=== PATIENT | female | born 1945 | race Caucasian/White ===

== ENCOUNTER → 2018-05-13 15:57 | Outpatient (CLI) | payer MEDICARE, SELFPAY ==
--- NOTE | 2018-05-13 16:08 | XR_ITS ---
EXAM: XR lumbar spine min 4V HISTORY: Right-sided low back pain radiating into the right leg ITS.REASON: RT SIDED SCIATICA ORDERING PHYSICIAN: Ever Jara MD PATIENT AGE: 72 years COMPARISON: None FINDINGS: Minimal lumbar curvature convex left. There is mild wedging involving the L1 vertebral body which has developed since 06/06/2012. There is anterolisthesis of L4 on L5 of 6 mm with degenerative disc disease at L3-L4 L4-5 and L5-S1. There is mild facet arthritic change at L4-5 and L5-S1. IMPRESSION: 1. Mild wedging of L1 anteriorly with loss of height of approximately 20%. Consider MRI to determine if this is acute or chronic. No obvious retropulsed fragments. 2. Degenerative disc disease L3-L4, L4 L5 and L5-S1 with 6 mm anterolisthesis of L4 on L5 and facet arthritic changes at L4-5 and L5-S1
== END ==
PROVIDERS: PCP Family Medicine; Visit Provider Family Medicine
DX: M54.31 Sciatica, right side (principal)
CPT/HCPCS: 72110

== ENCOUNTER → 2018-08-27 08:24 | Outpatient (CLI) | payer MEDICARE, SELFPAY ==
--- NOTE | 2018-08-27 08:29 | MR_ITS ---
MR lumbar spine wo/w con, MR 3-d myelogram/MRCP HISTORY: PT states RT hip pain X years. RT leg pain as well. ITS.REASON: BACK PAIN, compression fracture of L1 ORDERING PHYSICIAN: Samantha Resendiz APRN PATIENT AGE: 73 years Comparison: X-RAY 05/13/18 TECHNIQUE: Standard multiplanar multiecho sequences are performed without and with gadolinium enhancement contrast. 3-D MIP and myelographic images are also rendered and reviewed FINDINGS: There is normal alignment. The spinal cord ends at the T12-L1 level. T10-T11: Mild degenerative disc disease T11-T12: Mild degenerative disc disease. T12-L1: There is mild wedge compression changes of the L1 vertebral body with minimal buckling of the posterior cortex superiorly. This does not appear acute as there is no bone marrow edema within the L1 vertebral body. The cortex is buckled posteriorly by approximately 3 mm without impingement. There is mild facet and ligamentum flavum hypertrophy at this level. L1-L2: Unremarkable. L2-L3: Mild bulging disc with mild facet and ligamentum flavum hypertrophy. L3-L4: Degenerative disc disease with bulging disc slightly eccentric to the right with right-sided foraminal disc osteophyte complex causing moderate severe right-sided foraminal narrowing and right lateral recess narrowing. L4-5: Degenerative disc disease. There is bulging disc. There is 5 mm anterolisthesis of L4 and there is severe facet and ligamentum flavum hypertrophy with severe canal stenosis at this level with canal measuring approximately 7 mm. There is severe bilateral lateral recess narrowing and moderate bilateral foraminal narrowing slightly greater on the left. L5-S1: Mild bulging disc. There is moderate left-sided foraminal narrowing from facet hypertrophy and the bulging disc. No enhancing lesions are evident. 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 There are small left renal cyst. The right kidney is not identified or may be severely atrophic. IMPRESSION: 1. There is multilevel lumbar spondylosis with degenerative disc disease, bulging disc, and facet and ligamentous hypertrophy. Please see above for detailed description at each level. 2. Mild wedging of L1 vertebral body which appears chronic with minimal posterior buckling of the cortex without impingement 3. Degenerative disc disease with bulging disc with right-sided foraminal disc osteophyte complex at L3-L4 causing moderate to severe right-sided foraminal and right lateral recess narrowing 4. Degenerative disc disease with bulging disc and 5 mm anterolisthesis of L4 on L5 with severe facet and ligamentum hypertrophy with moderate to severe canal stenosis and bilateral lateral recess and foraminal narrowing 5. A normal right kidney is not identified and may be severely atrophic
== END ==
PROVIDERS: PCP Nurse Practitioner Family; Visit Provider Nurse Practitioner Family
DX: M54.5 Low back pain (principal)
CPT/HCPCS: 72158; 76376; A9576

== ENCOUNTER → 2018-11-20 11:39 | Outpatient (CLI) | payer MEDICARE, SELFPAY ==
--- NOTE | 2018-11-20 11:46 | XR_ITS ---
PROCEDURE: XR SHOULDER LT three-view 11/20/2018 XR CLAVICLE LT from 11/20/2018 CLINICAL INDICATION: INJURY OF LEFT SHOULDER, INITAL ENCOUNTER Fell this morning pain and swelling left shoulder. Near AC joint COMPARISON: [id number] VIEWS from 05/05/2013 XR CLAVICLE LT from 11/20/2018 FINDINGS: Left [id number] Fracture distal left clavicle with mildly comminuted The main portion this distal clavicle fracture is seen 3 cm from the AC joint Minor mild inferior offset and mild downward tilt of the distal fracture fragment leading to the AC joint On close inspection of horizontal inferior fragment at this mildly comminuted fracture. This may reflect a inferior avulsion fragment, which leads to/and accompanying the coricoclavicular ligament Left shoulder three views AP internal and external rotation along with Y view performed but the humeral head and neck intact but the glenohumeral joint intact there may be some early degenerative changes here as well as AC joint these unimpressive. The left lung apex and upper left ribs are intact. Again noted is fracture of the distal clavicle on these views IMPRESSION: Fracture distal left clavicle. Minimally comminuted Otherwise left shoulder intact Dictated by: Mateo Aguirre MD 11/20/2018 12:29 Signed by: <Electronically signed by Mateo Aguirre MD in [place]> 11/20/2018 12:29
--- NOTE | 2018-11-20 11:46 | XR_ITS ---
PROCEDURE: XR CLAVICLE LT XR SHOULDER LT MIN 2V from 11/20/2018 CLINICAL INDICATION: INJURY OF LEFT SHOULDER, INITAL ENCOUNTER pain swelling about distal clavicle ports AC joint COMPARISON: XR SHOULDER LT MIN 2V from 11/20/2018 FINDINGS: Left [id number]: Fracture distal left clavicle with mildly comminuted The main portion this distal clavicle fractu Near re is seen 3 cm from the AC joint Minor mild inferior offset and mild downward tilt of the distal fracture fragment leading to the AC joint On close inspection of horizontal inferior fragment at this mildly comminuted fracture. This may reflect a inferior avulsion fragment, which leads to/and accompanying the coricoclavicular ligament Left shoulder three views : AP internal and external rotation along with Y view performed but the humeral head and neck intact.. The glenohumeral joint intact there may be some early degenerative changes here as well as AC joint these unimpressive. The left lung apex and upper left ribs are intact. Again noted is fracture of the distal clavicle on these views IMPRESSION: IMPRESSION Fracture distal left clavicle. Minimally comminuted Otherwise left shoulder intact Dictated by: Mateo Aguirre MD 11/20/2018 12:32 Signed by: <Electronically signed by Mateo Aguirre MD in [place]> 11/20/2018 12:32
== END ==
PROVIDERS: PCP Physician Assistant; Visit Provider Physician Assistant
DX: S49.92XA Unspecified injury of left shoulder and upper arm, initial encounter (principal)
CPT/HCPCS: 73000; 73030

== ENCOUNTER → 2018-11-27 10:15 | Outpatient (CLI) | payer MEDICARE, SELFPAY ==
--- NOTE | 2018-11-27 10:21 | XR_ITS ---
PROCEDURE: XR HUMERUS LT CLINICAL INDICATION: LT ARM PAIN COMPARISON: No exams were available for comparison FINDINGS: No fracture or dislocation. No lytic or blastic change. There is normal mineralization. There is a mildly displaced fracture of the distal clavicle Other findings:None. IMPRESSION: Negative humerus. Comminuted displaced distal clavicular fracture Dictated by: Hardik Bennett MD 11/27/2018 13:15 Signed by: <Electronically signed by Hardik Bennett MD in [place]> 11/27/2018 13:15
--- NOTE | 2018-11-27 10:21 | XR_ITS ---
PROCEDURE: XR CHEST 2V CLINICAL HISTORY: CHEST WALL PAIN COMPARISON: CXR CHEST(2 VIEWS-NOT PORTABLE) from 06/06/2012 RIBUL3 [id number] VIEWS from 05/05/2013 FINDINGS: Normal heart size. Mild prominence of the descending thoracic aorta. There is some increased density in the right hilar region probably due to overlapping vasculature. Loop recorder device is present. Comminuted distal clavicular fracture noted on the left. The medial aspect of the left clavicle is slightly higher than the right side. This however did appear to be present on an older exam of 05/05/2013. There are degenerative changes in the thoracic spine. IMPRESSION: Mild ectasias of the descending thoracic aorta Comminuted distal clavicular fracture on the left. There is some mild superior elevation of the medial aspect of the left clavicle but appears to represent a chronic finding Dictated by: Hardik Bennett MD 11/27/2018 13:21 Signed by: <Electronically signed by Hardik Bennett MD in [place]> 11/27/2018 13:21
--- NOTE | 2018-11-27 10:21 | XR_ITS ---
PROCEDURE: XR CLAVICLE LT CLINICAL INDICATION: HEALING OF LT CLAVICLE FX Follow-up clavicular fracture COMPARISON: XR CLAVICLE LT from 11/20/2018 FINDINGS: Comminuted mildly displaced distal clavicular fracture is noted. The distal fracture fragment is slightly angulated inferiorly and there is displaced fragment along the under surface of the fracture site. Overall no significant change considering some difference in positioning. The AC joint appears intact and the glenohumeral joint appears intact IMPRESSION: No change comminuted mildly displaced distal clavicular fracture Dictated by: Hardik Bennett MD 11/27/2018 13:16 Signed by: <Electronically signed by Hardik Bennett MD in [place]> 11/27/2018 13:16
== END ==
PROVIDERS: PCP Family Medicine; Visit Provider Physician Assistant
DX: R07.89 Other chest pain (principal); M79.602 Pain in left arm; S42.032D Displaced fracture of lateral end of left clavicle, subsequent encounter for fracture with routine healing
CPT/HCPCS: 71046; 73000; 73060

== ENCOUNTER → 2018-12-04 14:02 | Outpatient (CLI) | payer MEDICARE, SELFPAY ==
--- NOTE | 2018-12-04 14:08 | XR_ITS ---
PROCEDURE: XR CLAVICLE LT CLINICAL INDICATION: FU CLAVICLE FX Follow-up fracture COMPARISON: XR CLAVICLE LT from 11/27/2018 FINDINGS: Comminuted fracture once again noted involving the distal clavicle with inferior angulation of the distal fracture fragment. There is a fragment which is displaced inferiorly foot. IMPRESSION: No change distal left clavicular fracture Dictated by: Hardik Bennett MD 12/04/2018 14:38 Signed by: <Electronically signed by Hardik Bennett MD in [place]> 12/04/2018 14:38
== END ==
PROVIDERS: PCP Family Medicine; Visit Provider Family Medicine
DX: S42.032D Displaced fracture of lateral end of left clavicle, subsequent encounter for fracture with routine healing (principal)
CPT/HCPCS: 73000

== ENCOUNTER → 2018-12-25 14:15 | Outpatient (CLI) | payer MEDICARE, SELFPAY ==
--- NOTE | 2018-12-25 14:22 | XR_ITS ---
PROCEDURE: XR CLAVICLE LT CLINICAL INDICATION: LT CLAVICLE FX Follow-up fracture COMPARISON: XR CLAVICLE LT from 11/20/2018 XR CLAVICLE LT from 11/27/2018 XR CLAVICLE LT from 12/04/2018 FINDINGS: Healing comminuted distal clavicular fracture noted. There is a small displaced fragment once again noted which appears somewhat less displaced compared to the previous studies. This is inferior to the main fracture fragment. IMPRESSION: Healing comminuted distal clavicular fracture Dictated by: Hardik Bennett MD 12/25/2018 15:32 Electronically signed by Hardik Bennett MD in [place] 12/25/2018 15:32
== END ==
PROVIDERS: PCP Family Medicine; Visit Provider Family Medicine
DX: S42.032D Displaced fracture of lateral end of left clavicle, subsequent encounter for fracture with routine healing (principal)
CPT/HCPCS: 73000

== ENCOUNTER → 2019-01-27 13:54 | Outpatient (CLI) | payer MEDICARE, SELFPAY ==
--- NOTE | 2019-01-27 14:00 | XR_ITS ---
PROCEDURE: XR CHEST 2V CLINICAL HISTORY: LT SIDED CHEST WALL PAIN, S/P FALL COMPARISON: CXR CHEST(2 VIEWS-NOT PORTABLE) from 06/06/2012 XR CHEST 2V from 11/27/2018 FINDINGS: The cardiomediastinal silhouette and pulmonary vascularity are within normal limits. A loop recorder device is present. There are multiple old bilateral rib fractures. There may be a nondisplaced 7th rib fracture as seen on the rib detail films. The lungs are clear bilaterally. There are degenerative changes of the thoracic spine with kyphosis and mild wedging of T6-7 and 8. IMPRESSION: Old rib fractures with suspected nondisplaced acute left 7th rib fracture Dictated by: Hardik Bennett MD 01/27/2019 16:42 Electronically signed by Hardik Bennett MD in [place] 01/27/2019 16:42
--- NOTE | 2019-01-27 14:00 | XR_ITS ---
PROCEDURE: XR RIBS LT 2V CLINICAL INDICATION: LT SIDED CHEST WALL PAIN, S/P FALL Left-sided chest wall pain COMPARISON: XR CHEST 2V from 01/27/2019 FINDINGS: There are old left-sided rib fractures. This involves the 4th 5th and 6th ribs laterally. There appears to be a nondisplaced fracture of the 7th rib laterally which may be acute. Loop recorder device is present on the left. IMPRESSION: Old left-sided rib fractures with suspected nondisplaced acute left 7th rib fracture Dictated by: Hardik Bennett MD 01/27/2019 16:27 Electronically signed by Hardik Bennett MD in [place] 01/27/2019 16:27
== END ==
PROVIDERS: PCP Family Medicine; Visit Provider Family Medicine
DX: R07.89 Other chest pain (principal)
CPT/HCPCS: 71046; 71100

== ENCOUNTER → 2019-06-03 07:34 | Outpatient (CLI) | payer MEDICARE, SELFPAY ==
[2019-06-03 08:20] LABS: Basophils % 0.6 % (0.1-2.0); Eosinophils # 0.2 K/mm3 (0.0-0.4); Hemoglobin 13.7 g/dL (12.2-16.2); Lymphocytes # 1.4 K/mm3 (0.7-4.5); Mean Corpuscular HGB Conc 31.9 g/dL (31.8-35.4); Mean Corpuscular Volume 100.2 fl (81-99); Mean Platelet Volume 7.7 fl (7.4-10.4); Monocytes # 0.3 K/mm3 (0.1-1.0); Neutrophils # 2.5 K/mm3 (1.8-7.8); Neutrophils % 57.4 % (37.0-80.0); Platelet Count 234 K/mm3 (142-424); Red Blood Count 4.29 M/mm3 (4.20-5.40); White Blood Count 4.4 K/mm3 (4.8-10.8)
[2019-06-03 08:40] LABS: Chloride 101 mmol/L (98-107); Sodium 138 mmol/L (136-145)
[2019-06-03 08:41] LABS: Potassium 4.3 mmoL/L (3.5-5.1)
[2019-06-03 08:43] LABS: Alanine Aminotransferase 10 U/L (12-78); Albumin Level 3.9 g/dl (3.5-5.0); Albumin/Globulin Ratio 1.6 (1.1-1.8); Alkaline Phosphatase 109 U/L (38-126); Anion Gap 8.3 mEq/L (5-15); Aspartate Amino Transferase 23 U/L (14-36); Bilirubin,Total 0.3 mg/dl (0.2-1.3); Blood Urea Nitrogen 20 mg/dl (7-17); Carbon Dioxide 33 mmol/L (22.0-30.0); Cholesterol 185 mg/dl (140-200); Estimated Glomerular Filt Rate 49 ml/min (>60); GFR (African American) 59 ML/MIN (>60); Globulin 2.5 g/dL (1.3-3.2); Total Protein,Serum 6.4 g/dl (6.3-8.2); Triglycerides 68 mg/dl (30-150); VLDL Cholesterol 14 mg/dL (0-40)
[2019-06-03 08:44] LABS: Calcium 9.4 mg/dl (8.4-10.2); Glucose 84 mg/dl (74-100); HDL Cholesterol 91 mg/dl (40-60)
[2019-06-03 08:55] LABS: Direct LDL Cholesterol 79.88 mg/dL (100-129)
[2019-06-03 09:00] LABS: Free T4 (Free Thyroxine) 0.71 ng/dl (0.78-2.19)
[2019-06-03 09:14] LABS: Thyroid Stimulating Hormone 4.24 uIU/mL (0.465-4.68)
[2019-06-03 09:28] LABS: Carbamazepine (Tegretol) 4.7 ug/ml (4.0-12.0)
[2019-06-03 09:35] LABS: Hemoglobin A1C 5.8 % (4.0-6.0)
== END ==
PROVIDERS: Visit Provider Nurse Practitioner Family
DX: G40.909 Epilepsy, unspecified, not intractable, without status epilepticus (principal); E03.9 Hypothyroidism, unspecified; E55.9 Vitamin D deficiency, unspecified; E78.5 Hyperlipidemia, unspecified; I10 Essential (primary) hypertension; Z13.1 Encounter for screening for diabetes mellitus; Z79.899 Other long term (current) drug therapy
CPT/HCPCS: 36415; 80053; 80061; 80156; 82652; 83036; 84439; 84443; 85025

== ENCOUNTER 2019-12-19 13:20 | Emergency (ER) | payer MEDICARE, SELFPAY ==
[2019-12-19 13:42] VITALS: BP 158/100; PULSE 64; RESP 20; TEMP 36.8; O2SAT 99; BMI 30.4
--- NOTE | 2019-12-19 13:52 | HMH.EDUTC ---
[facility] [place] Clinical Impression: Urinary frequency Disposition: Home, Self-Care Condition on Discharge: Good Instructions: Urine Culture, Oxybutynin Additional Instructions: Follow up with your primary care doctor within the next few days or so. Take the medications as directed. Watch for dizziness from the new medication. GO TO THE ER FOR ANY WORSENING SYMPTOMS OR CONCERNS. Prescriptions: Oxybutynin Chloride 2.5 mg PO BID 14 Days #7 tab Transmission Status: Received by [id number] Referrals: Ever Jara MD [Primary Care Provider] - Time of Disposition: 15:08 Medical Decision Making - Medical Records Medical records reviewed: No: I reviewed the patient's medical records. - Joseph Inquiry Pt receiving controlled substance: No Vital Signs: 12/19/19 13:42 12/19/19 15:11 Temperature 98.2 F 98.2 F Temperature Source Oral Pulse Rate 64 Pulse Rate [Left Brachial] 64 Respiratory Rate 20 20 Blood Pressure 158/100 H Blood Pressure [Left Arm] 158/100 H Blood Pressure Mean [Left Arm] 119 Blood Pressure Source [Left Arm] Automatic Cuff Blood Pressure Position [Left Arm] Sitting 02 Sat by Pulse Oximetry 99 Oxygen Delivery Method Room Air - Lab Data Lab results reviewed: Yes: I reviewed the patient's lab results. Lab Results 12/19/19 14:02: Urine Color Yellow, Urine Appearance Clear, Urine pH 5.5, Ur Specific [place] 1.020, Urine Protein Negative, Urine Glucose (UA) Negative, Urine Ketones Trace, Urine Blood Negative, Urine Nitrate Negative, Urine Bilirubin Negative, Urine Urobilinogen 0.2, Ur Leukocyte Esterase Negative 12/19/19 14:37: WBC 4.2 L, RBC 4.25, Hgb 14.3, Hct 41.3, MCV 97.2, MCH 33.6 H, MCHC 34.6, RDW 13.2, Plt Count 215, MPV 7.9, Neut % (Auto) 62.3, Lymph % (Auto) 26.6, [place] % (Auto) 6.2, Eos % (Auto) 4.0, Baso % (Auto) 0.9, Neut # (Auto) 2.6, Lymph # (Auto) 1.1, [place] # (Auto) 0.3, Eos # (Auto) 0.2, Baso # (Auto) 0.0 12/19/19 14:37: Sodium 139, Potassium 4.9, Chloride 103, Carbon Dioxide 32 H, Anion Gap 8.9, BUN 25 H, Creatinine 1.10 H, Estimated Creat Clear 56, Estimated GFR 48 L, Est GFR ( Amer) 59, Glucose 96, Calcium 9.2, Total Bilirubin 0.3, AST 24, ALT 13, Alkaline Phosphatase 110, Total Protein 6.9, Albumin 4.0, Globulin 2.9, Albumin/Globulin Ratio 1.4 Result diagrams: 12/19/19 14:37 12/19/19 14:37 [facility] [place] - General Stated complaint: urinating a lot Time Seen by Provider: 12/19/19 13:50 Mode of Arrival: Ambulatory Source of Information: Patient Limitations: No Limitations Description of Symptoms (Recalled from Triage Doc. by RN): PATIENT C/O URINARY FREQUENCY SINCE YESTERDAY HEENT Symptoms (Recalled from RN notes): No Resp Symptoms (Recalled from RN notes): No Skin Symptoms (Recalled from RN notes): No MS Symptoms (Recalled from RN notes): No Functional Status (Recalled from RN notes): WNL - History of Present Illness Provider Complaint: She c/o having to go pee very often. She states that this has been an ongoing problem for quite awhile, but she had not told anyone in her family. When she complained today, she came here to see if it is a UTI. She doesn't have a history of getting UTI's often. She may have had one several years ago. 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 - Related Data Home Medications Medication Instructions Recorded Confirmed Aspirin [Aspirin 81mg chewable 81 mg PO DAILY 12/19/19 12/19/19 tab] Atorvastatin Calcium [Lipitor 40mg 40 mg PO HS 12/19/19 12/19/19 Tab] Clopidogrel Bisulfate [Plavix 75mg 75 mg PO DAILY 12/19/19 12/19/19 Tab] Donepezil HCl [Aricept 10mg 10 mg PO HS 12/19/19 12/19/19 tablet] Fluoxetine HCl [Prozac 10mg 10 mg PO DAILY 09/12/20 09/12/20 Capsule] Levothyroxine Sodium [Euthyrox] 25 mcg PO DAILY 12/19/19 12/19/19 Meloxicam [Mobic 15 mg tab] 15 mg PO DAILY 12/19/19 12/19/19 [id number]
[2019-12-19 14:04] LABS: Apearance,Urine Clear (Clear); Bilirubin,Urine Negative (Negative); Blood, Urine Negative (Negative); Color,Urine Yellow (Yellow); Glucose,Urine (UA) Negative (Negative); Ketones,Urine TRACE (Negative); PH,Urine 5.5 (5.0-8.5); Protein,Urine Negative (Negative)
[2019-12-19 14:05] LABS: UTC Leukocyte Esterase,Urine Negative (Negative); UTC Nitrate,Urine Negative (Negative); Urobilinogen,Urine 0.2 EU/dl (0.2)
[2019-12-19 14:40] LABS: Basophils % 0.9 % (0.1-2.0); Eosinophils # 0.2 K/mm3 (0.0-0.4); Hematocrit 41.3 % (37.0-47.0); Hemoglobin 14.3 g/dL (12.2-16.2); Lymphocytes # 1.1 K/mm3 (0.7-4.5); Lymphocytes % 26.6 % (10-50); Mean Corpuscular HGB Conc 34.6 g/dL (31.8-35.4); Mean Corpuscular Hemoglobin 33.6 pg (27.0-31.2); Mean Corpuscular Volume 97.2 fl (81-99); Mean Platelet Volume 7.9 fl (7.4-10.4); Monocytes # 0.3 K/mm3 (0.1-1.0); Monocytes % 6.2 % (1.7-9.3); Neutrophils # 2.6 K/mm3 (1.8-7.8); Neutrophils % 62.3 % (37.0-80.0); Platelet Count 215 K/mm3 (142-424); Red Blood Count 4.25 M/mm3 (4.20-5.40); Red Cell Distribution Width 13.2 % (11.5-17.5); White Blood Count 4.2 K/mm3 (4.8-10.8)
[2019-12-19 14:46] LABS: Chloride 103 mmol/L (98-107); Potassium 4.9 mmoL/L (3.5-5.1); Sodium 139 mmol/L (136-145)
[2019-12-19 14:48] LABS: Alanine Aminotransferase 13 U/L (12-78); Aspartate Amino Transferase 24 U/L (14-36); Blood Urea Nitrogen 25 mg/dl (7-17); Creatinine Clearance Estimated 56 mL/min (50-200); Estimated Glomerular Filt Rate 48 ml/min (>60); GFR (African American) 59 ML/MIN (>60)
[2019-12-19 14:49] LABS: Albumin/Globulin Ratio 1.4 (1.1-1.8); Alkaline Phosphatase 110 U/L (38-126); Anion Gap 8.9 mEq/L (5-15); Bilirubin,Total 0.3 mg/dl (0.2-1.3); Calcium 9.2 mg/dl (8.4-10.2); Carbon Dioxide 32 mmol/L (22.0-30.0); Globulin 2.9 g/dL (1.3-3.2); Glucose 96 mg/dl (74-100); Total Protein,Serum 6.9 g/dl (6.3-8.2)
[2019-12-19 15:11] VITALS: BP 158/100; PULSE 64; RESP 20; TEMP 36.8; O2SAT 99
== END 2019-12-19 15:16 | disposition home or self-care (01) ==
PROVIDERS: Emergency Provider Nurse Practitioner Family; PCP Family Medicine
DX: R35.0 Frequency of micturition (principal); Z88.0 Allergy status to penicillin; Z88.5 Allergy status to narcotic agent
CPT/HCPCS: G0463; 80053; 81003; 85025; 99202

== ENCOUNTER → 2019-12-30 13:00 | Outpatient (CLI) | payer MEDICARE, SELFPAY ==
--- NOTE | 2019-12-30 13:10 | XR_ITS ---
PROCEDURE: XR HAND RT MIN 3V CLINICAL INDICATION: RT HAND INJURY Posttraumatic pain COMPARISON: CR XR HAND LT MIN 3V from 12/30/2019 FINDINGS: There does appear to be a nondisplaced fracture involving the distal aspect of the 5th metacarpal at the diaphyseal metaphyseal junction best demonstrated on the lateral view. Please correlate as the patient's area of pain and tenderness. A separate fragment is noted along the ulnar and distal aspect of the 5th metacarpal. There are osteoarthritic changes at the metacarpophalangeal junction and the DIP joints of digits 2 through 5. There are severe osteoarthritic changes at the scapho trapezium joint. A well-circumscribed lucent lesion is present involving the radius distally and along its ulnar margin. IMPRESSION: 1. Possible nondisplaced fracture distal aspect of 5th metacarpal with avulsion injury along its ulnar aspect. Please correlate as the patient's area of pain and tenderness. 2. Osteoarthritic changes. 3. 14 mm benign-appearing cystic lesion of the distal radius Dictated by: Hardik Bennett MD 12/30/2019 14:48 Hardik Bennett MD in [place] 12/30/2019 14:48
--- NOTE | 2019-12-30 13:10 | XR_ITS ---
PROCEDURE: XR RIBS LT MIN 3V W CXR1V CLINICAL INDICATION: LT RIB PAIN Posttraumatic pain COMPARISON: CR CXR CHEST(2 VIEWS-NOT PORTABLE) from 06/06/2012 CR XR CHEST 2V from 11/27/2018 CR XR CHEST 2V from 01/27/2019 FINDINGS: Minimal atelectatic or fibrotic changes are present in the lung bases at the CP angles. Normal heart size. There is a sawyer-shaped hemithorax which may be seen with osteopenia/osteoporosis. There are multiple old left-sided rib fractures. No definite acute fracture is apparent. There are old fractures of the left 4th 5th 6th and 7th ribs. Loop recorder device is noted over the left lower hemithorax IMPRESSION: Old left-sided rib fractures. No definite acute fracture. If pain persists consider chest CT with 3D reformats for more thorough evaluation. Dictated by: Hardik Bennett MD 12/30/2019 14:55 Hardik Bennett MD in [place] 12/30/2019 14:55
--- NOTE | 2019-12-30 13:10 | XR_ITS ---
PROCEDURE: XR KNEE RT 3V CLINICAL INDICATION: RT KNEE PAIN COMPARISON: CR [id number] KNEE-3 VIEWS-LT from 05/05/2013 FINDINGS: No fracture or dislocation. No lytic or blastic change. There is normal mineralization. There are minimal osteoarthritic changes the patellofemoral joint Other findings:There is minimal chondrocalcinosis of the medial and lateral meniscus. IMPRESSION: Minimal osteoarthritic change with chondrocalcinosis Dictated by: Hardik Bennett MD 12/30/2019 14:52 Hardik Bennett MD in [place] 12/30/2019 14:52
--- NOTE | 2019-12-30 13:10 | XR_ITS ---
PROCEDURE: XR HAND LT MIN 3V CLINICAL INDICATION: LT HAND INJURY Posttraumatic pain COMPARISON: No exams were available for comparison FINDINGS: There are generalized osteoarthritic changes most severe at the 1st metacarpal-carpal joint. A longitudinal fracture is present at the proximal aspect of the middle phalanx of the 5th digit which extends into the articular surface at the PIP joint. There is 2 mm dorsal displacement of the proximal fracture fragment with minimal dorsal angulation of the distal fracture fragment. IMPRESSION: Intra-articular fracture of the middle phalanx of the 5th digit with extension into the PIP joint Dictated by: Hardik Bennett MD 12/30/2019 14:51 Hardik Bennett MD in [place] 12/30/2019 14:51
--- NOTE | 2019-12-30 13:10 | XR_ITS ---
PROCEDURE: XR FACIAL BONES MIN 3V CLINICAL INDICATION: FACIAL INJURY posttraumatic pain COMPARISON: No exams were available for comparison FINDINGS: No fracture or dislocation. No lytic or blastic change. There is normal mineralization. Unremarkable appearing TMJs. No sinus air-fluid level. IMPRESSION: No acute findings. Dictated by: Hardik Bennett MD 12/30/2019 14:56 Hardik Bennett MD in [place] 12/30/2019 14:56
== END ==
PROVIDERS: PCP Family Medicine; Visit Provider Nurse Practitioner Family
DX: S09.93XA Unspecified injury of face, initial encounter (principal); S69.92XA Unspecified injury of left wrist, hand and finger(s), initial encounter; S69.91XA Unspecified injury of right wrist, hand and finger(s), initial encounter; M25.561 Pain in right knee; R07.81 Pleurodynia
CPT/HCPCS: 70150; 71101; 73130; 73562

== ENCOUNTER → 2020-01-20 15:02 | Outpatient (CLI) | payer MEDICARE, SELFPAY ==
--- NOTE | 2020-01-20 | XR_ITS ---
PROCEDURE: XR FINGER LT MIN 2V CLINICAL INDICATION: FRACTURE OF DISTAL PHALANX OF FINGER OF LT HAND COMPARISON: No exams were available for comparison FINDINGS: Minimally displaced fracture involves the proximal aspect of the middle phalanx of the 5th digit with extension into the PIP joint. The middle phalanx is slightly displaced anteriorly by approximately 3 mm. Posterior fracture fragment is displaced posteriorly by 2 mm. IMPRESSION: Comminuted fracture proximal aspect of middle phalanx of the 5th digit Dictated by: Hardik Bennett MD 01/20/2020 16:23 Hardik Bennett MD in [place] 01/20/2020 16:23
--- NOTE | 2020-01-20 | XR_ITS ---
PROCEDURE: XR HAND RT MIN 3V CLINICAL INDICATION: FRACTURE OF RT HAND, CLOSED, INITIAL ENCOUNTER COMPARISON: CR XR HAND RT MIN 3V from 12/30/2019 CR XR HAND LT MIN 3V from 12/30/2019 FINDINGS: There is a splint in place stabilizing the 4th 5th digits. There may there appears to be a avulsion fracture along the distal and ulnar aspect the 5th metacarpal. 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 Osteoarthritic changes are present of the DIP joints. IMPRESSION: Splint in place. Avulsion fracture distal aspect of 5th metacarpal with osteoarthritic changes Dictated by: Hardik Bennett MD 01/20/2020 16:21 Hardik Bennett MD in [place] 01/20/2020 16:21
== END ==
PROVIDERS: PCP Nurse Practitioner Family; Visit Provider Nurse Practitioner Family
DX: S62.661A Nondisplaced fracture of distal phalanx of left index finger, initial encounter for closed fracture (principal); S62.91XA Unspecified fracture of right hand, initial encounter for closed fracture
CPT/HCPCS: 73130; 73140

== ENCOUNTER → 2020-02-10 13:07 | Outpatient (CLI) | payer MEDICARE, SELFPAY ==
--- NOTE | 2020-02-10 13:13 | XR_ITS ---
PROCEDURE: XR DEXA AXIAL SKELETON CLINICAL HISTORY: POST MENOPAUSAL COMPARISON: No exams were available for comparison FINDINGS: The right hip BMD is 0.598 with a T-score of -2.3. The left hip BMD is 0.618 with a T-score of -2.1. The lumbar spine BMD is 0.905 the with a T-score of -1.3. IMPRESSION: This patient is considered osteopenic according to the World Health Organization criteria. Bone density is between 10 and 25 percent below young normal. Fracture risk is moderate. Treatment is advised. Based on these results a follow-up exam is recommended in 2 year. Dictated by: Hardik Bennett MD 02/10/2020 19:18 Hardik Bennett MD in [place] 02/11/2020 08:53
--- NOTE | 2020-02-10 13:13 | MM_ITS ---
PROCEDURE: MM DIG SCREENING MAMM BI W/CAD Digital Breast Tomosynthesis Included CLINICAL INDICATION: SCREENING There is a history of breast cancer patient's mother. 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 R2 CAD reviewed. FINDINGS: Mild to moderate fibroglandular densities are seen in the central portions of both breasts. There has been some fatty involution of the breast parenchyma since the previous exam 09/25/2011. There is a metallic loop recorder device overlying the mid left breast inner quadrant. There is faint arterial calcification in each breast. There are stable low-lying nodes in both axilla. There is no suspicious lesion and no suspicious microcalcifications. IMPRESSION: Moderate breast density with no suspicious lesions seen BI-RAD Category: 2 Benign Finding(s) FOLLOW-UP: 1YR 1 Year Follow-up (A letter has been sent to the patient regarding results of the study.) Dictated by: Dr. Vin Cruz MD 02/16/2020 07:57 Dr. Vin Cruz MD in [place] 02/16/2020 07:57
--- NOTE | 2020-02-10 13:14 | XR_ITS ---
PROCEDURE: XR HAND RT MIN 3V CLINICAL INDICATION: RT HAND FX Follow-up fracture COMPARISON: CR XR HAND RT MIN 3V from 12/30/2019 CR XR HAND LT MIN 3V from 12/30/2019 CR XR HAND RT MIN 3V from 01/20/2020 FINDINGS: A splint is in place along the ulnar aspect of the hand and wrist which includes the 4th and 5th digits with ulnar angulation of these digits. There has been a prior fracture described at the 5th metacarpal distally which is obscured by the splint. There is good alignment. Mild osteoarthritic changes are present at the metacarpophalangeal joints. A cystic lesion also noted at the head of the radius as before. IMPRESSION: Ulnar splint in place with good alignment of the 4th and 5th digits Dictated by: Hardik Bennett MD 02/10/2020 14:18 Hardik Bennett MD in [place] 02/10/2020 14:18
--- NOTE | 2020-02-10 13:14 | XR_ITS ---
PROCEDURE: XR HAND LT MIN 3V CLINICAL INDICATION: 5TH DIGIT FX Follow-up fracture COMPARISON: CR XR HAND RT MIN 3V from 12/30/2019 CR XR HAND LT MIN 3V from 12/30/2019 CR XR HAND RT MIN 3V from 01/20/2020 FINDINGS: There is an avulsion fracture involving the proximal and ulnar aspect and dorsal aspect of the middle phalanx of the 5th finger. There is mild anterior displacement of the middle phalanx and mild dorsal angulation of the distal aspect of the middle phalanx. There are some osteoarthritic changes at the PIP joint. The fracture line is somewhat less apparent Other findings:None. IMPRESSION: Healing fracture involves the proximal aspect of the middle phalanx of the 5th digit with mild anterior displacement and dorsal angulation of the distal fracture fragment Dictated by: Hardik Bennett MD 02/10/2020 14:20 Hardik Bennett MD in [place] 02/10/2020 14:20
== END ==
PROVIDERS: PCP Nurse Practitioner Family; Visit Provider Nurse Practitioner Family
DX: Z13.820 Encounter for screening for osteoporosis (principal); Z78.0 Asymptomatic menopausal state; Z12.31 Encounter for screening mammogram for malignant neoplasm of breast; S62.91XA Unspecified fracture of right hand, initial encounter for closed fracture; S62.639A Displaced fracture of distal phalanx of unspecified finger, initial encounter for closed fracture
CPT/HCPCS: 73130; 77063; 77067; 77080

== ENCOUNTER → 2020-04-13 17:22 | Outpatient (CLI) | payer MEDICARE, SELFPAY ==
--- NOTE | 2020-04-13 | XR_ITS ---
PROCEDURE: XR KNEE RT 3V CLINICAL INDICATION: Knee pain COMPARISON: CR KNEE3L KNEE-3 VIEWS-LT from 05/05/2013 CR XR KNEE RT 3V from 12/30/2019 FINDINGS: No fracture or dislocation. No lytic or blastic change. There is normal mineralization. There are mild osteoarthritic changes involving all 3 compartments with chondrocalcinosis of both medial and lateral meniscus. Other findings:None. IMPRESSION: Mild osteoarthritis with chondrocalcinosis Dictated by: Hardik Bennett MD 04/13/2020 17:58 Hardik Bennett MD in [facility] 04/13/2020 17:58
== END ==
PROVIDERS: PCP Family Medicine; Visit Provider Family Medicine
DX: S89.91XA Unspecified injury of right lower leg, initial encounter (principal)
CPT/HCPCS: 73562

== ENCOUNTER 2020-11-08 17:38 | Observation (INO) | payer MEDICARE, SELFPAY ==
[2020-11-08] VITALS (16 sets, daily range): BP systolic 121–180; BP diastolic 70–98; PULSE 56–75; RESP 15–20; TEMP 36.5–36.9; O2SAT 94–100; BMI 30.1; BMI 30.7
--- NOTE | 2020-11-08 17:35 | ECG_ITS ---
APPROVED REPORT Exam: Resting ECG HR:66 bpm ECG Measurements Heart Rate 66 AXES KS 200 P 42 QRSd 82 QRS -15 QT 430 T 67 QTc 450 Conclusion Normal sinus rhythm RSR' or QR pattern in V1 suggests right ventricular conduction delay Borderline ECG Electronically signed by : Jeremiah Ledesma MD 11/11/2020 11:40:42
--- NOTE | 2020-11-08 17:42 | HMH.EDGENADL ---
ED Disposition Condition on Discharge: Good - Critical Care Critical Care Time: No <Aashish Sanchez - Last Filed: 11/08/20 20:09> <Mickey Joyner - Last Filed: 11/08/20 22:44> Clinical Impression: Chest pain Qualifiers: Chest pain type: unspecified Qualified Code(s): R07.9 - Chest pain, unspecified Disposition: Admitted as Observation Instructions: DI for Atypical Chest Pain Referrals: Provider,Referral, MD [Primary Care Provider] - Attestation: On 11/08/20, the high probability of a clinically significant, sudden or life threatening deterioration of the following system(s) required my full and direct attention, intervention and personal management. The time I documented below is in addition to time spent performing reported procedures but includes the following listed in this critical care notation. Medical Decision Making - Medical Records Medical records reviewed: Yes: I reviewed the patient's medical records. - Joseph Inquiry Pt receiving controlled substance: No - Lab Data Lab results reviewed: Yes: I reviewed the patient's lab results. Result diagrams: 11/08/20 17:40 11/08/20 18:52 - Radiology Data #1 Image(s): Chest Preliminary Findings: Normal/NAD - ECG Data Tracing #1 I reviewed this ECG and interpreted as documented below: ECG initial impression date: 11/08/20 ECG initial impression time: 17:31 - SHAYE Score for Non-Stemi Age of Patient: 70-79 years old Heart Rate: 70-89 bpm Systolic Blood Pressure: 160-199 mmHg Serum Creatinine: 0.80-1.19 mg/dl CHF Kill[place] Class: I-No CHF Other Risk Factors: None Non-Stemi Risk Score: 101 <Aashish Sanchez - Last Filed: 11/08/20 20:09> - Lab Data Result diagrams: 11/08/20 17:40 11/08/20 18:52 - CT Data CT Scan: Abdomen, Pelvis, Chest Time Received: 22:[address] Reviewed: Yes: I have viewed the radiologist's interpretation Preliminary Findings: Abnormal (see report ) - Physician Consults Physician Consulted: isha Reason -: Admission <Mickey Joyner - Last Filed: 11/08/20 22:44> Vital Signs: 11/08/20 17:38 11/08/20 19:00 11/08/20 19:30 Temperature 98.3 F Temperature Source Oral Pulse Rate 61 62 Pulse Rate [Right] 69 Respiratory Rate 16 15 16 Blood Pressure 171/89 H 167/86 H Blood Pressure [Right Arm] 177/91 H Blood Pressure Mean [Right Arm] 119 Blood Pressure Source Automatic Cuff Blood Pressure Position Sitting 02 Sat by Pulse Oximetry 98 96 98 Oxygen Delivery Method Room Air Room Air 11/08/20 20:00 11/08/20 20:30 11/08/20 20:54 Temperature 98.5 F Temperature Source Oral Pulse Rate 60 60 66 Pulse Rate [Right] Respiratory Rate 17 18 Blood Pressure 180/98 H 180/98 H 172/91 H Blood Pressure [Right Arm] Blood Pressure Mean [Right Arm] Blood Pressure Source Automatic Cuff Blood Pressure Position Sitting 02 Sat by Pulse Oximetry 96 96 95 Oxygen Delivery Method Room Air 11/08/20 21:00 11/08/20 21:30 11/08/20 21:36 Temperature Temperature Source Pulse Rate 60 62 63 Pulse Rate [Right] Respiratory Rate 15 17 Blood Pressure 172/91 H 174/94 H 175/88 H Blood Pressure [Right Arm] Blood Pressure Mean [Right Arm] Blood Pressure Source Automatic Cuff Automatic Cuff Blood Pressure Position Sitting Sitting 02 Sat by Pulse Oximetry 95 95 95 Oxygen Delivery Method Room Air Room Air 11/08/20 21:41 11/08/20 22:00 Temperature Temperature Source Pulse Rate 63 Pulse Rate [Right] Respiratory Rate Blood Pressure 168/88 H 170/90 H Blood Pressure [Right Arm] Blood Pressure Mean [Right Arm] Blood Pressure Source Manual Cuff/ Auscultation Blood Pressure Position 02 Sat by Pulse Oximetry 96 Oxygen Delivery Method - Lab Data Lab Results 11/08/20 17:40: WBC 4.9, RBC 4.34, Hgb 13.4, Hct 40.6, MCV 93.5, MCH 30.9, MCHC 33.1, RDW 13.5, Plt Count 204, MPV 8.6, Neut % (Auto) 65.3, Lymph % (Auto) 24.9, [place] % (Auto) 7.1, Eos % (Auto) 2.0, Bas
--- NOTE | 2020-11-08 17:52 | XR_ITS ---
PROCEDURE INFORMATION: Exam: XR Chest Exam date and time: 11/08/2020 5:52 PM Age: 75 years old Clinical indication: Prior surgery; Surgery date: 6+ months; Surgery type: Cardiac stent placement. ; Patient HX: Chest pain. TECHNIQUE: Imaging protocol: XR of the chest. Views: 1 view. COMPARISON: CR XR RIBS LT MIN 3V W CXR1V 12/30/2019 1:20 PM FINDINGS: Lungs: Unremarkable. No consolidation. Pleural spaces: Unremarkable. No pleural effusion. No pneumothorax. Heart/Mediastinum: Unremarkable. No cardiomegaly. Bones/joints: Unremarkable. IMPRESSION: No acute findings.
--- NOTE | 2020-11-08 18:05 | PC.NURSE ---
Rad at bedside
[2020-11-08 18:06] LABS: Basophils % 0.7 % (0.1-2.0); Blood Urea Nitrogen 21 mg/dl (7-17); Calcium 8.9 mg/dl (8.4-10.2); Creatinine Clearance Estimated 56 mL/min (50-200); Eosinophils # 0.1 K/mm3 (0.0-0.4); Estimated Glomerular Filt Rate 48 ml/min (>60); GFR (African American) 58 ML/MIN (>60); Glucose 95 mg/dl (74-100); Hematocrit 40.6 % (37.0-47.0); Hemoglobin 13.4 g/dL (12.2-16.2); Lymphocytes # 1.2 K/mm3 (0.7-4.5); Lymphocytes % 24.9 % (10-50); Mean Corpuscular HGB Conc 33.1 g/dL (31.8-35.4); Mean Corpuscular Hemoglobin 30.9 pg (27.0-31.2); Mean Corpuscular Volume 93.5 fl (81-99); Mean Platelet Volume 8.6 fl (7.4-10.4); Monocytes # 0.4 K/mm3 (0.1-1.0); Monocytes % 7.1 % (1.7-9.3); Neutrophils # 3.2 K/mm3 (1.8-7.8); Neutrophils % 65.3 % (37.0-80.0); Platelet Count 204 K/mm3 (142-424); Red Blood Count 4.34 M/mm3 (4.20-5.40); Red Cell Distribution Width 13.5 % (11.5-17.5); White Blood Count 4.9 K/mm3 (4.8-10.8)
[2020-11-08 18:12] LABS: Potassium 6.2 mmoL/L (3.5-5.1)
--- NOTE | 2020-11-08 18:12 | PC.NURSE ---
ER Physician aware of critical potassium at this time
[2020-11-08 18:18] LABS: Troponin I 0.02 ng/ml (0.00-0.034)
[2020-11-08 18:34] LABS: Sodium 138 mmol/L (136-145)
[2020-11-08 18:35] LABS: Anion Gap 14.2 mEq/L (5-15); Carbon Dioxide 27 mmol/L (22.0-30.0); Chloride 103 mmol/L (98-107)
--- NOTE | 2020-11-08 18:51 | PC.NURSE ---
LAB REDREW PATIENT BLOOD AT THIS TIME
[2020-11-08 19:05] LABS: Potassium 4.1 mmoL/L (3.5-5.1)
[2020-11-08 19:18] LABS: NT Pro Brain Natriuretic Pep. 212 pg/mL (0-450)
[2020-11-08 20:05] LABS: Alanine Aminotransferase 13 U/L (12-78); Albumin Level 4.2 g/dl (3.5-5.0); Alkaline Phosphatase 122 U/L (38-126); Aspartate Amino Transferase 27 U/L (14-36); Bilirubin,Direct 0.4 mg/dl (0.0-0.4); Bilirubin,Total 0.4 mg/dl (0.2-1.3); Total Protein,Serum 7.2 g/dl (6.3-8.2)
--- NOTE | 2020-11-08 20:16 | CT_ITS ---
PROCEDURE INFORMATION: Exam: CT Chest Without Contrast; Diagnostic Exam date and time: 11/08/2020 8:16 PM Age: 75 years old Clinical indication: Pain; Other: Lt clavicle; Prior surgery; Surgery date: 6+ months; Surgery type: Loop recorder; Additional info: Clavicle pain TECHNIQUE: Imaging protocol: Diagnostic computed tomography of the chest without contrast. 3D rendering (Not supervised by radiologist): MIP and/or 3D reconstructed images were created by the technologist. Radiation optimization: All CT scans at this facility use at least one of these dose optimization techniques: automated exposure control; mA and/or kV adjustment per patient size (includes targeted exams where dose is matched to clinical indication); or iterative reconstruction. COMPARISON: CR XR CHEST PORTABLE 11/08/2020 6:05 PM FINDINGS: Lungs: Unremarkable. No consolidation. No masses. Pleural spaces: Unremarkable. No pneumothorax. No pleural effusion. Heart: Unremarkable. No cardiomegaly. No pericardial effusion. Aorta: Unremarkable. No aortic aneurysm. Lymph nodes: Unremarkable. No enlarged lymph nodes. Bones/joints: Unremarkable. No acute fracture. Soft tissues: Unremarkable. IMPRESSION: No acute findings.
--- NOTE | 2020-11-08 20:16 | CT_ITS ---
PROCEDURE INFORMATION: Exam: CT Abdomen And Pelvis Without Contrast Exam date and time: 11/08/2020 8:16 PM Age: 75 years old Clinical indication: Pain; Other: Lt clavicle; Prior surgery; Surgery date: 6+ months; Surgery type: Kidney removal; Additional info: Clavicle pain TECHNIQUE: Imaging protocol: Computed tomography of the abdomen and pelvis without contrast. Radiation optimization: All CT scans at this facility use at least one of these dose optimization techniques: automated exposure control; mA and/or kV adjustment per patient size (includes targeted exams where dose is matched to clinical indication); or iterative reconstruction. COMPARISON: CR XR CHEST PORTABLE 11/08/2020 6:05 PM FINDINGS: Liver: Normal. No mass. Gallbladder and bile ducts: Cholecystectomy. Pancreas: Normal. No ductal dilation. Spleen: Normal. No splenomegaly. Adrenal glands: Normal. No mass. Kidneys and ureters: Right kidney absent. Left kidney normal. Stomach and bowel: Unremarkable. No obstruction. No mucosal thickening. Appendix: No evidence of appendicitis. Intraperitoneal space: Unremarkable. No free air. No significant fluid collection. Vasculature: Unremarkable. No abdominal aortic aneurysm. Lymph nodes: Unremarkable. No enlarged lymph nodes. Urinary bladder: Unremarkable as visualized. Reproductive: Unremarkable as visualized. Bones/joints: Unremarkable. No acute fracture. Soft tissues: Unremarkable. IMPRESSION: No acute intra-abdominal or intrapelvic process.
[2020-11-08 20:18] LABS: Troponin I < 0.01 ng/ml (0.00-0.034)
[2020-11-08 20:30] LABS: Amylase 80 U/L (30-110); Lipase 104 U/L (23-300)
[2020-11-08 20:31] LABS: Coronavirus 19, PCR Not Detected (NotDetected); Influenza A, PCR Not Detected (NotDetected); Influenza B, PCR Not Detected (NotDetected)
[2020-11-08 20:54] LABS: Microscopic, Urine URINE MICROSCOPIC (MICROSCOPIC)
[2020-11-08 20:57] LABS: Appearance,Urine CLEAR (Clear); Bilirubin,Urine Negative (Negative); Blood, Urine TRACE-I (Negative); Color,Urine YELLOW (Yellow); Glucose,Urine (UA) Negative (Negative); Ketones,Urine Negative (Negative); Leukocyte Esterase,Urine Negative (Negative); Nitrate,Urine Negative (Negative); PH,Urine 7.5 (5.0-8.5); Protein,Urine Negative (Negative); Urobilinogen,Urine 0.2 EU/dl (0.2)
[2020-11-08 21:09] LABS: Bacteria,Urine Trace /lpf; Squamous Epithelial Cell,Urine Occasional #/hpf (0-5); WBC,Urine Occasional #/hpf (0-3)
--- NOTE | 2020-11-08 22:07 | PC.NURSE ---
paged dr vieira @ this time
--- NOTE | 2020-11-08 22:17 | PC.NURSE ---
lauren on phone with dr Mooney @ this time
--- NOTE | 2020-11-08 22:41 | PC.NURSE ---
called for bed assignment, spoke with dov
--- NOTE | 2020-11-08 23:27 | PC.NURSE ---
patient up to floor via wheelchair.
[2020-11-09] VITALS: PULSE 60
[2020-11-09 01:07] LABS: Troponin I < 0.01 ng/ml (0.00-0.034)
[2020-11-09 03:47] VITALS: BP 135/73; PULSE 61; RESP 16; TEMP 36.4; O2SAT 90
[2020-11-09 04:00] VITALS: PULSE 50
--- NOTE | 2020-11-09 05:11 | PC.NURSE ---
pt has rested well since arrival to floor, no change from previous assessment, pt denies any chest pain or nausea at this time, no needs voiced, call light within reach will continue to monitor
[2020-11-09 05:13] VITALS: BMI 30.7
[2020-11-09 06:33] LABS: Basophils % 0.5 % (0.1-2.0); Eosinophils # 0.1 K/mm3 (0.0-0.4); Eosinophils % 1.4 % (0.1-12.0); Hematocrit 41.5 % (37.0-47.0); Hemoglobin 13.9 g/dL (12.2-16.2); Lymphocytes # 1.8 K/mm3 (0.7-4.5); Lymphocytes % 32.2 % (10-50); Mean Corpuscular HGB Conc 33.4 g/dL (31.8-35.4); Mean Corpuscular Hemoglobin 31.4 pg (27.0-31.2); Mean Corpuscular Volume 94.1 fl (81-99); Monocytes # 0.4 K/mm3 (0.1-1.0); Monocytes % 6.4 % (1.7-9.3); Neutrophils # 3.2 K/mm3 (1.8-7.8); Neutrophils % 59.5 % (37.0-80.0); Platelet Count 154 K/mm3 (142-424); Red Blood Count 4.41 M/mm3 (4.20-5.40); Red Cell Distribution Width 13.3 % (11.5-17.5); White Blood Count 5.5 K/mm3 (4.8-10.8)
[2020-11-09 07:20] LABS: Chloride 105 mmol/L (98-107); Potassium 4.2 mmoL/L (3.5-5.1); Sodium 139 mmol/L (136-145)
--- NOTE | 2020-11-09 07:20 | HMH.PHAVTE ---
[facility] Pharmacy VTE Monitoring - Patient Demographics Admission date: 11/08/20 Report Date: 11/09/20 Time: 07:20 Allergies/Adverse Reactions: Patient Allergies Iodine and Iodide Containing Produc Allergy (Intermediate, Verified 11/08/20 23:37) I-RASH Penicillins Allergy (Intermediate, Verified 11/08/20 23:37) I-RASH codeine Allergy (Mild, Verified 11/08/20 23:37) HYPER Height: 1.65 m Weight: 83.518 kg Patient Problems: Current Active Problems Chest pain (Acute) - VTE Risk Labs: VTE Related Lab Results Hgb 13.9 g/dL (12.2-16.2) 11/09/20 06:26 Hct 41.5 % (37.0-47.0) 11/09/20 06:26 Plt Count 154 K/mm3 (142-424) 11/09/20 06:26 BUN 21 mg/dl (7-17) H 11/08/20 17:40 Creatinine 1.10 mg/dl (0.52-1.04) H 11/08/20 17:40 Estimated Creat Clear 56 mL/min (50-200) 11/08/20 17:40 VTE Score: 1 VTE Risk Level: Very Low Risk - Prophylaxis VTE Prophylaxis Ordered?: Yes Types of VTE Prophylaxis: TEDS Knee High Location of Applied Device: Bilateral Lower Extremeties
[2020-11-09 07:23] LABS: Anion Gap 11.2 mEq/L (5-15); Blood Urea Nitrogen 17 mg/dl (7-17); Carbon Dioxide 27 mmol/L (22.0-30.0); Creatinine Clearance Estimated 57 mL/min (50-200); Estimated Glomerular Filt Rate 48 ml/min (>60); GFR (African American) 58 ML/MIN (>60); Glucose 93 mg/dl (74-100); Magnesium 1.9 mg/dl (1.6-2.3)
[2020-11-09 08:00] VITALS: BP 140/79; PULSE 57; PULSE 65; RESP 17; TEMP 36.5; O2SAT 94
--- NOTE | 2020-11-09 08:00 | CA_ITS ---
APPROVED REPORT EXAM: Comprehensive 2D, Doppler, and color-flow Echocardiogram 8Th Grade Teacher: Kaykay Greene RVT Ht: 5 ft 4 in Wt: 184lbs BSA: 1.89 BP: 170/90 mmHg Indications: CP,DEMENTIA,CVA 2D Dimensions LVOT 2.11 cm (M/F) 1.5-2.5 LA Volume 35.10 mL LA Volume Index 18.67 mL/m2 (M/F) 16-34 M-Mode Dimensions LA Diam 3.52 cm (1.9-4.0) LVDd 4.07 cm (3.5-5.7) Ao Diam 3.41 cm (2.0-3.7) LVDs 3.04 cm (3.5-5.7) IVSd 1.25 cm (0.6-1.1) PWd 0.75 cm (0.6-1.1) EF (Teich) 50.30% FS 25.30% EDV (Teich) 72.90 mL TAPSE 2.48 (<1.7) ESV (Teich) 36.20 mL LV Diastology E Decel Time 317.00 (160-240 msec) E/A Ratio 0.8 MED E' 7.80 (< 7 cm/sec) E'/MED E' Ratio 11.78 (>14) LAT E' 6.90 (<10 cm/sec) E/LAT E' Ratio 13.32 (>14) Aortic Valve AO Peak GR. 7.20 mmHg Mitral Valve MV E Max Melvin. 92.00 (40-130 cm/s) MV A Velocity 113.00 (40-130 cm/s) E/A Ratio 0.81 MV Decel. Time 317.00 (160-240 ms) MV PHT 93.00 ms Pulmonary Valve PV Peak Velocity 89.00 (50-150 cm/s) Tricuspid Valve TR P. Velocity 161.00 cm/s RAP Estimate 10.00 mmHg RVSP 20.40 mmHg Left Ventricle Left atrium is mildly enlarged, left ventricle is normal size, mild concentric left ventricular hypertrophy, visually estimated ejection fraction 55% with no regional wall motion abnormality, grade 1 diastolic dysfunction seen without tissue Doppler evidence of raise left atrial pressure. Right Ventricle Right atrium and right ventricle is normal size and contractility. Aortic Valve Aortic valve is minimally thickened and fibrosed, there is no aortic stenosis or aortic insufficiency. Mitral Valve Mitral valve has mitral annular calcification, leaflets are minimally thickened, there is no mitral stenosis, there is mild mitral regurgitation. Tricuspid Valve Tricuspid grossly normal, there is mild tricuspid regurgitation, tricuspid regurgitation jet velocity is inadequate for calculation of the right ventricular systolic pressure. Pulmonic Valve Pulmonic valve is poorly visualized. Great Vessels Aortic root is normal size. Pericardium No significant pericardial effusion noted. Conclusion 1. Mildly enlarged left atrium, normal left ventricular size, mild concentric left ventricular hypertrophy, visually estimated ejection fraction 55% with no regional wall motion abnormality, grade 1 diastolic dysfunction seen without tissue Doppler evidence of raise left atrial pressure. 2. Mild mitral and tricuspid regurgitation. 3. No significant pericardial effusion noted. Electronically signed by : Zenon Guy MD 11/10/2020 15:34:17
--- NOTE | 2020-11-09 08:04 | HMH.PHAINT ---
MEDICATION RECONCILIATION COMPLETED ON PATIENT USING EXTERNAL FILL HISTORY FROM PHARMACY. -HENRIQUE MENDEZ, ERASTOD
--- NOTE | 2020-11-09 08:15 | HMH.HP ---
*Admission Date: 11/08/20 <Landy Patrick - 11/09/20 08:25> *Chief complaint: chest pain <Landy Patrick - 11/09/20 08:25> *History of present illness: 75yo F presents the emergency department with her family secondary to left chest pain. Patient's family reports that she has dementia and is an unreliable historian. They report the patient stayed with them in their house over the weekend and seemed more fatigued and had a lots of belching. Patient has no past cardiac history. She states her chest pain waxes and wanes. She denies any shortness of breath, nausea, diaphoresis. Uncertain if there is any exertional component to her chest pain. Daughter reports the patient is largely just laid around for the past 3 to 4 days. (Aashish Sanchez) Patient in no acute distress on initial evaluation. Routine cardiac work-up is been initiated. EKG is unremarkable as reviewed above. Chest x-ray is benign. Patient's initial metabolic panel resulted in a potassium of 6.1. Other labs were unremarkable and patient's EKG showed no signs of hyperkalemia. Requested lab redraw the potassium which resulted back within normal limits. Patient's first troponin is 0.02. Repeat troponin is pending at this time. Also pending at this time as the patient is liver panel. Discussed with patient's family at bedside that all studies so far were unremarkable and if remaining studies resulted within normal limits, she would be appropriate for discharge home and outpatient follow-up. Family also requested a Covid swab be completed. She will be called with the results of the Covid swab if she is appropriate for discharge. (Aashish Sanchez) Pt with persistent pain and will be admitted at this time (Mickey Joyner) (above as per ER physicians) The patient states today that the pain was in the left side of her chest and radiated up into her neck yesterday. She is unsure how long it lasted but does know that it has resolved at this time. She denies any other pain and is currently having an echo performed. <Landy Patrick - 11/09/20 08:25> [facility] History I have reviewed the patient's past medical history: Yes <Landy Patrick - 11/09/20 08:25> Medical History: Reports:: Cerebrovascular Accident, Dementia, Depression, Hypertension, Seizures Denies:: Cancer, Diabetes Mellitus Type 1, Diabetes Mellitus Type 2, MRSA <Landy Patrick 11/09/20 08:25> *Have you ever received a pneumonia vaccine?: Yes <Landy Patrick 11/09/20 08:25> *Have you received a flu vaccine this season?: No <Landy Patrick 11/09/20 08:25> Other Medical History: Reports: Arthritis, Hypothyroidism <Landy Patrick 11/09/20 08:25> Laterality Cases: Right: Cataract, Bilateral: Myringotomy (Ear Tubes), Tonsillectomy <Landy Patrick 11/09/20 08:25> Other Surgeries: Yes: Cholecystectomy, Tubal Ligation, Other (loop recorder) <Landy Patrick 11/09/20 08:25> Amputation: No <Landy Patrick 11/09/20 08:25> - *Social History Last grade of school completed: High school graduate <Ladny Patrick 11/09/20 08:25> Smoking Status: Never smoker <Landy Patrick 11/09/20 08:25> Alcohol Intake: never <Landy Patrick 11/09/20 08:25> *Occupational Status:: retired <Landy Patrick 11/09/20 08:25> *Travel in the last 8 weeks: None <Landy Patrick 11/09/20 08:25> Family Hx:: Hypertension, Stroke <Landy Patrick 11/09/20 08:25> Review of Systems - Constitutional Reports fatigue, Reports weakness <Landy Patrick 11/09/20 08:25> - Eyes Denies blurry vision, Denies double vision <Landy Patrick 11/09/20 08:25> - ENT Denies nasal congestion, Denies sore throat <Landy Patrick 11/09/20 08:25> - *Cardiovascular Reports chest pain, Denies shortness of breath, Denies rapid, pounding, or irregular heartbeat <Landy Patrick 11/09/20 08:25> - *Respiratory Denies cough, Denies shortness of breath <Landy Patrick 11/09/20 08:25> - *Gastrointestinal Denies abdominal pain, Denies loose stools, Den
[2020-11-09 12:00] VITALS: BP 156/79; PULSE 61; RESP 17; TEMP 36.4; O2SAT 96
--- NOTE | 2020-11-14 16:02 | HMH.DCSUM ---
General - General Admission date:: 11/08/20 Discharge date: 11/09/20 HPI HPI: 75yo F presents the emergency department with her family secondary to left chest pain. Patient's family reports that she has dementia and is an unreliable historian. They report the patient stayed with them in their house over the weekend and seemed more fatigued and had a lots of belching. Patient has no past cardiac history. She states her chest pain waxes and wanes. She denies any shortness of breath, nausea, diaphoresis. Uncertain if there is any exertional component to her chest pain. Daughter reports the patient is largely just laid around for the past 3 to 4 days. (Aashish Sanchez) Patient in no acute distress on initial evaluation. Routine cardiac work-up is been initiated. EKG is unremarkable as reviewed above. Chest x-ray is benign. Patient's initial metabolic panel resulted in a potassium of 6.1. Other labs were unremarkable and patient's EKG showed no signs of hyperkalemia. Requested lab redraw the potassium which resulted back within normal limits. Patient's first troponin is 0.02. Repeat troponin is pending at this time. Also pending at this time as the patient is liver panel. Discussed with patient's family at bedside that all studies so far were unremarkable and if remaining studies resulted within normal limits, she would be appropriate for discharge home and outpatient follow-up. Family also requested a Covid swab be completed. She will be called with the results of the Covid swab if she is appropriate for discharge. (Aashish Sanchez) Pt with persistent pain and will be admitted at this time (Mickey Joyner) (above as per ER physicians) The patient states today that the pain was in the left side of her chest and radiated up into her neck yesterday. She is unsure how long it lasted but does know that it has resolved at this time. She denies any other pain and is currently having an echo performed. Hospital Course Hospital Course: The patient's chest x-ray , abdominal/pelvic CT, and chest CT all showed nothing acute. Her cardiac enzymes were normal x3 and her chest pain resolved. The patient's echo showed an EF of 55% with grade 1 diastolic dysfunction. She was stable to be discharged and will need an outpatient stress test in the next week. Objective Vital signs: Temp Pulse Resp BP Pulse Ox 97.6 F 61 17 156/79 H 96 11/09/20 12:00 11/09/20 12:00 11/09/20 12:00 11/09/20 12:00 11/09/20 12:00 Narrative: - Constitutional no acute distress - *Routine HEENT Exam Head: Present: normocephalic Eye: Present: EOMI, PERRL ENT: Present: mucous membranes dry - *Routine Neck Exam Present: supple. Absent: lymphadenopathy - *Routine Respiratory Exam Present: CTA bilaterally - *Routine Cardiovascular Exam Present: RRR - *Routine Abdominal Exam Present: soft, normoactive bowel sounds. Absent: tenderness - *Routine Rectal Exam Rectal:: deferred - *Routine Genitalia Exam Genitalia:: deferred - *Routine Extremities Exam Absent: cyanosis, clubbing, edema - *Routine Skin Exam Present: warm. Absent: rash - *Routine Neurological Exam Present: alert DS: Diagnosis - Discharge Diagnosis (1) Chest pain Status: Acute (2) Hypertension Status: Chronic (3) Depression Status: Chronic (4) Arthritis Status: Chronic (5) Seizure disorder Status: Chronic (6) Hypothyroid Status: Chronic (7) History of CVA (cerebrovascular accident) Status: Chronic Discharge Plan - Patient Discharge Instructions ACTIVITY: Continue current activity DIET: continue same diet Additional Instructions: Patient needs to have a cardiac stress test at [facility] in the next week. She will need a Lexiscan Myoview due to atypical chest pain. Patient Instructions: Essential Hypertension, DI for Chest Pain - Follow up Plan Follow up with: Marisa Jara
== END 2020-11-09 13:00 | disposition home or self-care (01) ==
LOC: ER 22:45 → 2ND 23:16
PROVIDERS: Family Medicine; Admitting Provider Family Medicine; Emergency Provider Emergency Medicine; Visit Provider Family Medicine
DX: R07.9 Chest pain, unspecified (principal); Z20.822 Contact with and (suspected) exposure to COVID-19; I10 Essential (primary) hypertension; E03.9 Hypothyroidism, unspecified; G40.909 Epilepsy, unspecified, not intractable, without status epilepticus; Z79.01 Long term (current) use of anticoagulants; Z79.899 Other long term (current) drug therapy; Z88.8 Allergy status to other drugs, medicaments and biological substances; Z86.73 Personal history of transient ischemic attack (TIA), and cerebral infarction without residual deficits; F32.9 Major depressive disorder, single episode, unspecified; M19.90 Unspecified osteoarthritis, unspecified site; R06.9 Unspecified abnormalities of breathing
CPT/HCPCS: G0378; 36415; 71045; 71250; 74176; 80048; 80076; 80156; 81001; 82150; 83690; 83735; 83880; 84132; 84484; 85025; 93005; 93306; 99282; J2405; U0003

== ENCOUNTER → 2020-11-23 06:54 | Outpatient (CLI) | payer MEDICARE, SELFPAY ==
--- NOTE | 2020-11-23 | CA_ITS ---
APPROVED REPORT Exam: Pharmacologic Technologist: Gosia Smith Wt: 184 lbs BSA: 1.91 m2 HR: 60 bpm BP: 181/97 mmHg Medical History Medications: Levothyroxine,,,,, Aspirin,,,,, Lipitor,,,,, MeLOXICAM,,,,, Plavix,,,,, DONEPEZIL,,,,, Carbamazepine,,,,, OxYbutynin,,,,, Mirabegron,,,,, Fluxetine,,,,, Lisinopri/HCTZ,,,,, Stress Test Details Test: LEXISCAN HR Resting HR: 64 bpm Max Heart Rate (APMHR): 144.565669 bpm Max HR Achieved: 109 bpm Target HR (85% APMHR): 122.184773 bpm % of APMHR: 75.69 Recovery HR: 71 bpm BP Resting BP: 181.0/97.0 mmHg Max BP: 183.0/108.0 mmHg Recovery BP: 162.0/85.0 mmHg ECG Resting ECG: Normal sinus rhythm, LAFB, Slow R wave progression Clinical Exercise duration: 04:01 min Highest Stage Achieved: Exercise capacity: 1.0 METs Stress ECG Conclusion Symptoms: Shortness of air, nausea, malaise, lightheaded. No chest pain. Arrhythmias/Ectopy: None ST-T Changes: No significant changes. Conclusion: Unremarkable Lexiscan stress. Myoview images reported separately. Test Summary RECOVERY 07:00 . . 65 . 176/ 93 . . Stage 1 01:00 . . 83 . . . . Stage 2 01:00 . . 109 . . . . Stage 3 01:00 . . 99 . 169/105 . . Stage 4 01:00 . . 93 . 183/108 . . Stage 4 01:01 . . 93 . 183/108 . Stop exercise at 04:01 RECOVERY 01:00 . . 90 . . . . RECOVERY 02:00 . . 88 . 174/ 98 . . RECOVERY 03:00 . . 84 . 176/ 93 . . RECOVERY 04:00 . . 83 . 176/ 93 . . RECOVERY 05:00 . . 70 . 176/ 93 . . RECOVERY 06:00 . . 67 . 176/ 93 . . RECOVERY 07:00 . . 65 . 176/ 93 . . RECOVERY 07:31 . . 67 . 162/ 85 . . Electronically signed by : Zenon Guy MD 11/24/2020 12:11:34
--- NOTE | 2020-11-23 07:01 | NM_ITS ---
APPROVED REPORT Exam: Nuclear Stress Test Indication: HTN, FM HX., C.P., SOB, FATIGUE Patient Location: Outpatient Stress Tech: Gosia Smith [place] Tech:Mireille LearyMODESTA RT (R)(N)(M) Ht: 5 ft 4 in Wt: 180 lbs Bra Size: B HR: 60 bpm BP: 181/97 mmHg BSA: 1.87 m2 BMI: 30.8 History: HTN, FM HX., C.P., SOB, FATIGUE Procedure: Patient received a 0.4 mg of intravenous Lexiscan, resting heart rate 60 bpm, resting blood pressure 181/97 mmHg, with Lexiscan maximum heart rate achived was 108 bpm which is Less than 85 % of the maximum predicted heart rate and blood pressure was 168/101 mmHg. With Lexiscan, patient denied any complaint of chest pain. C/O SOA, NAUSEA PT COULD NOT LAY ON STOMACH FOR PRONE IMAGE Electrocardiogram Resting electrocardiogram showed sinus rhythm, with Lexiscan there is less than 1.[address] segment depression noted from the baseline EKG. The EKG portion of the Lexiscan is nondiagnostic. Cardiac Stress and Resting SPECT Images: Cardiac Stress and Resting SPECT images were obtained using technetium 99m Myoview 30.0 mCi stress and 10.47 mCi at rest. Gated SPECT for analysis of segmental wall motion and calculation of the ejection fraction also done. Cardiac stress and resting SPECT images show mild fixed defect in the anterior wall with normal contractility gated SPECT is likely secondary to soft tissue attenuation, no reversible ischemia seen. Computer derived ejection fraction is 60% with no regional wall motion abnormality, right ventricle is normal size and contractility. Conclusion: 1. The EKG portion of the Lexiscan is nondiagnostic. 2. No scintigraphic evidence of reversible ischemia seen, computer derived ejection fraction is 60% with no regional wall motion abnormality, right ventricle is normal size and contractility. 3. Likely normal Lexiscan Myoview study. Electronically signed by : Zenon Guy MD 11/24/2020 12:14:48
== END ==
PROVIDERS: PCP Family Medicine; Visit Provider Family Medicine
DX: R07.9 Chest pain, unspecified (principal)
CPT/HCPCS: 78452; 93017; A9502; J0280; J2785

== ENCOUNTER → 2020-11-30 09:51 | Outpatient (CLI) | payer MEDICARE, SELFPAY | PROVIDERS: PCP Family Medicine; Visit Provider Family Medicine | DX: R06.02 Shortness of breath (principal); R06.00 Dyspnea, unspecified | CPT/HCPCS: 94060 ==

== ENCOUNTER 2021-02-16 18:29 | Emergency (ER) | payer MEDICARE, SELFPAY ==
[2021-02-16] VITALS (7 sets, daily range): BP systolic 162–192; BP diastolic 83–95; PULSE 59–64; RESP 12–16; TEMP 36.3–36.6; O2SAT 94–98; BMI 32.5
--- NOTE | 2021-02-16 19:12 | HMH.EDGENADL ---
ED Disposition Clinical Impression: Vomiting and diarrhea, Generalized weakness Disposition: Home, Self-Care Condition on Discharge: Good Instructions: DI for Diarrhea and Traveler's Diarrhea -- Adult, DI for Nausea -- Adult Additional Instructions: Drink plenty of fluids. Follow-up with your primary care provider, call tomorrow. Return to the emergency department if symptoms recur or worsen. Referrals: Ever Jara MD [Primary Care Provider] - - Critical Care Critical Care Time: No Attestation: On 02/16/21, the high probability of a clinically significant, sudden or life threatening deterioration of the following system(s) required my full and direct attention, intervention and personal management. The time I documented below is in addition to time spent performing reported procedures but includes the following listed in this critical care notation. Medical Decision Making - Joseph Inquiry Pt receiving controlled substance: No Vital Signs: 02/16/21 18:30 02/16/21 19:15 Temperature 97.3 F L Temperature Source Oral Pulse Rate 60 Pulse Rate [Left] 64 Respiratory Rate 16 12 Blood Pressure 182/94 H Blood Pressure [Right Arm] 192/95 H Blood Pressure Mean [Right Arm] 127 02 Sat by Pulse Oximetry 96 98 Oxygen Delivery Method Room Air Room Air - Lab Data Lab Results 02/16/21 19:12: SARS-CoV-2 (PCR) Not detected, Influenza A Untype (PCR) Not detected, Influenza Type B (PCR) Not detected 02/16/21 19:36: WBC 6.6, RBC 4.88, Hgb 15.6, Hct 46.6, MCV 95.5, MCH 32.0 H, MCHC 33.5, RDW 13.1, Plt Count 297, MPV 8.1, Neut % (Auto) 83.9 H, Lymph % (Auto) 12.2, [place] % (Auto) 2.9, Eos % (Auto) 0.6, Baso % (Auto) 0.5, Neut # (Auto) 5.6, Lymph # (Auto) 0.8, [place] # (Auto) 0.2, Eos # (Auto) 0.0, Baso # (Auto) 0.0 02/16/21 19:36: Sodium 138, Potassium 4.0, Chloride 99, Carbon Dioxide 33 H, Anion Gap 10.0, BUN 19 H, Creatinine 1.10 H, Estimated Creat Clear 59, Estimated GFR 48 L, Est GFR ( Amer) 58 L, Glucose 110 H, Calcium 10.3 H, Total Bilirubin 0.3, AST 28, ALT 14, Alkaline Phosphatase 158 H, Troponin I < 0.01, Total Protein 7.9, Albumin 4.6, Globulin 3.3 H, Albumin/Globulin Ratio 1.4, Lipase 82 Result diagrams: 02/16/21 19:36 02/16/21 19:36 Orders (Tests/Meds): ED MEDICATIONS Discontinued Medications Generic Name Dose Route Start Last Admin Trade Name Freq PRN Reason Stop Dose Admin Ondansetron HCl 4 mg 02/16/21 19:22 02/16/21 19:45 Ondansetron 4mg/2ml Vial IV 02/16/21 19:23 4 mg ONCE ONE Administration Sodium Chloride 1,000 ml 02/16/21 19:22 02/16/21 19:45 Sodium Chloride 0.9% 1000ml Bag IV 02/16/21 19:23 1,000 ml BOLUS ONE Administration ORDERS Category Date Time Status Troponin I Q3H Lab 02/16/21 22:30 Ordered Troponin I Q3H Lab 02/17/21 01:30 Ordered Urinalysis and Microscopic Stat Lab 02/16/21 20:37 Ordered - Radiology Data #1 Image(s): Chest Image Reviewed: Yes I reviewed the patient's radiology image, Yes I have reviewed radiologist's interpretation PROCEDURE INFORMATION: Exam: XR Chest Exam date and time: 02/16/2021 7:21 PM Age: 75 years old Clinical indication: Other: Weakness; Patient HX: AMS TECHNIQUE: Imaging protocol: XR of the chest. Views: 1 view. COMPARISON: CT CHEST WO CON 11/08/2020 8:29 PM FINDINGS: Lungs: Mild elevation of the right hemidiaphragm with streaky basilar airspace opacities. No lobar consolidation. Pleural spaces: No pneumothorax. Heart/Mediastinum: No cardiomegaly. Bones/joints: No acute abnormality. IMPRESSION: Mild elevation of the right hemidiaphragm with streaky basilar airspace opacities which may be hypoventilatory however pneumonitis should be clinically excluded. Clinically, pneumonia is not suspected. - CT Data CT Scan: Head Time Received: 20:[address] Reviewed: Yes: I have viewed the radiologist's
--- NOTE | 2021-02-16 19:21 | XR_ITS ---
PROCEDURE INFORMATION: Exam: XR Chest Exam date and time: 02/16/2021 7:21 PM Age: 75 years old Clinical indication: Other: Weakness; Patient HX: AMS TECHNIQUE: Imaging protocol: XR of the chest. Views: 1 view. COMPARISON: CT CHEST WO CON 11/08/2020 8:29 PM FINDINGS: Lungs: Mild elevation of the right hemidiaphragm with streaky basilar airspace opacities. No lobar consolidation. Pleural spaces: No pneumothorax. Heart/Mediastinum: No cardiomegaly. Bones/joints: No acute abnormality. IMPRESSION: Mild elevation of the right hemidiaphragm with streaky basilar airspace opacities which may be hypoventilatory however pneumonitis should be clinically excluded.
--- NOTE | 2021-02-16 19:21 | CT_ITS ---
PROCEDURE INFORMATION: Exam: CT Head Without Contrast Exam date and time: 02/16/2021 7:21 PM Age: 75 years old Clinical indication: Altered mental status/memory loss and other: Weakness, general; Additional info: AMS TECHNIQUE: Imaging protocol: Computed tomography of the head without contrast. Radiation optimization: All CT scans at this facility use at least one of these dose optimization techniques: automated exposure control; mA and/or kV adjustment per patient size (includes targeted exams where dose is matched to clinical indication); or iterative reconstruction. COMPARISON: [facility] CT HEAD W/O CONTRAST 04/29/2016 1:29 PM FINDINGS: Brain: Left frontal encephalomalacia. Stable anterior left thalamic hypodensity. Subcortical hypodensity compatible with small-vessel occlusive change with global atrophy. No mass mass effect or midline shift. Cerebral ventricles: No ventriculomegaly. Paranasal sinuses: Opacification of the left sphenoid sinus. Mastoid air cells: Visualized mastoid air cells are well aerated. Bones/joints: No acute fracture. Soft tissues: No significant soft tissue abnormality. IMPRESSION: Chronic changes without definite acute process. If there is ongoing concern, MRI is recommended for further evaluation.
[2021-02-16 19:28] LABS: Coronavirus 19, PCR Not Detected (NotDetected); Influenza A, PCR Not Detected (NotDetected); Influenza B, PCR Not Detected (NotDetected)
[2021-02-16 19:48] LABS: Basophils % 0.5 % (0.1-2.0); Eosinophils % 0.6 % (0.1-12.0); Hematocrit 46.6 % (37.0-47.0); Hemoglobin 15.6 g/dL (12.2-16.2); Lymphocytes # 0.8 K/mm3 (0.7-4.5); Lymphocytes % 12.2 % (10-50); Mean Corpuscular HGB Conc 33.5 g/dL (31.8-35.4); Mean Corpuscular Volume 95.5 fl (81-99); Mean Platelet Volume 8.1 fl (7.4-10.4); Monocytes # 0.2 K/mm3 (0.1-1.0); Monocytes % 2.9 % (1.7-9.3); Neutrophils # 5.6 K/mm3 (1.8-7.8); Neutrophils % 83.9 % (37.0-80.0); Platelet Count 297 K/mm3 (142-424); Red Blood Count 4.88 M/mm3 (4.20-5.40); Red Cell Distribution Width 13.1 % (11.5-17.5); White Blood Count 6.6 K/mm3 (4.8-10.8)
--- NOTE | 2021-02-16 19:52 | ECG_ITS ---
APPROVED REPORT Exam: Resting ECG HR:59 bpm ECG Measurements Heart Rate 59 AXES NC 220 P 62 QRSd 84 QRS -10 QT 468 T 63 QTc 463 Conclusion Sinus bradycardia with 1st degree AV block RSR' or QR pattern in V1 suggests right ventricular conduction delay Borderline ECG Electronically signed by : Jeremiah Ledesma MD 02/17/2021 13:51:08
[2021-02-16 19:57] LABS: Alanine Aminotransferase 14 U/L (12-78); Albumin Level 4.6 g/dl (3.5-5.0); Albumin/Globulin Ratio 1.4 (1.1-1.8); Alkaline Phosphatase 158 U/L (38-126); Aspartate Amino Transferase 28 U/L (14-36); Bilirubin,Total 0.3 mg/dl (0.2-1.3); Blood Urea Nitrogen 19 mg/dl (7-17); Calcium 10.3 mg/dl (8.4-10.2); Carbon Dioxide 33 mmol/L (22.0-30.0); Chloride 99 mmol/L (98-107); Creatinine Clearance Estimated 59 mL/min (50-200); Estimated Glomerular Filt Rate 48 ml/min (>60); GFR (African American) 58 ML/MIN (>60); Globulin 3.3 g/dL (1.3-3.2); Glucose 110 mg/dl (74-100); Lipase 82 U/L (23-300); Sodium 138 mmol/L (136-145); Total Protein,Serum 7.9 g/dl (6.3-8.2)
[2021-02-16 20:11] LABS: Troponin I < 0.01 ng/ml (0.00-0.034)
[2021-02-16 20:57] LABS: Microscopic, Urine URINE MICROSCOPIC (MICROSCOPIC)
[2021-02-16 20:59] LABS: Appearance,Urine CLEAR (Clear); Bilirubin,Urine Negative (Negative); Blood, Urine Negative (Negative); Color,Urine YELLOW (Yellow); Glucose,Urine (UA) Negative (Negative); Ketones,Urine Negative (Negative); Leukocyte Esterase,Urine Negative (Negative); Nitrate,Urine Negative (Negative); Protein,Urine Negative (Negative); Specific Gravity, Urine 1.015 (1.005-1.030); Urobilinogen,Urine 0.2 EU/dl (0.2)
[2021-02-16 21:18] LABS: Bacteria,Urine Trace /lpf; Squamous Epithelial Cell,Urine Occasional #/hpf (0-5); WBC,Urine Occasional #/hpf (0-3)
== END 2021-02-16 21:25 | disposition home or self-care (01) ==
PROVIDERS: Emergency Provider Emergency Medicine; PCP Family Medicine
DX: R11.10 Vomiting, unspecified (principal); Z20.822 Contact with and (suspected) exposure to COVID-19; I10 Essential (primary) hypertension; F33.1 Major depressive disorder, recurrent, moderate
CPT/HCPCS: 70450; 71045; 80053; 81001; 83690; 84484; 85025; 93005; 99283; C9803; J2405; U0003; U0005

== ENCOUNTER 2021-10-19 20:45 | Observation (INO) | payer MEDICARE, SELFPAY ==
[2021-10-19 20:47] VITALS: BP 177/94; PULSE 71; RESP 20; TEMP 36.8; O2SAT 97; BMI 30.9
--- NOTE | 2021-10-19 21:01 | ECG_ITS ---
APPROVED REPORT Exam: Resting ECG HR:68 bpm ECG Measurements Heart Rate 68 AXES MO 226 P 59 QRSd 83 QRS -35 QT 415 T 74 QTc 432 Conclusion SINUS RHYTHM WITH FIRST DEGREE AV BLOCK LEFT AXIS DEVIATION [QRS AXIS < -30] POSSIBLE RIGHT VENTRICULAR CONDUCTION DELAY [RSR (QR) IN V1/V2] MINIMAL ST DEPRESSION [0.025+ mV ST DEPRESSION] ABNORMAL ECG UNCONFIRMED REPORT Electronically signed by : Jeremiah Ledesma MD 10/22/2021 16:29:47
[2021-10-19 21:16] VITALS: BMI 30.9
--- NOTE | 2021-10-19 21:16 | CT_ITS ---
PROCEDURE INFORMATION: Exam: CT Head Without Contrast Exam date and time: 10/19/2021 9:31 PM Age: 76 years old Clinical indication: Numbness / parasthesia; Additional info: Numbness in leg TECHNIQUE: Imaging protocol: Computed tomography of the head without contrast. Radiation optimization: All CT scans at this facility use at least one of these dose optimization techniques: automated exposure control; mA and/or kV adjustment per patient size (includes targeted exams where dose is matched to clinical indication); or iterative reconstruction. COMPARISON: CT HEAD/BRAIN WO CON 02/16/2021 7:53 PM FINDINGS: Brain: Mild-moderate bilateral white matter hypodensities which are nonspecific but most commonly associated with chronic microvascular ischemia in this age group. The IACs are grossly normal. No extra-axial fluid collections. No evidence of acute intracranial hemorrhage. No CT evidence of large territory acute or subacute intracranial ischemia/infarct. Chronic infarct in the left frontal lobe unchanged. Additional small component of chronic infarct in the left insular cortex unchanged. Small chronic lacunar infarcts in the left thalamus and left cerebellar hemisphere unchanged. No intracranial mass lesions. No midline shift or herniation. Cerebral ventricles: Mild compensatory ventriculomegaly secondary to central atrophy. Pituitary gland and sella: The sella is grossly normal. Paranasal sinuses: Opacified left sphenoid sinus and minimal mucosal thickening in the left maxillary sinus suggesting mild changes of chronic sinus inflammatory disease. No fluid levels. Hyperdensity in the left sphenoid sinus may indicate fungal sinusitis. Mastoid air cells: Visualized mastoid air cells are clear. Auditory system: Soft tissue density in the left external auditory canal most likely representing excessive cerumen accumulation, correlate clinically. Orbital cavities: No acute intraorbital findings. Bones/joints: The calvarium and visualized facial bones are intact. Hyperostosis frontalis interna incidentally noted. Soft tissues: The scalp and visualized soft tissues demonstrate no acute abnormality. Vasculature: Moderate calcific atherosclerosis. No asymmetric vascular hyperdensities suggestive of thrombosis are identified. Other findings: Moderate generalized atrophy. IMPRESSION: 1. No acute intracranial process. No intracranial hemorrhage or mass effect. 2. Atrophy and nonspecific white matter hypodensities, most commonly related to chronic microvascular ischemia in this age group. Chronic infarcts detailed above. 3. Moderate calcific atherosclerosis. 4. Changes of chronic sinus inflammatory disease, with hyperdense elements in the left sphenoid sinus which may indicate fungal sinusitis.
--- NOTE | 2021-10-19 21:24 | PC.NURSE ---
COVID SWAB COLLECTED. PT TOLERATED WELL.
[2021-10-19 21:28] LABS: Microscopic, Urine URINE MICROSCOPIC (MICROSCOPIC)
--- NOTE | 2021-10-19 21:28 | PC.NURSE ---
pt to ct scan
[2021-10-19 21:30] VITALS: BP 160/83; PULSE 65; O2SAT 94
[2021-10-19 21:32] LABS: Basophils # 0.1 K/mm3 (0-0.2); Basophils % 1.4 % (0.1-2.0); Eosinophils # 0.2 K/mm3 (0.0-0.4); Eosinophils % 3.4 % (0.1-12.0); Hemoglobin 14.1 g/dL (12.2-16.2); Lymphocytes # 1.6 K/mm3 (0.7-4.5); Lymphocytes % 29.1 % (10-50); Mean Corpuscular HGB Conc 32.7 g/dL (31.8-35.4); Mean Corpuscular Hemoglobin 31.5 pg (27.0-31.2); Mean Corpuscular Volume 96.3 fl (81-99); Mean Platelet Volume 8.2 fl (7.4-10.4); Monocytes # 0.4 K/mm3 (0.1-1.0); Monocytes % 7.4 % (1.7-9.3); Neutrophils # 3.1 K/mm3 (1.8-7.8); Neutrophils % 58.8 % (37.0-80.0); Platelet Count 264 K/mm3 (142-424); Red Blood Count 4.46 M/mm3 (4.20-5.40); Red Cell Distribution Width 13.9 % (11.5-17.5); White Blood Count 5.3 K/mm3 (4.8-10.8)
[2021-10-19 21:35] LABS: Appearance,Urine CLEAR (Clear); Bilirubin,Urine Negative (Negative); Blood, Urine Negative (Negative); Color,Urine YELLOW (Yellow); Glucose,Urine (UA) Negative (Negative); Ketones,Urine Negative (Negative); Leukocyte Esterase,Urine Negative (Negative); Nitrate,Urine Negative (Negative); Protein,Urine Negative (Negative); Specific Gravity, Urine 1.015 (1.005-1.030); Urobilinogen,Urine 0.2 EU/dl (0.2)
[2021-10-19 21:38] LABS: Alanine Aminotransferase 15 U/L (12-78); Albumin Level 4.1 g/dl (3.5-5.0); Albumin/Globulin Ratio 1.3 (1.1-1.8); Alkaline Phosphatase 137 U/L (38-126); Anion Gap 11.2 mEq/L (5-15); Aspartate Amino Transferase 28 U/L (14-36); Blood Urea Nitrogen 18 mg/dl (7-17); Calcium 9.3 mg/dl (8.4-10.2); Carbon Dioxide 32 mmol/L (22.0-30.0); Chloride 98 mmol/L (98-107); Creatinine Clearance Estimated 47 mL/min (50-200); Estimated Glomerular Filt Rate 40 ml/min (>60); GFR (African American) 48 ML/MIN (>60); Globulin 3.1 g/dL (1.3-3.2); Glucose 92 mg/dl (74-100); Potassium 4.2 mmoL/L (3.5-5.1); Sodium 137 mmol/L (136-145); Total Protein,Serum 7.2 g/dl (6.3-8.2)
[2021-10-19 21:41] LABS: Bilirubin,Total < 0.1 mg/dl (0.2-1.3)
[2021-10-19 21:44] LABS: Coronavirus 19, PCR Not Detected (NotDetected); Influenza A, PCR Not Detected (NotDetected); Influenza B, PCR Not Detected (NotDetected)
[2021-10-19 21:44] LABS: C-Reactive Protein 5.3 mg/L (0-4)
[2021-10-19 22:00] VITALS: BP 170/94; PULSE 63; O2SAT 95
[2021-10-19 22:08] LABS: Thyroid Stimulating Hormone 3.01 uIU/mL (0.465-4.68)
--- NOTE | 2021-10-19 22:08 | HMH.EDWEAK ---
ED Disposition Clinical Impression: Weakness of left lower extremity, History of CVA (cerebrovascular accident), Seizure disorder, Renal insufficiency Hypothyroid Qualifiers: Hypothyroidism type: acquired Qualified Code(s): E03.9 - Hypothyroidism, unspecified Hypertension Qualifiers: Hypertension type: primary hypertension Qualified Code(s): I10 - Essential (primary) hypertension Disposition: Admitted as Observation Condition on Discharge: Fair - Critical Care Critical Care Time: No Attestation: On 10/19/21, the high probability of a clinically significant, sudden or life threatening deterioration of the following system(s) required my full and direct attention, intervention and personal management. The time I documented below is in addition to time spent performing reported procedures but includes the following listed in this critical care notation. Medical Decision Making - Medical Records Medical records reviewed: Yes: I reviewed the patient's medical records. - Joseph Inquiry Pt receiving controlled substance: No Vital Signs: 10/19/21 20:47 10/19/21 21:30 10/19/21 22:00 Temperature 98.2 F Temperature Source Oral Pulse Rate 65 63 Pulse Rate [Right] 71 Respiratory Rate 20 Blood Pressure 160/83 H 170/94 H Blood Pressure [Right Arm] 177/94 H Blood Pressure Mean 119 Blood Pressure Mean [Right Arm] 121 Blood Pressure Source [Right Arm] Automatic Cuff 02 Sat by Pulse Oximetry 97 94 L 95 Oxygen Delivery Method Room Air Room Air Room Air - Lab Data Lab results reviewed: Yes: I reviewed the patient's lab results. Lab Results 10/19/21 21:08: WBC 5.3, RBC 4.46, Hgb 14.1, Hct 43.0, MCV 96.3, MCH 31.5 H, MCHC 32.7, RDW 13.9, Plt Count 264, MPV 8.2, Neut % (Auto) 58.8, Lymph % (Auto) 29.1, [place] % (Auto) 7.4, Eos % (Auto) 3.4, Baso % (Auto) 1.4, Neut # (Auto) 3.1, Lymph # (Auto) 1.6, [place] # (Auto) 0.4, Eos # (Auto) 0.2, Baso # (Auto) 0.1, ESR 16 10/19/21 21:08: Sodium 137, Potassium 4.2, Chloride 98, Carbon Dioxide 32 H, Anion Gap 11.2, BUN 18 H, Creatinine 1.30 H, Estimated Creat Clear 47, Estimated GFR 40 L, Est GFR ( Amer) 48 L, Glucose 92, Calcium 9.3, Total Bilirubin < 0.1 L, AST 28, ALT 15, Alkaline Phosphatase 137 H, C-Reactive Protein 5.3 H, Total Protein 7.2, Albumin 4.1, Globulin 3.1, Albumin/Globulin Ratio 1.3, Procalcitonin < 0.030, TSH 3.01 10/19/21 21:08: Free T4 1.00 10/19/21 21:08: Magnesium 2.0 10/19/21 21:08: Troponin I < 0.01 10/19/21 21:08: NT-Pro-B Natriuret Pep 265 10/19/21 21:18: Urine Color Yellow, Urine Appearance Clear, Urine pH 7.0, Ur Specific [place] 1.015, Urine Protein Negative, Urine Glucose (UA) Negative, Urine Ketones Negative, Urine Blood Negative, Urine Nitrate Negative, Urine Bilirubin Negative, Urine Urobilinogen 0.2, Ur Leukocyte Esterase Negative, Urine RBC None, Urine WBC 3-5, Ur Squamous Epith Cells Occasional, Urine Bacteria Trace 10/19/21 21:21: SARS-CoV-2 (PCR) Not detected, Influenza A Untype (PCR) Not detected, Influenza Type B (PCR) Not detected Result diagrams: 10/19/21 21:08 10/19/21 21:08 Orders (Tests/Meds): ED MEDICATIONS Generic Name Dose Route Start Last Admin Trade Name Freq PRN Reason Stop Dose Admin Sodium Chloride 1,000 mls @ 999 mls/hr 10/19/21 21:30 10/19/21 21:40 Sod Chlor 0.9% 1000ml Bag IV 10/19/21 22:30 999 mls/hr .Q1H1M BOB Administration ORDERS Category Date Time Status Troponin I Q3H Lab 10/20/21 00:45 Ordered Troponin I Q3H Lab 10/20/21 03:45 Ordered - CT Data CT Scan: Head, L-Spine Time Received: 23:[address] Reviewed: Yes: I have viewed the radiologist's interpretation Preliminary Findings: Abnormal (see report ) - ECG Data Tracing #1 Normal Sinus Rhythm: Yes Ischemic changes: non-specific ST-T wave changes - Physician Consults Physician Consulted: paula Reason -: Admission Medical Decision Narrative: has progressive weakness and sensation to lt lower ext with dec ad
[2021-10-19 22:16] LABS: Erythrocyte Sedimentation Rate 16 mm/hr (0-30)
--- NOTE | 2021-10-19 22:24 | PC.NURSE ---
Dr. Jara pagedonna
--- NOTE | 2021-10-19 22:25 | CT_ITS ---
PROCEDURE INFORMATION: Exam: CT Lumbar Spine Without Contrast Exam date and time: 10/19/2021 10:33 PM Age: 76 years old Clinical indication: Numbness; Additional info: Lle weak, numb TECHNIQUE: Imaging protocol: Computed tomography of the lumbar spine without contrast. Radiation optimization: All CT scans at this facility use at least one of these dose optimization techniques: automated exposure control; mA and/or kV adjustment per patient size (includes targeted exams where dose is matched to clinical indication); or iterative reconstruction. COMPARISON: FINDINGS: Bones/joints: Osteopenia. No acute fractures or pars defects are evident. Chronic mild-moderate superior endplate compression deformity of L1 is unchanged from MRI 08/27/2018, with minimal 2 mm retropulsion of the posterosuperior vertebral margin but no canal stenosis. No blastic or lytic lesions. Mild bilateral SI joint osteoarthritic changes. T11-T12: Disc calcification. Mild-moderate anterior spurring. No canal or foraminal stenosis. T12-L1: Mild disc expansion related to adjacent chronic endplate compression. Mild anterior spurring. Mild disc calcification and mild vacuum disc formation. Shallow posterior spondylotic ridge measuring 2 mm AP with annular calcification. No canal or foraminal stenosis. L1-L2: Mild disc calcification and annular calcification. Mild anterior spurring. No canal or foraminal stenosis. L2-L3: Mild disc calcification and annular calcification. Mild facet hypertrophic changes. No canal or foraminal stenosis. Posterior interspinous osteoarthritic changes are grossly unchanged. L3-L4: Moderate-severe disc space narrowing with vacuum disc formation and disc calcification. Mild anterior spurring. 2 mm posterior spondylotic ridge and mild bilateral facet hypertrophy, greater on the right. No canal stenosis. Moderate right foraminal stenosis. L4-L5: 5 mm chronic anterolisthesis unchanged. Mild posterior disc space narrowing with disc calcification and mild vacuum disc formation. Minor 1.5 mm disc bulge. Moderate bilateral facet/ligamentum flavum hypertrophy. These factors produce moderate-severe canal stenosis with AP thecal sac dimension of 6 mm, unchanged. Moderate-severe lateral recess stenosis bilaterally. Mild bilateral foraminal stenosis. L5-S1: Mild posterior disc space narrowing. Disc calcification and mild vacuum disc formation. Mild posterior annular calcification. No canal stenosis. Moderate bilateral facet hypertrophy with moderate left foraminal stenosis. Gallbladder and bile ducts: Prior cholecystectomy. Intraperitoneal space: Right adrenal gland calcifications with mild adrenal thickening which is unchanged from 08/27/2018, possibly changes of remote prior adrenal hemorrhage. This does not require further assessment. Vasculature: Moderate aortoiliac calcific plaque without aneurysm. Soft tissues: No compressive soft disc extrusions or protrusions are identified by CT. Nonspecific midline dependent subcutaneous edema throughout the lower back region which may relate to systemic edema/anasarca, similar to prior MRI and 2019. IMPRESSION: 1. No evidence of acute fracture or traumatic subluxation. No compressive soft disc protrusions or extrusions are identified. 2. Chronic mild-moderate superior endplate compression deformity of L1 is unchanged. 3. Osteopenia and degenerative changes. 4. Moderate-severe central canal stenosis and bilateral lateral recess stenosis at L4-L5. 5. Multilevel bilateral foraminal stenoses detailed above. 6. Additional nonemergent findings detailed above.
--- NOTE | 2021-10-19 22:30 | PC.NURSE ---
Pt up to bedside commode with assistance
--- NOTE | 2021-10-19 22:31 | PC.NURSE ---
speaking with Dr. Jara
--- NOTE | 2021-10-19 22:32 | PC.NURSE ---
lauren on phone with dr mitchell
[2021-10-19 22:34] LABS: Procalcitonin < 0.030 ng/mL (0.0-2.0)
[2021-10-19 22:39] LABS: Troponin I < 0.01 ng/ml (0.00-0.034)
--- NOTE | 2021-10-19 22:39 | PC.NURSE ---
Pt gone to RAD for CT
--- NOTE | 2021-10-19 22:41 | PC.NURSE ---
Pt back from RAD
[2021-10-19 23:25] LABS: Bacteria,Urine Trace /lpf; Squamous Epithelial Cell,Urine Occasional #/hpf (0-5)
[2021-10-19 23:26] LABS: NT Pro Brain Natriuretic Pep. 265 pg/mL (0-450)
[2021-10-19 23:55] VITALS: BP 170/84; PULSE 67; O2SAT 95
[2021-10-20] VITALS (8 sets, daily range): BP systolic 144–171; BP diastolic 90–96; PULSE 60–78; RESP 16–18; TEMP 36.7–37; O2SAT 92–96; BMI 32.3
--- NOTE | 2021-10-20 00:03 | PC.NURSE ---
pt assisted to BSC @ this time
[2021-10-20 00:19] LABS: Carbamazepine (Tegretol) 6.7 ug/ml (4.0-12.0)
--- NOTE | 2021-10-20 00:48 | PC.NURSE ---
PATIENT UP TO FLOOR VIA WHEELCHAIR @ THIS TIME.
[2021-10-20 01:15] LABS: Troponin I < 0.01 ng/ml (0.00-0.034)
[2021-10-20 04:19] LABS: Troponin I < 0.01 ng/ml (0.00-0.034)
--- NOTE | 2021-10-20 05:40 | PC.NURSE ---
Pt a + o to person/place. Pt pedal pulses equal strength. No discoloration noted. Capillary refill <3. Pt able to ambulate to BR with 1x assist. No complaints voiced to staff. Call light within reach. Bed alarm on for safety.
[2021-10-20 06:42] LABS: Basophils # 0.1 K/mm3 (0-0.2); Eosinophils % 0.2 % (0.1-12.0); Hematocrit 42.9 % (37.0-47.0); Hemoglobin 13.9 g/dL (12.2-16.2); Lymphocytes # 0.7 K/mm3 (0.7-4.5); Lymphocytes % 11.8 % (10-50); Mean Corpuscular HGB Conc 32.3 g/dL (31.8-35.4); Mean Corpuscular Hemoglobin 31.8 pg (27.0-31.2); Mean Corpuscular Volume 98.4 fl (81-99); Mean Platelet Volume 8.3 fl (7.4-10.4); Monocytes # 0.1 K/mm3 (0.1-1.0); Monocytes % 1.5 % (1.7-9.3); Neutrophils # 4.8 K/mm3 (1.8-7.8); Neutrophils % 85.5 % (37.0-80.0); Platelet Count 222 K/mm3 (142-424); Red Blood Count 4.36 M/mm3 (4.20-5.40); Red Cell Distribution Width 13.8 % (11.5-17.5); White Blood Count 5.6 K/mm3 (4.8-10.8)
[2021-10-20 06:43] LABS: Chloride 105 mmol/L (98-107)
[2021-10-20 06:44] LABS: Potassium 4.2 mmoL/L (3.5-5.1); Sodium 136 mmol/L (136-145)
[2021-10-20 06:46] LABS: MANUAL DIFFERENTIAL MANUAL DIFFERENTIAL (MANUAL DIFF)
[2021-10-20 06:47] LABS: Anion Gap 9.2 mEq/L (5-15); Blood Urea Nitrogen 18 mg/dl (7-17); Calcium 9.6 mg/dl (8.4-10.2); Carbon Dioxide 26 mmol/L (22.0-30.0); Creatinine Clearance Estimated 58 mL/min (50-200); Estimated Glomerular Filt Rate 48 ml/min (>60); GFR (African American) 58 ML/MIN (>60); Glucose 150 mg/dl (74-100)
--- NOTE | 2021-10-20 07:25 | P.CONPHA_ITS ---
[facility] Pharmacy VTE Monitoring - Patient Demographics Admission date: 10/19/21 Report Date: 10/20/21 Time: 07:25 Allergies/Adverse Reactions: Patient Allergies Iodine and Iodide Containing Produc Allergy (Intermediate, Verified 11/08/20 23:37) I-RASH Penicillins Allergy (Intermediate, Verified 11/08/20 23:37) I-RASH codeine Allergy (Mild, Verified 11/08/20 23:37) HYPER Height: 1.63 m Weight: 85.774 kg Patient Problems: Current Active Problems Hypertension (Chronic) Seizure disorder (Chronic) Hypothyroid (Chronic) History of CVA (cerebrovascular accident) (Chronic) Weakness of left lower extremity (Acute) Renal insufficiency (Acute) - VTE Risk Labs: VTE Related Lab Results Hgb 13.9 g/dL (12.2-16.2) 10/20/21 05:45 Hct 42.9 % (37.0-47.0) 10/20/21 05:45 Plt Count 222 K/mm3 (142-424) 10/20/21 05:45 BUN 18 mg/dl (7-17) H 10/20/21 05:45 Creatinine 1.10 mg/dl (0.52-1.04) H 10/20/21 05:45 Estimated Creat Clear 58 mL/min (50-200) 10/20/21 05:45 - Prophylaxis VTE Prophylaxis Ordered?: Yes Types of VTE Prophylaxis: TEDS Knee High Location of Applied Device: Bilateral Lower Extremeties
--- NOTE | 2021-10-20 07:39 | HMH.PHAINT ---
MEDICATION RECONCILIATION COMPLETED ON PATIENT USING EXTERNAL FILL HISTORY FROM PHARMACY. -HENRIQUE MENDEZ, ERASTOD
[2021-10-20 08:18] LABS: Hypersegmented Neutrophils 2+; Lymphocytes % 17 % (10-50); Neutrophils % 83 % (42-76); Total Cells Counted 100
[2021-10-20 08:19] LABS: Ovalocytes 2+
[2021-10-20 08:20] LABS: Platelet Estimate Normal
--- NOTE | 2021-10-20 08:46 | HMH.HPDC ---
<Landy Patrick - Last Filed: 10/20/21 08:46> General - General Admission date:: 10/20/21 Discharge date: 10/20/21 *Admission Date: 10/19/21 *Chief complaint: left foot numb *History of present illness: Ms. Katz is a 76-year-old female who began having some itching of the left lower leg approximately a week and a half ago. She states this then progressed to some bruising and then she began having numbness in the left foot and ankle. The itching and bruising resolved, but the numbness persisted and the left foot and lower leg felt weak. She was seen in the office on 10/16/[address] Mooney and with her history of CVA, he ordered a carotid duplex and wanted her to follow-up after testing. The carotid duplex was scheduled for 10/20, but the patient states she began having difficulty walking because of the numbness in her foot and was therefore transported to the emergency room for further evaluation and treatment. [facility] History I have reviewed the patient's past medical history: Yes Medical History: Reports:: Cerebrovascular Accident, Dementia, Depression, Hypertension, Myocardial Infarction, Seizures Denies:: Cancer, Diabetes Mellitus Type 1, Diabetes Mellitus Type 2, MRSA *Have you ever received a pneumonia vaccine?: No *Have you received a flu vaccine this season?: No Other Medical History: Reports: Arthritis, Hypothyroidism Laterality Cases: Bilateral: Myringotomy (Ear Tubes), Tonsillectomy Other Surgeries: Yes: No Previous Surgery, Cholecystectomy, Tubal Ligation, Other (loop recorder) Amputation: No - *Social History Smoking Status: Never smoker Alcohol Intake: never *Occupational Status:: disabled *Travel in the last 8 weeks: None - Psychiatric History Pschychiatric History:: Reports:: Depression Family Hx:: Hypertension, Stroke Review of Systems - Constitutional Denies chills, Denies fever(s), Denies weakness - Eyes Denies blurry vision, Denies double vision - ENT Denies nasal congestion, Denies sore throat - *Cardiovascular Denies chest pain, Denies shortness of breath - *Respiratory Denies cough, Denies shortness of breath - *Gastrointestinal Denies abdominal pain, Denies loose stools, Denies nausea, Denies vomiting - *Genitourinary Denies difficulty urinating, Denies painful urination - *Musculoskeletal Reports numbness (left foot) - *Neurologic Reports localized weakness, Reports numbness, Denies abnormal speech, Denies behavioral changes, Denies headache(s), Denies seizure-like activity Exam Vital signs and Labs for Last 24 Hours: Temp Pulse Resp BP Pulse Ox 98.6 F 78 16 144/96 H 94 L 10/20/21 08:00 10/20/21 08:00 10/20/21 08:00 10/20/21 08:00 10/20/21 08:00 Laboratory Results - last 24 hr 10/19/21 21:08: WBC 5.3, RBC 4.46, Hgb 14.1, Hct 43.0, MCV 96.3, MCH 31.5 H, MCHC 32.7, RDW 13.9, Plt Count 264, MPV 8.2, Neut % (Auto) 58.8, Lymph % (Auto) 29.1, [place] % (Auto) 7.4, Eos % (Auto) 3.4, Baso % (Auto) 1.4, Neut # (Auto) 3.1, Lymph # (Auto) 1.6, [place] # (Auto) 0.4, Eos # (Auto) 0.2, Baso # (Auto) 0.1, ESR 16 10/19/21 21:08: Sodium 137, Potassium 4.2, Chloride 98, Carbon Dioxide 32 H, Anion Gap 11.2, BUN 18 H, Creatinine 1.30 H, Estimated Creat Clear 47, Estimated GFR 40 L, Est GFR ( Amer) 48 L, Glucose 92, Calcium 9.3, Total Bilirubin < 0.1 L, AST 28, ALT 15, Alkaline Phosphatase 137 H, C-Reactive Protein 5.3 H, Total Protein 7.2, Albumin 4.1, Globulin 3.1, Albumin/Globulin Ratio 1.3, Procalcitonin < 0.030, TSH 3.01 10/19/21 21:08: Free T4 1.00 10/19/21 21:08: Magnesium 2.0 10/19/21 21:08: Troponin I < 0.01 10/19/21 21:08: NT-Pro-B Natriuret Pep 265 10/19/21 21:18: Urine Color Yellow, Urine Appearance Clear, Urine pH 7.0, Ur Specific [place] 1.015, Urine Protein Negative, Urine Glucose (UA) Negative, Urine Ketones Negative, Urine Blood Negative, Urine Nitrate Negative, Urine Bilirubin Negative, Urine Urobilinogen 0.2, Ur Leukocyte Esterase Negative, Urine RBC None, Urine WBC 3-
--- NOTE | 2021-10-20 08:53 | HMH.ACPN2 ---
Internal Medicine - PN: Subj *Date: 10/20/21 *Time: 08:53 Interval history: Patient admitted last night for left leg numbness and trouble walking. Symptoms have been present for over a week. Pt has history of lumbar DDD, compression fracture, foraminal stenosis and spinal stenosis. She has a history of multiple CVA's as well. Exam Vital signs and Labs for Last 24 Hours: Temp Pulse Resp BP Pulse Ox 98.6 F 78 16 144/96 H 94 L 10/20/21 08:00 10/20/21 08:00 10/20/21 08:00 10/20/21 08:00 10/20/21 08:00 Laboratory Results - last 24 hr 10/19/21 21:08: WBC 5.3, RBC 4.46, Hgb 14.1, Hct 43.0, MCV 96.3, MCH 31.5 H, MCHC 32.7, RDW 13.9, Plt Count 264, MPV 8.2, Neut % (Auto) 58.8, Lymph % (Auto) 29.1, [place] % (Auto) 7.4, Eos % (Auto) 3.4, Baso % (Auto) 1.4, Neut # (Auto) 3.1, Lymph # (Auto) 1.6, [place] # (Auto) 0.4, Eos # (Auto) 0.2, Baso # (Auto) 0.1, ESR 16 10/19/21 21:08: Sodium 137, Potassium 4.2, Chloride 98, Carbon Dioxide 32 H, Anion Gap 11.2, BUN 18 H, Creatinine 1.30 H, Estimated Creat Clear 47, Estimated GFR 40 L, Est GFR ( Amer) 48 L, Glucose 92, Calcium 9.3, Total Bilirubin < 0.1 L, AST 28, ALT 15, Alkaline Phosphatase 137 H, C-Reactive Protein 5.3 H, Total Protein 7.2, Albumin 4.1, Globulin 3.1, Albumin/Globulin Ratio 1.3, Procalcitonin < 0.030, TSH 3.01 10/19/21 21:08: Free T4 1.00 10/19/21 21:08: Magnesium 2.0 10/19/21 21:08: Troponin I < 0.01 10/19/21 21:08: NT-Pro-B Natriuret Pep 265 10/19/21 21:18: Urine Color Yellow, Urine Appearance Clear, Urine pH 7.0, Ur Specific [place] 1.015, Urine Protein Negative, Urine Glucose (UA) Negative, Urine Ketones Negative, Urine Blood Negative, Urine Nitrate Negative, Urine Bilirubin Negative, Urine Urobilinogen 0.2, Ur Leukocyte Esterase Negative, Urine RBC None, Urine WBC 3-5, Ur Squamous Epith Cells Occasional, Urine Bacteria Trace 10/19/21 21:21: SARS-CoV-2 (PCR) Not detected, Influenza A Untype (PCR) Not detected, Influenza Type B (PCR) Not detected 10/20/21 00:00: Carbamazepine 6.7 10/20/21 00:39: Troponin I < 0.01 10/20/21 03:45: Troponin I < 0.01 10/20/21 05:45: WBC 5.6, RBC 4.36, Hgb 13.9, Hct 42.9, MCV 98.4, MCH 31.8 H, MCHC 32.3, RDW 13.8, Plt Count 222, MPV 8.3, Neut % (Auto) 85.5 H, Lymph % (Auto) 11.8, [place] % (Auto) 1.5 L, Eos % (Auto) 0.2, Baso % (Auto) 1.0, Neut # (Auto) 4.8, Lymph # (Auto) 0.7, [place] # (Auto) 0.1, Eos # (Auto) 0.0, Baso # (Auto) 0.1, Total Counted 100, Neutrophils % (Manual) 83 H, Lymphocytes % (Manual) 17, Hypersegmented Neuts 2+, Platelet Estimate Normal, Ovalocytes 2+ 10/20/21 05:45: Sodium 136, Potassium 4.2, Chloride 105, Carbon Dioxide 26, Anion Gap 9.2, BUN 18 H, Creatinine 1.10 H, Estimated Creat Clear 58, Estimated GFR 48 L, Est GFR ( Amer) 58 L D, Glucose 150 H D, Calcium 9.6 I & O for Last 24 hours: Intake & Output 10/17/21 10/18/21 10/19/21 10/20/21 23:59 23:59 23:59 23:59 Intake Total 1259 / 1259 Balance 1259 / 1259 Weight 180 lb 189 lb 1.6 oz - Constitutional no acute distress - *Routine HEENT Exam Head: Present: normocephalic Eye: Present: EOMI, PERRL ENT: Present: mucous membranes moist - *Routine Neck Exam Present: supple. Absent: lymphadenopathy - *Routine Respiratory Exam Present: CTA bilaterally - *Routine Cardiovascular Exam Present: RRR - *Routine Abdominal Exam Present: soft, normoactive bowel sounds. Absent: tenderness - *Routine Extremities Exam Absent: cyanosis, clubbing, edema - *Routine Skin Exam Present: warm. Absent: rash - *Routine Neurological Exam Present: alert, oriented X3 near normal strength in left leg, some decreased sensation to light touch over the distal navarrete and foot Assessment and Plan (1) Weakness of left lower extremity Status: Acute Category: Medical Code(s): R29.898 - Other symptoms and signs involving the musculoskeletal system (2) Renal insufficiency Status: Acute Category: Medical Code(s): N28.9 - Disorder of kidney and ureter, unspecifi
--- NOTE | 2021-10-20 09:52 | HMH.OTEV ---
OT Inpatient Evaluation Rehab OT IP Evaluation Start: 10/20/21 00:39 Freq: ONCE Status: Complete Protocol: Document 10/20/21 09:32 SHAHIDAJUDITH (Rec: 10/20/21 09:52 EUGENIOPATTI [id number]) Rehab OT IP Assessment Subjective History Ms. Katz is a 76-year-old female who began having some itching of the left lower leg approximately a week and a half ago. She states this then progressed to some bruising and then she began having numbness in the left foot and ankle. The itching and bruising resolved, but the numbness persisted and the left foot and lower leg felt weak. She was seen in the office on 10/16/[address] Mooney and with her history of CVA, he ordered a carotid duplex and wanted her to follow-up after testing. The carotid duplex was scheduled for 10/20, but the patient states she began having difficulty walking because of the numbness in her foot and was therefore transported to the emergency room for further evaluation and treatment. [facility] History I have reviewed the patient's past medical history: Yes Medical History: Reports:: Cerebrovascular Accident, Dementia, Depression, Hypertension, Myocardial Infarction, Seizures Patient lives alone in 1 story home with 1-2 KRISTEN. Patient is independent with ADLs and fx' l mobility. However does have access to use a cane if needed . Dtr-in-law provides groceries and transportation if needed. Subjective I can get up but I still have numbness in my left leg. Instructed Patient on safety awareness during transfers,
--- NOTE | 2021-10-20 10:04 | HMH.PTEV ---
Physical Therapy Evaluation Rehab PT IP Evaluation Start: 10/20/21 00:39 Freq: ONCE Status: Active Protocol: Document 10/20/21 10:01 RANDALL (Rec: 10/20/21 10:04 PHOBRIAN [id number]) Subjective/History History History 76 yowf adm to [facility] with L foot numbness x ~ 1 wk. SHe reports she lives alone, no steps to enter the home, and she is generally independent with all mobility without AD. Subjective Subjective Pt c/o pins and needles in L LLE to the foot distally, but 0/10 pain at this time. Rehab PT IP Eval Objective Appearance Patient Behavior Appropriate Patient Orientation Person,Place,Time Difficulty following instructions none Speech Pattern Clear Ambulation Patient Able to Ambulate Yes Ambulation Observation IP General Gait Pattern Observation Shuffling Step Ambulation Distance (feet) 40 Ambulation Assistive Device None Ambulation Ability Independent Balance Ability to Arise Able, uses arms to help Sitting Balance Steady, safe Standing Balance Steady, wide stance Dynamic Sitting Balance Ability Good Dynamic Standing Balance Ability Good Transfers Bed Transfer Ability Independent Chair Transfer Ability Independent Sit to Stand Bed Transfer Ability Independent Sit to Stand Chair Transfer Ability Independent MMT All Extremities PT MMT WFL Rehab PT IP prob,goals,plan Problems Date of Evaluation: 10/20/21 Discharge Plan PT Discharge Plan Pt presents at baseline for all mobility and is appropriate to return home once medically stable. Recommend HHPT. G -code Required Yes Eval Complexity Eval Charge Codes 11114 - Moderate Complexity PHYSICIAN CERTIFICATION: I certify the specified therapy services for Tika Katz are required, authorized, and reviewed every 30 days.
--- NOTE | 2021-10-20 11:10 | SW/DCPLANNER ---
Addendum entered by Hafsa Gaspar 10/20/21 12:30: Per [facility] services will begin tomorrow for this patient. Original Note: I spoke with this patient regarding plans once medically stable for discharge. PT/OT evaluated patient and recommended home health services. Patient concurs with home health and is agreeable to [facility]. Patient information/order will be faxed to [facility] today. Patient may discharge home later today.
--- NOTE | 2021-10-20 13:54 | HMH.PHAINT ---
DISCHARGE MEDICATION COUNSELING PROVIDED. DISCUSSED THE SHORT-COURSE DEXAMETHASONE PRESCRIPTION (5 DAYS), TAKE TWICE DAILY, WITH FOOD (CAN DO BREAKFAST AND DINNER), MAY CAUSE UPSET STOMACH, INSOMNIA,
--- NOTE | 2021-10-20 14:13 | PC.NURSE ---
Spoke to patient's daughter Beth about pt's discharge. Beth Stated she does not get off of work until 1730. Patient asked if Yasmin could pick pt up but Beth stated Yasmin is her 16 year old daughter that does not drive. Was told by Beth that she would try to work something out.
--- NOTE | 2021-10-23 15:24 | CARE MANAGER ---
Contacted patient's dtr. States the patient is doing well. Home health has seen her. She did pharmacy picking technician the Dexamethasone, but the patient started vomiting and stopped taking it. They state home health was going to notify MD. They are aware of follow up appointment. Denies questions or concerns. EVANS Becerril
== END 2021-10-20 15:25 | disposition home health service (06) ==
LOC: ER 22:34 → 2ND 10-20 00:03
PROVIDERS: Admitting Provider Family Medicine; Emergency Provider Emergency Medicine; PCP Family Medicine; Visit Provider Family Medicine
DX: I10 Essential (primary) hypertension (principal); Z79.02 Long term (current) use of antithrombotics/antiplatelets; E03.9 Hypothyroidism, unspecified; Z79.899 Other long term (current) drug therapy; Z88.8 Allergy status to other drugs, medicaments and biological substances; G40.909 Epilepsy, unspecified, not intractable, without status epilepticus; R29.898 Other symptoms and signs involving the musculoskeletal system; Z86.73 Personal history of transient ischemic attack (TIA), and cerebral infarction without residual deficits; R06.9 Unspecified abnormalities of breathing
CPT/HCPCS: G0378; 36415; 70450; 72131; 80048; 80053; 80156; 81001; 83735; 83880; 84145; 84439; 84443; 84484; 85007; 85025; 85651; 86140; 93005; 97162; 97165; 97530; 99285; C9803; U0003; U0005

== ENCOUNTER → 2021-10-23 10:46 | Outpatient (CLI) | payer MEDICARE, SELFPAY ==
--- NOTE | 2021-10-23 10:50 | CA_ITS ---
FINAL REPORT TECHNIQUE: Color Doppler, duplex Doppler and cotton scale sonography of the bilateral neck arterial vasculature was performed. Velocities were measured in the carotid arteries. Stenosis evaluation based on the validated velocity criteria. CLINICAL HISTORY: HTN,HX CVA LT LEG WEAKNESS FINDINGS: The peak systolic velocity of the right common carotid artery is 71 cm/s. The peak systolic velocity of the right internal carotid artery is 128 cm/s and end diastolic velocity 30 cm/s. The ICA/CCA ratio is 2.14. A mild amount of plaque is present. The right external carotid artery is patent. The right vertebral artery is patent with antegrade flow. The peak systolic velocity of the left common carotid artery is 54 cm/s. The peak systolic velocity of the left internal carotid artery is 88 cm/s and end diastolic velocity 23 cm/s. The ICA/CCA ratio is 1.64. A mild amount of plaque is present. The left external carotid artery is patent.The left vertebral artery is patent with antegrade flow. IMPRESSION: Less than 50% bilateral carotid stenosis. Bilateral patent vertebral arteries with antegrade flow. Reviewed, Interpreted and Dictated by Avinash Salazar III, MD Transcribed by Leonora Burr Authenticated and . [facility]
== END ==
PROVIDERS: PCP Family Medicine; Visit Provider Family Medicine
DX: R29.898 Other symptoms and signs involving the musculoskeletal system (principal); Z86.73 Personal history of transient ischemic attack (TIA), and cerebral infarction without residual deficits
CPT/HCPCS: 93880

== ENCOUNTER 2021-11-16 18:01 | Observation (INO) | payer MEDICARE, SELFPAY ==
[2021-11-16 18:02] VITALS: BP 183/112; PULSE 91; RESP 18; TEMP 37.7; O2SAT 92; BMI 35.2
--- NOTE | 2021-11-16 18:06 | PC.NURSE ---
BS glucose check performed and was 91 mg/dL and that was told to EVANS Castro
[2021-11-16 18:10] VITALS: BMI 35.2
--- NOTE | 2021-11-16 18:11 | CT_ITS ---
PROCEDURE INFORMATION: Exam: CT Head Without Contrast Exam date and time: 11/16/2021 6:12 PM Age: 76 years old Clinical indication: Stroke-like symptoms; Altered mental status/memory loss; Additional info: AMS TECHNIQUE: Imaging protocol: Computed tomography of the head without contrast. Radiation optimization: All CT scans at this facility use at least one of these dose optimization techniques: automated exposure control; mA and/or kV adjustment per patient size (includes targeted exams where dose is matched to clinical indication); or iterative reconstruction. Other technique: STROKE PROTOCOL was implemented. COMPARISON: CT HEAD/BRAIN WO CON 10/19/2021 9:31 PM FINDINGS: Brain: Hypodensity is seen within the left side of stephen, contributed at least in part by artifact. Lacunar infarct of indeterminate acuity cannot be excluded. A chronic lacunar infarct is seen within the left thalamus. Encephalomalacia/gliosis involving the left posterior frontal lobe, consistent with a stable old infarct. Artifact limits evaluation of the brainstem and cerebellum. Additional artifact is seen within the left temporal lobe. No acute intracranial hemorrhage is visualized. The cotton-white differentiation is otherwise preserved. There are scattered foci of white matter hypodensity, likely representing small vessel ischemic disease. The acuity of the white matter disease is indeterminate. There is no midline shift. There is mild prominence of sulci, compatible with atrophy. Cerebral ventricles: No ventriculomegaly. Paranasal sinuses: Mild mucosal thickening of the bilateral maxillary sinuses. There is complete opacification of the left maxillary sinus. Mucosal thickening/effusions of scattered ethmoid air cells. Mucosal thickening of the left frontal sinus. Mastoid air cells: No mastoid effusion. Orbital cavities: Bilateral orbital lens implants. Bones/joints: The calvarium demonstrates no evidence for a depressed fracture. Advanced arthropathy at the right C1-C2 articulation. Soft tissues: Unremarkable. Vasculature: Intracranial atherosclerosis visualized. IMPRESSION: 1. Hypodensity is seen within the left side of stephen, contributed at least in part by artifact. Lacunar infarct of indeterminate acuity cannot be excluded. If further evaluation is clinically indicated, an MRI of the brain is recommended. 2. A chronic lacunar infarct is seen within the left thalamus. 3. Encephalomalacia/gliosis involving the left posterior frontal lobe, consistent with a stable old infarct. 4. There are scattered foci of white matter hypodensity, likely representing small vessel ischemic disease. 5. Mild atrophy. 6. Paranasal sinus disease. 7. If further evaluation is clinically indicated, an MRI of the brain is recommended. ASSESSMENT: [place] Stroke Program Early CT Score (ASPECTS) = 10
--- NOTE | 2021-11-16 18:11 | PC.NURSE ---
pt to ct at this time
--- NOTE | 2021-11-16 18:12 | XR_ITS ---
PROCEDURE INFORMATION: Exam: XR Chest Exam date and time: 11/16/2021 6:37 PM Age: 76 years old Clinical indication: Other: AMS TECHNIQUE: Imaging protocol: Radiologic exam of the chest. Views: 1 view. COMPARISON: CR XR CHEST PORTABLE 02/16/2021 8:11 PM FINDINGS: Tubes, catheters and devices: An implanted loop recorder is again seen. Airway: Deviation of the trachea to the right, similar to the prior study. Lungs: Left basilar atelectatic change. Opacification of the right lung base again visualized, which can be contributed by soft tissue shadowing although underlying infiltrate cannot be excluded. Mild prominence of pulmonary vascular/interstitial markings within the left lung, which are nonspecific. Pleural spaces: No pneumothorax. Heart/Mediastinum: No cardiomegaly. Vasculature: There is atherosclerotic calcification of the aortic arch. Bones/joints: Hypertrophic degenerative changes are noted involving the spine. Soft tissues: Stable deformation of the right lateral chest wall. IMPRESSION: 1. Left basilar atelectatic change. Opacification of the right lung base again visualized, which can be contributed by soft tissue shadowing although underlying infiltrate cannot be excluded. 2. Mild prominence of pulmonary vascular/interstitial markings within the left lung, which are nonspecific. 3. Clinical correlation and follow-up radiographs are recommended.
[2021-11-16 18:17] LABS: POC Glucose,Bedside 91 (70-110)
--- NOTE | 2021-11-16 18:17 | HMH.EDGENADL ---
ED Disposition Clinical Impression: COVID-19 virus infection, Generalized weakness Altered mental status Qualifiers: Altered mental status type: disorientation Qualified Code(s): R41.0 - Disorientation, unspecified Disposition: Admitted as Observation Condition on Discharge: Fair Instructions: DI for Altered Mental Status Referrals: Ever Jara MD [Primary Care Provider] - - Critical Care Critical Care Time: No Attestation: On , the high probability of a clinically significant, sudden or life threatening deterioration of the following system(s) required my full and direct attention, intervention and personal management. The time I documented below is in addition to time spent performing reported procedures but includes the following listed in this critical care notation. Medical Decision Making - Medical Records Medical records reviewed: Yes: I reviewed the patient's medical records. MR Comment: Reviewed discharge summary from recent admission 10/20/2021 for left leg weakness and numbness. Reviewed carotid Dopplers report from 10/23/2021, see below. - Joseph Inquiry Pt receiving controlled substance: No Vital Signs: 11/16/21 18:02 11/16/21 19:01 11/16/21 19:31 Temperature 99.8 F H Temperature Source Oral Pulse Rate 82 82 Pulse Rate [Left Radial] 91 H Respiratory Rate 18 Blood Pressure 151/91 H 164/90 H Blood Pressure [Right Arm] 183/112 H Blood Pressure Mean [Right Arm] 135 02 Sat by Pulse Oximetry 92 L 91 L 91 L Oxygen Delivery Method Room Air Room Air Room Air - Lab Data Lab Results 11/16/21 18:10: POC Glucose 91 11/16/21 18:18: SARS-CoV-2 (PCR) Detected A, Influenza A Untype (PCR) Not detected, Influenza Type B (PCR) Not detected 11/16/21 18:35: Urine Color Yellow, Urine Appearance Clear, Urine pH 5.5, Ur Specific [place] 1.025, Urine Protein Trace, Urine Glucose (UA) Negative, Urine Ketones 1+, Urine Blood Negative, Urine Nitrate Negative, Urine Bilirubin 1+ A, Urine Urobilinogen 0.2, Ur Leukocyte Esterase Negative, Urine RBC None, Urine WBC 3-5, Ur Squamous Epith Cells 3-5, Urine Bacteria Trace 11/16/21 18:35: WBC 4.4 L, RBC 4.12 L, Hgb 12.8, Hct 40.2, MCV 97.5, MCH 31.1, MCHC 31.9, RDW 14.0, Plt Count 201, MPV 8.0, Neut % (Auto) 71.0, Lymph % (Auto) 15.7, [place] % (Auto) 10.1 H, Eos % (Auto) 0.2, Baso % (Auto) 2.9 H, Neut # (Auto) 3.1, Lymph # (Auto) 0.7, [place] # (Auto) 0.4, Eos # (Auto) 0.0, Baso # (Auto) 0.1 11/16/21 18:35: Sodium 133 L, Potassium 4.3, Chloride 100, Carbon Dioxide 28, Anion Gap 9.3, BUN 18 H, Creatinine 1.20 H, Estimated Creat Clear 51, Estimated GFR 44 L, Est GFR ( Amer) 53 L, Glucose 93, Calcium 8.9, Troponin I 0.01 11/16/21 18:35: Lactate 1.1 11/16/21 18:35: Total Bilirubin < 0.1 L, Conjugated Bilirubin 0.0, Unconjugated Bilirubin 0.0, AST 35, ALT 19, Alkaline Phosphatase 117, Total Protein 7.0, Albumin 4.0, Salicylates < 1.0 L, Acetaminophen < 10 L, Carbamazepine 6.3 11/16/21 18:35: Plasma/Serum Alcohol < 10 11/16/21 18:35: Urine Opiates Screen Negative, Urine Methadone Screen Negative, Ur Barbituates Screen Negative, Ur Phencyclidine Scrn Negative, Ur Amphetamines Screen Negative, U Benzodiazepines Scrn Negative, Urine Cocaine Screen Negative, U Marijuana (THC) Screen Negative Result diagrams: 11/16/21 18:35 11/16/21 18:35 Orders (Tests/Meds): ED MEDICATIONS Generic Name Dose Route Start Last Admin Trade Name Freq PRN Reason Stop Dose Admin Sodium Chloride 1,000 mls @ 100 mls/hr 11/16/21 19:30 Sod Chlor 0.9% 1000ml Bag IV 12/16/21 19:29 .Q10H BOB Sodium Chloride 10 ml 11/16/21 18:13 Sodium Chloride 0.9% 10ml Flush Syringe IV 12/16/21 18:12 NEEDED PRN Maintain IV Site Discontinued Medications Generic Name Dose Route Start Last Admin Trade Name Freq PRN Reason Stop Dose Admin Lisinopril 20 mg 11/16/21 19:28 Lisinopril 20mg Tablet PO 11/16/21 19:29 ONCE ONE ORDERS Category Date Time Status [place]
--- NOTE | 2021-11-16 18:20 | PC.NURSE ---
pt returned from CT via stretcher
--- NOTE | 2021-11-16 18:23 | PC.NURSE ---
ER at for patient eval; family at BS
--- NOTE | 2021-11-16 18:42 | PC.NURSE ---
JUANITO called our ER to speak to ER provider
[2021-11-16 18:43] LABS: Microscopic, Urine URINE MICROSCOPIC (MICROSCOPIC)
--- NOTE | 2021-11-16 18:43 | PC.NURSE ---
JUANITO called our ER to speak to our ER MD
[2021-11-16 18:45] LABS: Influenza A, PCR Not Detected (NotDetected); Influenza B, PCR Not Detected (NotDetected)
[2021-11-16 18:47] LABS: Appearance,Urine CLEAR (Clear); Blood, Urine Negative (Negative); Color,Urine YELLOW (Yellow); Glucose,Urine (UA) Negative (Negative); Ketones,Urine 1+ (Negative); Leukocyte Esterase,Urine Negative (Negative); Nitrate,Urine Negative (Negative); PH,Urine 5.5 (5.0-8.5); Protein,Urine TRACE (Negative); Specific Gravity, Urine 1.025 (1.005-1.030); Urobilinogen,Urine 0.2 EU/dl (0.2)
[2021-11-16 18:53] LABS: Bilirubin,Urine 1+ (Negative)
[2021-11-16 18:55] LABS: Basophils # 0.1 K/mm3 (0-0.2); Basophils % 2.9 % (0.1-2.0); Eosinophils % 0.2 % (0.1-12.0); Hematocrit 40.2 % (37.0-47.0); Hemoglobin 12.8 g/dL (12.2-16.2); Lymphocytes # 0.7 K/mm3 (0.7-4.5); Lymphocytes % 15.7 % (10-50); Mean Corpuscular HGB Conc 31.9 g/dL (31.8-35.4); Mean Corpuscular Hemoglobin 31.1 pg (27.0-31.2); Mean Corpuscular Volume 97.5 fl (81-99); Monocytes # 0.4 K/mm3 (0.1-1.0); Monocytes % 10.1 % (1.7-9.3); Neutrophils # 3.1 K/mm3 (1.8-7.8); Platelet Count 201 K/mm3 (142-424); Red Blood Count 4.12 M/mm3 (4.20-5.40); White Blood Count 4.4 K/mm3 (4.8-10.8)
--- NOTE | 2021-11-16 18:56 | ECG_ITS ---
APPROVED REPORT Exam: Resting ECG HR:82 bpm ECG Measurements Heart Rate 82 AXES IN 197 P 40 QRSd 79 QRS -26 QT 356 T 59 QTc 395 Conclusion SINUS RHYTHM BORDERLINE LEFT AXIS DEVIATION [QRS AXIS < -20] BORDERLINE ECG UNCONFIRMED REPORT Electronically signed by : Jeremiah Ledesma MD 11/17/2021 21:40:49
[2021-11-16 18:58] LABS: Barbiturates Screen,Urine Negative ng/ml (<200)
[2021-11-16 18:59] LABS: Benzodiazepines Screen,Urine Negative ng/ml (<200)
[2021-11-16 19:00] LABS: Amphetamine/Metha Screen,Urine Negative ng/ml (<1000); Methadone Screen,Urine Negative ng/ml (<300)
[2021-11-16 19:01] VITALS: BP 151/91; PULSE 82; O2SAT 91
[2021-11-16 19:01] LABS: Cannabinoid Screen,Urine Negative ng/ml (<50)
[2021-11-16 19:02] LABS: Cocaine Screen,Urine Negative ng/ml (<300); Opiate Screen,Urine Negative ng/ml (<300)
[2021-11-16 19:03] LABS: Phencyclidine Screen,Urine Negative ng/ml (<25)
[2021-11-16 19:11] LABS: Coronavirus 19, PCR Detected (NotDetected)
--- NOTE | 2021-11-16 19:13 | PC.NURSE ---
Pt given warm blanket. No other needs or complaints voiced at this time.
[2021-11-16 19:19] LABS: Anion Gap 9.3 mEq/L (5-15); Blood Urea Nitrogen 18 mg/dl (7-17); Calcium 8.9 mg/dl (8.4-10.2); Carbon Dioxide 28 mmol/L (22.0-30.0); Chloride 100 mmol/L (98-107); Creatinine Clearance Estimated 51 mL/min (50-200); Estimated Glomerular Filt Rate 44 ml/min (>60); GFR (African American) 53 ML/MIN (>60); Glucose 93 mg/dl (74-100); Lactic Acid 1.1 mmol/L (0.7-2.1); Potassium 4.3 mmoL/L (3.5-5.1); Sodium 133 mmol/L (136-145)
[2021-11-16 19:21] LABS: Alanine Aminotransferase 19 U/L (12-78); Alkaline Phosphatase 117 U/L (38-126); Aspartate Amino Transferase 35 U/L (14-36); Carbamazepine (Tegretol) 6.3 ug/ml (4.0-12.0)
[2021-11-16 19:26] LABS: Acetaminophen < 10 ug/ml (10-30); Bilirubin,Total < 0.1 mg/dl (0.2-1.3); Salicylate < 1.0 mg/dL (2.0-20.0)
[2021-11-16 19:29] LABS: Bacteria,Urine Trace /lpf
--- NOTE | 2021-11-16 19:30 | PC.NURSE ---
Dr. Jesica vazquez
[2021-11-16 19:31] VITALS: BP 164/90; PULSE 82; O2SAT 91
[2021-11-16 19:31] LABS: Troponin I 0.01 ng/ml (0.00-0.034)
--- NOTE | 2021-11-16 19:35 | PC.NURSE ---
speaking with Dr. Mooney
[2021-11-16 19:38] LABS: Ethyl Alcohol < 10 mg/dl (0-10)
--- NOTE | 2021-11-16 19:41 | PC.NURSE ---
House notified of pt admission and need for bed assignment.
[2021-11-16 19:49] LABS: Thyroid Stimulating Hormone 0.73 uIU/mL (0.465-4.68)
--- NOTE | 2021-11-16 19:59 | PC.NURSE ---
Pt and family updated on POC and made aware that pt is being admitted.
[2021-11-16 20:00] VITALS: O2SAT 93; BMI 36.2
[2021-11-16 20:27] LABS: Bilirubin,Indirect 0.1 mg/dL (0.0-0.9)
--- NOTE | 2021-11-16 20:35 | PC.NURSE ---
PT ARRIVED TO FLOOR VIA STRETCHER AT THIS TIME.
[2021-11-16 21:01] VITALS: BP 166/97; PULSE 82; RESP 16; TEMP 37.1; O2SAT 97
[2021-11-16 21:43] LABS: Ammonia < 9 umol/L (9-30)
[2021-11-16 21:55] LABS: Troponin I 0.02 ng/ml (0.00-0.034)
[2021-11-16 22:00] VITALS: BP 165/86; PULSE 79; RESP 18; TEMP 38.2; O2SAT 93
[2021-11-17] VITALS: BP 145/68; PULSE 76; RESP 17; TEMP 36.7; O2SAT 94
[2021-11-17 04:00] VITALS: BP 148/67; PULSE 69; RESP 17; TEMP 36.6; O2SAT 99
[2021-11-17 04:42] VITALS: BMI 37.4
--- NOTE | 2021-11-17 05:25 | PC.NURSE ---
Pt alert to person/place. Pt able to voice needs to staff. Daughter/POA states pt baseline is saying opposite of what she means and humming due to prior stroke in past. Pt has not voiced any c/o to staff. Tolerating RA well with sats >90%. Null cath in place draining clear yellow urine. Pt able to feed self with set up assistance. Call light within reach. Bed alarm and seizure pads in place for pt safety.
[2021-11-17 06:14] LABS: Basophils % 1.1 % (0.1-2.0); Eosinophils % 0.4 % (0.1-12.0); Hematocrit 36.3 % (37.0-47.0); Mean Corpuscular HGB Conc 31.5 g/dL (31.8-35.4); Mean Corpuscular Hemoglobin 30.8 pg (27.0-31.2); Mean Corpuscular Volume 97.7 fl (81-99); Mean Platelet Volume 8.9 fl (7.4-10.4); Monocytes # 0.5 K/mm3 (0.1-1.0); Monocytes % 12.8 % (1.7-9.3); Neutrophils % 57.8 % (37.0-80.0); Platelet Count 172 K/mm3 (142-424); Red Blood Count 3.72 M/mm3 (4.20-5.40); White Blood Count 3.5 K/mm3 (4.8-10.8)
[2021-11-17 06:25] LABS: Hemoglobin 11.5 g/dL (12.2-16.2)
[2021-11-17 06:29] LABS: Chloride 106 mmol/L (98-107); Potassium 3.9 mmoL/L (3.5-5.1); Sodium 134 mmol/L (136-145)
[2021-11-17 06:32] LABS: Anion Gap 6.9 mEq/L (5-15); Blood Urea Nitrogen 17 mg/dl (7-17); Calcium 7.9 mg/dl (8.4-10.2); Carbon Dioxide 25 mmol/L (22.0-30.0); Creatinine Clearance Estimated 58 mL/min (50-200); Estimated Glomerular Filt Rate 48 ml/min (>60); GFR (African American) 58 ML/MIN (>60); Glucose 94 mg/dl (74-100)
[2021-11-17 08:00] VITALS: BP 171/91; PULSE 80; RESP 16; TEMP 38.1; O2SAT 91
--- NOTE | 2021-11-17 08:48 | HMH.PHAVTE ---
[facility] Pharmacy VTE Monitoring - Patient Demographics Admission date: 11/16/21 Report Date: 11/17/21 Time: 08:48 Allergies/Adverse Reactions: Patient Allergies Iodine and Iodide Containing Produc Allergy (Intermediate, Verified 11/08/20 23:37) I-RASH Penicillins Allergy (Intermediate, Verified 11/08/20 23:37) I-RASH codeine Allergy (Mild, Verified 11/08/20 23:37) HYPER Height: 1.52 m Weight: 86.455 kg Patient Problems: Current Active Problems COVID-19 virus infection (Acute) Altered mental status (Acute) Generalized weakness (Acute) - VTE Risk Labs: VTE Related Lab Results Hgb 11.5 g/dL (12.2-16.2) L D 11/17/21 05:52 Hct 36.3 % (37.0-47.0) L 11/17/21 05:52 Plt Count 172 K/mm3 (142-424) 11/17/21 05:52 BUN 17 mg/dl (7-17) 11/17/21 05:52 Creatinine 1.10 mg/dl (0.52-1.04) H 11/17/21 05:52 Estimated Creat Clear 58 mL/min (50-200) 11/17/21 05:52 - Prophylaxis VTE Prophylaxis Ordered?: Yes Types of VTE Prophylaxis: TEDS Knee High Location of Applied Device: Bilateral Lower Extremeties
--- NOTE | 2021-11-17 08:54 | HMH.PHAINT ---
MEDICATION RECONCILIATION COMPLETED ON PATIENT USING EXTERNAL FILL HISTORY FROM PHARMACY. -HENRIQUE MENDEZ, ERASTOD
--- NOTE | 2021-11-17 09:09 | PC.NURSE ---
patient assisted to bathroom. noted patient had been incontinent of bowel. patient also had large amount of stool in commode. loose but not watery. assisted with cleaning up and then assisted to chair. chair alarm placed on patient. feet up, with blanket provided. bed changed. bedside table in reach and water and ice retrieved for patient. placed call for sweet tea per patient request. call light within reach. encouraged her to ring out if needing to use the restroom, or any questions or other needs arise.
--- NOTE | 2021-11-17 09:16 | HMH.HP ---
*Admission Date: 11/16/21 <Landy Patrick - 11/17/21 09:25> *Chief complaint: weakness <Landy Patrick - 11/17/21 09:25> *History of present illness: Ms. Katz is a 76-year-old female who was just recently hospitalized at [facility] at the end of October for left leg weakness and numbness. She states 2 days ago she began having profound weakness of her entire body. She actually fell in her home and had to have help getting up from some workers who were repairing her bathroom. She denies any other symptoms other than possibly a low-grade fever. She states she has had no sick contacts.According to the ER note, she was found on her porch with her pants partly down and had urinated all over herself and was very confused as well as weak. She was brought to the emergency room for evaluation and treatment. She was initially not responding verbally and seemed too weak to raise any of her extremities off the bed. She was found to have COVID in the emergency room and an elevated creatinine. She was admitted for further evaluation and treatment. This a.m. she is awake and alert. She has not been up moving in her room but states she does feel a little bit better. She does not remember all of the events of yesterday. She is eating well this morning. She denies any respiratory or GI symptoms. <Landy Patrick - 11/17/21 09:25> [facility] History I have reviewed the patient's past medical history: Yes <Landy Patrick 11/17/21 09:25> Medical History: Reports:: Cerebrovascular Accident, Dementia, Depression, Hypertension, Myocardial Infarction, Seizures Denies:: Cancer, Diabetes Mellitus Type 1, Diabetes Mellitus Type 2, MRSA <Landy Patrick 11/17/21 09:25> *Have you ever received a pneumonia vaccine?: No <Landy Patrick 11/17/21 09:25> *Have you received a flu vaccine this season?: No <Landy Patrick 11/17/21 09:25> Other Medical History: Reports: Arthritis, Hypothyroidism <Landy Patrick 11/17/21 09:25> Laterality Cases: Right: Cataract, Bilateral: Myringotomy (Ear Tubes), Tonsillectomy <Landy Patrick 11/17/21 09:25> Other Surgeries: Yes: Cholecystectomy, Tubal Ligation, Other (loop recorder) <Landy Patrick 11/17/21 09:25> Amputation: No <Landy Patrick 11/17/21 09:25> - *Social History Smoking Status: Unknown if ever smoked <Landy Patrick 11/17/21 09:25> Alcohol Intake: never <Landy Patrick 11/17/21 09:25> *Occupational Status:: disabled <Landy Patrick 11/17/21 09:25> Household Members: none <Landy Patrick 11/17/21 09:25> *Travel in the last 8 weeks: None <Landy Patrick 11/17/21 09:25> - Psychiatric History Pschychiatric History:: Reports:: Depression <Landy Patrick 11/17/21 09:25> Family Hx:: Hypertension, Stroke <Landy Patrick 11/17/21 09:25> Review of Systems - Constitutional Reports fever(s), Reports weakness, Denies chills <Landy Patrick 11/17/21 09:25> - Eyes Denies blurry vision, Denies double vision <Landy Patrick 11/17/21 09:25> - ENT Denies nasal congestion, Denies sore throat <Landy Patrick 11/17/21 09:25> - *Cardiovascular Denies chest pain, Denies shortness of breath <Landy Patrick 11/17/21 09:25> - *Respiratory Denies cough, Denies shortness of breath <Landy Patrick 11/17/21 09:25> - *Gastrointestinal Denies abdominal pain, Denies loose stools, Denies nausea, Denies vomiting <Landy Patrick 11/17/21 09:25> - *Genitourinary Denies difficulty urinating, Denies painful urination <Landy Patrick 11/17/21 09:25> - *Musculoskeletal Denies joint pain <Landy Patrick 11/17/21 09:25> - *Neurologic Reports weakness, Denies localized weakness, Denies headache(s), Denies dizziness <Lnady Patrick - 11/17/21 09:25> Meds Home Medications Medication Instructions Recorded Confirmed Type Aspirin [Aspirin 81mg chewable 81 mg PO DAILY 12/19/19 11/16/21 History tab] Atorvastatin Calcium [Lipitor 40mg 40 mg PO HS 12/19/19 11/16/21 Histo
--- NOTE | 2021-11-17 11:15 | HMH.PTEV ---
Physical Therapy Evaluation Rehab PT IP Evaluation Start: 11/17/21 08:52 Freq: ONCE Status: Active Protocol: Document 11/17/21 11:07 TRACE (Rec: 11/17/21 11:14 TRACE [id number]) Subjective/History History History Patient is a 76 year old female admitted to [facility] 11/16/21 secondary to generalized weakness. Upon examination in ED patient tested positive for COVID-19. She lives at home alone, independent with all ADL's and does not require an AD for ambulation. Upon entering room patient was sitting in bedside chair. She was able to get up and walk to restroom with nurses assistance this morning. Subjective Subjective I feel much better today than I did yesterday. Rehab PT IP Eval Objective Appearance Patient Behavior Appropriate,Cooperative Patient Orientation Person,Place,Birthday Difficulty following instructions none Speech Pattern Clear,Appropriate Ambulation Patient Able to Ambulate Yes Balance Ability to Arise Able, uses arms to help Sitting Balance Steady, safe Standing Balance Steady, wide stance Dynamic Sitting Balance Ability Normal Dynamic Standing Balance Ability Normal Transfers Chair Transfer Ability Supervision/Stand by Sit to Stand Chair Transfer Ability Supervision/Stand by ROM All Extremities PT ROM Status WFL MMT All Extremities PT MMT WFL Rehab PT IP prob,goals,plan Problems Date of Evaluation: 11/17/21 Rehab Potential Rehab Potential Good Discharge Plan PT Discharge Plan At this time, PT suggests that patient functioning well enough to not require PT services. G -code Required No Eval Complexity Eval Charge Codes 47486 - High Complexity PHYSICIAN CERTIFICATION: I certify the specified therapy services for Tika Katz are required, authorized, and reviewed every 30 days.
--- NOTE | 2021-11-17 11:16 | HMH.PTEV ---
Physical Therapy Evaluation Rehab PT IP Evaluation Start: 11/17/21 08:52 Freq: ONCE Status: Active Protocol: Document 11/17/21 11:07 TRACE (Rec: 11/17/21 11:14 TRACE [id number]) Subjective/History History History Patient is a 76 year old female admitted to [facility] 11/16/21 secondary to generalized weakness. Upon examination in ED patient tested positive for COVID-19. She lives at home alone, independent with all ADL's and does not require an AD for ambulation. Upon entering room patient was sitting in bedside chair. She was able to get up and walk to restroom with nurses assistance this morning. Subjective Subjective I feel much better today than I did yesterday. Rehab PT IP Eval Objective Appearance Patient Behavior Appropriate,Cooperative Patient Orientation Person,Place,Birthday Difficulty following instructions none Speech Pattern Clear,Appropriate Ambulation Patient Able to Ambulate Yes Ambulation Observation IP General Gait Pattern Observation Shuffling Step Ambulation Distance (feet) 20 Ambulation Assistive Device None Ambulation Ability Supervision/Stand by Balance Ability to Arise Able, uses arms to help Sitting Balance Steady, safe Standing Balance Steady, wide stance Dynamic Sitting Balance Ability Normal Dynamic Standing Balance Ability Normal Transfers Chair Transfer Ability Supervision/Stand by Sit to Stand Chair Transfer Ability Supervision/Stand by ROM All Extremities PT ROM Status WFL MMT All Extremities PT MMT WFL Rehab PT IP prob,goals,plan Problems Date of Evaluation: 11/17/21 Rehab Potential Rehab Potential Good Discharge Plan PT Discharge Plan At this time, PT suggests that patient functioning well enough to not require PT services. G -code Required No Eval Complexity Eval Charge Codes 50120 - High Complexity PHYSICIAN CERTIFICATION: I certify the specified therapy services for Tika Katz are required, authorized, and reviewed every 30 days.
[2021-11-17 11:43] VITALS: BMI 37.3
[2021-11-17 12:00] VITALS: BP 147/76; PULSE 68; RESP 18; TEMP 36.9; O2SAT 92
--- NOTE | 2021-11-17 14:42 | PC.NURSE ---
Patient able to answer each orientation question correctly with no assistance. Patient able to ambulate from bed to bathroom and to the chair. Patient had a small fever of 100 but given tylenol and relief noted. Some medications form home retrieved by daughter, pharmacy tagged for use. Patient remains on room air. No complaints noted.
[2021-11-17 16:00] VITALS: BP 138/80; PULSE 64; RESP 20; TEMP 36.9; O2SAT 94
[2021-11-17 18:12] LABS: Adenovirus F 40/41, stool Not Detected (NotDetected); Astrovirus Not Detected (NotDetected); Campylobacter Not Detected (NotDetected); Clostridium Difficile A/B, PCR Not Detected (NotDetected); Cryptosporidium Not Detected (NotDetected); Cyclospora Cayetanesis Not Detected (NotDetected); Entamoeba histolytica Not Detected (NotDetected); Enteroaggregative E coli Not Detected (NotDetected); Enteropathogenic E coli Not Detected (NotDetected); Enterotoxigenic E coli Not Detected (NotDetected); Giardia lamblia Not Detected (NotDetected); Norovirus Not Detected (NotDetected); Plesimonas Shigalloides, PCR Not Detected (NotDetected); Rotavirus A Not Detected (NotDetected); Salmonella, PCR Not Detected (NotDetected); Sapovirus Not Detected (NotDetected); Shiga-like toxin E coli Not Detected (NotDetected); Shigella Enterovasive E coli Not Detected (NotDetected); Vibrio Cholerae Not Detected (NotDetected); Vibrio, PCR Not Detected (NotDetected); Yersinia Entercolitica, PCR Not Detected (NotDetected)
[2021-11-17 18:34] LABS: Occult Blood,Stool Negative (Negative)
[2021-11-17 20:00] VITALS: BP 142/81; PULSE 64; RESP 18; TEMP 37.2; O2SAT 95
[2021-11-18] VITALS: BP 164/87; PULSE 68; RESP 18; TEMP 37.1; O2SAT 94
[2021-11-18 04:00] VITALS: BP 155/98; PULSE 72; RESP 18; TEMP 37; O2SAT 95
--- NOTE | 2021-11-18 04:00 | PC.NURSE ---
pt alert to name and place but confused to time and month, pt rested well through the night, f/c to bsd with clear yellow urine noted, lung sounds clear and diminished, 02 sats 91-95% on room air, vss, skin pwd, no other issues or concerns at this time.
[2021-11-18 04:36] VITALS: BMI 37.9
--- NOTE | 2021-11-18 06:00 | XR_ITS ---
PROCEDURE INFORMATION: Exam: XR Chest Exam date and time: 11/18/2021 5:57 AM Age: 76 years old Clinical indication: Other: Weakness, SOB , covid 19; Additional info: Weakness, covid 19 infection TECHNIQUE: Imaging protocol: Radiologic exam of the chest. Views: 1 view. COMPARISON: CR XR CHEST PORTABLE 11/16/2021 6:37 PM FINDINGS: Tubes, catheters and devices: There is partial visualization of a loop recorder. Lungs: No consolidation. Pleural spaces: No pleural effusion. No pneumothorax. Heart/Mediastinum: No cardiomegaly. The aorta is calcified and tortuous. Diaphragm: There is stable elevation right hemidiaphragm. Bones/joints: There are degenerative changes of the spine. IMPRESSION: 1. No evidence of active pulmonary disease. 2. A followup PA and lateral radiograph is recommended when the patient is clinically able.
[2021-11-18 07:20] LABS: Chloride 105 mmol/L (98-107); Sodium 135 mmol/L (136-145)
[2021-11-18 07:21] LABS: Potassium 3.7 mmoL/L (3.5-5.1)
[2021-11-18 07:23] LABS: Blood Urea Nitrogen 12 mg/dl (7-17); Creatinine Clearance Estimated 65 mL/min (50-200); Estimated Glomerular Filt Rate 54 ml/min (>60); GFR (African American) 65 ML/MIN (>60)
[2021-11-18 07:24] LABS: Anion Gap 5.7 mEq/L (5-15); Calcium 7.9 mg/dl (8.4-10.2); Carbon Dioxide 28 mmol/L (22.0-30.0); Glucose 96 mg/dl (74-100)
[2021-11-18 07:33] LABS: Basophils % 0.6 % (0.1-2.0); Eosinophils % 0.8 % (0.1-12.0); Hematocrit 37.2 % (37.0-47.0); Hemoglobin 11.6 g/dL (12.2-16.2); Mean Corpuscular HGB Conc 31.2 g/dL (31.8-35.4); Mean Corpuscular Volume 96.2 fl (81-99); Mean Platelet Volume 8.3 fl (7.4-10.4); Monocytes # 0.3 K/mm3 (0.1-1.0); Monocytes % 7.5 % (1.7-9.3); Neutrophils % 60.2 % (37.0-80.0); Platelet Count 183 K/mm3 (142-424); Red Blood Count 3.87 M/mm3 (4.20-5.40); White Blood Count 3.4 K/mm3 (4.8-10.8)
[2021-11-18 08:00] VITALS: BP 135/73; PULSE 81; RESP 18; TEMP 36.8; O2SAT 92; O2SAT 95
--- NOTE | 2021-11-18 08:52 | HMH.ACPN2 ---
Internal Medicine - PN: Subj *Date: 11/18/21 *Time: 08:52 Interval history: Patient with no new complaints today. She had several loose stools yesterday and stool testing was performed. Exam Vital signs and Labs for Last 24 Hours: Temp Pulse Resp BP Pulse Ox 98.3 F 81 18 135/73 92 L 11/18/21 08:00 11/18/21 08:00 11/18/21 08:00 11/18/21 08:00 11/18/21 08:00 Laboratory Results - last 24 hr 11/17/21 18:00: Stl Aeromonas (PCR) Not detected, Stl C. cayetanensis PCR Not detected, Stool Rotavirus (PCR) Not detected, Stl Adenov F 40/41 PCR Not detected, Stool Astrovirus (PCR) Not detected, Stool Campylobacter PCR Not detected, Stl C.difficile Tox PCR Not detected, Stool Cryptosporidium PCR Not detected, Stl E.coli Shiga Tox PCR Not detected, Stool E coli O157 PCR Not detected, Stl Enterotoxigenic E PCR Not detected, Stool EPEC (PCR) Not detected, Stool EAEC (PCR) Not detected, Stl E. histolytica PCR Not detected, Stool Giardia Lamblia PCR Not detected, Stool Salmonella PCR Not detected, Stool Sapovirus (PCR) Not detected, Stl P. shigelloides PCR Not detected, Stl Shigella/EIEC PCR Not detected, St Y.enterocolitica PCR Not detected, Stool Vibrio (PCR) Not detected, Stl Vibrio cholerae PCR Not detected, Stl Norovirus GI/GII PCR Not detected 11/17/21 18:00: Stool Occult Blood Negative 11/18/21 06:37: WBC 3.4 L, RBC 3.87 L, Hgb 11.6 L, Hct 37.2, MCV 96.2, MCH 30.0, MCHC 31.2 L, RDW 14.0, Plt Count 183, MPV 8.3, Neut % (Auto) 60.2, Lymph % (Auto) 31.0, [place] % (Auto) 7.5, Eos % (Auto) 0.8, Baso % (Auto) 0.6, Neut # (Auto) 2.0, Lymph # (Auto) 1.0, [place] # (Auto) 0.3, Eos # (Auto) 0.0, Baso # (Auto) 0.0 11/18/21 06:37: Sodium 135 L, Potassium 3.7, Chloride 105, Carbon Dioxide 28, Anion Gap 5.7, BUN 12 D, Creatinine 1.00, Estimated Creat Clear 65, Estimated GFR 54 L, Est GFR ( Amer) 65, Glucose 96, Calcium 7.9 L Vital Signs - 24 hr 11/17/21 12:00 11/17/21 16:00 11/17/21 20:00 Temperature 98.5 F 98.4 F 98.9 F Pulse Rate [Left Radial] 68 64 64 Respiratory Rate 18 20 18 Blood Pressure [Right Arm] 147/76 H 138/80 142/81 H 02 Sat by Pulse Oximetry 92 L 94 L 95 11/18/21 00:00 11/18/21 04:00 11/18/21 08:00 Temperature 98.7 F 98.6 F 98.3 F Pulse Rate [Left Radial] 68 72 81 Respiratory Rate 18 18 18 Blood Pressure [Right Arm] 164/87 H 155/98 H 135/73 02 Sat by Pulse Oximetry 94 L 95 92 L I & O for Last 24 hours: Intake & Output 11/15/21 11/16/21 11/17/21 11/18/21 23:59 23:59 23:59 23:59 Intake Total 2815 / 2815 1392 / 1392 Output Total 700 / 900 2500 / 2500 Balance 2115 / 1915 -1108 / -1108 Weight 184 lb 9 oz 190 lb 7.67 oz 193 lb 2 oz - Constitutional no acute distress Assessment and Plan (1) COVID-19 virus infection Status: Acute Category: Medical Code(s): U07.1 - COVID-19 (2) Altered mental status Status: Acute Qualifiers: Altered mental status type: disorientation Qualified Code(s): R41.0 - Disorientation, unspecified Category: Medical Code(s): R41.82 - Altered mental status, unspecified (3) Generalized weakness Status: Acute Category: Medical Code(s): R53.1 - Weakness (4) Renal insufficiency Status: Acute Category: Medical Code(s): N28.9 - Disorder of kidney and ureter, unspecified (5) Arthritis Status: Chronic Category: Medical Code(s): M19.90 - Unspecified osteoarthritis, unspecified site (6) Depression Status: Chronic Category: Medical Code(s): F32.9 - Major depressive disorder, single episode, unspecified (7) History of CVA (cerebrovascular accident) Status: Chronic Category: Medical Code(s): Z86.73 - Personal history of transient ischemic attack (TIA), and cerebral infarction without residual deficits (8) Hypertension Status: Chronic Qualifiers: Hypertension type: primary hypertension Qualified Code(s): I10 - Essential (primary) hypertension Category: Medical Code(s): I10 - Essential (primary) hypertension
--- NOTE | 2021-11-20 15:26 | CARE MANAGER ---
Spoke with patient daughter for post-discharge phone interview, she states that patient is doing well and has no complaints at this time.
--- NOTE | 2021-11-21 15:03 | HMH.DCSUM ---
General - General Admission date:: 11/16/21 Discharge date: 11/18/21 HPI HPI: Ms. Katz is a 76-year-old female who was just recently hospitalized at [facility] at the end of October for left leg weakness and numbness. She states 2 days ago she began having profound weakness of her entire body. She actually fell in her home and had to have help getting up from some workers who were repairing her bathroom. She denies any other symptoms other than possibly a low-grade fever. She states she has had no sick contacts.According to the ER note, she was found on her porch with her pants partly down and had urinated all over herself and was very confused as well as weak. She was brought to the emergency room for evaluation and treatment. She was initially not responding verbally and seemed too weak to raise any of her extremities off the bed. She was found to have COVID in the emergency room and an elevated creatinine. She was admitted for further evaluation and treatment. This a.m. she is awake and alert. She has not been up moving in her room but states she does feel a little bit better. She does not remember all of the events of yesterday. She is eating well this morning. She denies any respiratory or GI symptoms. Hospital Course Hospital Course: The patient was admitted and started on IV fluids and some of her home medications. A PT consult was ordered. She did begin improving and a repeat chest x-ray showed no evidence of active pulmonary disease. Physical therapy saw the patient. She was able to get up and walk and felt much better. They did not feel she would require therapy while inpatient and could return home once stable. By 11/18/2021 she had had several loose stools and stool testing was performed. It was negative. Her labs improved and her Null was removed. She was stable to be discharged home and will follow-up with Dr. Jara in 2 weeks in the office. Objective Vital signs: Temp Pulse Resp BP Pulse Ox 98.3 F 81 18 135/73 95 11/18/21 08:00 11/18/21 08:00 11/18/21 08:00 11/18/21 08:00 11/18/21 08:00 Narrative: - Constitutional no acute distress <Landy Patrick - 11/17/21 09:25> - *Routine HEENT Exam Head: Present: [facility]ic [facility]/17[facility] 09[facility]25> Eye: Present: EOMI, PERRL [facility]> ENT: Present: mucous membranes dry [facility] 11/17/21 09:25> - *Routine Neck Exam Present: supple. Absent: lymphadenopathy [facility]/21 09:25> - *Routine Respiratory Exam Present: CTA bilaterally [facility] 11/17/21 09:25> - *Routine Cardiovascular Exam Present: RRR [facility] 11/17/21 09:25> - *Routine Abdominal Exam Present: soft, normoactive bowel sounds. Absent: tenderness [facility]/17/21 09:25> - *Routine Rectal Exam Rectal:: deferred [facility] 11/17/21 09:25> - *Routine Genitalia Exam Genitalia:: deferred [facility] 11/17/21 09:25> - *Routine Extremities Exam Absent: cyanosis, clubbing, edema [facility] 11/17/21 09:25> - *Routine Skin Exam Present: warm. Absent: rash [facility] 11/17/21 09:25> - *Routine Neurological Exam Present: alert, oriented X3 Results Labs on day of discharge: Preliminary micro results at discharge 11/16/21 18:35 Blood Culture - Preliminary Blood NO GROWTH AFTER 48 HOURS 11/16/21 18:35 Blood Culture - Preliminary Blood NO GROWTH AFTER 48 HOURS DS: Diagnosis - Discharge Diagnosis (1) COVID-19 virus infection Status: Acute (2) Altered mental status Status: Acute (3) Generalized weakness Status: Acute (4) Renal insufficiency Status: Acute (5) Arthritis Status: Chronic (6) Depression Status: Chronic (7) History of CVA (cerebrovascular accident) Status: Chronic (8) Hypertension Status: Chronic (9) Hypothyroid Status: Chronic (10) Sei
== END 2021-11-18 10:26 | disposition home or self-care (01) ==
LOC: ER 19:41 → 2ND 20:05
PROVIDERS: Admitting Provider Family Medicine; Emergency Provider Emergency Medicine; PCP Family Medicine; Visit Provider Family Medicine
DX: U07.1 COVID-19 (principal); Z79.899 Other long term (current) drug therapy; E03.9 Hypothyroidism, unspecified; Z79.02 Long term (current) use of antithrombotics/antiplatelets; R29.6 Repeated falls; I10 Essential (primary) hypertension; D64.9 Anemia, unspecified; G40.909 Epilepsy, unspecified, not intractable, without status epilepticus; E86.0 Dehydration; N17.9 Acute kidney failure, unspecified; R53.1 Weakness; Z86.73 Personal history of transient ischemic attack (TIA), and cerebral infarction without residual deficits
CPT/HCPCS: G0378; 36415; 51702; 70450; 71045; 80048; 80076; 80156; 80305; 80329; 81001; 82140; 82272; 82962; 83605; 84443; 84484; 85025; 87040; 87506; 93005; 97163; 99285; C9803; G0328; U0003; U0005

== ENCOUNTER → 2022-01-15 16:20 | Outpatient (CLI) | payer MEDICARE, SELFPAY ==
--- NOTE | 2022-01-15 16:43 | XR_ITS ---
PROCEDURE INFORMATION: Exam: XR Left Foot Exam date and time: 01/15/2022 4:45 PM Age: 76 years old Clinical indication: Patient HX: Pain in left foot, no known injury TECHNIQUE: Imaging protocol: Radiologic exam of the Left foot. Views: 3 or more views. COMPARISON: No relevant prior studies available. FINDINGS: Bones/joints: Bones are osteopenic. There is no evidence of acute fracture. There is no evidence of joint malalignment or dislocation. Calcaneal spurs are present. Soft tissues: No focal soft tissue swelling. IMPRESSION: 1. Bones are osteopenic. 2. No evidence of acute fracture. 3. No evidence of acute dislocation.
== END ==
PROVIDERS: PCP Family Medicine; Visit Provider Family Medicine
DX: M79.672 Pain in left foot (principal)
CPT/HCPCS: 73630

== ENCOUNTER → 2022-08-29 16:02 | Outpatient (CLI) | payer MEDICARE, SELFPAY ==
--- NOTE | 2022-08-29 16:09 | XR_ITS ---
PROCEDURE INFORMATION: Exam: XR Right Knee Exam date and time: 08/29/2022 4:13 PM Age: 77 years old Clinical indication: Right; Patient HX: PT fell x 2 days ago, generalized pain in RT knee; Additional info: Pain due to injury TECHNIQUE: Imaging protocol: Radiologic exam of the right knee. Views: 3 views. COMPARISON: CR XR KNEE RT 3V 04/13/2020 5:29 PM FINDINGS: Bones/joints: Bones appear diffusely demineralized. There are no lytic skeletal lesions seen. No acute fracture or dislocation. Tibiofemoral joint spaces are well preserved. There is prominent chondrocalcinosis in medial and lateral compartments, probably meniscal calcifications. Mild periarticular spurs and joint narrowing of the patellofemoral joint. A small superior patellar enthesophyte at the quadriceps tendon insertion. Minimal knee joint effusion visible. Soft tissues: No soft tissue emphysema.No radiopaque foreign bodies seen. Vasculature: A few atherosclerotic calcified plaques in the popliteal fossa. IMPRESSION: 1. No acute fracture or dislocation. 2. Degenerative changes as above, with prominent chondrocalcinosis in the tibiofemoral joint, and degenerative osteoarthritis in the patellofemoral joint. 3. Minimal knee joint effusion. 4. Atherosclerotic disease.
== END ==
PROVIDERS: PCP Family Medicine; Visit Provider Physician Assistant
DX: M25.561 Pain in right knee (principal); S89.91XA Unspecified injury of right lower leg, initial encounter
CPT/HCPCS: 73562

== ENCOUNTER 2023-01-05 11:07 | Emergency (ER) | payer MEDICARE, SELFPAY ==
[2023-01-05 11:14] VITALS: BP 173/106; PULSE 80; RESP 20; TEMP 36.8; O2SAT 96; BMI 35.2
--- NOTE | 2023-01-05 11:27 | CT_ITS ---
PROCEDURE INFORMATION: Exam: CT Cervical Spine Without Contrast Exam date and time: 01/05/2023 12:13 PM Age: 77 years old Clinical indication: Injury or trauma; Fall; Blunt trauma TECHNIQUE: Imaging protocol: Computed tomography of the cervical spine without contrast. Total images: 296 Radiation optimization: All CT scans at this facility use at least one of these dose optimization techniques: automated exposure control; mA and/or kV adjustment per patient size (includes targeted exams where dose is matched to clinical indication); or iterative reconstruction. REPORTING DATA: Count of CT and Cardiac NM exams in prior 12 months: This patient has received 0 known CTs and 0 known cardiac nuclear medicine studies in the 12 months prior to the current study. COMPARISON: CT HEAD/BRAIN WO CON 01/05/2023 12:11 PM FINDINGS: Bones/joints: The cervical spine demonstrates mild degenerative changes at multiple levels. No evidence of acute fracture. Disc space narrowing and bilateral neural foraminal narrowing noted at C5-C6, C6-C7 and C7-T1. Prevertebral and retropharyngeal spaces: Prevertebral soft tissues are within normal limits. Lungs: Lung apices are normal. Pleural spaces: Apical pleural thickening noted on the right. Vasculature: Mild atherosclerotic disease. Soft tissues: Unremarkable. IMPRESSION: 1. The cervical spine demonstrates mild degenerative changes at multiple levels. 2. No evidence of acute fracture. 3. Prevertebral soft tissues are within normal limits.
--- NOTE | 2023-01-05 11:27 | CT_ITS ---
PROCEDURE INFORMATION: Exam: CT Head Without Contrast Exam date and time: 01/05/2023 12:11 PM Age: 77 years old Clinical indication: Injury or trauma; Fall; Blunt trauma (contusions or hematomas) TECHNIQUE: Imaging protocol: Computed tomography of the head without contrast. Total images: 315 Radiation optimization: All CT scans at this facility use at least one of these dose optimization techniques: automated exposure control; mA and/or kV adjustment per patient size (includes targeted exams where dose is matched to clinical indication); or iterative reconstruction. REPORTING DATA: Count of CT and Cardiac NM exams in prior 12 months: This patient has received 0 known CTs and 0 known cardiac nuclear medicine studies in the 12 months prior to the current study. COMPARISON: CT HEAD/BRAIN WO CON 11/16/2021 6:12 PM FINDINGS: Brain: Age-related atrophy and chronic white matter ischemic changes, with no evidence of an acute intracranial abnormality. Encephalomalacia changes noted within the left temporoparietal lobe. No hemorrhage, mass effect or midline shift. Hypodense areas again noted within the stephen on the left similar to the prior study. Old lacunar infarction left thalamus. Cerebral ventricles: No ventriculomegaly. Paranasal sinuses: Visualized sinuses are unremarkable. No fluid levels. Mastoid air cells: Visualized mastoid air cells are well aerated. Orbital cavities: Postoperative changes of both eyes. Bones/joints: No acute fracture. Soft tissues: No acute changes Vasculature: Mild atherosclerotic disease. IMPRESSION: 1. Age-related atrophy and chronic white matter ischemic changes, with no evidence of an acute intracranial abnormality. 2. No hemorrhage, mass effect or midline shift. 3. Hypodense areas again noted within the stephen on the left similar to the prior study.
--- NOTE | 2023-01-05 11:27 | XR_ITS ---
PROCEDURE INFORMATION: Exam: XR Right Elbow Exam date and time: 01/05/2023 12:33 PM Age: 77 years old Clinical indication: Injury or trauma; Fall; Blunt trauma (contusions or hematomas); Elbow; Right TECHNIQUE: Imaging protocol: Radiologic exam of the right elbow. Views: 3 or more views. COMPARISON: CR XR HAND RT MIN 3V 02/10/2020 1:56 PM FINDINGS: Bones/joints: No acute fracture or dislocation. May be hematoma although olecranon bursitis can not be excluded. Soft tissues: Soft tissue swelling along the olecranon. IMPRESSION: 1. No acute fracture or dislocation. 2. Soft tissue swelling along the olecranon. May be hematoma although olecranon bursitis can not be excluded.
[2023-01-05 11:31] VITALS: BP 160/95; PULSE 69; O2SAT 97
--- NOTE | 2023-01-05 11:33 | HMH.EDGENADL ---
Discharge Plan Disposition Patient Disposition: Home, Self-Care Condition: Good Prescriptions Prescriptions: No Action levothyroxine 25 mcg tablet 25 mcg PO DAILY Patient Comments: TAKE 1 TABLET BY MOUTH ONCE DAILY atorvastatin 40 MG tablet 40 mg PO HS donepezil 10 MG tablet 10 mg PO HS clopidogrel 75 MG tablet 75 mg PO DAILY fluoxetine 10 MG capsule 10 mg PO DAILY aspirin 81 MG tablet,chewable 81 mg PO DAILY mirabegron 25 MG tablet extended release 24 hr 25 mg PO DAILY lisinopril 20 MG tablet 20 mg PO DAILY tiotropium-olodaterol 4 GM mist 2 puff IH DAILY gabapentin 100 MG capsule 100 mg PO BID carbamazepine 200 MG capsule, ER multiphase 12 hr 200 mg PO DAILY Referrals Follow up/Referrals: Ever Jara MD [Primary Care Provider] - See instructions Activity Restrictions/Add. Instructions Additional Instructions/Restrictions: You were evaluated in the emergency department today. Please take Tylenol and ibuprofen at home as needed for elbow pain. Ice the area and keep it elevated to reduce swelling. Keep your wound clean and dry. Allow the glue and Steri-Strips to fall off on their own. Do not remove them prematurely. Follow-up with your primary care provider over the next 3 days for wound reassessment. Return to the emergency department for any new or worsening symptoms. Clinical Impressions Clinical Impression: Laceration of elbow, right, Traumatic hematoma of elbow Instructions Patient Instructions: DI for Hematoma (Bruise), DI for Elbow Pain Discharge ED Provider: Jennifer Gonzalez General Adult HPI General Chief complaint: PAIN Stated complaint: AO 12/29 fall, right elbow lac Time Seen by Provider: 01/05/23 11:14 Mode of Arrival: Ambulatory Source of Information: Patient Limitations: No Limitations Description of Symptoms (Recalled from ER Triage Doc. by RN): pt to ed c/o fall taking out the trash this morning. pt denies hitting her head. pt reports right elbow pain. laceration noted to the elbow. History of Present Illness HPI narrative: This patient is a 77-year-old female with a history of Alzheimer's and CVA on aspirin and Plavix presenting to the emergency department for evaluation with concern for fall. Patient was walking out of her house to take trash to the trash can when she tripped and fell, injuring her right elbow. She denies hitting her head or losing consciousness. She complains of right elbow pain but no other acutely concerning abnormalities at this time. She does have a wound to her right elbow. She is unsure when her last tetanus shot was. Patient reports that she was well prior to this. Related Data Home Medications Medication Instructions Recorded Confirmed aspirin 81 mg chewable tablet 81 mg PO DAILY HEART HEALTH 12/19/19 11/16/21 atorvastatin 40 mg tablet 40 mg PO HS Cholesterol 12/19/19 11/16/21 clopidogrel 75 mg tablet 75 mg PO DAILY PLATELET INHIBITOR 12/19/19 11/16/21 donepezil 10 mg tablet 10 mg PO HS MEMORY 12/19/19 11/16/21 fluoxetine 10 mg capsule 10 mg PO DAILY Depression 12/19/19 11/16/21 levothyroxine 25 mcg tablet 25 mcg PO DAILY THYROID 12/19/19 11/16/21 mirabegron 25 mg tablet,extended 25 mg PO DAILY bladder 11/08/20 11/16/21 release 24 hr lisinopril 20 mg tablet 20 mg PO DAILY Hypertension 11/09/20 11/16/21 tiotropium 2.5 mcg-olodaterol 2.5 2 puff inhalation DAILY Breathing 10/20/21 11/16/21 mcg/actuation mist for inhalation problems gabapentin 100 mg capsule 100 mg PO BID Pain 11/16/21 11/16/21 carbamazepine 200 mg 200 mg PO DAILY SEIZURES 11/17/21 11/17/21 capsule,extended release [id number] Allergies Allergy/AdvReac Type Severity Reaction Status Date / Time Iodine and Iodide Containing Allergy Intermediate I-RASH Verified 11/08/20 23:37 Produc Penicillins Allergy Intermediate I-RASH Verified 11/08/20 23:37 codeine Allergy Mild HYPER Verified 11/08/20 23:37
--- NOTE | 2023-01-05 11:55 | PC.NURSE ---
patients niece signed consent for TD immunization. pt has injury to right elbow and pt is right handed. pt states she is unable to sign the form due to pain from elbow.
--- NOTE | 2023-01-05 12:14 | PC.NURSE ---
paging for ed
--- NOTE | 2023-01-05 12:35 | PC.NURSE ---
Rounded on pt no needs at this time, call light at bs
[2023-01-05 13:14] VITALS: BP 160/95; PULSE 69; RESP 16; TEMP 36.8
== END 2023-01-05 13:14 | disposition home or self-care (01) ==
PROVIDERS: Emergency Provider Emergency Medicine; PCP Family Medicine
DX: S51.011A Laceration without foreign body of right elbow, initial encounter (principal); S50.01XA Contusion of right elbow, initial encounter; G30.9 Alzheimer's disease, unspecified; F02.80 Dementia in other diseases classified elsewhere, unspecified severity, without behavioral disturbance, psychotic disturbance, mood disturbance, and anxiety; Z86.73 Personal history of transient ischemic attack (TIA), and cerebral infarction without residual deficits; Z79.02 Long term (current) use of antithrombotics/antiplatelets; Z79.82 Long term (current) use of aspirin; Z23 Encounter for immunization; W01.0XXA Fall on same level from slipping, tripping and stumbling without subsequent striking against object, initial encounter
CPT/HCPCS: 12001; 70450; 72125; 73080; 90715; 96372; 99285

== ENCOUNTER → 2023-01-16 15:59 | Outpatient (CLI) | payer MEDICARE, SELFPAY ==
--- NOTE | 2023-01-16 16:05 | XR_ITS ---
FINAL REPORT CLINICAL HISTORY: PAIN from fall jan 05. heat in elbow pain mostly on posterior aspect COMPARISON: 01/05/2023 FINDINGS: AP, oblique, and lateral views of the right elbow were obtained. There is no acute fracture or dislocation. Joint space is preserved. There is persistent soft tissue swelling in the posterior aspect of the elbow, as well as a small calcification in the region of the distal triceps tendon. This may represent a soft tissue injury to the triceps tendon, and correlation with MRI might be helpful. Moderate degenerative change is identified. IMPRESSION: Persistent soft tissue swelling in the posterior aspect of the elbow, with a small calcification in the region of the distal triceps tendon. This may represent a persistent soft tissue injury, and correlation with MRI is suggested for further evaluation if clinically indicated. Reviewed, Interpreted and Dictated by Avinash Salazar III, MD Transcribed by Phyllis Wheeler Authenticated and [facility]
== END ==
PROVIDERS: PCP Family Medicine; Visit Provider Family Medicine
DX: M25.521 Pain in right elbow (principal)
CPT/HCPCS: 73080

== ENCOUNTER → 2023-02-04 09:51 | Outpatient (CLI) | payer MEDICARE, SELFPAY ==
--- NOTE | 2023-02-04 09:56 | MR_ITS ---
FINAL REPORT CLINICAL HISTORY: RIGHT ELBOW PAIN , ABNORMAL XRAY COMPARISON: None FINDINGS: Multiplanar MR imaging of the right elbow was performed without contrast. Mild to moderate degenerative change is present. There is bone marrow edema in the posterior olecranon, with a possible small nondisplaced fracture. 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 There is no evidence of osteochondral lesion. There is a tear of the lateral collateral ligament, and a partial tear of the common extensor tendon at its origin. The common flexor tendon is intact. The biceps tendon is intact. There is a moderate partial tear at the insertion of the triceps tendon with adjacent soft tissue swelling. The brachialis tendon is intact. The musculature has an unremarkable appearance. No soft tissue mass or cyst is identified. There is a small joint effusion. There is fluid in the olecranon bursa, that may represent olecranon bursitis. No focal abnormality is identified of the ulnar nerve. 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 Tear of the lateral collateral ligament and partial tear of the common extensor tendon at its origin. There is a moderate partial incisional tear of the triceps tendon, with adjacent soft tissue swelling. There is also fluid in the olecranon bursa, which may represent olecranon bursitis. Reviewed, Interpreted and Dictated by Avinash Salazar III, MD Transcribed by Phyllis Wheeler Authenticated and . [facility]
== END ==
LOC: RAD 09:52
PROVIDERS: PCP Family Medicine; Visit Provider Family Medicine
DX: M25.521 Pain in right elbow (principal); R93.6 Abnormal findings on diagnostic imaging of limbs
CPT/HCPCS: 73221

== ENCOUNTER 2023-03-09 15:33 | Emergency (ER) | payer MEDICARE, SELFPAY ==
[2023-03-09 16:10] VITALS: BP 157/58; PULSE 87; RESP 18; TEMP 36.9; O2SAT 94; BMI 32.9
[2023-03-09 16:31] LABS: UTC Strep Screen (Rapid) Negative (Negative)
--- NOTE | 2023-03-09 16:46 | EXP.UTC ---
Discharge Plan Disposition Patient Disposition: Home, Self-Care Condition: Good Prescriptions Prescriptions: New prednisone [prednisone] 20 mg tablet 20 mg PO BID Qty: 10 0RF No Action levothyroxine 25 mcg tablet 25 mcg PO DAILY Patient Comments: TAKE 1 TABLET BY MOUTH ONCE DAILY atorvastatin 40 MG tablet 40 mg PO HS donepezil 10 MG tablet 10 mg PO HS clopidogrel 75 MG tablet 75 mg PO DAILY fluoxetine 10 MG capsule 10 mg PO DAILY aspirin 81 MG tablet,chewable 81 mg PO DAILY mirabegron 25 MG tablet extended release 24 hr 25 mg PO DAILY lisinopril 20 MG tablet 20 mg PO DAILY tiotropium-olodaterol 4 GM mist 2 puff IH DAILY gabapentin 100 MG capsule 100 mg PO BID carbamazepine 200 MG capsule, ER multiphase 12 hr 200 mg PO DAILY Referrals Follow up/Referrals: Paula Jara [Primary Care Provider] - See instructions Activity Restrictions/Add. Instructions Additional Instructions/Restrictions: No sign of a bacterial infection. Likely viral. Viruses can take 7-14 days to run their course. Nasal saline and bulb syringe or nose Rubia to remove nasal drainage to help with nasal congestion. Hard to eat, drink, sleep with nasal congestion so important to keep this cleaned out. Monitor temp. Tylenol or Motrin as needed for pain or fever Encourage fluids, water, Gatorade, Powerade, Pedialyte if /toddler/child Warm salt water gargles Warm fluids Sore throat lozenges Sleep elevated Humidifier/vaporizer Follow-up immediately for new or worsening symptoms or no noticeable improvement over the next 48-72 hours. Clinical Impressions Clinical Impression: Upper respiratory infection, viral Instructions Patient Instructions: DI for Viral Upper Respiratory Infection -- Adult Discharge ED Provider: Oneyda (RUST)Rajesh [facility] [place] HPI General Stated complaint: gisselle Mode of Arrival: Family Vehicle Source of Information: Patient Limitations: No Limitations Time Seen by Provider: 03/09/23 16:47 Description of Symptoms (Recalled from Triage Doc. by RN): cough, BENDER, and sore throat HEENT Symptoms (Recalled from RN notes): Yes Resp Symptoms (Recalled from RN notes): No Skin Symptoms (Recalled from RN notes): No MS Symptoms (Recalled from RN notes): No Functional Status (Recalled from RN notes): n/a History of Present Illness Provider Complaint: 77 yr old female presents for sore throat, hoarseness, cough and chest congestion Related Data Home Medications Medication Instructions Recorded Confirmed aspirin 81 mg chewable tablet 81 mg PO DAILY HEART HEALTH 12/19/19 03/09/23 atorvastatin 40 mg tablet 40 mg PO HS Cholesterol 12/19/19 03/09/23 clopidogrel 75 mg tablet 75 mg PO DAILY PLATELET INHIBITOR 12/19/19 03/09/23 donepezil 10 mg tablet 10 mg PO HS MEMORY 12/19/19 03/09/23 fluoxetine 10 mg capsule 10 mg PO DAILY Depression 12/19/19 03/09/23 levothyroxine 25 mcg tablet 25 mcg PO DAILY THYROID 12/19/19 03/09/23 mirabegron 25 mg tablet,extended 25 mg PO DAILY bladder 11/08/20 03/09/23 release 24 hr lisinopril 20 mg tablet 20 mg PO DAILY Hypertension 11/09/20 03/09/23 tiotropium 2.5 mcg-olodaterol 2.5 2 puff inhalation DAILY Breathing 10/20/21 03/09/23 mcg/actuation mist for inhalation problems gabapentin 100 mg capsule 100 mg PO BID Pain 11/16/21 03/09/23 carbamazepine 200 mg 200 mg PO DAILY SEIZURES 11/17/21 03/09/23 capsule,extended release [id number] Previous Rx's Medication Instructions Recorded prednisone 20 mg tablet 20 mg PO BID #10 tabs 03/09/23 Allergies Allergy/AdvReac Type Severity Reaction Status Date / Time Iodine and Iodide Containing Allergy Intermediate I-RASH Verified 03/09/23 16:41 Produc Penicillins Allergy Intermediate I-RASH Verified 03/09/23 16:41 codeine Allergy Mild HYPER Verified 03/09/23 16:41 Worker's Comp Is this a Worker's Comp case?: No [facility] Disclaimer: The informatio
[2023-03-09 17:17] VITALS: BP 157/58; PULSE 87; RESP 18; TEMP 36.9; O2SAT 94
== END 2023-03-09 17:17 | disposition home or self-care (01) ==
PROVIDERS: Emergency Provider Nurse Practitioner Family; PCP Registered Nurse
DX: R05.9 Cough, unspecified (principal); J06.9 Acute upper respiratory infection, unspecified; R51.9 Headache, unspecified; R09.89 Other specified symptoms and signs involving the circulatory and respiratory systems; R07.0 Pain in throat; B34.9 Viral infection, unspecified
CPT/HCPCS: 87635; 87880; 99204; 99212; G0463

== ENCOUNTER 2023-03-27 19:56 | Emergency (ER) | payer MEDICARE, SELFPAY ==
[2023-03-27 19:57] VITALS: BP 155/93; PULSE 94; RESP 17; TEMP 36.9; O2SAT 98; BMI 35.2
[2023-03-27 20:30] VITALS: BP 176/107; PULSE 85; O2SAT 96
--- NOTE | 2023-03-27 20:30 | XR_ITS ---
PROCEDURE INFORMATION: Exam: XR Chest Exam date and time: 03/27/2023 8:49 PM Age: 77 years old Clinical indication: Injury or trauma; Fall; Blunt trauma (contusions or hematomas); Additional info: Fall, head injury TECHNIQUE: Imaging protocol: Radiologic exam of the chest. Views: 1 view. COMPARISON: CR XR CHEST PORTABLE 11/18/2021 5:57 AM FINDINGS: Limitations: The patient is wearing a bra which minimally limits the study. Tubes, catheters and devices: There is a loop recorder implanted over the left chest. Lungs: No evidence of acute pulmonary disease or infiltrates; lung baxter appear clear. Pleural spaces: No evidence of pleural effusion, pneumothorax, or pleural thickening in the visualized pleural spaces. Heart/Mediastinum: Stable cardiac and mediastinal contours. Bones/joints: No evidence of acute osseous abnormalities within the visualized portions of the thoracic spine and ribs. Osseous structures appear appropriate for patient age. IMPRESSION: No dense parenchymal consolidation, pleural effusion, or pneumothorax.
--- NOTE | 2023-03-27 20:30 | CT_ITS ---
PROCEDURE INFORMATION: Exam: CT Cervical Spine Without Contrast Exam date and time: 03/27/2023 8:49 PM Age: 77 years old Clinical indication: Injury or trauma; Fall; Blunt trauma; Additional info: Fall, head injury TECHNIQUE: Imaging protocol: Computed tomography of the cervical spine without contrast. Radiation optimization: All CT scans at this facility use at least one of these dose optimization techniques: automated exposure control; mA and/or kV adjustment per patient size (includes targeted exams where dose is matched to clinical indication); or iterative reconstruction. REPORTING DATA: Count of CT and Cardiac NM exams in prior 12 months: This patient has received 2 known CTs and 0 known cardiac nuclear medicine studies in the 12 months prior to the current study. COMPARISON: CT CERVICAL SPINE WO CON 01/05/2023 12:13 PM FINDINGS: Bones/joints: No acute fracture. Left lateral tilt. Maintained craniocervical junction. Multilevel degenerative changes. Varying degrees of [id number] neural foraminal narrowing. No significant spinal canal stenosis. Lungs: No acute findings. Biapical pleural-parenchymal scarring. Soft tissues: Unremarkable. IMPRESSION: No acute osseous findings.
--- NOTE | 2023-03-27 20:30 | XR_ITS ---
PROCEDURE INFORMATION: Exam: XR Pelvis Exam date and time: 03/27/2023 8:49 PM Age: 77 years old Clinical indication: Injury or trauma; Fall; Blunt trauma (contusions or hematomas); Bilateral; Pelvic region; Additional info: Fall, head injury TECHNIQUE: Imaging protocol: Radiologic exam of the pelvis. Views: 1 or 2 view. COMPARISON: CT ABDOMEN PELVIS WO CON 11/08/2020 8:29 PM FINDINGS: Bones/joints: Unremarkable. No acute fracture. Soft tissues: Unremarkable. IMPRESSION: No acute findings.
--- NOTE | 2023-03-27 20:30 | CT_ITS ---
PROCEDURE INFORMATION: Exam: CT Maxillofacial Without Contrast Exam date and time: 03/27/2023 8:47 PM Age: 77 years old Clinical indication: Injury or trauma; Fall; Additional info: Fall, head injury TECHNIQUE: Imaging protocol: Computed tomography of the face without contrast. Radiation optimization: All CT scans at this facility use at least one of these dose optimization techniques: automated exposure control; mA and/or kV adjustment per patient size (includes targeted exams where dose is matched to clinical indication); or iterative reconstruction. REPORTING DATA: Count of CT and Cardiac NM exams in prior 12 months: This patient has received 2 known CTs and 0 known cardiac nuclear medicine studies in the 12 months prior to the current study. COMPARISON: CT HEAD/BRAIN WO CON 03/27/2023 8:44 PM FINDINGS: Orbital cavities: Orbits are normal. Globes are unremarkable. Bones/joints: No acute fracture. Bilateral temporomandibular joint degenerative changes. Paranasal sinuses: Chronic opacification of the left sphenoid sinus. Soft tissues: Unremarkable. IMPRESSION: No acute findings.
--- NOTE | 2023-03-27 20:30 | CT_ITS ---
PROCEDURE INFORMATION: Exam: CT Head Without Contrast Exam date and time: 03/27/2023 8:44 PM Age: 77 years old Clinical indication: Injury or trauma; Fall; Additional info: Fall, head injury TECHNIQUE: Imaging protocol: Computed tomography of the head without contrast. Radiation optimization: All CT scans at this facility use at least one of these dose optimization techniques: automated exposure control; mA and/or kV adjustment per patient size (includes targeted exams where dose is matched to clinical indication); or iterative reconstruction. REPORTING DATA: Count of CT and Cardiac NM exams in prior 12 months: This patient has received 2 known CTs and 0 known cardiac nuclear medicine studies in the 12 months prior to the current study. COMPARISON: CT HEAD/BRAIN WO CON 01/05/2023 12:11 PM FINDINGS: Brain: No acute intracranial hemorrhage, midline shift or mass effect. Diffuse brain parenchymal volume loss. Redemonstrated encephalomalacia/gliosis within the left frontal lobe corresponding to an old infarct. Additional hypodensities within the cerebral white matter compatible with chronic small-vessel ischemic changes. Cerebral ventricles: No ventriculomegaly. Paranasal sinuses: Chronic opacification of the left sphenoid sinus. Mastoid air cells: Visualized mastoid air cells are well aerated. Bones/joints: Unremarkable. No acute fracture. Soft tissues: Unremarkable. IMPRESSION: No acute intracranial findings.
--- NOTE | 2023-03-27 20:40 | PC.NURSE ---
Patient to CT
--- NOTE | 2023-03-27 20:42 | HMH.EDGENADL ---
Discharge Plan Disposition Patient Disposition: Home, Self-Care Condition: Good Prescriptions Prescriptions: No Action atorvastatin 40 mg tablet 40 mg PO HS Patient Comments: TAKE 1 TABLET BY MOUTH ONCE DAILY lisinopril 20 mg tablet 20 mg PO DAILY Patient Comments: TAKE 1 TABLET BY MOUTH ONCE DAILY clopidogrel 75 mg tablet 75 mg PO DAILY Patient Comments: TAKE 1 TABLET BY MOUTH ONCE DAILY levothyroxine 25 mcg tablet 25 mcg PO DAILY Patient Comments: TAKE 1 TABLET BY MOUTH ONCE DAILY carbamazepine 200 mg tablet extended release 12 hr 200 mg PO DAILY Patient Comments: TAKE 1 TABLET BY MOUTH ONCE DAILY fluoxetine 10 mg capsule 10 mg PO DAILY Patient Comments: TAKE 1 CAPSULE BY MOUTH ONCE DAILY gabapentin 100 mg capsule 100 mg PO BID Patient Comments: TAKE 1 CAPSULE BY MOUTH TWICE DAILY Stiolto Respimat 2.5-2.5 mcg/actuation mist 2 puff INHALATION DAILY Patient Comments: INHALE 2 PUFFS BY MOUTH EVERY 24 HOURS Referrals Follow up/Referrals: Ever Jara MD [Primary Care Provider] - See instructions Activity Restrictions/Add. Instructions Additional Instructions/Restrictions: You were evaluated in the emergency department today. Please follow-up with your primary care provider over the next 3 days. Return to the emergency department for new or worsening symptoms. Clinical Impressions Clinical Impression: Fall, Traumatic ecchymosis of nose Instructions Patient Instructions: How to Prevent Falls Discharge ED Provider: Jennifer Gonzalez General Adult HPI General Chief complaint: Fall Stated complaint: AO fall, tounge and nose bruising, upset stomach Time Seen by Provider: 03/27/23 20:13 Mode of Arrival: Ambulatory Source of Information: Patient Limitations: No Limitations Description of Symptoms (Recalled from ER Triage Doc. by RN): 77 F presents from home with daughter at bedside. Patient reports having tripped over her house shoes early this morning causing her to fall backwards and hit her head on the wall. Patient states she bit her tongue when she fell, but does not have any complaints of pain, dizziness, or focal neurological deficit. Patient denies LOC, but states she did become sick to her stomach and had one episode of vomiting shortly after this fall. History of Present Illness HPI narrative: This patient is a 77-year-old female with a history of CVA on aspirin and Plavix, hypothyroidism, seizure disorder, hypertension, hyperlipidemia, and depression presented to the emergency department for evaluation with concern for fall. According to the patient and her daughter, the patient had a mechanical ground-level fall this morning between 3 and 4 AM. She was down on the floor for some time before family was able to come get her and help her up. This fall was unwitnessed. Patient reports that she hit her head and bit her tongue, but she did not lose consciousness. She states that what happened was she was walking to the bathroom and then coming back when she tripped over her house shoes. She states she was well prior to the fall and did not feel weak, dizzy, or have any other concerns. Patient was not able to get up on her own, which is not outside of her norm given that she has general weakness and debility. She did have nausea and an episode of emesis after the fall. Her daughter noted some developing bruising to her nose and tongue, so she finally came as a patient to come in for evaluation. Patient currently denies any concerns or complaints and states that she is not having pain at this time. Related Data Home Medications Medication Instructions Recorded Confirmed atorvastatin 40 mg tablet 40 mg PO HS 03/27/23 03/27/23 carbamazepine 200 mg 200 mg PO DAILY 03/27/23 03/27/23 tablet,extended release,12 hr clopidogrel 75 mg tablet 75 mg PO DAILY 03/27/23 03/27/23 fluoxetine 10 mg capsule 10 mg PO DAILY
--- NOTE | 2023-03-27 20:57 | PC.NURSE ---
Patient back from CT
--- NOTE | 2023-03-27 21:10 | ECG_ITS ---
APPROVED REPORT Exam: Resting ECG HR:82 bpm ECG Measurements Heart Rate 82 AXES VT 211 P 63 QRSd 89 QRS -21 QT 377 T 74 QTc 415 Conclusion SINUS RHYTHM WITH FIRST DEGREE AV BLOCK BORDERLINE LEFT AXIS DEVIATION [QRS AXIS < -20] ABNORMAL ECG UNCONFIRMED REPORT Electronically signed by : Jeremiah Ledesma MD 03/28/2023 19:45:02
[2023-03-27 21:30] VITALS: BP 174/90; PULSE 79; RESP 20; O2SAT 95
[2023-03-27 21:44] LABS: Basophils % 0.3 % (0.1-2.0); Eosinophils # 0.1 K/mm3 (0.0-0.4); Eosinophils % 0.8 % (0.1-12.0); Hemoglobin 13.4 g/dL (12.2-16.2); Lymphocytes % 10.2 % (10-50); Mean Corpuscular HGB Conc 33.5 g/dL (31.8-35.4); Mean Corpuscular Hemoglobin 32.1 pg (27.0-31.2); Mean Corpuscular Volume 95.8 fl (81-99); Mean Platelet Volume 7.9 fl (7.4-10.4); Monocytes # 0.4 K/mm3 (0.1-1.0); Monocytes % 4.4 % (1.7-9.3); Neutrophils # 8.2 K/mm3 (1.8-7.8); Neutrophils % 84.3 % (37.0-80.0); Platelet Count 231 K/mm3 (142-424); Red Blood Count 4.18 M/mm3 (4.20-5.40); Red Cell Distribution Width 13.7 % (11.5-17.5); White Blood Count 9.7 K/mm3 (4.8-10.8)
[2023-03-27 21:46] LABS: Lactic Acid 1.7 mmol/L (0.7-2.1)
[2023-03-27 21:49] LABS: Chloride 97 mmol/L (98-107); Potassium 4.1 mmoL/L (3.5-5.1); Sodium 137 mmol/L (136-145)
[2023-03-27 21:51] LABS: Alanine Aminotransferase 23 U/L (12-78); Alkaline Phosphatase 114 U/L (38-126); Aspartate Amino Transferase 39 U/L (14-36); Bilirubin,Total 0.6 mg/dl (0.2-1.3); Blood Urea Nitrogen 24 mg/dl (7-17); Creatinine Clearance Estimated 54 mL/min (50-200); Estimated Glomerular Filt Rate 48 ml/min (>60); GFR (African American) 58 ML/MIN (>60)
[2023-03-27 21:52] LABS: Albumin Level 4.3 g/dl (3.5-5.0); Albumin/Globulin Ratio 1.4 (1.1-1.8); Anion Gap 10.1 mEq/L (5-15); Calcium 9.1 mg/dl (8.4-10.2); Carbon Dioxide 34 mmol/L (22.0-30.0); Creatine Kinase 191 U/L (30-135); Globulin 3.1 g/dL (1.3-3.2); Glucose 96 mg/dl (74-100); Total Protein,Serum 7.4 g/dl (6.3-8.2)
[2023-03-27 22:00] VITALS: BP 165/91; PULSE 78; RESP 18; O2SAT 96
--- NOTE | 2023-03-27 22:03 | PC.NURSE ---
Rounded on patient; readjusted patient in the bed. Provided patient warm blankets. Call light within reach
[2023-03-27 22:05] LABS: Activated Partial Thrombo Time 21.7 seconds (22.8-30.6); INR 1.04 (0.9-1.1); Prothrombin Time 11.2 seconds (10.1-12.5)
[2023-03-27 22:07] LABS: Microscopic, Urine URINE MICROSCOPIC (MICROSCOPIC)
[2023-03-27 22:08] LABS: Appearance,Urine CLEAR (Clear); Bilirubin,Urine Negative (Negative); Blood, Urine Negative (Negative); Color,Urine YELLOW (Yellow); Glucose,Urine (UA) Negative (Negative); Ketones,Urine Negative (Negative); Leukocyte Esterase,Urine Negative (Negative); Nitrate,Urine Negative (Negative); Protein,Urine Negative (Negative); Specific Gravity, Urine 1.015 (1.005-1.030); Urobilinogen,Urine 0.2 EU/dl (0.2)
[2023-03-27 22:30] VITALS: BP 165/84; PULSE 78; RESP 20; O2SAT 94
[2023-03-27 22:55] VITALS: BP 165/84; PULSE 79; RESP 16; TEMP 36.9; O2SAT 97
== END 2023-03-27 22:56 | disposition home or self-care (01) ==
PROVIDERS: Emergency Provider Emergency Medicine; PCP Family Medicine
DX: S00.33XA Contusion of nose, initial encounter (principal); I44.0 Atrioventricular block, first degree; R11.2 Nausea with vomiting, unspecified; E03.9 Hypothyroidism, unspecified; E78.5 Hyperlipidemia, unspecified; I10 Essential (primary) hypertension; G40.909 Epilepsy, unspecified, not intractable, without status epilepticus; Z79.01 Long term (current) use of anticoagulants; Z86.73 Personal history of transient ischemic attack (TIA), and cerebral infarction without residual deficits; W01.198A Fall on same level from slipping, tripping and stumbling with subsequent striking against other object, initial encounter
CPT/HCPCS: 70450; 70486; 71045; 72125; 72170; 80053; 81001; 82550; 83605; 85025; 85610; 85730; 93005; 96374; 99285; J2405

== ENCOUNTER 2023-09-12 09:13 | Outpatient (CLI) | payer MEDICARE, SELFPAY ==
--- NOTE | 2023-09-12 09:17 | MR_ITS ---
FINAL REPORT CLINICAL HISTORY: VERTIGO. BILAT VISION LOSS FINDINGS: Multiplanar MR imaging of the brain was performed without contrast. There is atrophy and moderate microvascular ischemic change. There is no evidence of intracranial hemorrhage or mass. The ventricular size is normal. There is no evidence of shift of the midline structures. There is left frontal encephalomalacia. A 31 mm area of restricted diffusion is seen in the left occipital lobe consistent with acute infarct. There is also a 6 mm area of restricted diffusion in the right cerebellar hemisphere consistent with small acute infarct. The posterior fossa and brainstem have an unremarkable appearance. Normal major vessel vascular flow voids are seen. There is mucosal thickening of the left sphenoid sinus. IMPRESSION: 31 mm area of restricted diffusion in the left occipital lobe consistent with acute infarct. 6 mm area of restricted diffusion in the right cerebellar hemisphere consistent with small acute infarct. These findings were discussed with the patient's nurse, Poonam at 11:26 AM. Reviewed, Interpreted and Dictated by Avinash Salazar III, MD Transcribed by Jolynn Caldera Authenticated and [facility]
== END 2023-09-12 23:59 | disposition home or self-care (01) ==
LOC: RAD 09:13
PROVIDERS: PCP Family Medicine; Visit Provider Family Medicine
DX: R42 Dizziness and giddiness (principal); H54.3 Unqualified visual loss, both eyes
CPT/HCPCS: 70551

== ENCOUNTER 2023-09-18 12:25 | Outpatient (CLI) | payer MEDICARE, SELFPAY | END 2023-09-18 23:59 | disposition home or self-care (01) | LOC: RT 12:26 | PROVIDERS: PCP Family Medicine; Visit Provider Family Medicine | DX: I63.9 Cerebral infarction, unspecified (principal) | CPT/HCPCS: 93225; 93227 ==

== ENCOUNTER 2023-09-20 12:42 | Outpatient (CLI) | payer MEDICARE, SELFPAY | END 2023-09-20 23:59 | disposition home or self-care (01) | LOC: RT 12:42 | PROVIDERS: PCP Family Medicine; Visit Provider Family Medicine | DX: R06.09 Other forms of dyspnea (principal); I63.9 Cerebral infarction, unspecified; I10 Essential (primary) hypertension | CPT/HCPCS: 93270 ==

== ENCOUNTER 2023-09-30 21:18 | Emergency (ER) | payer MEDICARE, SELFPAY ==
[2023-09-30 21:19] VITALS: BP 182/94; PULSE 69; RESP 18; TEMP 36.7; O2SAT 94; BMI 34.2
[2023-09-30 21:20] VITALS: BMI 34.3
--- NOTE | 2023-09-30 21:24 | CT_ITS ---
PROCEDURE INFORMATION: Exam: CTA Head With Contrast, Arteriography Exam date and time: 09/30/2023 9:51 PM Age: 78 years old Clinical indication: Stroke-like symptoms; Dizziness/giddiness and speech disturbance; Additional info: Dizziness, lle weakness, speech difficulty TECHNIQUE: Imaging protocol: Computed tomographic angiography of the head with contrast. Exam focused on the arteries. 3D rendering (Not supervised by radiologist): MIP and/or 3D reconstructed images were created by the technologist. Radiation optimization: All CT scans at this facility use at least one of these dose optimization techniques: automated exposure control; mA and/or kV adjustment per patient size (includes targeted exams where dose is matched to clinical indication); or iterative reconstruction. Contrast material: ISOVUE; Contrast volume: 100 ml; Contrast route: INTRAVENOUS (IV); COMPARISON: CT HEAD/BRAIN WO CON 09/30/2023 9:39 PM FINDINGS: ANTERIOR CIRCULATION: Right internal carotid artery: The right ICA petrous segment is unremarkable. Right ICA cavernous and supraclinoid segments demonstrate mild-moderate calcific plaque without stenosis. Right middle cerebral artery: Unremarkable. No occlusion or significant stenosis. No aneurysm. Right anterior cerebral artery: Unremarkable. No occlusion or significant stenosis. No aneurysm. The anterior communicating artery is unremarkable. Left internal carotid artery: The left ICA petrous segment is unremarkable. Cavernous and supraclinoid segments demonstrate mild calcific plaque without stenosis. Left middle cerebral artery: No large vessel occlusion or central stenosis. Attenuated small peripheral branch vessels in the distribution of the chronic infarct in the supra ganglionic MCA distribution. No aneurysm. Left anterior cerebral artery: Unremarkable. No occlusion or significant stenosis. No aneurysm. POSTERIOR CIRCULATION: Right vertebral artery: Unremarkable. No occlusion or significant stenosis. No aneurysm. Left vertebral artery: Unremarkable. No occlusion. Short segment mild-moderate stenosis of about 50% in the left P3 segment. No high-grade stenoses. No aneurysm. Basilar artery: Mild tortuosity. No occlusion or significant stenosis. No aneurysm. Right posterior cerebral artery: Normal variant persistent origin with hypoplastic right P1 segment. No occlusion or significant stenosis. No aneurysm. Left posterior cerebral artery: Normal variant persistent origin with hypoplastic left P1 segment. No occlusion or significant stenosis. No aneurysm. Veins: The dural venous sinuses and major cortical veins enhance appropriately without evidence of thrombosis. Brain: No enhancing brain lesions or vascular malformations are identified. Chronic infarcts in the left frontal lobe and left occipital lobe. Small chronic lacunar infarct in the left cerebellar hemisphere. Cerebral ventricles: Mild compensatory ventriculomegaly secondary to central atrophy. Paranasal sinuses: Chronic left sphenoid sinusitis. Bones/joints: Unremarkable. No acute fracture. Soft tissues: Unremarkable. Other findings: Atrophy and microvascular changes consistent with advanced age. IMPRESSION: 1. No evidence of large vessel occlusion or significant stenosis. No evidence of arterial dissection or aneurysm/pseudoaneurysm. 2. Short segment mild-moderate stenosis of about 50% in the left [employer] P3 segment. Small chronic cortical/subcortical infarct in the left occipital lobe. 3. Expected attenuation of the small peripheral left MCA branches in the region of the chronic infarct in the supra ganglionic MCA distribution. 4. These findings initiated a critical results reporting process per stroke protocol. An addendum will be issued at the time of clinician notification.
--- NOTE | 2023-09-30 21:24 | CT_ITS ---
PROCEDURE INFORMATION: Exam: CTA Neck With Contrast Exam date and time: 09/30/2023 9:51 PM Age: 78 years old Clinical indication: Stroke-like symptoms; Altered mental status/memory loss and dizziness/giddiness and speech disturbance; Additional info: Dizziness, lle weakness, speech difficulty TECHNIQUE: Imaging protocol: Computed tomographic angiography of the neck with contrast. Exam focused on the cervical segments of the vasculature. 3D rendering (Not supervised by radiologist): MIP and/or 3D reconstructed images were created by the technologist. Radiation optimization: All CT scans at this facility use at least one of these dose optimization techniques: automated exposure control; mA and/or kV adjustment per patient size (includes targeted exams where dose is matched to clinical indication); or iterative reconstruction. Contrast material: ISOVUE; Contrast volume: 100 ml; Contrast route: INTRAVENOUS (IV); COMPARISON: CT CERVICAL SPINE WO CON 03/27/2023 8:49 PM FINDINGS: Right common carotid artery: Moderate proximal tortuosity. No stenosis. No dissection or occlusion. Right internal carotid artery: Mild calcific plaque in the right carotid bulb. Mild tortuosity. No stenosis. No dissection or occlusion. Right external carotid artery: Normal. No stenosis. No dissection or occlusion. Left common carotid artery: Mild tortuosity. No stenosis. No dissection or occlusion. Left internal carotid artery: Mild calcific plaque in the left carotid bulb. Mild tortuosity. No stenosis. No dissection or occlusion. Left external carotid artery: Normal. No stenosis. No dissection or occlusion. Right vertebral artery: Right vertebral artery is mildly dominant. Mild proximal tortuosity. Short segment moderate-severe 60-70% stenosis of the right vertebral artery V3 segment at the C1-C2 level secondary to osteoarthritic hypertrophic changes causing extrinsic compression. No dissection or occlusion. Left vertebral artery: Small left vertebral artery, anatomic variant. Mild proximal tortuosity. Anatomic variant origin of the left vertebral artery directly from the aortic arch. No stenosis. No dissection or occlusion. Brachiocephalic artery: The brachiocephalic artery demonstrates mild calcific plaque without stenosis. Right subclavian artery: The right subclavian artery is unremarkable. Left subclavian artery: The left subclavian artery is unremarkable. Aorta: The visualized aortic arch demonstrates mild ectasia and calcific plaque without evidence of dissection or gross aneurysm. Thyroid: The thyroid gland is unremarkable. Soft tissues: Extensive hyperdense contrast tracking into the paraspinous venous plexus and azygous distributions as well as the superior intercostal distribution. The SVC opacifies to the level of the ascending aorta but lies outside the scan range below this. This might be due to increased injection pressure for CTA, however if there is clinical concern for SVC syndrome, consider chest CT with delayed phase contrast. Bones/joints: No acute osseous abnormalities are identified. Lungs: Mild pleuroparenchymal scarring in the pulmonary apices bilaterally. IMPRESSION: 1. No evidence of arterial occlusion, dissection, or aneurysm. 2. Short segment moderate-severe stenosis of 60-70% in the distal right vertebral artery at the V3 segment at C1-C2 secondary to osteoarthritic spurring and extrinsic compression. 3. Excessive hyperdense contrast reflux/tracking in the azygous system and upper thoracic paraspinous venous plexus. This might be related to high injection pressures for CTA but could be seen with SVC syndrome. The distal SVC lies outside the scan range, consider dedicated delayed phase postcontrast chest CT if SVC syndrome is suspected clinically. 4. These findings initiated a critical results reporting process per stroke protocol. An addendum will be issued at the time of clinician notification. REFERENCES: NASCET CRITERIA. The degree of stenosis in the cervical segment of the internal carotid artery is based on NASCET criteria. Normal is no stenosis. Mild is less than 50% stenosis. Moderate is 50-69% stenosis. Severe is 70% to 99% stenosis. Total occlusion is no detectable patent lumen.
--- NOTE | 2023-09-30 21:24 | CT_ITS ---
PROCEDURE INFORMATION: Exam: CT Head Without Contrast Exam date and time: 09/30/2023 9:39 PM Age: 78 years old Clinical indication: Stroke-like symptoms; Altered mental status/memory loss; Additional info: Dizziness, lle weakness, speech difficulty TECHNIQUE: Imaging protocol: Computed tomography of the head without contrast. Radiation optimization: All CT scans at this facility use at least one of these dose optimization techniques: automated exposure control; mA and/or kV adjustment per patient size (includes targeted exams where dose is matched to clinical indication); or iterative reconstruction. Other technique: STROKE PROTOCOL was implemented. COMPARISON: MR HEAD/BRAIN WO CON 09/12/2023 9:42 AM FINDINGS: Brain: Moderate generalized cerebral/cerebellar atrophy. Moderate bilateral white matter hypodensities which are nonspecific but most commonly associated with chronic microvascular ischemia in this age group. The IACs are grossly normal. No extra-axial fluid collections. No evidence of acute intracranial hemorrhage. No CT evidence of large territory acute or subacute intracranial ischemia/infarct. Chronic infarct in the left frontal lobe unchanged in appearance. Small chronic lacunar infarct in the left cerebellar hemisphere again noted. No intracranial mass lesions. No midline shift or herniation. Cerebral ventricles: Mild compensatory ventriculomegaly secondary to central atrophy. Pituitary gland and sella: The sella is grossly normal. Paranasal sinuses: Opacified left sphenoid sinus with wall thickening suggesting chronic sinusitis, unchanged. The other paranasal sinuses are clear. Mastoid air cells: Visualized mastoid air cells are clear. Orbital cavities: No acute intraorbital findings. Bilateral ocular lens prostheses. Bones: No acute osseous findings. Hyperostosis frontalis interna incidentally noted. 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 Soft tissues: No acute soft tissue findings. Vasculature: Moderate-severe calcific atherosclerosis. No asymmetric vascular hyperdensities suggestive of thrombosis are identified. IMPRESSION: 1. No acute intracranial process. No intracranial hemorrhage or mass effect. 2. Atrophy and microvascular changes consistent with age. Chronic infarct in the left frontal lobe and small chronic lacunar infarct in the left cerebellar hemisphere again noted. 3. Moderate-severe calcific atherosclerosis. 4. Chronic left sphenoid sinusitis. 5. These findings initiated a critical results reporting process per stroke protocol. An addendum will be issued at the time of clinician notification. ASSESSMENT: ASPECTS ([place] Stroke Program Early CT Score) is 10.
--- NOTE | 2023-09-30 21:30 | [facility].EDGENADL ---
Discharge Plan Disposition Patient Disposition: Home, Self-Care Prescriptions Prescriptions: No Action atorvastatin 40 mg tablet 40 mg PO HS Patient Comments: TAKE 1 TABLET BY MOUTH ONCE DAILY lisinopril 20 mg tablet 20 mg PO DAILY Patient Comments: TAKE 1 TABLET BY MOUTH ONCE DAILY clopidogrel 75 mg tablet 75 mg PO DAILY Patient Comments: TAKE 1 TABLET BY MOUTH ONCE DAILY levothyroxine 25 mcg tablet 25 mcg PO DAILY Patient Comments: TAKE 1 TABLET BY MOUTH ONCE DAILY carbamazepine 200 mg tablet extended release 12 hr 200 mg PO DAILY Patient Comments: TAKE 1 TABLET BY MOUTH ONCE DAILY fluoxetine 10 mg capsule 10 mg PO DAILY Patient Comments: TAKE 1 CAPSULE BY MOUTH ONCE DAILY gabapentin 100 mg capsule 100 mg PO BID Patient Comments: TAKE 1 CAPSULE BY MOUTH TWICE DAILY Stiolto Respimat 2.5-2.5 mcg/actuation mist 2 puff INHALATION DAILY Patient Comments: INHALE 2 PUFFS BY MOUTH EVERY 24 HOURS Referrals Follow up/Referrals: Ever Jara MD [Primary Care Provider] - See instructions Activity Restrictions/Add. Instructions Additional Instructions/Restrictions: Please follow-up with your primary care provider. Please return to the emergency department if you develop any new or worsening symptoms or become concerned for your health. Clinical Impressions Clinical Impression: History of ischemic stroke in prior three months, Weakness, EWELINA (acute kidney injury), Stroke-like symptoms Discharge ED Provider: Jennifer Gonzalez General Adult HPI <Jennifer Gonzalez DO - Last Filed: 10/01/23 00:21> General Chief complaint: Neuro Symptoms/Deficit Stated complaint: stroke symptoms Time Seen by Provider: 09/30/23 21:24 History of Present Illness HPI narrative: This patient is a 78-year-old female with a history of hypertension, hypothyroidism, seizure disorder, depression, hyperlipidemia, and prior CVA recently diagnosed at the beginning of September presenting to the emergency department for evaluation with concern for dizziness, unusual behavior, and slurred speech that started around 12:30 PM today. Patient notes that she had been feeling great today and went to physical therapy, at which point around 12:30 PM she started feeling significantly worse. She felt very dizzy. Family notes that she is very diaphoretic and pale and looks like she was going to pass out. They also noted that she seemed to have slurred speech and had trouble doing anything, which is unusual for her. Patient states that overall she just does not feel well, but she wants to go home. On medical record review, she has been worked up by her primary care provider for vertigo and strokelike symptoms and has been diagnosed with multiple areas of cerebral infarction on MRI 09/12/2023. I reviewed the MRI from 09/12/2023 and noted that patient had a large left occipital infarction as well as a large right cerebellar infarction. Related Data Home Medications Medication Instructions Recorded Confirmed atorvastatin 40 mg tablet 40 mg PO HS 03/27/23 03/27/23 carbamazepine 200 mg 200 mg PO DAILY 03/27/23 03/27/23 tablet,extended release,12 hr clopidogrel 75 mg tablet 75 mg PO DAILY 03/27/23 03/27/23 fluoxetine 10 mg capsule 10 mg PO DAILY 03/27/23 03/27/23 gabapentin 100 mg capsule 100 mg PO BID 03/27/23 03/27/23 levothyroxine 25 mcg tablet 25 mcg PO DAILY 03/27/23 03/27/23 lisinopril 20 mg tablet 20 mg PO DAILY 03/27/23 03/27/23 tiotropium 2.5 mcg-olodaterol 2.5 2 puff inhalation DAILY 03/27/23 03/27/23 mcg/actuation mist for inhalation (Stiolto Respimat) Allergies Allergy/AdvReac Type Severity Reaction Status Date / Time Iodine and Iodide Containing Allergy Intermediate I-RASH Verified 03/09/23 16:41 Produc Penicillins Allergy Intermediate I-RASH Verified 03/09/23 16:41 codeine Allergy Mild HYPER Verified 03/09/23 16:41 [facility] <Jennifer Gonzalez DO - Last Filed: 10/01/23 00:21> [facility] Disclaimer: The information contained in this section may have been updated after the patient was seen, as this information can be updated by other users. Social History Smoking Status: Unknown if ever smoked alcohol intake: never current occupational status: disabled Travel in the last 8 weeks: None household members: none caffeine: Yes <Jennifer Gonzalez DO - Last Filed: 10/01/23 00:21> ROS Obtained: Yes All systems reviewed & no additional complaints except as documented Physical Exam <Jennifer Gonzalez DO - Last Filed: 10/01/23 00:21> General General appearance: alert and in no apparent distress Head Head exam: atraumatic and normocephalic Eye Eye exam: Present normal appearance, PERRL and EOMI ENT ENT exam: Present normal exam, normal oropharynx, mucous membranes moist and normal external ear exam Neck Neck exam: Present normal inspection, full ROM and trachea midline; Absent tenderness Chest Chest inspection: Present normal inspection and symmetric chest wall rise; Absent tenderness Respiratory Respiratory exam: Present normal lung sounds bilaterally; Absent respiratory distress, wheezes, stridor or accessory muscle use Cardiovascular Cardiovascular exam: Present regular rate and normal rhythm Abdominal Exam Abdominal exam: Present soft; Absent distention, tenderness or guarding Extremities Exam Extremities exam: Present normal inspection, full ROM and normal capillary refill; Absent tenderness or edema Back Exam Back exam: Present normal inspection and full ROM; Absent tenderness Neurological Exam Neurological exam: Present alert, oriented X3, CN II-XII intact and motor sensory deficit Expanded Neurological Exam Patient oriented to: Present person, place and time Speech: Present fluid speech Cranial nerves: Normal: EOM function (II, III, IV, ), facial sensation (V), facial palsy (VII), spinal accessory function (XI) and tongue deviation (XII) Cerebellar function: Normal: finger to nose and Abnormal Left: heel to navarrete Motor strength - LUE: 5/5 Motor strength - RUE: 5/5 Motor strength - LLE: 3/5 Motor strength - RLE: 5/5 Upper motor neuron exam: Normal: bonilla neglect and pronator drift Sensory exam upper extremity: Normal: light touch Sensory exam lower extremity: Normal: light touch Coma scale eye opening: Spontaneous Coma scale motor response: Obeys commands Coma scale verbal response: Oriented Coma scale total: 15 Comment: NIH stroke scale is 4 for slightly slurred speech, left leg drift which is the bed, and left lower extremity discoordination. Psychiatric Psychiatric exam: Present anxious and flat affect Skin Skin exam: Present warm and dry <Dawit Lerner MD - Last Filed: 10/01/23 00:49> Expanded Neurological Exam Coma scale total: 15 Medical Decision Making <Jennifer Gonzalez DO - Last Filed: 10/01/23 00:21> Medical Records Medical records reviewed: Yes I reviewed the patient's medical records. Joseph Inquiry Pt receiving controlled substance: No Vital Signs: 09/30/23 21:19 09/30/23 22:03 09/30/23 22:30 Temperature 98.0 F 98.0 F Temperature Source Axillary Axillary Pulse Rate 74 70 Pulse Rate [Left] 69 Respiratory Rate 18 18 20 Blood Pressure 206/112 H 209/107 H Blood Pressure [Right Arm] 182/94 H Blood Pressure Mean 141 Blood Pressure Mean [Right Arm] 123 02 Sat by Pulse Oximetry 94 L 95 97 Oxygen Delivery Method Room Air Room Air 09/30/23 23:01 09/30/23 23:30 10/01/23 00:43 Temperature 98.0 F Temperature Source Axillary Pulse Rate 62 66 67 Pulse Rate [Left] Respiratory Rate 24 20 12 Blood Pressure 187/100 H 180/97 H 164/87 H Blood Pressure [Right Arm] Blood Pressure Mean 129 139 Blood Pressure Mean [Right Arm] 02 Sat by Pulse Oximetry 96 95 Oxygen Delivery Method Room Air Lab Data Lab results reviewed: Yes I reviewed the patient's lab results. Lab Results 09/30/23 21:32: WBC 5.3, RBC 4.33, Hgb 13.7, Hct 42.8, MCV 98.9, MCH 31.6 H, MCHC 31.9, RDW 14.5, Plt Count 210, MPV 8.6, Neut % (Auto) 59.6, Lymph % (Auto) 27.0, [place] % (Auto) 7.1, Eos % (Auto) 4.3, Baso % (Auto) 2.1 H, Neut # (Auto) 3.2, Lymph # (Auto) 1.4, [place] # (Auto) 0.4, Eos # (Auto) 0.2, Baso # (Auto) 0.1, PT 11.3, INR 1.05, APTT 25.4, Sodium 138, Potassium 4.2, Chloride 99, Carbon Dioxide 35 H, Anion Gap 8.2, BUN 27 H, Creatinine 1.70 H, Estimated Creat Clear 34, Estimated GFR 29 L, Est GFR ( Amer) 35 L, Glucose 84, Calcium 10.7 H, Magnesium 1.7, Total Bilirubin 0.1 L, AST 32, ALT 18, Alkaline Phosphatase 106, Troponin I < 0.01, Total Protein 6.9, Albumin 4.0, Globulin 2.9, Albumin/Globulin Ratio 1.4, Lipase 105, TSH 3.51, Thyroxine (T4) 6.1 09/30/23 21:38: VBG pH 7.32, VBG pCO2 64.6 H, VBG pO2 36.0, VBG HCO3 32.2 H, VBG Total CO2 34.1 H, VBG O2 Saturation 63.7, VBG Base Excess 6.0 H, VBG Lactic Acid 1.7 09/30/23 22:15: SARS-CoV-2 (PCR) Not detected, Influenza A Untype (PCR) Not detected, Influenza Type B (PCR) Not detected 09/30/23 23:15: Urine Color Yellow, Urine Appearance Clear, Urine pH 7.0, Ur Specific [place] 1.010, Urine Protein Negative, Urine Glucose (UA) Negative, Urine Ketones Negative, Urine Blood 2+, Urine Nitrate Negative, Urine Bilirubin Negative, Urine Urobilinogen 0.2, Ur Leukocyte Esterase Trace, Urine WBC 3-5, Ur Squamous Epith Cells 5-10, Urine Bacteria 1+ 09/30/23 21:32 09/30/23 21:32 Orders (Tests/Meds): ED MEDICATIONS Generic Name Dose Route Start Last Admin Trade Name Frecharlie PRN Reason Stop Dose Admin Sodium Chloride 8 ml 09/30/23 21:40 Sodium Chloride 0.9% 10ml Vial IV 10/30/23 21:39 NEEDED PRN dilute pepcid Sodium Chloride 10 ml 09/30/23 21:50 09/30/23 21:52 Sodium Chloride 0.9% 10ml Syr (Rad Only) IV 10/30/23 21:49 10 ml NEEDED PRN Administration Maintain IV Site Discontinued Medications Generic Name Dose Route Start Last Admin Trade Name Freq PRN Reason Stop Dose Admin Diphenhydramine HCl 50 mg 09/30/23 21:33 09/30/23 21:41 Diphenhydramine 50mg/Ml Vial IV 09/30/23 21:34 50 mg ONCE ONE Administration Famotidine 20 mg 09/30/23 21:40 09/30/23 21:41 Famotidine 20mg/2ml Vial IV 09/30/23 21:41 20 mg ONCE ONE Administration Hydrocortisone Sodium Succinate 100 mg 09/30/23 21:33 09/30/23 22:34 Hydrocortisone Sod Succinate 100mg Vial IV 09/30/23 21:34 Not Given ONCE ONE Lactated Ringer's 1,000 mls @ 999 mls/hr 09/30/23 22:04 09/30/23 22:12 Lactated Ringer's 1000 Ml Bag IV 09/30/23 23:04 999 mls/hr .Q1H1M ONE Administration Iopamidol 100 ml 09/30/23 21:50 09/30/23 21:51 Iopamidol-370 (76%);100ml Bottle IV 09/30/23 21:51 100 ml ONCE ONE Administration Methylprednisolone Sodium Succinate 125 mg 09/30/23 21:40 09/30/23 21:41 Methylprednisolone Sod Succ 125mg Vial IV 09/30/23 21:41 125 mg ONCE ONE Administration Sodium Chloride 50 ml 09/30/23 21:50 09/30/23 21:51 0.9 % Sodium Chloride 50 Ml Vial IV 09/30/23 21:51 50 ml ONCE ONE Administration ORDERS Category Date Time Status CT abdomen pelvis wo con Stat Cat Scan 09/30/23 23:[address] angio head Stat Cat Scan 09/30/23 21:[address] angio neck Stat Cat Scan 09/30/23 21:[address] head/brain wo con Stat Cat Scan 09/30/23 21:24 Completed CXR --portable [XR chest portable] Stat Exams 09/30/23 21:40 Completed Activated Partial Thrombo Time Stat Lab 09/30/23 21:32 Completed Complete Blood Count Auto Diff Stat Lab 09/30/23 21:32 Completed Comprehensive Metabolic Panel Stat Lab 09/30/23 21:32 Completed Lipase Stat Lab 09/30/23 21:32 Completed Lyme Ab, Modified 2-Tier Stat Lab 09/30/23 21:38 Ordered Lyme B. burgdorferi PCR Blood Stat Lab 09/30/23 21:38 Ordered Magnesium Stat Lab 09/30/23 21:32 Completed Prothrombin Time INR Stat Lab 09/30/23 21:32 Completed Rapid PCR Covid and Flu A/B Stat Lab 09/30/23 22:15 Completed T4 (Thyroxine) Stat Lab 09/30/23 21:32 Completed Thyroid Stimulating Hormone Stat Lab 09/30/23 21:32 Completed Trop I [Troponin I] Stat Lab 09/30/23 21:32 Completed Troponin I Q3H Lab 10/01/23 00:45 Ordered Troponin I Q3H Lab 10/01/23 03:45 Ordered UA [Urinalysis and Microscopic] Stat Lab 09/30/23 23:15 Completed Venous Blood Gas Stat RT 09/30/23 21:38 Completed ECG Data Tracing #1: I reviewed this ECG and interpreted as documented below: Normal sinus rhythm with a ventricular rate of [address] changes concerning for ischemia. Right ventricular conduction delay noted. ECG initial impression date: 09/30/23 ECG initial impression time: 21:35 Medical Decision Narrative: In summary, this patient is a 78-year-old female presenting to the Emergency Department for evaluation of dizziness, feeling unwell, slurred speech. Differential diagnoses considered include but are not limited to CVA, intracranial hemorrhage, recrudescence of previous/recent stroke, UTI, dehydration, electrolyte derangements, ACS, other stroke mimic. Ruling out the most morbid conditions drove assessment. It should be noted patient's history includes hypertension which is not at goal therapy. This complicates all aspects of care by increasing patient's risk for morbidity. I reviewed patient's past medical records and noted her recent stroke workup with MRI showing multiple areas of infarction as per HPI. On exam, the patient is lying in bed in no acute distress. She is hypertensive with systolics in the 190s to low 200s. NIH stroke scale is 4 upon arrival for left lower extremity drift, which is the bed, left lower extremity discoordination, and slight slurred speech. Patient presented outside of tPA window with last known normal being around 12:30 PM. Patient was taken to CT scan for stroke CT protocol. She has an allergy to iodine, so premedication was given with IV methylprednisolone, Benadryl, and Pepcid. Patient tolerated this well with no reaction to contrast. Workup included stroke CT scans as well as broad lab evaluation to evaluate for metabolic, infectious, or other causes of symptoms. I independently interpreted CT scans prior to the radiologist read and noted patient's well-developed prior strokes but no obvious acute hemorrhage. Please see their read for final interpretation. I had an interactive discussion with the radiologist who advised that the patient's CT scan is similar to the prior MRI. Labs were obtained that demonstrated EWELINA with a creatinine of 1.7 up from a baseline of around 1.1. Patient also has mild hemoconcentration. Initial troponin is negative with reassuring EKG. Urinalysis pending at this time. Of note, I did find a tick on the right upper arm of the patient but it was not embedded and not engorged. No rash or erythema noted. Given this, I do not feel that prophylaxis is indicated. I did send Lyme titers just in case, but the patient has not had any other ticks on herself. Given concerns for worsening stroke symptoms in the setting of known CVA, I called and had an interactive discussion with Dr. Herron at with neurology who advised that this is likely recrudescence of her prior stroke and that he does not feel that she would benefit from transfer for neurology evaluation as an inpatient, as her stroke is very well-developed on CT scan. He advised that she can follow-up outpatient in 1 to 2 months with neurostroke and they will help arrange follow-up there should she wish to follow-up at . He advised that continuing medical management with aspirin, statin, and Plavix is appropriate, which the patient is already on. He advised PT/OT evaluation with admission for potential placement would be an option, but he still does not feel like transfer for neurology evaluation is indicated. Family expressed understanding and agreement. Urine resulted and was concerning for hematuria. Patient has a solitary kidney. Decision was made to order CT abdomen pelvis without IV contrast to evaluate for renal or ureteral pathology. Patient care was signed out to the oncoming provider, Dr. Lerner. <Dawit Lerner MD - Last Filed: 10/01/23 00:49> Vital Signs: 09/30/23 21:19 09/30/23 22:03 09/30/23 22:30 Temperature 98.0 F 98.0 F Temperature Source Axillary Axillary Pulse Rate 74 70 Pulse Rate [Left] 69 Respiratory Rate 18 18 20 Blood Pressure 206/112 H 209/107 H Blood Pressure [Right Arm] 182/94 H Blood Pressure Mean 141 Blood Pressure Mean [Right Arm] 123 02 Sat by Pulse Oximetry 94 L 95 97 Oxygen Delivery Method Room Air Room Air 09/30/23 23:01 09/30/23 23:30 10/01/23 00:43 Temperature 98.0 F Temperature Source Axillary Pulse Rate 62 66 67 Pulse Rate [Left] Respiratory Rate 24 20 12 Blood Pressure 187/100 H 180/97 H 164/87 H Blood Pressure [Right Arm] Blood Pressure Mean 129 139 Blood Pressure Mean [Right Arm] 02 Sat by Pulse Oximetry 96 95 Oxygen Delivery Method Room Air Lab Data Lab Results 09/30/23 21:32: WBC 5.3, RBC 4.33, Hgb 13.7, Hct 42.8, MCV 98.9, MCH 31.6 H, MCHC 31.9, RDW 14.5, Plt Count 210, MPV 8.6, Neut % (Auto) 59.6, Lymph % (Auto) 27.0, [place] % (Auto) 7.1, Eos % (Auto) 4.3, Baso % (Auto) 2.1 H, Neut # (Auto) 3.2, Lymph # (Auto) 1.4, [place] # (Auto) 0.4, Eos # (Auto) 0.2, Baso # (Auto) 0.1, PT 11.3, INR 1.05, APTT 25.4, Sodium 138, Potassium 4.2, Chloride 99, Carbon Dioxide 35 H, Anion Gap 8.2, BUN 27 H, Creatinine 1.70 H, Estimated Creat Clear 34, Estimated GFR 29 L, Est GFR ( Amer) 35 L, Glucose 84, Calcium 10.7 H, Magnesium 1.7, Total Bilirubin 0.1 L, AST 32, ALT 18, Alkaline Phosphatase 106, Troponin I < 0.01, Total Protein 6.9, Albumin 4.0, Globulin 2.9, Albumin/Globulin Ratio 1.4, Lipase 105, TSH 3.51, Thyroxine (T4) 6.1 09/30/23 21:38: VBG pH 7.32, VBG pCO2 64.6 H, VBG pO2 36.0, VBG HCO3 32.2 H, VBG Total CO2 34.1 H, VBG O2 Saturation 63.7, VBG Base Excess 6.0 H, VBG Lactic Acid 1.7 09/30/23 22:15: SARS-CoV-2 (PCR) Not detected, Influenza A Untype (PCR) Not detected, Influenza Type B (PCR) Not detected 09/30/23 23:15: Urine Color Yellow, Urine Appearance Clear, Urine pH 7.0, Ur Specific [place] 1.010, Urine Protein Negative, Urine Glucose (UA) Negative, Urine Ketones Negative, Urine Blood 2+, Urine Nitrate Negative, Urine Bilirubin Negative, Urine Urobilinogen 0.2, Ur Leukocyte Esterase Trace, Urine WBC 3-5, Ur Squamous Epith Cells 5-10, Urine Bacteria 1+ Orders (Tests/Meds): ED MEDICATIONS Generic Name Dose Route Start Last Admin Trade Name Paulo PRN Reason Stop Dose Admin Sodium Chloride 8 ml 09/30/23 21:40 Sodium Chloride 0.9% 10ml Vial IV 10/30/23 21:39 NEEDED PRN dilute pepcid Sodium Chloride 10 ml 09/30/23 21:50 09/30/23 21:52 Sodium Chloride 0.9% 10ml Syr (Rad Only) IV 10/30/23 21:49 10 ml NEEDED PRN Administration Maintain IV Site Discontinued Medications Generic Name Dose Route Start Last Admin Trade Name Paulo PRN Reason Stop Dose Admin Diphenhydramine HCl 50 mg 09/30/23 21:33 09/30/23 21:41 Diphenhydramine 50mg/Ml Vial IV 09/30/23 21:34 50 mg ONCE ONE Administration Famotidine 20 mg 09/30/23 21:40 09/30/23 21:41 Famotidine 20mg/2ml Vial IV 09/30/23 21:41 20 mg ONCE ONE Administration Hydrocortisone Sodium Succinate 100 mg 09/30/23 21:33 09/30/23 22:34 Hydrocortisone Sod Succinate 100mg Vial IV 09/30/23 21:34 Not Given ONCE ONE Lactated Ringer's 1,000 mls @ 999 mls/hr 09/30/23 22:04 09/30/23 22:12 Lactated Ringer's 1000 Ml Bag IV 09/30/23 23:04 999 mls/hr .Q1H1M ONE Administration Iopamidol 100 ml 09/30/23 21:50 09/30/23 21:51 Iopamidol-370 (76%);100ml Bottle IV 09/30/23 21:51 100 ml ONCE ONE Administration Methylprednisolone Sodium Succinate 125 mg 09/30/23 21:40 09/30/23 21:41 Methylprednisolone Sod Succ 125mg Vial IV 09/30/23 21:41 125 mg ONCE ONE Administration Sodium Chloride 50 ml 09/30/23 21:50 09/30/23 21:51 0.9 % Sodium Chloride 50 Ml Vial IV 09/30/23 21:51 50 ml ONCE ONE Administration ORDERS Category Date Time Status CT abdomen pelvis wo con Stat Cat Scan 09/30/23 23:[address] angio head Stat Cat Scan 09/30/23 21:[address] angio neck Stat Cat Scan 06/24/24 21:[address] head/brain wo con Stat Cat Scan 09/30/23 21:24 Completed CXR --portable [XR chest portable] Stat Exams 09/30/23 21:40 Completed Activated Partial Thrombo Time Stat Lab 09/30/23 21:32 Completed Complete Blood Count Auto Diff Stat Lab 09/30/23 21:32 Completed Comprehensive Metabolic Panel Stat Lab 09/30/23 21:32 Completed Lipase Stat Lab 09/30/23 21:32 Completed Lyme Ab, Modified 2-Tier Stat Lab 09/30/23 21:38 Ordered Lyme B. burgdorferi PCR Blood Stat Lab 09/30/23 21:38 Ordered Magnesium Stat Lab 09/30/23 21:32 Completed Prothrombin Time INR Stat Lab 09/30/23 21:32 Completed Rapid PCR Covid and Flu A/B Stat Lab 09/30/23 22:15 Completed T4 (Thyroxine) Stat Lab 09/30/23 21:32 Completed Thyroid Stimulating Hormone Stat Lab 09/30/23 21:32 Completed Trop I [Troponin I] Stat Lab 09/30/23 21:32 Completed Troponin I Q3H Lab 10/01/23 00:45 Ordered Troponin I Q3H Lab 10/01/23 03:45 Ordered UA [Urinalysis and Microscopic] Stat Lab 09/30/23 23:15 Completed Venous Blood Gas Stat RT 09/30/23 21:38 Completed Medical Decision Narrative: In summary, this patient is a 78-year-old female presenting to the Emergency Department for evaluation of dizziness, feeling unwell, slurred speech. Differential diagnoses considered include but are not limited to CVA, intracranial hemorrhage, recrudescence of previous/recent stroke, UTI, dehydration, electrolyte derangements, ACS, other stroke mimic. Ruling out the most morbid conditions drove assessment. It should be noted patient's history includes hypertension which is not at goal therapy. This complicates all aspects of care by increasing patient's risk for morbidity. I reviewed patient's past medical records and noted her recent stroke workup with MRI showing multiple areas of infarction as per HPI. On exam, the patient is lying in bed in no acute distress. She is hypertensive with systolics in the 190s to low 200s. NIH stroke scale is 4 upon arrival for left lower extremity drift, which is the bed, left lower extremity discoordination, and slight slurred speech. Patient presented outside of tPA window with last known normal being around 12:30 PM. Patient was taken to CT scan for stroke CT protocol. She has an allergy to iodine, so premedication was given with IV methylprednisolone, Benadryl, and Pepcid. Patient tolerated this well with no reaction to contrast. Workup included stroke CT scans as well as broad lab evaluation to evaluate for metabolic, infectious, or other causes of symptoms. I independently interpreted CT scans prior to the radiologist read and noted patient's well-developed prior strokes but no obvious acute hemorrhage. Please see their read for final interpretation. I had an interactive discussion with the radiologist who advised that the patient's CT scan is similar to the prior MRI. Labs were obtained that demonstrated EWELINA with a creatinine of 1.7 up from a baseline of around 1.1. Patient also has mild hemoconcentration. Initial troponin is negative with reassuring EKG. Urinalysis pending at this time. Of note, I did find a tick on the right upper arm of the patient but it was not embedded and not engorged. No rash or erythema noted. Given this, I do not feel that prophylaxis is indicated. I did send Lyme titers just in case, but the patient has not had any other ticks on herself. Given concerns for worsening stroke symptoms in the setting of known CVA, I called and had an interactive discussion with Dr. Herron at with neurology who advised that this is likely recrudescence of her prior stroke and that he does not feel that she would benefit from transfer for neurology evaluation as an inpatient, as her stroke is very well-developed on CT scan. He advised that she can follow-up outpatient in 1 to 2 months with neurostroke and they will help arrange follow-up there should she wish to follow-up at . He advised that continuing medical management with aspirin, statin, and Plavix is appropriate, which the patient is already on. He advised PT/OT evaluation with admission for potential placement would be an option, but he still does not feel like transfer for neurology evaluation is indicated. Family expressed understanding and agreement. Urine resulted and was concerning for hematuria. Patient has a solitary kidney. Decision was made to order CT abdomen pelvis without IV contrast to evaluate for renal or ureteral pathology. Patient care was signed out to the oncoming provider, Dr. Lerner. Eduarda MEYER: I assumed care of the patient at the time of handoff from the prior provider. On reassessment, CT imaging shows no evidence of acute urinary obstruction. I had repeated discussion with family regarding steps moving forward. Given patient is already on appropriate medical therapy and does not require any further interventions, they would prefer for patient to be discharged home with outpatient follow-up. She already has PT. Patient was able to ambulate from the bed to the wheelchair with assistance. Family reports that they feel comfortable that she will be safe at home with them. Patient reports that she would like to be discharged. Given this, patient was discharged. Return precautions given. Critical Care <Jennifer Gonzalez, DO - Last Filed: 10/01/23 00:21> Critical Care Time Critical Care Time: No
--- NOTE | 2023-09-30 21:32 | ECG_ITS ---
APPROVED REPORT Exam: Resting ECG HR:67 bpm ECG Measurements Heart Rate 67 AXES WY 204 P 29 QRSd 97 QRS -23 QT 398 T 70 QTc 413 Conclusion SINUS RHYTHM BORDERLINE LEFT AXIS DEVIATION [QRS AXIS < -20] POSSIBLE RIGHT VENTRICULAR CONDUCTION DELAY [RSR (QR) IN V1/V2] Electronically signed by : DANILO SULLIVAN, 10/01/2023 00:22:56
--- NOTE | 2023-09-30 21:40 | XR_ITS ---
PROCEDURE INFORMATION: Exam: XR Chest Exam date and time: 09/30/2023 9:51 PM Age: 78 years old Clinical indication: Other: Weakness; Additional info: Weakness, feeling unwell TECHNIQUE: Imaging protocol: Radiologic exam of the chest. Views: 1 view. COMPARISON: CR XR CHEST PORTABLE 03/27/2023 8:49 PM FINDINGS: Tubes, catheters and devices: Loop recorder projects over the lateral left hemithorax. Lungs: Question mild hyperexpansion and hyperlucency , possible COPD. Pulmonary vasculature grossly normal. No gross pulmonary infiltrates or edema pattern. Mild linear atelectasis or fibrosis in the lung bases. Pleural spaces: No pleural effusion. No pneumothorax. Heart/Mediastinum: Heart size normal. No tracheal/mediastinal shift. Vasculature: Mild aortic ectasia/tortuosity and calcific atherosclerosis. Bones/joints: No acute osseous abnormalities are identified. Osteopenia. IMPRESSION: 1. No acute thoracic process. 2. Suspect COPD.
[2023-09-30] MEDS: diphenhydrAMINE 50MG/ML VIAL 50 MG IV (21:41)
[2023-09-30] MEDS: FAMOTIDINE 20MG/2ML VIAL 20 MG IV (21:41)
[2023-09-30] MEDS: METHYLPREDNISOLONE SOD SUCC 125MG VIAL 125 MG IV (21:41)
[2023-09-30 21:51] LABS: Basophils # 0.1 K/mm3 (0-0.2); Basophils % 2.1 % (0.1-2.0); Eosinophils # 0.2 K/mm3 (0.0-0.4); Eosinophils % 4.3 % (0.1-12.0); Hematocrit 42.8 % (37.0-47.0); Hemoglobin 13.7 g/dL (12.2-16.2); Lymphocytes # 1.4 K/mm3 (0.7-4.5); Mean Corpuscular HGB Conc 31.9 g/dL (31.8-35.4); Mean Corpuscular Hemoglobin 31.6 pg (27.0-31.2); Mean Corpuscular Volume 98.9 fl (81-99); Mean Platelet Volume 8.6 fl (7.4-10.4); Monocytes # 0.4 K/mm3 (0.1-1.0); Monocytes % 7.1 % (1.7-9.3); Neutrophils # 3.2 K/mm3 (1.8-7.8); Neutrophils % 59.6 % (37.0-80.0); Platelet Count 210 K/mm3 (142-424); Red Blood Count 4.33 M/mm3 (4.20-5.40); Red Cell Distribution Width 14.5 % (11.5-17.5); White Blood Count 5.3 K/mm3 (4.8-10.8)
[2023-09-30] MEDS: IOPAMIDOL-370 (76%);100ML BOTTLE 100 ML IV (21:51)
[2023-09-30] MEDS: 0.9 % SODIUM CHLORIDE 50 ML VIAL IV (21:51)
[2023-09-30] MEDS: SODIUM CHLORIDE 0.9% 10ML SYR (RAD ONLY) 10 ML IV (21:52)
[2023-09-30 21:54] LABS: Lactate Venous 1.7 mmol/L (0.4-2.0); VBG HCO3 32.2 mmol/L (23-30); VBG Oxygen Saturation 63.7 % (50-70); VBG PH 7.32 mmol/L (7.31-7.41); VBG Total CO2 34.1 mmol/L (23-27)
[2023-09-30 21:54] LABS: Chloride 99 mmol/L (98-107); Potassium 4.2 mmoL/L (3.5-5.1); Sodium 138 mmol/L (136-145)
[2023-09-30 21:56] LABS: VBG PCO2 64.6 mmol/L (35-51)
[2023-09-30 21:57] LABS: Alanine Aminotransferase 18 U/L (12-78); Albumin/Globulin Ratio 1.4 (1.1-1.8); Alkaline Phosphatase 106 U/L (38-126); Anion Gap 8.2 mEq/L (5-15); Aspartate Amino Transferase 32 U/L (14-36); Blood Urea Nitrogen 27 mg/dl (7-17); Calcium 10.7 mg/dl (8.4-10.2); Carbon Dioxide 35 mmol/L (22.0-30.0); Creatinine Clearance Estimated 34 mL/min (50-200); Estimated Glomerular Filt Rate 29 ml/min (>60); GFR (African American) 35 ML/MIN (>60); Globulin 2.9 g/dL (1.3-3.2); Glucose 84 mg/dl (74-100); Lipase 105 U/L (23-300); Total Protein,Serum 6.9 g/dl (6.3-8.2)
[2023-09-30 21:58] LABS: Bilirubin,Total 0.1 mg/dl (0.2-1.3); Magnesium 1.7 mg/dl (1.6-2.3)
[2023-09-30 22:03] VITALS: BP 206/112; PULSE 74; RESP 18; TEMP 36.7; O2SAT 95
[2023-09-30 22:08] LABS: Activated Partial Thrombo Time 25.4 seconds (22.8-30.6); INR 1.05 (0.9-1.1); Prothrombin Time 11.3 seconds (10.1-12.5)
[2023-09-30] MEDS: LACTATED RINGERS 1000ML 1,000 ML 999 ML IV (22:12)
[2023-09-30 22:14] LABS: Troponin I < 0.01 ng/ml (0.00-0.034)
[2023-09-30 22:15] LABS: T4 (Thyroxine) 6.1 ug/dl (5.53-11.0)
[2023-09-30 22:23] LABS: Coronavirus 19, PCR Not Detected (NotDetected); Influenza A, PCR Not Detected (NotDetected); Influenza B, PCR Not Detected (NotDetected)
[2023-09-30 22:28] LABS: Thyroid Stimulating Hormone 3.51 uIU/mL (0.465-4.68)
[2023-09-30 22:30] VITALS: BP 209/107; PULSE 70; RESP 20; O2SAT 97
--- NOTE | 2023-09-30 22:42 | PC.NURSE ---
Contacted [facility] over consult for stroke.
--- NOTE | 2023-09-30 22:51 | PC.NURSE ---
Dr. Gonzalez on the phone with at this time.
[2023-09-30 23:01] VITALS: BP 187/100; PULSE 62; RESP 24; O2SAT 96
[2023-09-30 23:21] LABS: Microscopic, Urine URINE MICROSCOPIC (MICROSCOPIC)
[2023-09-30 23:23] LABS: Appearance,Urine CLEAR (Clear); Bilirubin,Urine Negative (Negative); Blood, Urine 2+ (Negative); Color,Urine YELLOW (Yellow); Glucose,Urine (UA) Negative (Negative); Ketones,Urine Negative (Negative); Leukocyte Esterase,Urine TRACE (Negative); Nitrate,Urine Negative (Negative); Protein,Urine Negative (Negative); Urobilinogen,Urine 0.2 EU/dl (0.2)
[2023-09-30 23:30] VITALS: BP 180/97; PULSE 66; RESP 20; O2SAT 95
--- NOTE | 2023-09-30 23:41 | CT_ITS ---
PROCEDURE INFORMATION: Exam: CT Abdomen And Pelvis Without Contrast Exam date and time: 09/30/2023 11:49 PM Age: 78 years old Clinical indication: Other: Hematuria; Additional info: Gonzales, hematuria TECHNIQUE: Imaging protocol: Computed tomography of the abdomen and pelvis without contrast. Radiation optimization: All CT scans at this facility use at least one of these dose optimization techniques: automated exposure control; mA and/or kV adjustment per patient size (includes targeted exams where dose is matched to clinical indication); or iterative reconstruction. COMPARISON: CT ABDOMEN PELVIS WO CON 11/08/2020 8:29 PM FINDINGS: Lungs: Mild atelectasis in the lung bases. Heart: Heart size normal. Mild chronic pericardial thickening and small volume pericardial effusion not significantly changed from 11/08/2020. Esophagus: The visualized distal esophagus is largely contracted without gross abnormality. Liver: Normal contour. Small chronic hepatic cysts are present which do not require further evaluation. No intrahepatic biliary ductal dilatation. Gallbladder and biliary ducts: Prior cholecystectomy with moderate postoperative dilatation of the common bile duct. This is unchanged. Pancreas: Moderate pancreatic atrophy without acute abnormality. No pancreatic ductal dilatation. Spleen: Granulomatous calcifications in the spleen without acute splenic abnormality. Adrenal glands: Left adrenal gland is unremarkable. Chronic calcifications and thickening of the right adrenal gland unchanged from 11/08/2020 consistent with chronic benign changes, possibly remote adrenal hemorrhage with no acute abnormality. 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 Mild chronic cortical scarring in the left kidney. Simple left renal cortical cyst noted which does not require further assessment. No hydronephrosis or hydroureter. No urolithiasis is identified although sensitivity is limited by hyperdense contrast in the collecting system from the recent CT angiography. Stomach and bowel: The stomach is unremarkable. Small bowel demonstrates no acute abnormalities. 2.5 cm duodenal diverticulum in the 4th portion. No acute colonic abnormalities. Appendix: The appendix is normal in caliber and demonstrates no evidence of appendicitis. Intraperitoneal space: No peritoneal free fluid or air. Vasculature: No acute process. No abdominal aortic aneurysm. Moderate calcific atherosclerosis. Lymph nodes: No adenopathy. Urinary bladder: No acute bladder abnormalities, filled with hyperdense contrast from recent CT angiography. Reproductive: Unremarkable as visualized. Bones/joints: No acute osseous abnormalities. Osteopenia. Moderate thoracolumbar spondylosis. Grade 1 anterolisthesis L4-L5. Suspect old healed insufficiency fracture at the S3 sacral segment. Soft tissues: No acute soft tissue abnormalities. Loop recorder in the low left anterior chest wall without gross complication. Very small fatty umbilical hernia with no bowel herniation or features of strangulation. IMPRESSION: 1. No acute abnormalities are appreciated. The hyperdense excreted contrast in the left renal collecting system, ureter, and urinary bladder from recent prior CT angiography limits the assessment for urolithiasis. 2. The right kidney is surgically absent, favor congenital although correlate with operative history. 3. Additional nonemergent findings detailed above. COMMENTS: Consistent with the [employer]'s Incidental Findings Committee white paper (J Am Ericka Radiol 2018): Any incidental renal lesion less than 1 cm or classified as too small to characterize, or any incidental cystic renal lesion characterized as simple-appearing, is likely benign. No follow-up imaging is recommended for these lesions per consensus recommendations based on imaging criteria.
[2023-09-30 23:47] LABS: Bacteria,Urine 1+ /lpf
--- NOTE | 2023-10-01 00:38 | PC.NURSE ---
Assisted Charmaine KRUEGER and Bela KRUEGER in ambulating patient to wheel chair from bed.
[2023-10-01 00:43] VITALS: BP 164/87; PULSE 67; RESP 12; TEMP 36.7; O2SAT 95
[2023-10-02 13:11] LABS: Lyme Ab CIA Negative (Negative)
[2023-10-05 16:43] LABS: Lyme B. burgdorferi PCR Blood Negative (Negative)
== END 2023-10-01 00:55 | disposition home or self-care (01) ==
PROVIDERS: Emergency Provider Emergency Medicine; PCP Family Medicine
DX: R47.81 Slurred speech (principal); R42 Dizziness and giddiness; R41.89 Other symptoms and signs involving cognitive functions and awareness; R29.818 Other symptoms and signs involving the nervous system; R53.1 Weakness; N17.8 Other acute kidney failure; Z86.73 Personal history of transient ischemic attack (TIA), and cerebral infarction without residual deficits; I10 Essential (primary) hypertension
CPT/HCPCS: 70450; 70496; 70498; 71045; 74176; 80053; 81001; 82803; 83690; 83735; 84436; 84443; 84484; 85025; 85610; 85730; 87476; 87636; 93005; 96361; 96374; 96375; 99285; J2919; J7120; Q9967

== ENCOUNTER 2023-10-05 12:30 | Observation (INO) | payer MEDICARE, SELFPAY ==
[2023-10-05] VITALS (7 sets, daily range): BP systolic 137–177; BP diastolic 78–97; PULSE 61–69; RESP 16–18; TEMP 36.4–37.2; O2SAT 93–96; BMI 35.2
--- OUTSIDE RECORDS SUMMARY | 2023-10-05 12:38 | XMS_ITS | Summary of Care ---
Author Name Unknown Organization [facility] Address [address] [place] [address]- Encounter 05/04/16 - 05/15/16 [facility] [address] [place] [address] Attending Physician: Lauren Coffey MD Referring Physician: Poonam Davis Vital Signs Most recent to oldest [Reference Range]: 1 2 3 Temperature Oral F [96.4-99.1 DegF] 97.1 DegF (05/15/16 8:14 AM) 98.0 DegF (05/14/16 7:00 PM) 98.1 DegF (05/14/16 7:45 AM) Peripheral Pulse Rate [60-100 bpm] 90 bpm (05/15/16 8:14 AM) 72 bpm (05/14/16 7:00 PM) 68 bpm (05/14/16 12:31 PM) Respiratory Rate [14-20 br/min] 18 br/min (05/15/16 8:14 AM) 18 br/min (05/14/16 7:00 PM) 18 br/min (05/14/16 7:45 AM) Blood Pressure [90-140/60-90 mmHg] 121/79mmHg (05/14/16 7:00 PM) Systolic Blood Pressure [90-140 mmHg] 120 mmHg (05/15/16 8:14 AM) 105 mmHg (05/14/16 12:31 PM) Diastolic Blood Pressure [60-90 mmHg] 79 mmHg (05/15/16 8:14 AM) 68 mmHg (05/14/16 12:31 PM) Extremity used to obtain blood pressure Right Arm (05/04/16 3:31 PM) Temperature Oral [36-37 DegC] 36 DegC (05/15/16 8:14 AM) 37 DegC (05/14/16 7:45 AM) Temperature Oral [35.8-37.3 DegC] 36.7 DegC (05/14/16 7:00 PM) Problem List Condition Effective Dates Status Health Status Inform ant activity tolerance(Confirmed) Active adl impairment(Confirmed) Active Balance impairment(Confirmed) Active Dysphagia(Confirmed) Active Expressive language impairment(Confirmed) Active Impaired cognition(Confirmed) Active Receptive language impairment(Confirmed) Active Allergies, Adverse Reactions, Alerts Substance Reaction Severity Status codeine Active Contrast Dye Active penicillins Active Medications acetaminophen 325 mg oral tablet 650 mg, = 2 tab, Tab, Oral, q4hr PRN, Refills 0, Pain Start Date: 05/10/16 Status: Ordered atorvastatin 40 mg oral tablet 40 mg, = 1 tab, Tab, Oral, QHS, 30 tab, Refills 2, Print Requisition, 2 Start Date: 05/10/16 Stop Date: 08/08/16 Status: Ordered carBAMazepine 100 mg oral tablet, chewable 100 mg, = 1 tab, Tab-Chew, Oral, BID, 60 tab, Refills 2, Print Requisition, 2 Start Date: 05/10/16 Stop Date: 08/08/16 Status: Ordered clopidogrel 75 mg oral tablet 75 mg, = 1 tab, Tab, Oral, Daily, 30 tab, Refills 2, Print Requisition, 2 Start Date: 05/10/16 Stop Date: 08/08/16 Status: Ordered donepezil 10 mg oral tablet 10 mg, = 1 tab, Tab, Oral, QHS, 30 tab, Refills 2, Print Requisition, 2 Start Date: 05/10/16 Stop Date: 08/08/16 Status: Ordered FLUoxetine 10 mg oral capsule 10 mg, = 1 cap, Cap, Oral, Daily, 30 cap, Refills 2, Print Requisition, 2 Start Date: 05/10/16 Stop Date: 08/08/16 Status: Ordered levothyroxine 25 mcg (0.025 mg) oral tablet 25 mcg, = 1 tab, Tab, Oral, Daily, 30 tab, Refills 2, Print Requisition, 2 Start Date: 05/10/16 Stop Date: 08/08/16 Status: Ordered lisinopril 20 mg oral tablet 20 mg, = 1 tab, Tab, Oral, Daily, 30 tab, Refills 2, Print Requisition, 2 Start Date: 05/10/16 Stop Date: 08/08/16 Status: Ordered MiraLax oral powder for reconstitution 17 gm, Powder, Oral, Daily, 527 gm, Refills 1, Dispense: 30 day, Stop date 07/09/16 16:30:00 EDT, Print Requisition, 1 Start Date: 05/10/16 Stop Date: 07/09/16 Status: Ordered Multiple Vitamins oral tablet 1 tab, Tab, Oral, Daily, 30 tab, Refills 2, Print Requisition, 2 Start Date: 05/10/16 Stop Date: 08/08/16 Status: Ordered senna 8.6 mg oral tablet 17.2 mg, = 2 tab, Tab, Oral, BID, 120 tab, Refills 1, Dispense: 30 day, Stop date 07/09/16 16:30:00EDT, Print Requisition, 1 Start Date: 05/10/16 Stop Date: 07/09/16 Status: Ordered Results LABORATORY Most recent to oldest [Reference Range]: 1 2 3 Vitamin D, 25-OH, Total - QST [30-100 ng/mL] 49 ng/mL 1 *NA* (05/05/16 5:38 AM) Vitamin D, 25-OH, D3 - QST 49 ng/mL 2 *NA* (05/05/16 5:38 AM) Vitamin D, 25-OH, D2 - QST <4 ng/mL 3 *NA* (05/05/16 5:38 AM) Vitamin B12 Lvl HSL [230-1050 pg/mL] >2200 pg/mL 4 *HI* (05/05/16 5:38 AM) Cholesterol Total HSL [<=200.0 mg/dL] 135.0 mg/dL (05/05/16 5:38 AM) Cholesterol HDL HSL 55.6 mg/dL *NA* (05/05/16 5:38 AM) Cholesterol/HDL HSL [0.0-5.0 ratio] 2.4 ratio (05/05/16 5:38 AM) Cholesterol LDL Direct HSL [<=100.0 mg/dL] 66.0 mg/dL (05/05/16 5:38 AM) Triglyceride HSL [<=150.0 mg/dL] 51.0 mg/dL (05/05/16 5:38 AM) Color UR HSL [yellow] yellow (05/05/16 4:05 PM) yellow (05/04/16 5:20 PM) Appearance UR HSL [clear] very cloudy *ABN* (05/05/16 4:05 PM) clear (05/04/16 5:20 PM) Specific [place] UR HSL [1.010-1.040] 1.020 (05/05/16 4:05 PM) 1.010 (05/04/16 5:20 PM) pH UR HSL [5] 6 (05/05/16 4:05 PM) 7 (05/04/16 5:20 PM) Glucose UR HSL [Normal] Normal (05/05/16 4:05 PM) Normal (05/04/16 5:20 PM) Bilirubin UR HSL [Neg] Neg (05/05/16 4:05 PM) Neg (05/04/16 5:20 PM) Ketones UR HSL [Neg] Neg (05/05/16 4:05 PM) Neg (05/04/16 5:20 PM) Blood UR HSL [Neg] Neg (05/05/16 4:05 PM) Neg (05/04/16 5:20 PM) Protein UR HSL [Neg] Neg (05/05/16 4:05 PM) Neg (05/04/16 5:20 PM) Urobilinogen UR HSL [Normal] Normal (05/05/16 4:05 PM) Normal (05/04/16 5:20 PM) Nitrite UR HSL [Neg] Neg (05/05/16 4:05 PM) Neg (05/04/16 5:20 PM) Leukocyte Esterase UR HSL [Neg mg/dL] 100 mg/dL *ABN* (05/05/16 4:05 PM) 100 mg/dL *ABN* (05/04/16 5:20 PM) Squamous Epithelials UR HSL [0-5] 0-5 (05/05/16 4:05 PM) 0-5 (05/04/16 5:20 PM) Bacteria UR HSL 2+ /HPF *ABN* (05/05/16 4:05 PM) 1+ /HPF *ABN* (05/04/16 5:20 PM) WBC UR HSL [None Seen /HPF] 10-20 /HPF *ABN* (05/05/16 4:05 PM) 10-20 /HPF *ABN* (05/04/16 5:20 PM) RBC UR HSL [None Seen] None Seen (05/05/16 4:05 PM) None Seen (05/04/16 5:20 PM) Amorphous UR HSL 1+ (05/05/16 4:05 PM) Calcium Oxalate Crystal UR HSL [None Seen] 1+ *ABN* (05/05/16 4:05 PM) 2+ *ABN* (05/04/16 5:20 PM) Specimen Source UR HSL Clean Catch (05/05/16 4:05 PM) I/O Cath (05/04/16 5:20 PM) WBC HSL [4.5-11.5 x10(3)/mcL] 5.1 x10(3)/mcL (05/14/16 5:13 AM) 5.0 x10(3)/mcL (05/10/16 5:20 AM) 5.7 x10(3)/mcL (05/07/16 5:15 AM) RBC HSL [3.70-5.20 x10(6)/mcL] 3.81 x10(6)/mcL (05/14/16 5:13 AM) 3.76 x10(6)/mcL (05/10/16 5:20 AM) 3.58 x10(6)/mcL *LOW* (05/07/16 5:15 AM) Hemoglobin HSL [12.0-15.7 gm/dL] 12.2 gm/dL (05/14/16 5:13 AM) 11.9 gm/dL *LOW* (05/10/16 5:20 AM) 11.6 gm/dL *LOW* (05/07/16 5:15 AM) Hematocrit HSL [35.0-46.0 %] 37.0 % (05/14/16 5:13 AM) 36.4 % (05/10/16 5:20 AM) 35.3 % (05/07/16 5:15 AM) MCV HSL [78.6-102.2 fL] 97.1 fL (05/14/16 5:13 AM) 96.8 fL (05/10/16 5:20 AM) 98.6 fL (05/07/16 5:15 AM) MCH HSL [26.0-34.0 pg] 32.0 pg (05/14/16 5:13 AM) 31.6 pg (05/10/16 5:20 AM) 32.4 pg (05/07/16 5:15 AM) MCHC HSL [31.8-35.1 gm/dL] 33.0 gm/dL (05/14/16 5:13 AM) 32.7 gm/dL (05/10/16 5:20 AM) 32.9 gm/dL (05/07/16 5:15 AM) Platelet HSL [150-450 x10(3)/mcL] 280 x10(3)/mcL (05/14/16 5:13 AM) 268 x10(3)/mcL (05/10/16 5:20 AM) 215 x10(3)/mcL (05/07/16 5:15 AM) RDW-CV% HSL [11.7-14.4 %] 12.5 % (05/14/16:13 AM) 12.3 % (05/10/16 5:20 AM) 12.4 % (05/07/16 5:15 AM) RDW-SD HSL [36.4-46.3 fL] 42.3 fL (05/14/16:13 AM) 41.9 fL (05/10/16 5:20 AM) 43.3 fL (05/07/16 5:15 AM) MPV HSL 10.0 *NA* (05/14/16:13 AM) 10.4 *NA* (05/10/16:20 AM) 10.3 *NA* (05/07/16 5:15 AM) Neutrophil Auto HSL [39.6-77.8 %] 59.2 % (05/14/16 5:13 AM) 54.5 % (05/10/16 5:20 AM) 57.8 % (05/07/16 5:15 AM) Lymphocyte Auto HSL [17.5-52.8 %] 27.1 % (05/14/16 5:13 AM) 29.8 % (05/10/16 5:20 AM) 26.7 % (05/07/16 5:15 AM) Monocyte Auto HSL [3.0-10.4 %] 10.9 % *HI* (05/14/16 5:13 AM) 14.1 % *HI* (05/10/16 5:20 AM) 11.8 % *HI* (05/07/16 5:15 AM) Eosinophil Auto HSL [0.0-7.0 %] 2.2 % (05/14/16 5:13 AM) 1.0 % (05/10/16 5:20 AM) 3.5 % (05/07/16 5:15 AM) Basophil Auto HSL [0.0-0.9 %] 0.4 % (05/14/16 5:13 AM) 0.4 % (05/10/16 5:20 AM) 0.2 % (05/07/16 5:15 AM) Immature Gran Auto HSL [0.0-0.5 %] 0.2 % (05/14/16 5:13 AM) 0.2 % (05/10/16 5:20 AM) 0.0 % (05/07/16 5:15 AM) Neutrophil Absolute HSL [1.60-6.90 x10(3)/mcL] 3.00 x10(3)/mcL (05/14/16 5:13 AM) 2.71 x10(3)/mcL (05/10/16 5:20 AM) 3.30 x10(3)/mcL (05/07/16 5:15 AM) Lymphocyte Absolute HSL [0.9-2.8 x10(3)/mcL] 1.4 x10(3)/mcL (05/14/16 5:13 AM) 1.5 x10(3)/mcL (05/10/16 5:20 AM) 1.5 x10(3)/mcL (05/07/16 5:15 AM) Monocyte Absolute HSL [<=1.00 x10(3)/mcL] 0.55 x10(3)/mcL (05/14/16 5:13 AM) 0.70 x10(3)/mcL (05/10/16 5:20 AM) 0.67 x10(3)/mcL (05/07/16 5:15 AM) Eosinophil Absolute HSL [0.00-0.40 x10(3)/mcL] 0.11 x10(3)/mcL (05/14/16 5:13 AM) 0.05 x10(3)/mcL (05/10/16 5:20 AM) 0.20 x10(3)/mcL (05/07/16 5:15 AM) Basophil Absolute HSL [0.00-0.05 x10(3)/mcL] 0.02 x10(3)/mcL (05/14/16 5:13 AM) 0.02 x10(3)/mcL (05/10/16 5:20 AM) 0.01 x10(3)/mcL (05/07/16 5:15 AM) Immature Gran Absolute HSL [0.00-0.04 x10(3)/mcL] 0.01 x10(3)/mcL (05/14/16 5:13 AM) 0.01 x10(3)/mcL (05/10/16 5:20 AM) 0.00 x10(3)/mcL (05/07/16 5:15 AM) Estimated Creatinine Clearance 41.18 mL/min (05/15/16 8:48 AM) 40.07 mL/min (05/14/16 10:16 AM) 35.91 mL/min (05/13/16 8:34 AM) Creatinine Level 1.09 mg/dL (05/15/16 6:08 AM) 1.12 mg/dL (05/14/16 5:13 AM) 1.25 mg/dL (05/13/16 5:00 AM) Sodium HSL [138-146 mmol/L] 138 mmol/L (05/15/16 6:08 AM) 136 mmol/L *LOW* (05/14/16 5:13 AM) 138 mmol/L (05/13/16 5:00 AM) Potassium HSL [3.6-5.1 mmol/L] 3.9 mmol/L (05/15/16 6:08 AM) 3.6 mmol/L (05/14/16 5:13 AM) 3.8 mmol/L (05/13/16 5:00 AM) Chloride HSL [101-111 mmol/L] 107 mmol/L (05/15/16 6:08 AM) 105 mmol/L (05/14/16 5:13 AM) 105 mmol/L (05/13/16 5:00 AM) Carbon Dioxide HSL [22.0-32.0 mmol/L] 25.0 mmol/L (05/15/16 6:08 AM) 26.0 mmol/L (05/14/16 5:13 AM) 27.0 mmol/L (05/13/16 5:00 AM) Anion Gap HSL [8-16 mmol/L] 10 mmol/L (05/15/16 6:08 AM) 9 mmol/L (05/14/16 5:13 AM) 10 mmol/L (05/13/16 5:00 AM) Glucose HSL [74-118 mg/dL] 98 mg/dL (05/15/16 6:08 AM) 81 mg/dL (05/14/16 5:13 AM) 91 mg/dL (05/13/16 5:00 AM) BUN HSL [8.0-26.0 mg/dL] 24.0 mg/dL (05/15/16 6:08 AM) 20.0 mg/dL (05/14/16 5:13 AM) 19.0 mg/dL (05/13/16 5:00 AM) Creatinine HSL [0.44-1.00 mg/dL] 1.09 mg/dL *HI* (05/15/16 6:08 AM) 1.12 mg/dL *HI* (05/14/16 5:13 AM) 1.25 mg/dL *HI* (05/13/16 5:00 AM) eGFR-AA HSL 101 *NA* (05/15/16 6:08 AM) 98 *NA* (05/14/16 5:13 AM) 86 *NA* (05/13/16 5:00 AM) eGFR-Non AA HSL 83 *NA* (05/15/16 6:08 AM) 81 *NA* (05/14/16 5:13 AM) 71 *NA* (05/13/16 5:00 AM) BUN/Creat Ratio HSL [5.0-20.0 ratio] 22.0 ratio *HI* (05/15/16 6:08 AM) 17.9 ratio (05/14/16 5:13 AM) 15.2 ratio (05/13/16 5:00 AM) Calcium Total HSL [8.9-10.3 mg/dL] 8.9 mg/dL (05/15/16 6:08 AM) 9.0 mg/dL (05/14/16 5:13 AM) 9.2 mg/dL (05/13/16 5:00 AM) Albumin HSL [3.5-5.0 gm/dL] 3.3 gm/dL *LOW* (05/14/16 5:13 AM) 3.2 gm/dL *LOW* (05/10/16 5:20 AM) 3.0 gm/dL *LOW* (05/07/16 5:15 AM) Prealbumin HSL [18-38 mg/dL] 19 mg/dL (05/05/16 5:38 AM) Protein Total HSL [6.5-8.1 gm/dL] 6.2 gm/dL *LOW* (05/14/16 5:13 AM) 6.0 gm/dL *LOW* (05/10/16 5:20 AM) 5.7 gm/dL *LOW* (05/07/16 5:15 AM) Bilirubin Total HSL [0.30-1.20 mg/dL] 0.57 mg/dL (05/14/16 5:13 AM) 0.41 mg/dL (05/10/16 5:20 AM) 0.24 mg/dL *LOW* (05/07/16 5:15 AM) Alkaline Phosphatase HSL [32-91 IU/L] 72 IU/L (05/14/16 5:13 AM) 80 IU/L (05/10/16 5:20 AM) 83 IU/L (05/07/16 5:15 AM) AST HSL [15-41 IU/L] 28 IU/L (05/14/16 5:13 AM) 23 IU/L (05/10/16 5:20 AM) 19 IU/L (05/07/16 5:15 AM) ALT HSL [14-54 IU/L] 24 IU/L (05/14/16 5:13 AM) 17 IU/L (05/10/16 5:20 AM) 17 IU/L (05/07/16 5:15 AM) Folate HSL [>=5.4 ng/mL] >20.0 ng/mL (05/05/16 5:38 AM) Thyroid Stimulating Hormone HSL [0.350-5.000 uIU/mL] 1.229 uIU/mL (05/05/16 5:38 AM) 1Result Comment: For more information on this test, go to: http://education.[employer]/faq/USC150 (This link is being provided for informational/educational purposes only.) 25-OHD3 indicates both endogenous production and supplementation. 25-OHD2 is an indicator of exogenous sources, such as diet or supplementation. Therapy is based on measurement of Total 25-OHD, with levels <20 ng/mL indicative of Vitamin D deficiency, while levels between 20 ng/mL and 30 ng/mL suggest insufficiency. Optimal levels are > or = 30 ng/mL. 2Result Comment: Reference Range Not established 3Result Comment: Reference Range Not established Lab test performed by: Lab Mnemonic: [facility] [address] [address] [place] [address] JUANA AVILA MD 4Result Comment: patient result is greater than the linear high of the test procedure Microbiology Reports TEST:Culture Urine HSL STATUS:Auth (Verified) BODY SITE: SOURCE:Urine, Clean Catch COLLECTED DATE/TIME:05/05/16 4:05 PM FINAL REPORT [place] count: 10,000 - 25,000 cfu/ml Mixed cj (multiple species present) Recommend recollection if clinically indicated TEST:Culture Urine HSL STATUS:Auth (Verified) BODY SITE: SOURCE:I/O Cath COLLECTED DATE/TIME:05/04/16 5:20 PM FINAL REPORT [place] count: 50,000 - 100,000 cfu/ml Mixed cj (multiple species present) Recommend recollectionif clinically indicated (2 different gram negtive rods and a probable enterococcus are present.) Immunizations No data available for this section Procedures No data available for this section Social History No data available for this section Assessment and Plan No data available for this section
--- OUTSIDE RECORDS SUMMARY | 2023-10-05 12:38 | XMS_ITS | Summary of Care ---
Author Name Unknown Organization [facility] Address [address] [place] [address]- Encounter 07/12/16 - 07/12/16 [facility] [address] [place] [address] Discharge Disposition: Discharged to Home or Self Care Attending Physician: Marta Jackson MD Referring Physician: Marta Jackson MD Vital Signs Most recent to oldest [Reference Range]: 1 Peripheral Pulse Rate [60-100 bpm] 69 bp m (07/12/16 12:38 PM) Blood Pressure [90-140/60-90 mmHg] 167/9 8mmHg *HI* (07/12/16 12:38 PM) Problem List Condition Effective Dates Status [...] Date: 05/10/16 Stop Date: 08/08/16 Status: Ordered Multiple Vitamins oral tablet 1 tab, Tab, Oral, Daily, 30 tab, Refills 2, Print Requisition, 2 Start Date: 05/10/16 Stop Date: 08/08/16 Status: Ordered Results No data available for this section Immunizations No data available for this section Procedures No data available for this section Social History No data available for this section Assessment and Plan No data available for this section
--- NOTE | 2023-10-05 12:47 | CT_ITS ---
PROCEDURE INFORMATION: Exam: CT Cervical Spine Without Contrast Exam date and time: 10/05/2023 1:44 PM Age: 78 years old Clinical indication: Injury or trauma; Fall; Blunt trauma; Additional info: Fall onto chair, L lower chest wall injury, >65 TECHNIQUE: Imaging protocol: Computed tomography of the cervical spine without contrast. Radiation optimization: All CT scans at this facility use at least one of these dose optimization techniques: automated exposure control; mA and/or kV adjustment per patient size (includes targeted exams where dose is matched to clinical indication); or iterative reconstruction. COMPARISON: CT CERVICAL SPINE WO CON 03/27/2023 8:49 PM FINDINGS: Bones: Generalized osteopenia. Cervical spondylosis with multilevel disc degeneration. Paranasal sinuses: Left sphenoid sinus inflammatory changes Lungs: Lung apices are normal. Soft tissues: Unremarkable. IMPRESSION: No evidence of acute osseous injury.
--- NOTE | 2023-10-05 12:47 | CT_ITS ---
PROCEDURE INFORMATION: Exam: CT Lumbar Spine Without Contrast Exam date and time: 10/05/2023 1:49 PM Age: 78 years old Clinical indication: Injury or trauma; Fall; Blunt trauma (contusions or hematomas); Additional info: Fall onto chair, L lower chest wall injury, >65 TECHNIQUE: Imaging protocol: Computed tomography of the lumbar spine without contrast. Radiation optimization: All CT scans at this facility use at least one of these dose optimization techniques: automated exposure control; mA and/or kV adjustment per patient size (includes targeted exams where dose is matched to clinical indication); or iterative reconstruction. COMPARISON: CT LUMBAR SPINE WO CON 10/19/2021 10:33 PM FINDINGS: Bones/joints: Stable L1 compression fracture since 2021.. Broad-based disc bulge, facet hypertrophy, and ligament hypertrophy at L3/L4 and L4/L5 consistent with spinal stenosis. . Broad-based disc bulge at L5/S1 consistent with degenerative disc disease Soft tissues: Unremarkable. IMPRESSION: 1. Stable L1 compression fracture since 2021.. 2. Broad-based disc bulge, facet hypertrophy, and ligament hypertrophy at L3/L4 and L4/L5 consistent with spinal stenosis. .
--- NOTE | 2023-10-05 12:47 | CT_ITS ---
PROCEDURE INFORMATION: Exam: CT Head Without Contrast Exam date and time: 10/05/2023 1:43 PM Age: 78 years old Clinical indication: Injury or trauma; Fall; Blunt trauma (contusions or hematomas); Additional info: Fall onto chair, L lower chest wall injury, >65 TECHNIQUE: Imaging protocol: Computed tomography of the head without contrast. Radiation optimization: All CT scans at this facility use at least one of these dose optimization techniques: automated exposure control; mA and/or kV adjustment per patient size (includes targeted exams where dose is matched to clinical indication); or iterative reconstruction. COMPARISON: CT ANGIO HEAD 09/30/2023 9:51 PM FINDINGS: Brain: Periventricular white matter tract changes demonstrated. Mild-moderate prominence of the cortical sulci. Chronic encephalomalacia changes left frontal lobe with extension to the left temporal lobe. Chronic ischemic change left occipital lobe. Chronic ischemic change left thalamus Cerebral ventricles: No ventriculomegaly. Paranasal sinuses: Left sphenoid sinus inflammatory changes. Mastoid air cells: Visualized mastoid air cells are well aerated. Bones: Unremarkable. No acute fracture. Soft tissues: Unremarkable. Other findings: . IMPRESSION: 1. No evidence of acute intracranial abnormality. 2. Chronic ischemic changes as described above. Findings stable.
--- NOTE | 2023-10-05 12:47 | CT_ITS ---
PROCEDURE INFORMATION: Exam: CT Thoracic Spine Without Contrast Exam date and time: 10/05/2023 1:46 PM Age: 78 years old Clinical indication: Injury or trauma; Fall; Blunt trauma (contusions or hematomas); Additional info: Fall onto chair, L lower chest wall injury, >65 TECHNIQUE: Imaging protocol: Computed tomography of the thoracic spine without contrast. Radiation optimization: All CT scans at this facility use at least one of these dose optimization techniques: automated exposure control; mA and/or kV adjustment per patient size (includes targeted exams where dose is matched to clinical indication); or iterative reconstruction. COMPARISON: CT CERVICAL SPINE WO CON 10/05/2023 1:44 PM FINDINGS: Bones/joints: Nondisplaced posterior left 11th rib fracture (series 1001, image 77). Minimally displaced left posterior 7th rib fracture (series 1001, image 79).. Multiple mild compression fractures throughout the thoracic spine. No definite acute fractures.. Soft tissues: Unremarkable. IMPRESSION: 1. Nondisplaced posterior left 11th rib fracture (series 1001, image 77). Minimally displaced left posterior 7th rib fracture (series 1001, image 79).. 2. Multiple mild compression fractures throughout the thoracic spine. No definite acute fractures..
--- NOTE | 2023-10-05 12:51 | ED_ITS ---
Discharge Plan Disposition Patient Disposition: Admitted Condition: Good Clinical Impressions Clinical Impression: Fall, Chest wall contusion, Multiple fractures of ribs of left side, Fracture of left clavicle Discharge ED Provider: Jennifer Gonzalez General Adult HPI General Chief complaint: Fall Stated complaint: AO 10/05/23, 10:30, fell, inj left side Time Seen by Provider: 10/05/23 12:40 Mode of Arrival: Wheelchair Source of Information: Patient Limitations: No Limitations Description of Symptoms (Recalled from ER Triage Doc. by RN): Patient reports bending over to pick something up and when she stood back up she fell backwards. Complaint of left rib cage pain with bruising. Denies LOC. History of Present Illness HPI narrative: This patient is a 78-year-old female with a history of CVA on aspirin and Plavix, hypothyroidism, hypertension, and hyperlipidemia presenting to the emergency department for evaluation with concern for fall with left chest injury. Patient went to pick something up around 1030 this morning when she lost her balance, falling and landing on a chair. She fell so hard onto the wooden chair that it snapped underneath her and fell into pieces. She mostly hit her left chest wall, where she has significant bruising and pain. She also has some pain in her left elbow. Otherwise, she did not hit her head or lose consciousness, and she denies any other concerns or complaints. She was able to get herself up and walk [facility], where she sat down until family got home. She was well prior to the fall with no dizziness, weakness, or other concerns. Related Data Home Medications Medication Instructions Recorded Confirmed atorvastatin 40 mg tablet 40 mg PO HS 03/27/23 03/27/23 carbamazepine 200 mg 200 mg PO DAILY 03/27/23 03/27/23 tablet,extended release,12 hr clopidogrel 75 mg tablet 75 mg PO DAILY 03/27/23 03/27/23 fluoxetine 10 mg capsule 10 mg PO DAILY 03/27/23 03/27/23 gabapentin 100 mg capsule 100 mg PO BID 03/27/23 03/27/23 levothyroxine 25 mcg tablet 25 mcg PO DAILY 03/27/23 03/27/23 lisinopril 20 mg tablet 20 mg PO DAILY 03/27/23 03/27/23 tiotropium 2.5 mcg-olodaterol 2.5 2 puff inhalation DAILY 03/27/23 03/27/23 mcg/actuation mist for inhalation (Stiolto Respimat) Allergies Allergy/AdvReac Type Severity Reaction Status Date / Time Iodine and Iodide Containing Allergy Intermediate I-RASH Verified 03/09/23 16:41 Produc Penicillins Allergy Intermediate I-RASH Verified 03/09/23 16:41 codeine Allergy Mild HYPER Verified 03/09/23 16:41 [facility] Disclaimer: The information contained in this section may have been updated after the patient was seen, as this information can be updated by other users. Social History Smoking Status: Unknown if ever smoked alcohol intake: never current occupational status: disabled Travel in the last 8 weeks: None household members: none caffeine: Yes ROS Obtained: Yes All systems reviewed & no additional complaints except as documented Physical Exam General General appearance: alert, in no apparent distress and obese Head Head exam: atraumatic and normocephalic Eye Eye exam: Present normal appearance, PERRL and EOMI ENT ENT exam: Present normal exam, normal oropharynx, mucous membranes moist and normal external ear exam Neck Neck exam: Present normal inspection, full ROM and trachea midline; Absent tenderness Chest Chest inspection: Present symmetric chest wall rise and tenderness (Bruising to L lateral lower chest with associated TTP. No palpable step-offs, crepitus, or deformities.) Respiratory Respiratory exam: Present normal lung sounds bilaterally; Absent respiratory distress, wheezes, stridor or accessory muscle use Cardiovascular Cardiovascular exam: Present regular rate and normal rhythm Abdominal Exam Abdominal exam: Present soft; Absent distention, tenderness or guarding Extremities Exam Extremities exam: Present normal inspection, full ROM and normal capillary refill; Absent tenderness or edema Back Exam Back exam: Present normal inspection and full ROM; Absent tenderness Neurological Exam Neurological exam: Present alert, oriented X3, CN II-XII intact and normal gait; Absent motor sensory deficit Psychiatric Psychiatric exam: Present normal affect and normal mood Skin Skin exam: Present warm and dry Medical Decision Making Medical Records Medical records reviewed: Yes I reviewed the patient's medical records. Joseph Inquiry Pt receiving controlled substance: No Vital Signs: 10/05/23 12:31 10/05/23 14:06 10/05/23 14:34 Temperature 97.9 F Temperature Source Oral Pulse Rate 68 65 Pulse Rate [Radial] 69 Respiratory Rate 16 Blood Pressure 163/91 H 144/97 H Blood Pressure [Right Arm] 161/92 H Blood Pressure Mean [Right Arm] 115 Blood Pressure Source [Right Arm] Automatic Cuff Blood Pressure Position [Right Arm] Sitting 02 Sat by Pulse Oximetry 95 96 96 Oxygen Delivery Method Room Air 10/05/23 15:00 Temperature Temperature Source Pulse Rate 64 Pulse Rate [Radial] Respiratory Rate Blood Pressure 177/94 H Blood Pressure [Right Arm] Blood Pressure Mean [Right Arm] Blood Pressure Source [Right Arm] Blood Pressure Position [Right Arm] 02 Sat by Pulse Oximetry 95 Oxygen Delivery Method Lab Data Lab results reviewed: Yes I reviewed the patient's lab results. Lab Results 10/05/23 13:30: WBC 6.3, RBC 4.16 L, Hgb 13.1, Hct 40.4, MCV 97.1, MCH 31.5 H, MCHC 32.5, RDW 14.3, Plt Count 207, MPV 8.1, Neut % (Auto) 69.2, Lymph % (Auto) 21.7, [place] % (Auto) 6.2, Eos % (Auto) 2.5, Baso % (Auto) 0.4, Neut # (Auto) 4.4, Lymph # (Auto) 1.4, [place] # (Auto) 0.4, Eos # (Auto) 0.2, Baso # (Auto) 0.0, PT 11.1, INR 0.99, APTT 26.5, Sodium 138, Potassium 4.1, Chloride 98, Carbon Dioxide 33 H, Anion Gap 11.1, BUN 32 H, Creatinine 1.30 H, Estimated Creat Clear 45, Estimated GFR 40 L, Est GFR ( Amer) 48 L, Glucose 93, Calcium 9.8, Total Bilirubin 0.4, AST 31, ALT 18, Alkaline Phosphatase 103, Total Protein 7.1, Albumin 4.1, Globulin 3.0, Albumin/Globulin Ratio 1.4 10/05/23 13:30 10/05/23 13:30 Orders (Tests/Meds): ED MEDICATIONS Generic Name Dose Route Start Last Admin Trade Name Freq PRN Reason Stop Dose Admin Acetaminophen 650 mg 10/05/23 15:33 Acetaminophen 325mg Tab PO 11/04/23 15:32 Q6HP PRN Fever or Mild Pain (1-3) Ibuprofen 600 mg 10/05/23 15:33 Ibuprofen 600 Mg Tablet PO 11/04/23 15:32 Q6HP PRN Fever or Mild Pain (1-3) Lidocaine 1 each 10/05/23 15:45 Lidocaine 5% Transdermal Patch TP 11/04/23 15:44 Q24H BOB Methocarbamol 500 mg 10/05/23 21:00 Methocarbamol 500mg Tablet PO 11/04/23 20:59 BID BOB Morphine Sulfate 4 mg 10/05/23 15:33 Morphine 4mg/Ml Syringe IV 11/04/23 15:32 Q4HP PRN Severe Pain (7-10) Oxycodone HCl 5 mg 10/05/23 15:33 Oxycodone 5mg Immediate Release Tablet PO 11/04/23 15:32 Q6HP PRN Severe Pain (7-10) Discontinued Medications Generic Name Dose Route Start Last Admin Trade Name Freq PRN Reason Stop Dose Admin Acetaminophen 1,000 mg 10/05/23 12:47 10/05/23 13:24 Acetaminophen 500mg Tab PO 10/05/23 12:48 1,000 mg ONCE ONE Administration Ketorolac Tromethamine 15 mg 10/05/23 14:34 10/05/23 14:55 Ketorolac 30mg/Ml Vial IV 10/05/23 14:35 15 mg ONCE ONE Administration Lidocaine 1 each 10/05/23 14:34 10/05/23 14:55 Lidocaine 5% Transdermal Patch TP 10/05/23 14:35 1 each ONCE ONE Administration Methocarbamol 500 mg 10/05/23 14:34 10/05/23 14:55 Methocarbamol 500mg Tablet PO 10/05/23 14:35 500 mg ONCE ONE Administration Ondansetron HCl 4 mg 10/05/23 14:34 10/05/23 14:55 Ondansetron 4mg/2ml Vial IV 10/05/23 14:35 4 mg ONCE ONE Administration ORDERS Category Date Time Status CT abdomen pelvis wo con Stat Cat Scan 10/05/23 13:[address] cervical spine wo con Stat Cat Scan 10/05/23 12:[address] chest wo con Stat Cat Scan 10/05/23 13:[address] head/brain wo con Stat Cat Scan 10/05/23 12:[address] lumbar spine wo con Stat Cat Scan 10/05/23 12:[address] thoracic spine wo con Stat Cat Scan 10/05/23 12:47 Completed XR clavicle LT Stat Exams 10/05/23 14:38 Completed XR elbow LT min 3V Stat Exams 10/05/23 12:52 Completed XR humerus LT Stat Exams 10/05/23 12:52 Completed XR shoulder LT min 2V Stat Exams 10/05/23 14:38 Completed Activated Partial Thrombo Time Stat Lab 10/05/23 13:30 Completed Complete Blood Count Auto Diff Stat Lab 10/05/23 13:30 Completed Comprehensive Metabolic Panel Stat Lab 10/05/23 13:30 Completed Prothrombin Time INR Stat Lab 10/05/23 13:30 Completed Medical Decision Narrative: In summary, this patient is a 78-year-old female presenting to the Emergency Department for evaluation of left chest pain after a fall onto a chair. Differential diagnoses considered include but are not limited to rib fractures, contusion, pneumothorax, hemothorax, spleen injury, polytrauma. Ruling out the most morbid conditions drove assessment. It should be noted patient's history includes prior CVA on aspirin and Plavix as well as hypertension and hyperlipidemia which may or may not be at goal therapy. This complicates all aspects of care by increasing patient's risk for morbidity. I reviewed patient's past medical records and noted previous evaluations for falls and EWELINA in the past. On exam, the patient is well-appearing. She is alert and oriented and is at her neurologic baseline. She does have significant bruising to the left chest wall as well as tenderness to palpation. She also has some tenderness of her left elbow. Workup included CT head, C/T/L-spine, chest, abdomen, and pelvis to evaluate for traumatic injury. I also obtained x-rays of the injured left upper extremity. Basic labs including coags were also obtained. Patient was given oral Tylenol for pain. I independently interpreted CT scans prior to the radiologist read and noted rib 7 and rib 11 fractures as well as left clavicle fracture. Please see their read for final interpretation. Labs were obtained that demonstrated no acutely concerning abnormalities. On reassessment, patient had minimal improvement after administration of Tylenol. Given this, she was given oxycodone, Lidoderm patch, Toradol, and Robaxin. This did improve her pain. Despite pain improvement, she is only able to pull 500 to 800 cc on incentive spirometer. Given this as well as her COPD and age, she is very high risk for pneumonia in the setting of rib fractures. I called and had an interactive discussion with her primary care provider, Dr. Jara, who advised he would be happy to admit her for pain control and monitoring.. He advised that she is currently supposed to be on Macrobid for UTI, so I did order a urinalysis as well as her home antibiotics. Patient was admitted in stable condition for further evaluation and management. She was provided with a sling for comfort given her left clavicle fracture Critical Care Critical Care Time Critical Care Time: No
--- NOTE | 2023-10-05 12:52 | XR_ITS ---
PROCEDURE INFORMATION: Exam: XR Left Elbow Exam date and time: 10/05/2023 1:02 PM Age: 78 years old Clinical indication: Injury or trauma; Fall; Blunt trauma (contusions or hematomas); Elbow; Left; Additional info: Fall, pain TECHNIQUE: Imaging protocol: Radiologic exam of the left elbow. Views: 3 or more views. COMPARISON: CR XR HUMERUS LT 10/05/2023 1:02 PM FINDINGS: Bones/joints: Osteopenia. 5 mm Well corticated fragment adjacent to the coronoid process may represent old avulsion fracture. Degenerative changes in the humeroulnar joint. There is no evidence of acute fracture.There is no evidence of malalignment or dislocation. Soft tissues: Normal. IMPRESSION: 1. 5 mm Well corticated fragment adjacent to the coronoid process may represent old avulsion fracture. 2. There is no evidence of acute fracture.There is no evidence of malalignment or dislocation.
--- NOTE | 2023-10-05 12:52 | XR_ITS ---
PROCEDURE INFORMATION: Exam: XR Left Humerus Exam date and time: 10/05/2023 1:02 PM Age: 78 years old Clinical indication: Injury or trauma; Fall; Blunt trauma (contusions or hematomas); Arm, upper; Left; Additional info: Fall, pain TECHNIQUE: Imaging protocol: Radiologic exam of the left humerus. Views: 2 or more views. COMPARISON: CR XR HUMERUS LT 11/27/2018 10:33 AM FINDINGS: Bones/joints: Comminuted Displaced fracture of the distal clavicle. Narrowing of the subacromial space may result in impingement syndrome. Degenerative changes in the glenohumeral joint. The glenohumeral joint is aligned. Soft tissues: Normal. IMPRESSION: 1. Comminuted Displaced fracture of the distal clavicle. 2. Narrowing of the subacromial space may result in impingement syndrome. 3. Degenerative changes in the glenohumeral joint. The glenohumeral joint is aligned.
[2023-10-05] MEDS: ACETAMINOPHEN 500MG TAB 1000 MG PO (13:24)
--- NOTE | 2023-10-05 13:27 | PC.NURSE ---
Pt has an allergy to Iodine and MD states it is ok to change imaging to no-contrast
--- NOTE | 2023-10-05 13:34 | CT_ITS ---
PROCEDURE INFORMATION: Exam: CT Abdomen And Pelvis Without Contrast Exam date and time: 10/05/2023 1:51 PM Age: 78 years old Clinical indication: Injury or trauma; Fall; Blunt; Generalized; Additional info: Fall, L rib injury TECHNIQUE: Imaging protocol: Computed tomography of the abdomen and pelvis without contrast. Radiation optimization: All CT scans at this facility use at least one of these dose optimization techniques: automated exposure control; mA and/or kV adjustment per patient size (includes targeted exams where dose is matched to clinical indication); or iterative reconstruction. COMPARISON: CT ABDOMEN PELVIS WO CON 09/30/2023 11:49 PM FINDINGS: Liver: 16 mm simple cyst in the dome of the liver. . No follow-up imaging recommended . Mildly lobulated liver consistent with cirrhosis Gallbladder and biliary ducts: Cholecystectomy Pancreas: Pancreatic atrophy Spleen: Normal. No splenomegaly. Adrenal glands: Normal. No mass. Kidneys and ureters: Absence of the right kidney. There is no evidence of renal or ureteral calcifications. Stomach and bowel: Unremarkable. No obstruction. No mucosal thickening. Appendix: No evidence of appendicitis. Intraperitoneal space: Unremarkable. No free air. No significant fluid collection. Vasculature: Unremarkable. No abdominal aortic aneurysm. Lymph nodes: Unremarkable. No enlarged lymph nodes. Urinary bladder: Unremarkable as visualized. Reproductive: Unremarkable as visualized. Bones/joints: Unremarkable. No acute fracture. Soft tissues: Unremarkable. IMPRESSION: No acute process
--- NOTE | 2023-10-05 13:34 | CT_ITS ---
PROCEDURE INFORMATION: Exam: CT Chest Without Contrast; Diagnostic Exam date and time: 10/05/2023 1:51 PM Age: 78 years old Clinical indication: Injury or trauma; Fall; Blunt trauma (contusions or hematomas); Additional info: Fall, L rib injury TECHNIQUE: Imaging protocol: Diagnostic computed tomography of the chest without contrast. Radiation optimization: All CT scans at this facility use at least one of these dose optimization techniques: automated exposure control; mA and/or kV adjustment per patient size (includes targeted exams where dose is matched to clinical indication); or iterative reconstruction. COMPARISON: CT CHEST WO CON 11/08/2020 8:29 PM FINDINGS: Lungs: Minimal bibasilar atelectasis Pleural spaces: Unremarkable. No pneumothorax. No pleural effusion. Heart: There is calcification of the aortic valve annulus. There is calcification of the mitral valve annulus. Coronary arteries: Coronary artery calcifications may indicate coronary artery disease. Lymph nodes: Unremarkable. No enlarged lymph nodes. Vasculature: Unremarkable. No aortic aneurysm. Bones/joints: Unhealed fracture of the distal left clavicle of unknown age. Nondisplaced left 11th rib fracture. Minimally displaced left posterior 7th rib fracture. Soft tissues: Unremarkable. IMPRESSION: 1. Unhealed fracture of the distal left clavicle of unknown age. 2. Nondisplaced left 11th rib fracture. Minimally displaced left posterior 7th rib fracture.
--- NOTE | 2023-10-05 13:36 | PC.NURSE ---
Rad in room for X-Ray
--- NOTE | 2023-10-05 13:38 | PC.NURSE ---
Pt out of room with Rad for CT
--- NOTE | 2023-10-05 13:39 | PC.NURSE ---
PT TO CT
[2023-10-05 13:52] LABS: Alanine Aminotransferase 18 U/L (12-78); Albumin Level 4.1 g/dl (3.5-5.0); Albumin/Globulin Ratio 1.4 (1.1-1.8); Alkaline Phosphatase 103 U/L (38-126); Anion Gap 11.1 mEq/L (5-15); Aspartate Amino Transferase 31 U/L (14-36); Bilirubin,Total 0.4 mg/dl (0.2-1.3); Blood Urea Nitrogen 32 mg/dl (7-17); Calcium 9.8 mg/dl (8.4-10.2); Carbon Dioxide 33 mmol/L (22.0-30.0); Chloride 98 mmol/L (98-107); Creatinine Clearance Estimated 45 mL/min (50-200); Estimated Glomerular Filt Rate 40 ml/min (>60); GFR (African American) 48 ML/MIN (>60); Glucose 93 mg/dl (74-100); Potassium 4.1 mmoL/L (3.5-5.1); Sodium 138 mmol/L (136-145); Total Protein,Serum 7.1 g/dl (6.3-8.2)
[2023-10-05 13:59] LABS: Activated Partial Thrombo Time 26.5 seconds (22.8-30.6); INR 0.99 (0.9-1.1); Prothrombin Time 11.1 seconds (10.1-12.5)
[2023-10-05 14:03] LABS: Basophils % 0.4 % (0.1-2.0); Eosinophils # 0.2 K/mm3 (0.0-0.4); Eosinophils % 2.5 % (0.1-12.0); Hematocrit 40.4 % (37.0-47.0); Hemoglobin 13.1 g/dL (12.2-16.2); Lymphocytes # 1.4 K/mm3 (0.7-4.5); Lymphocytes % 21.7 % (10-50); Mean Corpuscular HGB Conc 32.5 g/dL (31.8-35.4); Mean Corpuscular Hemoglobin 31.5 pg (27.0-31.2); Mean Corpuscular Volume 97.1 fl (81-99); Mean Platelet Volume 8.1 fl (7.4-10.4); Monocytes # 0.4 K/mm3 (0.1-1.0); Monocytes % 6.2 % (1.7-9.3); Neutrophils # 4.4 K/mm3 (1.8-7.8); Neutrophils % 69.2 % (37.0-80.0); Platelet Count 207 K/mm3 (142-424); Red Blood Count 4.16 M/mm3 (4.20-5.40); Red Cell Distribution Width 14.3 % (11.5-17.5); White Blood Count 6.3 K/mm3 (4.8-10.8)
--- NOTE | 2023-10-05 14:38 | XR_ITS ---
PROCEDURE INFORMATION: Exam: XR Left Clavicle, Complete Exam date and time: 10/05/2023 2:39 PM Age: 78 years old Clinical indication: Injury or trauma; Fall; Blunt trauma (contusions or hematomas); Shoulder; Left; Additional info: Fall, pain TECHNIQUE: Imaging protocol: Radiologic exam of the left clavicle. Complete exam. Views: Any number of views. COMPARISON: DX XR CLAVICLE LT 12/25/2018 2:28 PM FINDINGS: Bones/joints: Displaced fracture of the distal aspect of the clavicle. Degenerative changes in the glenohumeral joint . The glenohumeral joint is aligned Soft tissues: Soft tissue swelling of the shoulder IMPRESSION: Displaced fracture of the distal aspect of the clavicle.
--- NOTE | 2023-10-05 14:38 | XR_ITS ---
PROCEDURE INFORMATION: Exam: XR Left Shoulder Exam date and time: 10/05/2023 2:39 PM Age: 78 years old Clinical indication: Injury or trauma; Fall; Blunt trauma (contusions or hematomas); Shoulder; Left; Additional info: Fall, pain TECHNIQUE: Imaging protocol: Radiologic exam of the left shoulder. Views: 2 or more views. COMPARISON: CR XR SHOULDER LT MIN 2V 11/20/2018 11:53 AM FINDINGS: Bones/joints: Displaced fracture of the distal clavicle.. Degenerative changes in the glenohumeral joint. The glenohumeral joint is aligned.. Soft tissues: Soft tissue swelling of the shoulder IMPRESSION: 1. Displaced fracture of the distal clavicle.. 2. Degenerative changes in the glenohumeral joint. The glenohumeral joint is aligned..
--- NOTE | 2023-10-05 14:39 | PC.NURSE ---
DR SULLIVAN AT BEDSIDE
[2023-10-05] MEDS: ONDANSETRON 4MG/2ML VIAL 4 MG IV (14:55)
[2023-10-05] MEDS: KETOROLAC 30MG/ML VIAL 15 MG IV (14:55)
[2023-10-05] MEDS: LIDOCAINE 5% TRANSDERMAL PATCH 1 EACH TP (14:55)
[2023-10-05] MEDS: METHOCARBAMOL 500MG TABLET 500 MG PO ×2 (14:55→21:45)
--- NOTE | 2023-10-05 15:16 | PC.NURSE ---
DR SULLIVAN SPEAKING WITH DR JAIME
--- NOTE | 2023-10-05 15:22 | PC.NURSE ---
DR SULLIVAN AT BEDSIDE TO UPDATE PT AND FAMILY
--- NOTE | 2023-10-05 15:32 | PC.NURSE ---
RETIREMENT CONSULTANT NOTIFIED
--- NOTE | 2023-10-05 15:40 | PC.NURSE ---
Report given to EVANS Keller on Med Surg.
--- NOTE | 2023-10-05 17:10 | PC.NURSE ---
A&OX4. TOLERATING RA WELL. SINCE ARRIVAL TO FLOOR, PT HAS RESTED IN BED WITH NO C/O PAIN. STATES THE MEDS GIVEN IN THE ER HAVE IT UNDER CONTROL AT THIS TIME. PT DOES HAVE BRUISING TO LEFT SIDE. FAMILY AT BEDSIDE AND ARE VERY HELPFUL AND SUPPORTIVE. PT DOES HAVE A HISTORY OF FALLS. FAMILY STATES SOMEONE WILL BE THERE 29/10. TOLD FAMILY AND PATIENT THAT IF THEY LEAVE OR ARE ASLEEP TO NOTIFY US SO WE CAN APPLY BED SAFETY. FALL BRACELET AND ANTI SLIP SOCKS APPLIED. PT ALSO AWARE OF NEED FOR URINE SAMPLE. HOME MED IN [place]. NO OTHER NEEDS NOTED AT THIS TIME. B/P HAS BEEN ON THE HIGH SIDE, FAMILY STATES THAT IT HAS BEEN RUNNING HIGH. VSS.
[2023-10-05 18:40] LABS: Microscopic, Urine URINE MICROSCOPIC (MICROSCOPIC)
[2023-10-05 19:02] LABS: Appearance,Urine CLEAR (Clear); Bilirubin,Urine Negative (Negative); Blood, Urine Negative (Negative); Color,Urine YELLOW (Yellow); Glucose,Urine (UA) Negative (Negative); Ketones,Urine Negative (Negative); Leukocyte Esterase,Urine Negative (Negative); Nitrate,Urine Negative (Negative); Protein,Urine Negative (Negative); Urobilinogen,Urine 0.2 EU/dl (0.2)
[2023-10-05 19:23] LABS: Mucus,Urine Trace /lpf
[2023-10-05] MEDS: NITROFURANTOIN 100MG CAPSULE 100 MG PO (21:45)
[2023-10-05] MEDS: OXYCODONE 5MG IMMEDIATE RELEASE TABLET 5 MG PO (21:47)
--- NOTE | 2023-10-06 03:31 | PC.NURSE ---
Patient A&O x 4. Resting in bed VSS. Patient had 1 dose of Oxycodone for pain 01/15; medication effective. Patient ambulating with assist from family members to bathroom and back to bed.
[2023-10-06] MEDS: OXYCODONE 5MG IMMEDIATE RELEASE TABLET 5 MG PO (03:58)
[2023-10-06 04:00] VITALS: BP 134/83; PULSE 63; RESP 18; TEMP 36.6; O2SAT 95; BMI 35.6
[2023-10-06] MEDS: ACETAMINOPHEN 325MG TAB 650 MG PO (07:28)
[2023-10-06 08:00] VITALS: BP 121/64; PULSE 63; RESP 20; TEMP 36.5; O2SAT 94
[2023-10-06] MEDS: METHOCARBAMOL 500MG TABLET 500 MG PO (08:50)
[2023-10-06] MEDS: NITROFURANTOIN 100MG CAPSULE 100 MG PO (08:50)
--- NOTE | 2023-10-06 08:57 | P.HPDS_ITS ---
General Admission date:: 10/05/23 Discharge date: 10/06/23 *Admission Date: 10/05/23 *Chief complaint: Fall At home *History of present illness: Ms. 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 She had fairly immediate pain in her left shoulder area and on the left side of her chest. She had been seen in the office the day before and had been diagnosed with a UTI. 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 Patient denies loss of consciousness, chest pains and dizziness. [facility] Disclaimer: The information contained in this section may have been updated after the patient was seen, as this information can be updated by other users. Medical History (Updated 10/06/23 @ 09:14 by Ever Jara MD) Hypertension Lumbar degenerative disc disease Lumbar spinal stenosis Chronic low back pain Retinal detachment COVID-19 virus infection History of CVA (cerebrovascular accident) Hypothyroid Seizure disorder Arthritis Depression Rupture of ligament of right elbow History of ischemic stroke in prior three months Surgical History (Updated 10/06/23 @ 09:08 by Ever Jara MD) History of loop recorder History of cataract extraction History of cholecystectomy History of tubal ligation History of adenoidectomy History of tonsillectomy Social History (Updated 10/06/23 @ 09:08 by Ever Jara MD) Smoking Status: Never smoker alcohol intake: never current occupational status: disabled Travel in the last 8 weeks: None household members: none caffeine: Yes Review of Systems Constitutional Constitutional: Denies chills and Denies fever(s) Eyes Eyes: Denies blurry vision ENT Ears, Nose, Mouth, and Throat: Denies dizziness *Cardiovascular Cardiovascular: Denies chest pain and Denies dyspnea *Respiratory Respiratory: Denies dyspnea *Gastrointestinal Gastrointestinal: Denies abdominal pain *Genitourinary Genitourinary: Reports difficulty voiding and Reports hematuria *Musculoskeletal Musculoskeletal: Denies myalgias *Neurologic Neurologic: Denies dizziness Exam Data for Last 24 hours Vital signs and Labs for Last 24 Hours: Temp Pulse Resp BP Pulse Ox O2 Del Method 97.7 F 63 20 121/64 94 L Room Air 10/06/23 08:00 10/06/23 08:00 10/06/23 08:00 10/06/23 08:00 10/06/23 08:00 10/06/23 08:00 Laboratory Results - last 24 hr 10/05/23 13:30: WBC 6.3, RBC 4.16 L, Hgb 13.1, Hct 40.4, MCV 97.1, MCH 31.5 H, MCHC 32.5, RDW 14.3, Plt Count 207, MPV 8.1, Neut % (Auto) 69.2, Lymph % (Auto) 21.7, Stanton % (Auto) 6.2, Eos % (Auto) 2.5, Baso % (Auto) 0.4, Neut # (Auto) 4.4, Lymph # (Auto) 1.4, Stanton # (Auto) 0.4, Eos # (Auto) 0.2, Baso # (Auto) 0.0, PT 11.1, INR 0.99, APTT 26.5, Sodium 138, Potassium 4.1, Chloride 98, Carbon Dioxide 33 H, Anion Gap 11.1, BUN 32 H, Creatinine 1.30 H, Estimated Creat Clear 45, Estimated GFR 40 L, Est GFR ( Amer) 48 L, Glucose 93, Calcium 9.8, Total Bilirubin 0.4, AST 31, ALT 18, Alkaline Phosphatase 103, Total Protein 7.1, Albumin 4.1, Globulin 3.0, Albumin/Globulin Ratio 1.4 10/05/23 18:35: Urine Color Yellow, Urine Appearance Clear, Urine pH 6.0, Ur Specific Joanna 1.020, Urine Protein Negative, Urine Glucose (UA) Negative, Urine Ketones Negative, Urine Blood Negative, Urine Nitrate Negative, Urine Bilirubin Negative, Urine Urobilinogen 0.2, Ur Leukocyte Esterase Negative, Ur Squamous Epith Cells 3-5, Urine Mucus Trace I & O for Last 24 hours: Intake & Output 10/03/23 10/04/23 10/05/23 10/06/23 23:59 23:59 23:59 23:59 Intake Total 220 / 220 Output Total 0 / 0 0 / 0 Balance 220 / 220 0 / 0 Weight 180 lb 181 lb 5 oz Constitutional Constitutional: no acute distress *Routine HEENT Exam Head: Present normocephalic Eye: Present EOMI and PERRL ENT: Present mucous membranes moist *Routine Neck Exam Neck: Present supple; Absent lymphadenopathy *Routine Respiratory Exam Respiratory: Present CTA bilaterally Comments: tenderness to palpation along the lower left lateral chest wall *Routine Cardiovascular Exam Cardiovascular: Present RRR *Routine Abdominal Exam Abdominal: Present soft and normoactive bowel sounds; Absent tenderness *Routine Rectal Exam Rectal:: deferred *Routine Genitalia Exam Genitalia:: deferred *Routine Extremities Exam Extremities: Absent cyanosis, clubbing or edema Comments: decreased ROM of left shoulder, tenderness to palpation along the left clavicle *Routine Skin Exam Skin: Present warm; Absent rash *Routine Neurological Exam Neurological: Present alert and oriented X3 Meds Home Medications and Allergies Home Medications Medication Instructions Recorded Confirmed Type atorvastatin 40 mg tablet 40 mg PO HS 03/27/23 10/05/23 History carbamazepine 200 mg 200 mg PO DAILY 03/27/23 10/05/23 History tablet,extended release,12 hr clopidogrel 75 mg tablet 75 mg PO DAILY 03/27/23 10/05/23 History fluoxetine 10 mg capsule 10 mg PO DAILY 03/27/23 10/05/23 History gabapentin 100 mg capsule 100 mg PO BID 03/27/23 10/05/23 History levothyroxine 25 mcg tablet 25 mcg PO DAILYDM 03/27/23 10/06/23 History lisinopril 20 mg tablet 20 mg PO DAILY 03/27/23 10/05/23 History tiotropium 2.5 mcg-olodaterol 2.5 2 puff inhalation DAILY 03/27/23 10/05/23 History mcg/actuation mist for inhalation (Stiolto Respimat) nitrofurantoin 100 mg PO BID 10/06/23 10/06/23 History monohydrate/macrocrystals 100 mg capsule oxycodone 5 mg tablet 5 mg PO Q4H PRN pain #20 tabs 10/06/23 Rx New Prescriptions to Start Prescriptions: oxycodone [place],Ever Allergies Allergy/AdvReac Type Severity Reaction Status Date / Time Iodine and Iodide Containing Allergy Intermediate I-RASH Verified 03/09/23 16:41 Produc Penicillins Allergy Intermediate I-RASH Verified 03/09/23 16:41 codeine Allergy Mild HYPER Verified 03/09/23 16:41 Hospital Course Hospital Course Hospital Course: Patient was admitted to [facility] for observation and pain control after sustaining a left clavicle and two left sided rib fractures when falling. She states her pain is fairly well controlled with Oxycodone. She is tolerating a regular diet and is anxious to go go home. She states her family memebers are going to be staying with her while she recovers from the fall. Results Data Completed and Pending Labs on day of discharge: Labs from last 24 hours 10/05/23 10/05/23 18:35 13:30 WBC 6.3 RBC 4.16 L Hgb 13.1 Hct 40.4 MCV 97.1 MCH 31.5 H MCHC 32.5 RDW 14.3 Plt Count 207 MPV 8.1 Neut % (Auto) 69.2 Lymph % (Auto) 21.7 Stanton % (Auto) 6.2 Eos % (Auto) 2.5 Baso % (Auto) 0.4 Neut # (Auto) 4.4 Lymph # (Auto) 1.4 Stanton # (Auto) 0.4 Eos # (Auto) 0.2 Baso # (Auto) 0.0 PT 11.1 INR 0.99 APTT 26.5 Sodium 138 Potassium 4.1 Chloride 98 Carbon Dioxide 33 H Anion Gap 11.1 BUN 32 H Creatinine 1.30 H Estimated Creat Clear 45 Estimated GFR 40 L Est GFR ( Amer) 48 L Glucose 93 Calcium 9.8 Total Bilirubin 0.4 AST 31 ALT 18 Alkaline Phosphatase 103 Total Protein 7.1 Albumin 4.1 Globulin 3.0 Albumin/Globulin Ratio 1.4 Urine Color Yellow Urine Appearance Clear Urine pH 6.0 Ur Specific Joanna 1.020 Urine Protein Negative Urine Glucose (UA) Negative Urine Ketones Negative Urine Blood Negative Urine Nitrate Negative Urine Bilirubin Negative Urine Urobilinogen 0.2 Ur Leukocyte Esterase Negative Ur Squamous Epith Cells 3-5 Urine Mucus Trace Additional Comments Additional comments: Left clavicle fracture and left sided rib fractures noted on imaging. DS: Diagnosis Discharge Diagnosis (1) History of CVA (cerebrovascular accident): Status: Chronic Code(s): Z86.73 - Personal history of transient ischemic attack (TIA), and cerebral infarction without residual deficits (2) Seizure disorder: Status: Chronic Code(s): G40.909 - Epilepsy, unspecified, not intractable, without status epilepticus (3) History of ischemic stroke in prior three months: Status: Acute Code(s): Z86.73 - Personal history of transient ischemic attack (TIA), and cerebral infarction without residual deficits (4) Fracture of left clavicle: Status: Acute Code(s): S42.002A - Fracture of unspecified part of left clavicle, initial encounter for closed fracture (5) Multiple fractures of ribs of left side: Status: Acute Code(s): S22.42XA - Multiple fractures of ribs, left side, initial encounter for closed fracture (6) Chest wall contusion: Status: Acute Code(s): S20.219A - Contusion of unspecified front wall of thorax, initial encounter (7) Fall: Status: Acute Code(s): W19.XXXA - Unspecified fall, initial encounter (8) UTI (urinary tract infection): Status: Acute Code(s): N39.0 - Urinary tract infection, site not specified Discharge Plan Disposition Patient Disposition: Home, Self-Care Condition: Fair Follow up Plan Follow up with: Ever Jara MD [Primary Care Provider] - 10/16/23 Prescriptions/Medication Reconciliation: New oxycodone 5 mg tablet 5 mg PO Q4H PRN (Reason: pain) Qty: 20 0RF Continued atorvastatin 40 mg tablet 40 mg PO HS lisinopril 20 mg tablet 20 mg PO DAILY clopidogrel 75 mg tablet 75 mg PO DAILY levothyroxine 25 mcg tablet 25 mcg PO DAILYDM carbamazepine 200 mg tablet extended release 12 hr 200 mg PO DAILY fluoxetine 10 mg capsule 10 mg PO DAILY gabapentin 100 mg capsule 100 mg PO BID Stiolto Respimat 2.5-2.5 mcg/actuation mist 2 puff INHALATION DAILY nitrofurantoin monohyd/m-cryst 100 mg capsule 100 mg PO BID Patient Comments: STARTED 10/04/23 FOR 5 DAY SUPPLY (ENDS 10/08/23) Problem Reconciliation Problems Reviewed?: Yes Patient Discharge Instructions DIET: continue same diet Patient Instructions: DI for Rib Fracture, DI for Clavicle Fracture-Adult, How to Prevent Falls Providers Primary Care Provider: Ever Jara Admit Provider: Ever Jara Attending Provider: Ever Jara
--- NOTE | 2023-10-06 09:07 | HMH.PHAINT1 ---
Pharmacy Intervention Comments: MEDICATION RECONCILIATION COMPLETE USING EXTERNAL PHARMACY FILL HISTORY.
--- NOTE | 2023-10-08 09:44 | CARE MANAGER ---
Attempted to contacted patient related to hospital discharge x 2. Left VM message. EVANS Becerril
== END 2023-10-06 10:18 | disposition home or self-care (01) ==
LOC: ER 15:36 → 2ND 15:37
PROVIDERS: Admitting Provider Family Medicine; Emergency Provider Emergency Medicine; PCP Family Medicine; Visit Provider Family Medicine
DX: G40.909 Epilepsy, unspecified, not intractable, without status epilepticus (principal); S22.42XA Multiple fractures of ribs, left side, initial encounter for closed fracture; S42.032A Displaced fracture of lateral end of left clavicle, initial encounter for closed fracture; S20.219A Contusion of unspecified front wall of thorax, initial encounter; N39.0 Urinary tract infection, site not specified; Z86.73 Personal history of transient ischemic attack (TIA), and cerebral infarction without residual deficits; Z79.899 Other long term (current) drug therapy; Z86.16 Personal history of COVID-19; W01.0XXA Fall on same level from slipping, tripping and stumbling without subsequent striking against object, initial encounter; Y92.019 Unspecified place in single-family (private) house as the place of occurrence of the external cause
CPT/HCPCS: 70450; 71250; 72125; 72128; 72131; 73000; 73030; 73060; 73080; 74176; 80053; 81001; 85025; 85610; 85730; 99285; G0378; J1885; J2405

== ENCOUNTER 2023-10-21 13:25 | Observation (INO) | payer MEDICARE, SELFPAY ==
[2023-10-21] VITALS (17 sets, daily range): BP systolic 130–180; BP diastolic 71–105; PULSE 79–100; RESP 18–30; TEMP 36.4–36.5; O2SAT 89–95; BMI 30.2; BMI 28.9
--- NOTE | 2023-10-21 14:02 | ED_ITS ---
<Statement entered by Julian Davila MD - 10/21/23 22:20> I was consulted by the EL, and we discussed the complexity of the problems being addressed. I approved the treatment and management plan for this patient's care in the emergency department, thus performing a substantive portion of the medical decision making. Julian Davila MD Discharge Plan Disposition Patient Disposition: Admitted Prescriptions Prescriptions: No Action atorvastatin 40 mg tablet 40 mg PO HS lisinopril 20 mg tablet 20 mg PO DAILY clopidogrel 75 mg tablet 75 mg PO DAILY levothyroxine 25 mcg tablet 25 mcg PO DAILYDM carbamazepine 200 mg tablet extended release 12 hr 200 mg PO DAILY fluoxetine 10 mg capsule 10 mg PO DAILY gabapentin 100 mg capsule 100 mg PO BID Stiolto Respimat 2.5-2.5 mcg/actuation mist 2 puff INHALATION DAILY nitrofurantoin monohyd/m-cryst 100 mg capsule 100 mg PO BID Patient Comments: STARTED 10/04/23 FOR 5 DAY SUPPLY (ENDS 10/08/23) oxycodone 5 mg tablet 5 mg PO Q4H PRN (Reason: pain) Qty: 20 0RF Referrals Follow up/Referrals: Ever Jara MD [Primary Care Provider] - See instructions Clinical Impressions Clinical Impression: Non-ST elevation (NSTEMI) myocardial infarction Instructions Patient Instructions: DI for Altered Mental Status Discharge ED Provider: Julian Davila General Adult HPI <PATIENCE Mcpherson - Last Filed: 10/21/23 20:06> General Chief complaint: Altered Mental Status Stated complaint: Altered Mental Status Time Seen by Provider: 10/21/23 14:02 History of Present Illness HPI narrative: Patient presents for evaluation of altered mental status. Patient last known well approximately 4 AM. Patient has a history of several strokes. She was last known well around 4 AM and was able to ambulate to the bathroom. Around approximately 8 AM they attempted to wake her and she was difficult to arouse. Hence they presented to the ER for evaluation. At the time of my exam patient is arousable but very lethargic and somnolent she is having difficulty with orientation to the year. 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 She has no focal neurologic deficits that I can ascertain at the moment however patient is too weak to do a full neurologic exam. Patient reports headache and chest pain nausea but no abdominal pain. No fevers chills hemoptysis hematochezia melena hematemesis hematuria diarrhea Related Data Home Medications Medication Instructions Recorded Confirmed atorvastatin 40 mg tablet 40 mg PO HS 03/27/23 10/05/23 carbamazepine 200 mg 200 mg PO DAILY 03/27/23 10/05/23 tablet,extended release,12 hr clopidogrel 75 mg tablet 75 mg PO DAILY 03/27/23 10/05/23 fluoxetine 10 mg capsule 10 mg PO DAILY 03/27/23 10/05/23 gabapentin 100 mg capsule 100 mg PO BID 03/27/23 10/05/23 levothyroxine 25 mcg tablet 25 mcg PO DAILYDM 03/27/23 10/06/23 lisinopril 20 mg tablet 20 mg PO DAILY 03/27/23 10/05/23 tiotropium 2.5 mcg-olodaterol 2.5 2 puff inhalation DAILY 03/27/23 10/05/23 mcg/actuation mist for inhalation (Stiolto Respimat) nitrofurantoin 100 mg PO BID 10/06/23 10/06/23 monohydrate/macrocrystals 100 mg capsule Previous Rx's Medication Instructions Recorded oxycodone 5 mg tablet 5 mg PO Q4H PRN pain #20 tabs 10/06/23 Allergies Allergy/AdvReac Type Severity Reaction Status Date / Time Iodine and Iodide Containing Allergy Intermediate I-RASH Verified 03/09/23 16:41 Produc Penicillins Allergy Intermediate I-RASH Verified 03/09/23 16:41 codeine Allergy Mild HYPER Verified 03/09/23 16:41 [facility] <PATIENCE Mcpherson - Last Filed: 10/21/23 20:06> [facility] Disclaimer: The information contained in this section may have been updated after the patient was seen, as this information can be updated by other users. Medical History (Updated 10/21/23 @ 20:06 by PATIENCE Mcpherson) Hypertension Lumbar degenerative disc disease Lumbar spinal stenosis Chronic low back pain Retinal detachment COVID-19 virus infection History of CVA (cerebrovascular accident) Hypothyroid Seizure disorder Arthritis Depression Rupture of ligament of right elbow History of ischemic stroke in prior three months Surgical History (Updated 10/06/23 @ 09:08 by Ever Jara MD) History of loop recorder History of cataract extraction History of cholecystectomy History of tubal ligation History of adenoidectomy History of tonsillectomy Social History (Updated 10/06/23 @ 09:08 by Ever Jara MD) Smoking Status: Unknown if ever smoked alcohol intake: never current occupational status: disabled Travel in the last 8 weeks: None household members: none caffeine: Yes <PATIENCE Mcpherson - Last Filed: 10/21/23 20:06> ROS Obtained: Yes Systems reviewed as appropriate & no additional complaints except as documented Physical Exam <PATIENCE Mcpherson - Last Filed: 10/21/23 20:06> General General appearance: in no apparent distress and lethargic Head Head exam: atraumatic and normal inspection Eye Eye exam: Present normal appearance, PERRL and EOMI ENT ENT exam: Present normal exam, normal oropharynx and mucous membranes moist Neck Neck exam: Present normal inspection, full ROM and trachea midline; Absent tenderness, meningismus or lymphadenopathy Chest Chest inspection: Present normal inspection and symmetric chest wall rise Respiratory Respiratory exam: Present normal lung sounds bilaterally; Absent respiratory distress, wheezes, stridor or accessory muscle use Cardiovascular Cardiovascular exam: Present regular rate, normal rhythm, normal heart sounds, +S1 and +S2 Abdominal Exam Abdominal exam: Present soft, tenderness (Mildly tender to palpation diffusely without rebound or guarding or rigidity.) and normal bowel sounds; Absent guarding or rebound Extremities Exam Extremities exam: Present normal inspection Back Exam Back exam: Present normal inspection Neurological Exam Neurological exam: Present CN II-XII intact; Absent alert (Patient is lethargic/somnolent but arousable with minimal difficulty.), oriented X3 (Patient is oriented to place and person but not the year or circumstance) or motor sensory deficit (Patient is able to move all 4 extremities but appears globally weak) Psychiatric Psychiatric exam: Absent normal affect (And is somnolent/lethargic but arousable) Skin Skin exam: Present warm, dry and normal color Medical Decision Making <PATIENCE Mcpherson - Last Filed: 10/21/23 20:06> Medical Records Medical records reviewed: Yes I reviewed the patient's medical records. Joseph Inquiry Pt receiving controlled substance: No Vital Signs: 10/21/23 13:25 10/21/23 13:30 10/21/23 14:00 Temperature 97.5 F L Temperature Source Oral Pulse Rate 95 H 94 H Pulse Rate [Right Brachial] 95 H Respiratory Rate 18 29 H Blood Pressure 148/94 H 161/88 H Blood Pressure [Right Arm] 141/85 H Blood Pressure Mean Blood Pressure Mean [Right Arm] 103 02 Sat by Pulse Oximetry 90 L 90 L 91 L Oxygen Delivery Method Room Air Room Air Room Air 10/21/23 14:11 10/21/23 14:13 10/21/23 14:31 Temperature Temperature Source Pulse Rate 93 H 93 H 100 H Pulse Rate [Right Brachial] Respiratory Rate 26 H 28 H 18 Blood Pressure 180/105 H 158/87 H 161/86 H Blood Pressure [Right Arm] Blood Pressure Mean Blood Pressure Mean [Right Arm] 02 Sat by Pulse Oximetry 91 L 90 L 90 L Oxygen Delivery Method Room Air Room Air Room Air 10/21/23 15:00 10/21/23 15:30 10/21/23 16:01 Temperature Temperature Source Pulse Rate 88 88 87 Pulse Rate [Right Brachial] Respiratory Rate 25 H 30 H 29 H Blood Pressure 150/84 H 161/79 H 159/83 H Blood Pressure [Right Arm] Blood Pressure Mean Blood Pressure Mean [Right Arm] 02 Sat by Pulse Oximetry 95 95 95 Oxygen Delivery Method Nasal Cannula Nasal Cannula Nasal Cannula 10/21/23 16:31 10/21/23 17:30 10/21/23 18:01 Temperature Temperature Source Pulse Rate 79 85 84 Pulse Rate [Right Brachial] Respiratory Rate 27 H Blood Pressure 149/75 H 160/76 H 164/73 H Blood Pressure [Right Arm] Blood Pressure Mean 98 107 Blood Pressure Mean [Right Arm] 02 Sat by Pulse Oximetry 93 L 90 L 89 L Oxygen Delivery Method Room Air 10/21/23 18:31 Temperature Temperature Source Pulse Rate 85 Pulse Rate [Right Brachial] Respiratory Rate Blood Pressure 153/78 H Blood Pressure [Right Arm] Blood Pressure Mean Blood Pressure Mean [Right Arm] 02 Sat by Pulse Oximetry 91 L Oxygen Delivery Method Room Air Lab Data Lab results reviewed: Yes I reviewed the patient's lab results. Lab Results 10/21/23 15:29: Urine Color Yellow, Urine Appearance Clear, Urine pH 6.5, Ur Specific [place] 1.020, Urine Protein Trace, Urine Glucose (UA) Trace, Urine Ketones Negative, Urine Blood Trace-i, Urine Nitrate Negative, Urine Bilirubin Negative, Urine Urobilinogen 0.2, Ur Leukocyte Esterase Negative, Urine RBC Occasional, Urine WBC Occasional, Ur Squamous Epith Cells Occasional, Urine Bacteria None, Urine Opiates Screen Negative, Urine Methadone Screen Negative, Ur Barbituates Screen Negative, Ur Phencyclidine Scrn Negative, Ur Amphetamines Screen Negative, U Benzodiazepines Scrn Negative, Urine Cocaine Screen Negative, U Marijuana (THC) Screen Negative 10/21/23 16:56: Troponin I 0.12 H 10/21/23 : WBC 13.5 H, RBC 4.40, Hgb 14.1, Hct 43.1, MCV 98.0, MCH 32.1 H, MCHC 32.8, RDW 14.5, Plt Count 202, MPV 8.2, Neut % (Auto) 94.8 H, Lymph % (Auto) 2.3 L, [place] % (Auto) 2.2, Eos % (Auto) 0.5, Baso % (Auto) 0.2, Neut # (Auto) 12.8 H, Lymph # (Auto) 0.3 L, [place] # (Auto) 0.3, Eos # (Auto) 0.1, Baso # (Auto) 0.0, Total Counted 100, Neutrophils % (Manual) 94 H, Lymphocytes % (Manual) 5 L, M onocytes % (Manual) 1 L, Platelet Estimate Normal, RBC Morphology Normal, PT 11.0, INR 0.98, APTT 25.5, D-Dimer 0.75 H, Sodium 140, Potassium 4.2, Chloride 106, Carbon Dioxide 28, Anion Gap 10.2, BUN 29 H, Creatinine 1.30 H, Estimated Creat Clear 47, Estimated GFR 40 L, Est GFR ( Amer) 48 L, Glucose 154 H, Calcium 9.9, Total Bilirubin 0.4, AST 36, ALT 23, Alkaline Phosphatase 115, T roponin I 0.07 H, Total Protein 7.4, Albumin 4.3, Globulin 3.1, Albumin/Globulin Ratio 1.4, Triglycerides 49, Cholesterol 178, LDL Cholesterol Direct 50.34 L, VLDL Cholesterol 10, HDL Cholesterol 83 H, Cholesterol/HDL Ratio 2.1 10/21/23 Unknown 10/21/23 Unknown Orders (Tests/Meds): ED MEDICATIONS Generic Name Dose Route Start Last Admin Trade Name Freq PRN Reason Stop Dose Admin Sodium Chloride 10 ml 10/21/23 14:08 Sodium Chloride 0.9% 10ml Flush Syringe IV 11/20/23 14:07 NEEDED PRN Maintain IV Site Sodium Chloride 10 ml 10/21/23 17:03 10/21/23 17:04 Sodium Chloride 0.9% 10ml Syr (Rad Only) IV 11/20/23 17:02 10 ml NEEDED PRN Administration Maintain IV Site Discontinued Medications Generic Name Dose Route Start Last Admin Trade Name Freq PRN Reason Stop Dose Admin Diphenhydramine HCl 25 mg 10/21/23 15:26 10/21/23 15:41 Diphenhydramine 50mg/Ml Vial IV 10/21/23 15:27 25 mg ONCE ONE Administration Enoxaparin Sodium 85 mg 10/21/23 19:30 Enoxaparin 100mg/Ml Syringe 1 mg/kg (85 mg) 10/21/23 19:31 SQ ONCE ONE Lactated Ringer's 1,000 mls @ 999 mls/hr 10/21/23 14:08 10/21/23 14:33 Lactated Ringer's 1000 Ml Bag IV 10/21/23 15:08 999 mls/hr .Q1H1M ONE Administration Iopamidol 175 ml 10/21/23 17:03 10/21/23 17:04 Iopamidol-370 (76%);100ml Bottle IV 10/21/23 17:04 175 ml ONCE ONE Administration Methylprednisolone Sodium Succinate 125 mg 10/21/23 15:26 10/21/23 15:41 Methylprednisolone Sod Succ 125mg Vial IV 10/21/23 15:27 125 mg ONCE ONE Administration Ondansetron HCl 4 mg 10/21/23 14:31 10/21/23 14:33 Ondansetron 4mg/2ml Vial IV 10/21/23 14:32 4 mg ONCE ONE Administration Sodium Chloride 100 ml 10/21/23 17:03 10/21/23 17:04 0.9 % Sodium Chloride 50 Ml Vial IV 10/21/23 17:04 100 ml ONCE ONE Administration ORDERS Category Date Time Status CT angio chest - dissection Stat Cat Scan 10/21/23 15:[address] angio head Stat Cat Scan 10/21/23 15:[address] angio neck Stat Cat Scan 10/21/23 15:[address] head/brain wo con Stat Cat Scan 10/21/23 14:10 Completed XR chest portable Stat Exams 10/21/23 14:10 Completed Activated Partial Thrombo Time Stat Lab 10/21/23 Completed Complete Blood Count Auto Diff Stat Lab 10/21/23 Completed Comprehensive Metabolic Panel Stat Lab 10/21/23 Completed D-Dimer Stat Lab 10/21/23 Completed Drug Screen,Urine Stat Lab 10/21/23 15:29 Completed Lipid Panel Stat Lab 10/21/23 Completed Prothrombin Time INR Stat Lab 10/21/23 Completed Troponin I Q3H Lab 10/21/23 16:56 Completed Troponin I Q3H Lab 10/21/23 20:15 Ordered Troponin I Stat Lab 10/21/23 Completed Urinalysis and Microscopic Stat Lab 10/21/23 15:29 Completed VBG [Venous Blood Gas] Stat RT 10/21/23 16:42 Ordered ECG Request Stat Y 10/21/23 14:10 Completed Medical Decision Narrative: In summary patient is a 78-year-old female who presents to the emergency department for evaluation of altered mental status. Patient is hemodynamically stable upon arrival, febrile on arrival. Physical exam is remarkable for somnolence/lethargy. She is arousable but not oriented to circumstance and year. Patient has multiple complaints including headache chest pain and nausea. Patient has no focal neurologic deficits that I can ascertain although she is too weak to do a full neuroexam. She moves all 4 extremities and follows commands. Cranial nerves are intact grossly to exam. Differential diagnosis includes stroke versus infection versus ACS etc. Initial workup will be conducted with stroke workup with hematologic labs CT scan of the head without only as patient has contrast allergy chest x-ray urinalysis. Initial interventions include crystalloid bolus as patient has a Tylenol allergy and Zofran. Initial workup reviewed by me which she has a leukocytosis without evidence of obvious source, she has an elevated troponin acute nontraumatic kidney injury and elevated D-dimer of 0.75 and my informal interpretation of her CT scan of the head without contrast shows no acute processes but does show changes of chronic stroke previously. Patient CT angiogram shows no large vessel occlusion and CTA of the chest shows right lower lobe subsegmental solitary pulmonary embolus to the radiologist. Patient reportedly has a contrast allergy. I had an interactive discussion with patient's daughters at the bedside. Patient reportedly is allergic to iodine in the contrast however she had a contrast study done in September of this year in which she was premedicated and had no anaphylaxis noted. Patient's daughter have agreed to premedication ultimately patient was and was scanned without incident. Patient's echo troponin was rising to 0.12. Given that I had interactive discussion with Dr. Tellez who asked for 1 mg/kg of Lovenox and agreed to consult. Given that I had an interactive discussion with Dr. Lucero who has accepted for Dr. Jara <Julian Davila MD - Last Filed: 10/21/23 15:19> Vital Signs: 10/21/23 13:25 10/21/23 13:30 10/21/23 14:00 Temperature 97.5 F L Temperature Source Oral Pulse Rate 95 H 94 H Pulse Rate [Right Brachial] 95 H Respiratory Rate 18 29 H Blood Pressure 148/94 H 161/88 H Blood Pressure [Right Arm] 141/85 H Blood Pressure Mean Blood Pressure Mean [Right Arm] 103 02 Sat by Pulse Oximetry 90 L 90 L 91 L Oxygen Delivery Method Room Air Room Air Room Air 10/21/23 14:11 10/21/23 14:13 10/21/23 14:31 Temperature Temperature Source Pulse Rate 93 H 93 H 100 H Pulse Rate [Right Brachial] Respiratory Rate 26 H 28 H 18 Blood Pressure 180/105 H 158/87 H 161/86 H Blood Pressure [Right Arm] Blood Pressure Mean Blood Pressure Mean [Right Arm] 02 Sat by Pulse Oximetry 91 L 90 L 90 L Oxygen Delivery Method Room Air Room Air Room Air 10/21/23 15:00 10/21/23 15:30 10/21/23 16:01 Temperature Temperature Source Pulse Rate 88 88 87 Pulse Rate [Right Brachial] Respiratory Rate 25 H 30 H 29 H Blood Pressure 150/84 H 161/79 H 159/83 H Blood Pressure [Right Arm] Blood Pressure Mean Blood Pressure Mean [Right Arm] 02 Sat by Pulse Oximetry 95 95 95 Oxygen Delivery Method Nasal Cannula Nasal Cannula Nasal Cannula 10/21/23 16:31 10/21/23 17:30 10/21/23 18:01 Temperature Temperature Source Pulse Rate 79 85 84 Pulse Rate [Right Brachial] Respiratory Rate 27 H Blood Pressure 149/75 H 160/76 H 164/73 H Blood Pressure [Right Arm] Blood Pressure Mean 98 107 Blood Pressure Mean [Right Arm] 02 Sat by Pulse Oximetry 93 L 90 L 89 L Oxygen Delivery Method Room Air 10/21/23 18:31 Temperature Temperature Source Pulse Rate 85 Pulse Rate [Right Brachial] Respiratory Rate Blood Pressure 153/78 H Blood Pressure [Right Arm] Blood Pressure Mean Blood Pressure Mean [Right Arm] 02 Sat by Pulse Oximetry 91 L Oxygen Delivery Method Room Air Lab Data Lab Results 10/21/23 15:29: Urine Color Yellow, Urine Appearance Clear, Urine pH 6.5, Ur Specific [place] 1.020, Urine Protein Trace, Urine Glucose (UA) Trace, Urine Ketones Negative, Urine Blood Trace-i, Urine Nitrate Negative, Urine Bilirubin Negative, Urine Urobilinogen 0.2, Ur Leukocyte Esterase Negative, Urine RBC Occasional, Urine WBC Occasional, Ur Squamous Epith Cells Occasional, Urine Bacteria None, Urine Opiates Screen Negative, Urine Methadone Screen Negative, Ur Barbituates Screen Negative, Ur Phencyclidine Scrn Negative, Ur Amphetamines Screen Negative, U Benzodiazepines Scrn Negative, Urine Cocaine Screen Negative, U Marijuana (THC) Screen Negative 10/21/23 16:56: Troponin I 0.12 H 10/21/23 : WBC 13.5 H, RBC 4.40, Hgb 14.1, Hct 43.1, MCV 98.0, MCH 32.1 H, MCHC 32.8, RDW 14.5, Plt Count 202, MPV 8.2, Neut % (Auto) 94.8 H, Lymph % (Auto) 2.3 L, [place] % (Auto) 2.2, Eos % (Auto) 0.5, Baso % (Auto) 0.2, Neut # (Auto) 12.8 H, Lymph # (Auto) 0.3 L, [place] # (Auto) 0.3, Eos # (Auto) 0.1, Baso # (Auto) 0.0, Total Counted 100, Neutrophils % (Manual) 94 H, Lymphocytes % (Manual) 5 L, M onocytes % (Manual) 1 L, Platelet Estimate Normal, RBC Morphology Normal, PT 11.0, INR 0.98, APTT 25.5, D-Dimer 0.75 H, Sodium 140, Potassium 4.2, Chloride 106, Carbon Dioxide 28, Anion Gap 10.2, BUN 29 H, Creatinine 1.30 H, Estimated Creat Clear 47, Estimated GFR 40 L, Est GFR ( Amer) 48 L, Glucose 154 H, Calcium 9.9, Total Bilirubin 0.4, AST 36, ALT 23, Alkaline Phosphatase 115, T roponin I 0.07 H, Total Protein 7.4, Albumin 4.3, Globulin 3.1, Albumin/Globulin Ratio 1.4, Triglycerides 49, Cholesterol 178, LDL Cholesterol Direct 50.34 L, VLDL Cholesterol 10, HDL Cholesterol 83 H, Cholesterol/HDL Ratio 2.1 Orders (Tests/Meds): ED MEDICATIONS Generic Name Dose Route Start Last Admin Trade Name Freq PRN Reason Stop Dose Admin Sodium Chloride 10 ml 10/21/23 14:08 Sodium Chloride 0.9% 10ml Flush Syringe IV 11/20/23 14:07 NEEDED PRN Maintain IV Site Sodium Chloride 10 ml 10/21/23 17:03 10/21/23 17:04 Sodium Chloride 0.9% 10ml Syr (Rad Only) IV 11/20/23 17:02 10 ml NEEDED PRN Administration Maintain IV Site Discontinued Medications Generic Name Dose Route Start Last Admin Trade Name Freq PRN Reason Stop Dose Admin Diphenhydramine HCl 25 mg 10/21/23 15:26 10/21/23 15:41 Diphenhydramine 50mg/Ml Vial IV 10/21/23 15:27 25 mg ONCE ONE Administration Enoxaparin Sodium 85 mg 10/21/23 19:30 Enoxaparin 100mg/Ml Syringe 1 mg/kg (85 mg) 10/21/23 19:31 SQ ONCE ONE Lactated Ringer's 1,000 mls @ 999 mls/hr 10/21/23 14:08 10/21/23 14:33 Lactated Ringer's 1000 Ml Bag IV 10/21/23 15:08 999 mls/hr .Q1H1M ONE Administration Iopamidol 175 ml 10/21/23 17:03 10/21/23 17:04 Iopamidol-370 (76%);100ml Bottle IV 10/21/23 17:04 175 ml ONCE ONE Administration Methylprednisolone Sodium Succinate 125 mg 10/21/23 15:26 10/21/23 15:41 Methylprednisolone Sod Succ 125mg Vial IV 10/21/23 15:27 125 mg ONCE ONE Administration Ondansetron HCl 4 mg 10/21/23 14:31 10/21/23 14:33 Ondansetron 4mg/2ml Vial IV 10/21/23 14:32 4 mg ONCE ONE Administration Sodium Chloride 100 ml 10/21/23 17:03 10/21/23 17:04 0.9 % Sodium Chloride 50 Ml Vial IV 10/21/23 17:04 100 ml ONCE ONE Administration ORDERS Category Date Time Status CT angio chest - dissection Stat Cat Scan 10/21/23 15:[address] angio head Stat Cat Scan 10/21/23 15:[address] angio neck Stat Cat Scan 10/21/23 15:[address] head/brain wo con Stat Cat Scan 10/21/23 14:10 Completed XR chest portable Stat Exams 10/21/23 14:10 Completed Activated Partial Thrombo Time Stat Lab 10/21/23 Completed Complete Blood Count Auto Diff Stat Lab 10/21/23 Completed Comprehensive Metabolic Panel Stat Lab 10/21/23 Completed D-Dimer Stat Lab 10/21/23 Completed Drug Screen,Urine Stat Lab 10/21/23 15:29 Completed Lipid Panel Stat Lab 10/21/23 Completed Prothrombin Time INR Stat Lab 10/21/23 Completed Troponin I Q3H Lab 10/21/23 16:56 Completed Troponin I Q3H Lab 10/21/23 20:15 Ordered Troponin I Stat Lab 10/21/23 Completed Urinalysis and Microscopic Stat Lab 10/21/23 15:29 Completed VBG [Venous Blood Gas] Stat RT 10/21/23 16:42 Ordered ECG Request Stat Y 10/21/23 14:10 Completed ECG Data Tracing #1: Independently interpreted by me rate is 97, rhythm is regular, axis is borderline leftward deviated, no ST elevation in anatomical contiguous leads, QTc 416 Critical Care <PATIENCE Mcpherson - Last Filed: 10/21/23 20:06> Critical Care Time Critical Care Time: No
--- NOTE | 2023-10-21 14:10 | XR_ITS ---
FINAL REPORT TECHNIQUE: Single view chest CLINICAL HISTORY: ams COMPARISON: 10/01/2023 FINDINGS: A single view of the chest was obtained. The heart and mediastinum are within normal limits. There are increased pulmonary markings which may be chronic. Left base opacity is favored to represent atelectasis. Pneumonia not excluded. There is no pneumothorax. Osseous structures are unremarkable. IMPRESSION: Left base opacity favored to represent atelectasis. Pneumonia not excluded. Reviewed, Interpreted and Dictated by Felisa Garrido MD Transcribed by Jolynn Caldera Authenticated and [facility]
--- NOTE | 2023-10-21 14:10 | CT_ITS ---
FINAL REPORT TECHNIQUE: Thin section axial images were obtained from skull base to vertex without contrast. Coronal reconstruction images were obtained from the axial data. Exam was performed using dose reduction technique. CLINICAL HISTORY: possible stroke, AMS, N/V COMPARISON: 10/05/2023 FINDINGS: There is no mass effect or midline shift. There is stable atrophy. There is no intracranial hemorrhage. Encephalomalacia is seen in the left frontal lobe and left occipital lobe, unchanged. Posterior fossa is without acute abnormality. There is complete opacification of the left sphenoid sinus. IMPRESSION: No acute intracranial abnormality. Stable atrophy. Complete opacification of the left sphenoid sinus. Reviewed, Interpreted and Dictated by Felisa Garrido MD Transcribed by Jolynn Caldera Authenticated and [facility]
--- NOTE | 2023-10-21 14:16 | PC.NURSE ---
RADIOLOGY NOTIFIED OF STROKE PROTOCOL
[2023-10-21 14:21] LABS: Basophils % 0.2 % (0.1-2.0); Eosinophils # 0.1 K/mm3 (0.0-0.4); Eosinophils % 0.5 % (0.1-12.0); Hematocrit 43.1 % (37.0-47.0); Hemoglobin 14.1 g/dL (12.2-16.2); Lymphocytes # 0.3 K/mm3 (0.7-4.5); Lymphocytes % 2.3 % (10-50); Mean Corpuscular HGB Conc 32.8 g/dL (31.8-35.4); Mean Corpuscular Hemoglobin 32.1 pg (27.0-31.2); Mean Platelet Volume 8.2 fl (7.4-10.4); Monocytes # 0.3 K/mm3 (0.1-1.0); Monocytes % 2.2 % (1.7-9.3); Neutrophils # 12.8 K/mm3 (1.8-7.8); Neutrophils % 94.8 % (37.0-80.0); Platelet Count 202 K/mm3 (142-424); Red Cell Distribution Width 14.5 % (11.5-17.5); White Blood Count 13.5 K/mm3 (4.8-10.8)
[2023-10-21 14:24] LABS: Chloride 106 mmol/L (98-107); Potassium 4.2 mmoL/L (3.5-5.1); Sodium 140 mmol/L (136-145)
[2023-10-21 14:26] LABS: Alanine Aminotransferase 23 U/L (12-78); Aspartate Amino Transferase 36 U/L (14-36); Blood Urea Nitrogen 29 mg/dl (7-17); Creatinine Clearance Estimated 47 mL/min (50-200); Estimated Glomerular Filt Rate 40 ml/min (>60); GFR (African American) 48 ML/MIN (>60)
[2023-10-21 14:27] LABS: Albumin Level 4.3 g/dl (3.5-5.0); Albumin/Globulin Ratio 1.4 (1.1-1.8); Alkaline Phosphatase 115 U/L (38-126); Anion Gap 10.2 mEq/L (5-15); Bilirubin,Total 0.4 mg/dl (0.2-1.3); Calcium 9.9 mg/dl (8.4-10.2); Carbon Dioxide 28 mmol/L (22.0-30.0); Cholesterol 178 mg/dl (140-200); Globulin 3.1 g/dL (1.3-3.2); Glucose 154 mg/dl (74-100); MANUAL DIFFERENTIAL MANUAL DIFFERENTIAL (MANUAL DIFF); Total Protein,Serum 7.4 g/dl (6.3-8.2); Triglycerides 49 mg/dl (30-150); VLDL Cholesterol 10 mg/dL (0-40)
[2023-10-21 14:28] LABS: Chol/HDL Ratio 2.1 (1-3.5); HDL Cholesterol 83 mg/dl (40-60)
[2023-10-21 14:33] LABS: Activated Partial Thrombo Time 25.5 seconds (22.8-30.6); INR 0.98 (0.9-1.1)
[2023-10-21] MEDS: ONDANSETRON 4MG/2ML VIAL 4 MG IV (14:33)
[2023-10-21] MEDS: LACTATED RINGERS 1000ML 1,000 ML 999 ML IV (14:33)
--- NOTE | 2023-10-21 14:36 | ECG_ITS ---
APPROVED REPORT Exam: Resting ECG HR:96 bpm ECG Measurements Heart Rate 96 AXES MI 182 P 56 QRSd 84 QRS -7 QT 363 T 65 QTc 416 Conclusion SINUS RHYTHM MINIMAL ST DEPRESSION [0.025+ mV ST DEPRESSION] BORDERLINE ECG Electronically signed by : DHARA PATEL, 10/21/2023 22:48:09
[2023-10-21 14:38] LABS: Direct LDL Cholesterol 50.34 mg/dL (100-129)
[2023-10-21 14:41] LABS: Troponin I 0.07 ng/ml (0.00-0.034)
[2023-10-21 15:08] LABS: Lymphocytes % 5 % (10-50); Monocytes % 1 % (2-9); Neutrophils % 94 % (42-76); Total Cells Counted 100
[2023-10-21 15:09] LABS: Platelet Estimate Normal; RBC Morphology Normal
--- NOTE | 2023-10-21 15:26 | CT_ITS ---
PROCEDURE INFORMATION: Exam: CTA Neck With Contrast Exam date and time: 10/21/2023 5:02 PM Age: 78 years old Clinical indication: Other: Encephalopathy TECHNIQUE: Imaging protocol: Computed tomographic angiography of the neck with contrast. Exam focused on the cervical segments of the vasculature. 3D rendering (Not supervised by radiologist): MIP and/or 3D reconstructed images were created by the technologist. Radiation optimization: All CT scans at this facility use at least one of these dose optimization techniques: automated exposure control; mA and/or kV adjustment per patient size (includes targeted exams where dose is matched to clinical indication); or iterative reconstruction. Contrast material: ISOVUE 370; Contrast volume: 100 ml; Contrast route: INTRAVENOUS (IV); COMPARISON: CT ANGIO NECK 09/30/2023 9:51 PM FINDINGS: Right common carotid artery: No stenosis. No dissection or occlusion. Right internal carotid artery: No stenosis of the extracranial segment. No dissection or occlusion. Right external carotid artery: No occlusion or stenosis of the origin. Left common carotid artery: No stenosis. No dissection or occlusion. Left internal carotid artery: No stenosis of the extracranial segment. No dissection or occlusion. Left external carotid artery: No occlusion or stenosis of the origin. Right vertebral artery: No stenosis. No dissection or occlusion. Left vertebral artery: No stenosis. No dissection or occlusion. Soft tissues: Normal. No significant soft tissue swelling. Bones/joints: No acute fracture. IMPRESSION: No hemodynamically significant extracranial cerebrovascular stenosis or occlusion. REFERENCES: NASCET CRITERIA. The degree of stenosis in the cervical segment of the internal carotid artery is based on NASCET criteria. Normal is no stenosis. Mild is less than 50% stenosis. Moderate is 50-69% stenosis. Severe is 70% to 99% stenosis. Total occlusion is no detectable patent lumen.
--- NOTE | 2023-10-21 15:26 | CT_ITS ---
PROCEDURE INFORMATION: Exam: CTA Head With Contrast, Arteriography Exam date and time: 10/21/2023 5:02 PM Age: 78 years old Clinical indication: Other: Encephalopathy TECHNIQUE: Imaging protocol: Computed tomographic angiography of the head with contrast. Exam focused on the arteries. 3D rendering (Not supervised by radiologist): MIP and/or 3D reconstructed images were created by the technologist. Radiation optimization: All CT scans at this facility use at least one of these dose optimization techniques: automated exposure control; mA and/or kV adjustment per patient size (includes targeted exams where dose is matched to clinical indication); or iterative reconstruction. Contrast material: ISOVUE 370; Contrast volume: 100 ml; Contrast route: INTRAVENOUS (IV); COMPARISON: CT ANGIO HEAD 09/30/2023 9:51 PM FINDINGS: ANTERIOR CIRCULATION: Right internal carotid artery: Intracranial segment is patent with no significant stenosis. No aneurysm. Right middle cerebral artery: No occlusion or significant stenosis. No aneurysm. Right anterior cerebral artery: No occlusion or significant stenosis. No aneurysm. Left internal carotid artery: Intracranial segment is patent with no significant stenosis. No aneurysm. Left middle cerebral artery: No occlusion or significant stenosis. No aneurysm. Left anterior cerebral artery: No occlusion or significant stenosis. No aneurysm. POSTERIOR CIRCULATION: Right vertebral artery: No occlusion or significant stenosis. No aneurysm. Left vertebral artery: No occlusion or significant stenosis. No aneurysm. Basilar artery: No occlusion or significant stenosis. No aneurysm. 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 Left posterior cerebral artery: origin left OUTBOARD MOTOR TESTER. Brain: Stable left anterior temporal infarct. Stable left occipital lobe infarct. Small chronic lacunar infarct left cerebellum. Cerebral ventricles: No ventriculomegaly. Bones/joints: Unremarkable. No acute fracture. Soft tissues: Unremarkable. Other findings: IMPRESSION: 1. Stable left anterior temporal infarct. 2. Stable left occipital lobe infarct. 3. No acute large vessel occlusion identified.
--- NOTE | 2023-10-21 15:26 | CT_ITS ---
PROCEDURE INFORMATION: Exam: CTA Chest With Contrast Exam date and time: 10/21/2023 5:05 PM Age: 78 years old Clinical indication: Tachypnea; Additional info: Cp, tachy, elevated trop TECHNIQUE: Imaging protocol: Computed tomographic angiography of the chest with contrast. Exam focused on the arteries. 3D rendering (Not supervised by radiologist): MIP and/or 3D reconstructed images were created by the technologist. Radiation optimization: All CT scans at this facility use at least one of these dose optimization techniques: automated exposure control; mA and/or kV adjustment per patient size (includes targeted exams where dose is matched to clinical indication); or iterative reconstruction. Contrast material: ISOVUE 370; Contrast volume: 100 ml; Contrast route: INTRAVENOUS (IV); COMPARISON: CT CHEST WO CON 10/05/2023 1:51 PM FINDINGS: Pulmonary arteries: Suspicious for acute pulmonary embolus. No other pulmonary emboli are identified. Aorta: Unremarkable. No aortic aneurysm. No aortic dissection. Lungs: There is a small filling defect measuring approximately 8 mm within a within the segmental pulmonary artery branch to the right lateral basal segment best seen on series 5, image 46 and coronal image 48. Mild bibasilar atelectasis. No acute infiltrates or edema. Pleural spaces: Unremarkable. No pneumothorax. No pleural effusion. Heart: Unremarkable. No cardiomegaly. No pericardial effusion. Heart RV/LV ratio: RV to LV ratio 1.0. Lymph nodes: Unremarkable. No enlarged lymph nodes. Liver: Stable low-attenuation lesion within the liver dome most consistent with either a simple hepatic cyst or hemangioma measures 11 mm. Kidneys and ureters: Severe atrophy of the right kidney on a chronic basis. Bones/joints: Early subacute appearing nondisplaced fracture involving the left posterior 11th rib. Unchanged. Soft tissues: Chest wall subcutaneous tissues and musculature appear unremarkable. IMPRESSION: 1. There is a small filling defect measuring approximately 8 mm within the segmental pulmonary artery branch to the right lateral lower lobe basal segment best seen on series 5, image 46 and coronal image 48. Suspicious for acute pulmonary embolus. No other pulmonary emboli are identified. No evidence for right heart strain. 2. Unchanged subacute left posterior 11th rib fracture. 3. Severe atrophy of the right kidney on a chronic basis. 4. Mild bibasilar atelectasis. No acute infiltrates or edema. 5. THIS REPORT CONTAINS FINDINGS THAT MAY BE CRITICAL TO PATIENT CARE. The findings were verbally communicated via telephone conference at 5:45 PM EDT on 10/21/2023 with PATIENCE Vega. 6. The findings were acknowledged and understood.
[2023-10-21 15:34] LABS: D-Dimer 0.75 ug/mL (0.0-0.5)
[2023-10-21 15:35] LABS: Microscopic, Urine URINE MICROSCOPIC (MICROSCOPIC)
[2023-10-21 15:38] LABS: Appearance,Urine CLEAR (Clear); Bilirubin,Urine Negative (Negative); Blood, Urine TRACE-I (Negative); Color,Urine YELLOW (Yellow); Glucose,Urine (UA) TRACE (Negative); Ketones,Urine Negative (Negative); Leukocyte Esterase,Urine Negative (Negative); Nitrate,Urine Negative (Negative); PH,Urine 6.5 (5.0-8.5); Protein,Urine TRACE (Negative); Urobilinogen,Urine 0.2 EU/dl (0.2)
[2023-10-21] MEDS: METHYLPREDNISOLONE SOD SUCC 125MG VIAL 125 MG IV (15:41)
[2023-10-21] MEDS: diphenhydrAMINE 50MG/ML VIAL 25 MG IV (15:41)
[2023-10-21 15:46] LABS: WBC,Urine Occasional #/hpf (0-3)
[2023-10-21 15:47] LABS: RBC,Urine Occasional #/hpf (0-3); Squamous Epithelial Cell,Urine Occasional #/hpf (0-5)
[2023-10-21 15:48] LABS: Barbiturates Screen,Urine Negative ng/ml (<200)
[2023-10-21 15:49] LABS: Benzodiazepines Screen,Urine Negative ng/ml (<200)
[2023-10-21 15:50] LABS: Amphetamine/Metha Screen,Urine Negative ng/ml (<1000); Cannabinoid Screen,Urine Negative ng/ml (<50)
[2023-10-21 15:51] LABS: Cocaine Screen,Urine Negative ng/ml (<300); Methadone Screen,Urine Negative ng/ml (<300)
--- NOTE | 2023-10-21 15:51 | HMH.ITSTN ---
pre-med given at 3:50, will be ready in one hour
[2023-10-21 15:52] LABS: Opiate Screen,Urine Negative ng/ml (<300)
[2023-10-21 15:53] LABS: Phencyclidine Screen,Urine Negative ng/ml (<25)
[2023-10-21] MEDS: SODIUM CHLORIDE 0.9% 10ML SYR (RAD ONLY) 10 ML IV (17:04)
[2023-10-21] MEDS: IOPAMIDOL-370 (76%);100ML BOTTLE 175 ML IV (17:04)
[2023-10-21] MEDS: 0.9 % SODIUM CHLORIDE 50 ML VIAL 100 ML IV (17:04)
--- NOTE | 2023-10-21 17:41 | PC.NURSE ---
LIZBETH MOORE SPEAKING WITH [employer]
[2023-10-21 17:42] LABS: Troponin I 0.12 ng/ml (0.00-0.034)
--- NOTE | 2023-10-21 19:59 | PC.NURSE ---
House notified for admission
[2023-10-21] MEDS: ENOXAPARIN 100MG/ML SYRINGE 85 MG SQ (20:14)
--- NOTE | 2023-10-21 20:20 | PC.NURSE ---
Report called to EVANS Winters
[2023-10-21 20:52] LABS: Troponin I 0.15 ng/ml (0.00-0.034)
[2023-10-21 21:47] LABS: Lactate Venous 1.6 mmol/L (0.4-2.0); VBG Base Excess -0.3 mmol/L (-2.4-2.3); VBG HCO3 25.4 mmol/L (23-30); VBG Oxygen Saturation 86.5 % (50-70); VBG PCO2 47.9 mmol/L (35-51); VBG PH 7.34 mmol/L (7.31-7.41); VBG PO2 53.3 mmol/L (28-40); VBG Total CO2 26.9 mmol/L (23-27)
[2023-10-21] MEDS: ATORVASTATIN 40MG TABLET 40 MG PO (23:41)
[2023-10-21] MEDS: carBAMazepine 200MG TABLET 200 MG PO (23:41)
[2023-10-21] MEDS: GABAPENTIN 100 MG PO (23:42)
[2023-10-21] MEDS: CLOPIDOGREL 75MG TAB 75 MG PO (23:42)
[2023-10-21] MEDS: LEVOTHYROXINE 25MCG (0.025MG) TAB 25 MCG PO (23:42)
[2023-10-21] MEDS: LISINOPRIL 20MG TABLET 20 MG PO (23:43)
[2023-10-22] VITALS (7 sets, daily range): BP systolic 121–153; BP diastolic 70–85; PULSE 61–80; RESP 16–22; TEMP 36.5–37.4; O2SAT 91–97; BMI 28.9
--- NOTE | 2023-10-22 04:25 | PC.NURSE ---
pt admitted for kavon and nstemi. pt alert to name, place, and month upon arrival to room. nsr on monitor, denies cp or other c/o pain. pt placed on 2l/nc, room air sats 86-90%. pt gunner some sherbet and soda without n/v
[2023-10-22] MEDS: LEVOTHYROXINE 25MCG (0.025MG) TAB 25 MCG PO (06:19)
[2023-10-22 07:16] LABS: Thyroid Stimulating Hormone 0.87 uIU/mL (0.465-4.68)
--- NOTE | 2023-10-22 07:57 | P.HP_ITS ---
History of Present Illness *Admission Date: 10/21/23 *Reason for visit:: Altered mental status: Chest pain *History of present illness: Ms. Ibarra is a 78-year-old female with a history of hypertension, depression, arthritis, seizures, hypothyroidism, several strokes, and lumbar disc disease who presented to [facility] via ambulance after noted altered mental status by her daughters. Daughter contributes to the history and states that yesterday morning she was up at 4 AM going to the bathroom and did fine. When she got up at 8:30 AM to go to the bathroom she needed assistance getting up, going to the bathroom, and getting up off the commode. They were unable to get her back into the bed so she sat in a recliner. They noted breathing changes. She also laid there with her eyes closed. She did not speak to them at this point. She did complain of chest pain. Daughter and patient state that she had no other respiratory symptoms. She did not have a fever. She did vomit once. Patient also states she has some abdominal discomfort. Today she does not recall yesterday a.m. at all. The day before she attended the [facility] and was able to ambulate and climb stairs without difficulty. She had been eating and drinking normally without problems. With evaluation in the emergency room patient was able to be aroused but was very lethargic and somnolent. Patient did report a headache and chest pain in the ER. She was given IV fluids, Solu-Medrol, subcu heparin and Zofran. She had an elevated white blood cell count and elevated troponin. CTA of the chest revealed a right lower lobe solitary pulmonary embolus. CTA of the neck showed no hemodynamically significant extracranial cerebrovascular stenosis or occlusion. CTA of the head revealed stable left anterior temporal infarct, stable left occipital lobe infarct and no large acute vessel occlusion identified. This a.m. patient denies any chest pain, shortness of breath or abdominal pain. Her headache is gone. She is sitting up in the bed and eating her breakfast. Daughter is at bedside and says she is like a different person. She is able to speak coherently and speech is clear. Patient is adamant that she wants to go home. To note Patient was admitted briefly overnight on 10/05/2023 after suffering a fall resulting in a left clavicle fracture as well as 2 left-sided rib fractures. She was discharged home the following day after admission. Her family has been staying with her since this time. [facility] Disclaimer: The information contained in this section may have been updated after the patient was seen, as this information can be updated by other users. Medical History (Updated 10/22/23 @ 08:46 by Ever Jara MD) Hypothyroidism Hyperlipidemia Hypertension UTI (urinary tract infection) CVA (cerebral vascular accident) CVA, old, aphasia Epilepsy COPD (chronic obstructive pulmonary disease) Lumbar degenerative disc disease Lumbar spinal stenosis Chronic low back pain Retinal detachment History of ischemic stroke in prior three months Rupture of ligament of right elbow COVID-19 virus infection History of CVA (cerebrovascular accident) Hypothyroid Seizure disorder Arthritis Depression Hypertension Surgical History (Updated 10/06/23 @ 09:08 by Ever Jara MD) History of loop recorder History of cataract extraction History of cholecystectomy History of tubal ligation History of adenoidectomy History of tonsillectomy Social History (Updated 10/06/23 @ 09:08 by Ever Jara MD) Smoking Status: Unknown if ever smoked alcohol intake: never current occupational status: disabled Travel in the last 8 weeks: None household members: none caffeine: Yes Review of Systems Constitutional Constitutional: Denies body ache(s), Denies fever(s), Reports frequent falls and Reports headache(s) Eyes Eyes: Reports change in vision (During event yesterday. She kept her eyes closed.) ENT Ears, Nose, Mouth, and Throat: Denies dizziness, Denies dysphagia, Denies otalgia, Reports headache(s) and Denies sore throat *Cardiovascular Cardiovascular: Reports chest pain, Reports dyspnea, Reports leg edema and Reports palpitations *Respiratory Respiratory: Denies chest congestion, Denies cough, Reports dyspnea and Denies hemoptysis *Gastrointestinal Gastrointestinal: Denies constipation, Denies dyspepsia, Denies dysphagia, Denies hematemesis and Reports vomiting Comments: Patient did have diarrhea for 1 full day last week *Genitourinary Genitourinary: Denies difficulty voiding *Musculoskeletal Musculoskeletal: Reports abnormal gait (Uses a rolling walker) and Reports arthralgias (Left clavicle due to fracture with recent fall) *Neurologic Neurologic: Reports abnormal gait (Uses a rolling walker), Reports abnormal speech (Did not speak before or right after event), Denies dizziness, Reports frequent falls and Reports headache(s) Endocrine Endocrine: Reports palpitations Meds Home Medications and Allergies Home Medications Medication Instructions Recorded Confirmed Type atorvastatin 40 mg tablet 40 mg PO HS 03/27/23 10/21/23 History carbamazepine 200 mg 200 mg PO DAILY 03/27/23 10/21/23 History tablet,extended release,12 hr clopidogrel 75 mg tablet 75 mg PO DAILY 03/27/23 10/21/23 History fluoxetine 10 mg capsule 10 mg PO DAILY 03/27/23 10/21/23 History gabapentin 100 mg capsule 100 mg PO HS 03/27/23 10/21/23 History levothyroxine 25 mcg tablet 25 mcg PO DAILYDM 03/27/23 10/21/23 History lisinopril 20 mg tablet 20 mg PO DAILY 03/27/23 10/21/23 History tiotropium 2.5 mcg-olodaterol 2.5 2 puff inhalation DAILY 03/27/23 10/21/23 History mcg/actuation mist for inhalation (Stiolto Respimat) oxycodone 5 mg tablet 5 mg PO Q4H PRN pain #20 tabs 10/06/23 10/21/23 Rx aspirin 81 mg tablet 81 mg PO DAILY 10/21/23 10/21/23 History New Prescriptions to Start Prescriptions: Allergies Allergy/AdvReac Type Severity Reaction Status Date / Time Iodine and Iodide Containing Allergy Intermediate I-RASH Verified 03/09/23 16:41 Produc Penicillins Allergy Intermediate I-RASH Verified 03/09/23 16:41 codeine Allergy Mild HYPER Verified 03/09/23 16:41 Exam Data for Last 24 hours Vital signs and Labs for Last 24 Hours: Temp Pulse Resp BP Pulse Ox O2 Del Method O2 Flow Rate 98.4 F 66 16 125/72 95 Nasal Cannula 2 10/22/23 04:00 10/22/23 04:00 10/22/23 04:00 10/22/23 04:00 10/22/23 04:00 10/22/23 06:53 10/22/23 06:53 Laboratory Results - last 24 hr 10/21/23 15:29: Urine Color Yellow, Urine Appearance Clear, Urine pH 6.5, Ur Specific [place] 1.020, Urine Protein Trace, Urine Glucose (UA) Trace, Urine Ketones Negative, Urine Blood Trace-i, Urine Nitrate Negative, Urine Bilirubin Negative, Urine Urobilinogen 0.2, Ur Leukocyte Esterase Negative, Urine RBC Occasional, Urine WBC Occasional, Ur Squamous Epith Cells Occasional, Urine Bacteria None, Urine Opiates Screen Negative, Urine Methadone Screen Negative, Ur Barbituates Screen Negative, Ur Phencyclidine Scrn Negative, Ur Amphetamines Screen Negative, U Benzodiazepines Scrn Negative, Urine Cocaine Screen Negative, U Marijuana (THC) Screen Negative 10/21/23 16:42: VBG pH 7.34, VBG pCO2 47.9, VBG pO2 53.3 H, VBG HCO3 25.4, VBG Total CO2 26.9, VBG O2 Saturation 86.5 H, VBG Base Excess -0.3, VBG Lactic Acid 1.6 10/21/23 16:56: Troponin I 0.12 H 10/21/23 20:17: Troponin I 0.15 H 10/21/23 : WBC 13.5 H, RBC 4.40, Hgb 14.1, Hct 43.1, MCV 98.0, MCH 32.1 H, MCHC 32.8, RDW 14.5, Plt Count 202, MPV 8.2, Neut % (Auto) 94.8 H, Lymph % (Auto) 2.3 L, Pike % (Auto) 2.2, Eos % (Auto) 0.5, Baso % (Auto) 0.2, Neut # (Auto) 12.8 H, Lymph # (Auto) 0.3 L, Pike # (Auto) 0.3, Eos # (Auto) 0.1, Baso # (Auto) 0.0, Total Counted 100, Neutrophils % (Manual) 94 H, Lymphocytes % (Manual) 5 L, Monocytes % (Manual) 1 L, Platelet Estimate Normal, RBC Morphology Normal, PT 11.0, INR 0.98, APTT 25.5, D-Dimer 0.75 H, Sodium 140, Potassium 4.2, Chloride 106, Carbon Dioxide 28, Anion Gap 10.2, BUN 29 H, Creatinine 1.30 H, Estimated Creat Clear 47, Estimated GFR 40 L, Est GFR ( Amer) 48 L, Glucose 154 H, Calcium 9.9, Total Bilirubin 0.4, AST 36, ALT 23, Alkaline Phosphatase 115, Troponin I 0.07 H, Total Protein 7.4, Albumin 4.3, Globulin 3.1, Albumin/Globulin Ratio 1.4, Triglycerides 49, Cholesterol 178, LDL Cholesterol Direct 50.34 L, VLDL Cholesterol 10, HDL Cholesterol 83 H, Cholesterol/HDL Ratio 2.1 I & O for Last 24 hours: Intake & Output 10/19/23 10/20/23 10/21/23 10/22/23 11:59 11:59 11:59 11:59 Output Total 0 / 0 Balance 0 / 0 Weight 180 lb 1.6 oz Constitutional Constitutional: no acute distress Comments: Sitting up in the bed eating her breakfast. She assist with exam without difficulty *Routine HEENT Exam Head: Present normocephalic and atraumatic Eye: Present PERRL; Absent EOMI, conjunctival icterus, scleral injection or conjunctivae pink ENT: Present mucous membranes moist and oropharynx clear *Routine Neck Exam Neck: Absent carotid bruit (Distant carotids), lymphadenopathy or thyromegaly Routine Chest/Breast/Axilla Exam Chest wall: Absent tenderness *Routine Respiratory Exam Respiratory: Present CTA bilaterally (Anteriorly and posteriorly) *Routine Cardiovascular Exam Cardiovascular: Present RRR *Routine Abdominal Exam Abdominal: Present soft and normoactive bowel sounds; Absent tenderness or distended *Routine Rectal Exam Rectal:: deferred *Routine Genitalia Exam Genitalia:: deferred *Routine Extremities Exam Extremities: Present full ROM and pulses intact; Absent edema or calf tenderness *Routine Neurological Exam Neurological: Present alert, oriented X3, moving all extremities and normal speech; Absent altered mental status, nystagmus, facial asymmetry or tremors Assessment and Plan *Assessment and plan (1) Pulmonary embolism on left: Status: Acute Category: Medical Code(s): I26.99 - Other pulmonary embolism without acute cor pulmonale (2) Non-ST elevation (NSTEMI) myocardial infarction: Status: Acute Category: Medical Code(s): I21.4 - Non-ST elevation (NSTEMI) myocardial infarction (3) Fracture of left clavicle: Status: Acute Category: Medical Code(s): S42.002A - Fracture of unspecified part of left clavicle, initial encounter for closed fracture (4) Multiple fractures of ribs of left side: Status: Acute Category: Medical Code(s): S22.42XA - Multiple fractures of ribs, left side, initial encounter for closed fracture (5) History of CVA (cerebrovascular accident): Status: Chronic Category: Medical Code(s): Z86.73 - Personal history of transient ischemic attack (TIA), and cerebral infarction without residual deficits (6) Hypothyroid: Status: Chronic Qualifiers: Hypothyroidism type: acquired Qualified Code(s): E03.9 - Hypothyroidism, unspecified Category: Medical Code(s): E03.9 - Hypothyroidism, unspecified (7) Seizure disorder: Status: Chronic Category: Medical Code(s): G40.909 - Epilepsy, unspecified, not intractable, without status epilepticus (8) History of ischemic stroke in prior three months: Status: Acute Category: Medical Code(s): Z86.73 - Personal history of transient ischemic attack (TIA), and cerebral infarction without residual deficits (9) Arthritis: Status: Chronic Category: Medical Code(s): M19.90 - Unspecified osteoarthritis, unspecified site (10) Elevated troponin: Status: Acute Category: Medical Code(s): R79.89 - Other specified abnormal findings of blood chemistry (11) Hypoxia: Status: Acute Category: Medical Code(s): R09.02 - Hypoxemia Plan Cardiology to see this a.m. Dr. Jara entry - Saw patient, agree with above note.
--- NOTE | 2023-10-22 08:42 | CA_ITS ---
APPROVED REPORT EXAM: Comprehensive 2D, Doppler, and color-flow Echocardiogram Chromosomal Disorders Counselor: SANDOVAL Tian, RVS Ht: 5 ft 6 in Wt: 180lbs BSA: 1.91 BP: 125/72 mmHg Indications: CVA, H/o paroxysmal AFIB, NSTEMI, EWELINA, Hypothyroidism,COPD, HTN Echo Enhancing Agent Comments: Patient supine throughout exam 2D Dimensions IVSd 1.25 cm LVEF (Visual) 66.80 % PWd 1.05 cm LVDd 3.93 cm LVDs 2.50 cm M-Mode Dimensions RVDd 2.33 cm (0.9-2.6) LA Diam 4.00 cm (1.9-4.0) LVDd 4.47 cm (3.5-5.7) LVDs 2.66 cm (3.5-5.7) IVSd 1.13 cm (0.6-1.1) PWd 1.13 cm (0.6-1.1) EF (Teich) 71.40% EPSs 0.36 cm FS 40.50% EDV (Teich) 91.00 mL TAPSE 2.04 (<1.7) ESV (Teich) 26.00 mL LV Diastology E Decel Time 283 (160-240 msec) E/A Ratio 0.81 MED A' 12.40 cm/s LAT A' 8.10 cm/s Aortic Valve MILO Index 1.54 cm2/m2 AoV Peak Melvin. 145.0 (50-130 cm/s) AO Peak GR. 8.40 mmHg AO Mean GR. 4.20 (<5 mmHg) AO VTI 27.4 (18-25 cm) MILO (VTI) 3.02 (2.5-4.5 cm2) Mitral Valve MV A Velocity 111.0 (40-130 cm/s) E/A Ratio 0.81 Pulmonary Valve PV Peak Velocity 98.0 (50-150 cm/s) Tricuspid Valve TR P. Velocity 204.00 cm/s RAP Estimate 10.00 mmHg RVSP 26.70 mmHg Left Ventricle The left ventricle is normal size. The left ventricular systolic function is normal. The left ventricular ejection fraction is within the normal range. There is increased LV wall thickness. There is normal LV segmental wall motion. Transmitral Doppler flow pattern suggests impaired LV relaxation. LVEF is 60%. Right Ventricle The right ventricle is normal size. The right ventricular systolic function is normal. Atria Left atrium is mildly dilated. The right atrium size is normal. There is no Doppler evidence of interatrial shunt. Aortic Valve The aortic valve is mildly thickened. There is no aortic valvular stenosis. No aortic regurgitation is present. Mitral Valve The mitral valve is normal in structure. No evidence of mitral valve stenosis. Mild mitral regurgitation. Tricuspid Valve The tricuspid valve leaflets are thin pliable. Mild tricuspid regurgitation. RVSP is 20-25 mmHg. Pulmonic Valve The pulmonary valve is normal in structure. Trace pulmonic regurgitation. Great Vessels The aortic root is normal in size. The ascending aorta is not well-visualized. IVC is normal in size and collapses >50% with inspiration. Pericardium There is no pericardial effusion. Other Information Study Quality: Technically Difficult Conclusion Technically difficult study due to poor acoustic windows. Normal biventricular systolic function. Mild LA dilation. Mild MR. Electronically signed by : Lashawn Hanna MD 10/23/2023 03:06:09
[2023-10-22] MEDS: carBAMazepine 200MG TABLET 200 MG PO (08:58)
--- NOTE | 2023-10-22 08:58 | HMH.PHAINT1 ---
Pharmacy Intervention Comments: MEDICATION RECONCILIATION COMPLETED ON PATIENT USING EXTERNAL FILL HISTORY FROM PHARMACY AND ELISABETH REPORT. -HENRIQUE MENDEZ, ERASTOD
[2023-10-22] MEDS: LISINOPRIL 20MG TABLET 20 MG PO (08:59)
[2023-10-22] MEDS: CLOPIDOGREL 75MG TAB 75 MG PO (08:59)
--- NOTE | 2023-10-22 09:17 | EXP.CARD.CON ---
History of Present Illness History of Present Illness Consult date: 10/22/23 Requesting physician: Ever Jara Consult reason: chest pain Chief complaint: AMS, chest pain, SOA Additional Medical History:: 1. COPD, related to second hand smoke exposure 2. History of multiple CVA's, most recent 09/12/2023, history of expressive aphasia A. MRI of the brain, 09/12/2023, 31 mm area of restricted diffusion in the left occipital lobe. 6 mm area of restricted diffusion in the right cerebellar hemisphere. B. Head CTA, 09/30/2023, no acute process. C. Head CTA, 10/21/2023, no acute process. Stable left anterior temporal infarct and left occipital lobe infarct 3. Pulmonary embolus, 10/21/2023 A. Chest CTA, 10/21/2023, 8 mm segmental pulmonary artery branch defect in the right lateral lower lobe segment. Chronic atrophic right kidney. 4. Hypertension 5. Hyperlipidemia 6. Depression 7. Arthritis 8. History of seizures History of present illness: Ms. Ibarra is a 78-year-old female with a history of hypertension, depression, arthritis, seizures, hypothyroidism, several strokes, and lumbar disc disease who presented to [facility] via ambulance after noted altered mental status by her daughters. Daughter contributes to the history and states that yesterday morning she was up at 4 AM going to the bathroom and did fine. When she got up at 8:30 AM to go to the bathroom she needed assistance getting up, going to the bathroom, and getting up off the commode. They were unable to get her back into the bed so she sat in a recliner. They noted breathing changes. She also laid there with her eyes closed. She did not speak to them at this point. She did complain of chest pain. Daughter and patient state that she had no other respiratory symptoms. She did not have a fever. She did vomit once. Patient also states she has some abdominal discomfort. Today she does not recall yesterday a.m. at all. The day before she attended the fair and was able to ambulate and climb stairs without difficulty. She had been eating and drinking normally without problems. With evaluation in the emergency room patient was able to be aroused but was very lethargic and somnolent. Patient did report a headache and chest pain in the ER. She was given IV fluids, Solu-Medrol, subcu heparin and Zofran. She had an elevated white blood cell count and elevated troponin. CTA of the chest revealed a right lower lobe solitary pulmonary embolus. CTA of the neck showed no hemodynamically significant extracranial cerebrovascular stenosis or occlusion. CTA of the head revealed stable left anterior temporal infarct, stable left occipital lobe infarct and no large acute vessel occlusion identified. This a.m. patient denies any chest pain, shortness of breath or abdominal pain. Her headache is gone. She is sitting up in the bed and eating her breakfast. Daughter is at bedside and says she is like a different person. She is able to speak coherently and speech is clear. Patient is adamant that she wants to go home. To note Patient was admitted briefly overnight on 10/05/2023 after suffering a fall resulting in a left clavicle fracture as well as 2 left-sided rib fractures. She was discharged home the following day after admission. Her family has been staying with her since this time. The above per Samantha Resendiz APRN for Dr. Jara. Events as noted above confirmed with patient's daughter and patient. Patient denies any chest pain, pressure or tightness. Daughter states she is back to her baseline. Patient's activities have been curtailed since her most recent stroke. She does spend more time sedentary. Patient is adamant that she wants to go home. Discussed results of CTA in light of history of CVAs and need to decide which therapy is best for the patient. Will obtain an echocardiogram as well as a lower extremity venous Doppler this a.m. to try to decide on the best therapy for the patient with consideration of discharging home possibly later today or tomorrow. [facility] Disclaimer: The information contained in this section may have been updated after the patient was seen, as this information can be updated by other users. Medical History (Updated 10/22/23 @ 09:32 by PATIENCE Wakefield) Hypothyroidism Hyperlipidemia Hypertension UTI (urinary tract infection) CVA (cerebral vascular accident) CVA, old, aphasia Epilepsy COPD (chronic obstructive pulmonary disease) Lumbar degenerative disc disease Lumbar spinal stenosis Chronic low back pain Retinal detachment History of ischemic stroke in prior three months Rupture of ligament of right elbow COVID-19 virus infection History of CVA (cerebrovascular accident) Hypothyroid Seizure disorder Arthritis Depression Hypertension Surgical History (Updated 10/06/23 @ 09:08 by Ever Jara MD) History of loop recorder History of cataract extraction History of cholecystectomy History of tubal ligation History of adenoidectomy History of tonsillectomy Social History (Updated 10/06/23 @ 09:08 by Ever Jara MD) Smoking Status: Unknown if ever smoked alcohol intake: never current occupational status: disabled Travel in the last 8 weeks: None household members: none caffeine: Yes Review of Systems Constitutional Constitutional: Reports frequent falls and Reports headache(s) ENT Ears, Nose, Mouth, and Throat: Denies dizziness and Reports headache(s) *Cardiovascular Cardiovascular: Reports chest pain and Denies leg edema *Musculoskeletal Musculoskeletal: Reports abnormal gait (Uses a rolling walker) *Neurologic Neurologic: Reports abnormal gait (Uses a rolling walker), Reports abnormal speech (Did not speak before or right after event), Denies dizziness, Reports frequent falls and Reports headache(s) Exam Data for Last 24 hours Vital signs and Labs for Last 24 Hours: Temp Pulse Resp BP Pulse Ox O2 Del Method O2 Flow Rate 97.8 F 73 20 127/76 95 Nasal Cannula 2 10/22/23 08:00 10/22/23 08:00 10/22/23 08:00 10/22/23 08:00 10/22/23 08:00 10/22/23 09:00 10/22/23 09:00 Laboratory Results - last 24 hr 10/21/23 15:29: Urine Color Yellow, Urine Appearance Clear, Urine pH 6.5, Ur Specific [place] 1.020, Urine Protein Trace, Urine Glucose (UA) Trace, Urine Ketones Negative, Urine Blood Trace-i, Urine Nitrate Negative, Urine Bilirubin Negative, Urine Urobilinogen 0.2, Ur Leukocyte Esterase Negative, Urine RBC Occasional, Urine WBC Occasional, Ur Squamous Epith Cells Occasional, Urine Bacteria None, Urine Opiates Screen Negative, Urine Methadone Screen Negative, Ur Barbituates Screen Negative, Ur Phencyclidine Scrn Negative, Ur Amphetamines Screen Negative, U Benzodiazepines Scrn Negative, Urine Cocaine Screen Negative, U Marijuana (THC) Screen Negative 10/21/23 16:42: VBG pH 7.34, VBG pCO2 47.9, VBG pO2 53.3 H, VBG HCO3 25.4, VBG Total CO2 26.9, VBG O2 Saturation 86.5 H, VBG Base Excess -0.3, VBG Lactic Acid 1.6 10/21/23 16:56: Troponin I 0.12 H 10/21/23 19:54: TSH 0.87 10/21/23 20:17: Troponin I 0.15 H 10/21/23 : WBC 13.5 H, RBC 4.40, Hgb 14.1, Hct 43.1, MCV 98.0, MCH 32.1 H, MCHC 32.8, RDW 14.5, Plt Count 202, MPV 8.2, Neut % (Auto) 94.8 H, Lymph % (Auto) 2.3 L, [place] % (Auto) 2.2, Eos % (Auto) 0.5, Baso % (Auto) 0.2, Neut # (Auto) 12.8 H, Lymph # (Auto) 0.3 L, [place] # (Auto) 0.3, Eos # (Auto) 0.1, Baso # (Auto) 0.0, Total Counted 100, Neutrophils % (Manual) 94 H, Lymphocytes % (Manual) 5 L, Monocytes % (Manual) 1 L, Platelet Estimate Normal, RBC Morphology Normal, PT 11.0, INR 0.98, APTT 25.5, D-Dimer 0.75 H, Sodium 140, Potassium 4.2, Chloride 106, Carbon Dioxide 28, Anion Gap 10.2, BUN 29 H, Creatinine 1.30 H, Estimated Creat Clear 47, Estimated GFR 40 L, Est GFR ( Amer) 48 L, Glucose 154 H, Calcium 9.9, Total Bilirubin 0.4, AST 36, ALT 23, Alkaline Phosphatase 115, Troponin I 0.07 H, Total Protein 7.4, Albumin 4.3, Globulin 3.1, Albumin/Globulin Ratio 1.4, Triglycerides 49, Cholesterol 178, LDL Cholesterol Direct 50.34 L, VLDL Cholesterol 10, HDL Cholesterol 83 H, Cholesterol/HDL Ratio 2.1 I & O for Last 24 hours: Intake & Output 10/19/23 10/20/23 10/21/23 10/22/23 11:59 11:59 11:59 11:59 Intake Total 105 / 105 Output Total 0 / 0 Balance 105 / 105 Weight 180 lb 1.6 oz Constitutional Constitutional: no acute distress *Routine Respiratory Exam Respiratory: Present CTA bilaterally; Absent wheezes or crackles *Routine Cardiovascular Exam Cardiovascular: Present RRR and murmur; Absent gallop or rubs *Routine Extremities Exam Extremities: Absent edema *Routine Neurological Exam Neurological: Present alert and oriented X3 Meds Home Medications and Allergies Home Medications Medication Instructions Recorded Confirmed Type atorvastatin 40 mg tablet 40 mg PO HS 03/27/23 10/21/23 History carbamazepine 200 mg 200 mg PO DAILY 03/27/23 10/21/23 History tablet,extended release,12 hr clopidogrel 75 mg tablet 75 mg PO DAILY 03/27/23 10/21/23 History fluoxetine 10 mg capsule 10 mg PO DAILY 03/27/23 10/21/23 History gabapentin 100 mg capsule 100 mg PO HS 03/27/23 10/22/23 History levothyroxine 25 mcg tablet 25 mcg PO DAILYDM 03/27/23 10/21/23 History lisinopril 20 mg tablet 20 mg PO DAILY 03/27/23 10/21/23 History tiotropium 2.5 mcg-olodaterol 2.5 2 puff inhalation DAILY 03/27/23 10/21/23 History mcg/actuation mist for inhalation (Stiolto Respimat) aspirin 81 mg tablet,delayed 81 mg PO DAILY 10/22/23 10/22/23 History release New Prescriptions to Start Prescriptions: Allergies Allergy/AdvReac Type Severity Reaction Status Date / Time Iodine and Iodide Containing Allergy Intermediate I-RASH Verified 03/09/23 16:41 Produc Penicillins Allergy Intermediate I-RASH Verified 03/09/23 16:41 codeine Allergy Mild HYPER Verified 03/09/23 16:41 Assessment and Plan *Assessment and plan (1) Pulmonary embolus, right: Status: Acute Category: Medical Code(s): I26.99 - Other pulmonary embolism without acute cor pulmonale (2) Hypoxia: Status: Acute Category: Medical Code(s): R09.02 - Hypoxemia (3) Elevated troponin: Status: Acute Category: Medical Code(s): R79.89 - Other specified abnormal findings of blood chemistry (4) History of CVA (cerebrovascular accident): Status: Chronic Category: Medical Code(s): Z86.73 - Personal history of transient ischemic attack (TIA), and cerebral infarction without residual deficits (5) Seizure disorder: Status: Chronic Category: Medical Code(s): G40.909 - Epilepsy, unspecified, not intractable, without status epilepticus (6) Hypertension: Status: Acute Qualifiers: Hypertension type: primary hypertension Qualified Code(s): I10 - Essential (primary) hypertension Category: Medical Code(s): I10 - Essential (primary) hypertension Plan 1. PE, right sided -hypoxia, on oxygen -check LE venous doppler -start eliquis 10 mg BID for 7 days then 5 mg BID 2. Multiple CVA's, most recent, 09/2023. Expressive aphasia. -on ASA and plavix per family 3. HTN -on lisinopril 4. Elevated troponins and chest pain -likely due to PE -recent fall with left sided rib and clavicle fractures. -check echo to assess LVEF, apex for LV thrombus and wall motion -Normal Ferdinand myoview in 2020 5. History of seizures -on carbamazepine and Neurontin 6. Hyperlipidemia -On Lipitor -LDL 50 7. Hypothyroidism -On replacement therapy -TSH normal 8. CKD, stage III -Creatinine 1.3 with GFR 40 check echo, LE venous doppler Start eliquis Consider changing carbamazepine to alternative agent due to potential interaction with eliquis (also possible with Xarelto)
--- NOTE | 2023-10-22 09:34 | CA_ITS ---
FINAL REPORT CLINICAL HISTORY: Pulmonary embolus, Afib FINDINGS: DUPLEX VENOUS SONOGRAPHY OF THE BILATERAL LOWER EXTREMITIES Multiple transverse and longitudinal scans were performed of the femoropopliteal deep venous systems, with augmentation and compression maneuvers. Normal phasic flow was noted in the visualized deep venous systems. No intraluminal increased echogenicity is noted to suggest thrombus. There is normal compression and augmentation of the venous structures. No abnormal venous collaterals are seen. IMPRESSION: No evidence of deep venous thrombosis of the bilateral lower extremities. Reviewed, Interpreted and Dictated by Felisa Garrido MD Transcribed by Samantha Fletcher Authenticated and [facility]
--- NOTE | 2023-10-22 09:53 | PC.NURSE ---
pt oxygen saturation level on room air at rest is 91%. Family at bs. Call light is in reach.
[2023-10-22] MEDS: APIXABAN 5MG TABLET 10 MG PO ×2 (10:37→20:57)
--- NOTE | 2023-10-22 11:44 | PC.NURSE ---
Right side of back with new blister per family.
--- NOTE | 2023-10-22 15:49 | PC.NURSE ---
Pt aox 2-3, 91% on RA, up with assist times one with walker, 20G R AC SL, negative for dvt in legs, bed alarm on, family present.
[2023-10-22] MEDS: levETIRAcetam 500 MG TABLET PO (20:58)
[2023-10-22] MEDS: PAT OWN MED ***ATORVASTATIN 40MG 40 MG PO (20:58)
[2023-10-22] MEDS: GABAPENTIN 100 MG PO (20:58)
[2023-10-22] MEDS: FUROSEMIDE 20MG TABLET 20 MG PO (23:40)
[2023-10-23] VITALS: BP 136/74; PULSE 73; PULSE 74; RESP 16; TEMP 36.7; O2SAT 95
[2023-10-23 04:00] VITALS: BP 123/72; PULSE 74; PULSE 76; RESP 18; TEMP 36.7; O2SAT 95; BMI 29.9
--- NOTE | 2023-10-23 04:38 | PC.NURSE ---
pt noted to be soa with exertion to br and audible wheezing. notified dr velazquez. order received to resume stilito respimat daily and given 1 dose of lasix 20 mg po x1, duonebs q6h prn. pt sats 95% on 2l/nc. seizure pads placed related to change in seizure medications. pt given dose of eliquis. family instructed to watch for signs of bleeding and notify md immediately
[2023-10-23] MEDS: LEVOTHYROXINE 25 MCG PO (06:25)
[2023-10-23 07:48] LABS: MANUAL DIFFERENTIAL MANUAL DIFFERENTIAL (MANUAL DIFF)
[2023-10-23 07:55] LABS: Basophils % 0.6 % (0.1-2.0); Eosinophils # 0.6 K/mm3 (0.0-0.4); Hematocrit 36.3 % (37.0-47.0); Hemoglobin 11.8 g/dL (12.2-16.2); Lymphocytes % 15.3 % (10-50); Mean Corpuscular HGB Conc 32.5 g/dL (31.8-35.4); Mean Corpuscular Hemoglobin 31.9 pg (27.0-31.2); Mean Corpuscular Volume 98.2 fl (81-99); Mean Platelet Volume 8.2 fl (7.4-10.4); Monocytes # 0.4 K/mm3 (0.1-1.0); Monocytes % 6.1 % (1.7-9.3); Neutrophils # 4.6 K/mm3 (1.8-7.8); Platelet Count 185 K/mm3 (142-424); Red Blood Count 3.69 M/mm3 (4.20-5.40); Red Cell Distribution Width 14.6 % (11.5-17.5); White Blood Count 6.7 K/mm3 (4.8-10.8)
[2023-10-23 08:00] VITALS: BP 142/86; PULSE 69; PULSE 70; RESP 18; TEMP 36.7; O2SAT 96
--- NOTE | 2023-10-23 08:13 | EXP.ACUTE.PN ---
Subjective *Date: 10/23/23 *Time: 08:33 Interval history: Patient is feeling better today. She is very tired and slept through some of the exam. She denies any pain and states she slept through the night. She wants to go home. Medical Exam Vital signs and Labs for Last 24 Hours: Vital Signs Temp Pulse Pulse Resp BP Pulse Ox O2 Del Method 10/23/23 06:41 Nasal Cannula 10/23/23 05:00 Nasal Cannula 10/23/23 04:00 98.0 F 74 18 123/72 95 Room Air 10/23/23 04:00 76 10/23/23 03:00 Nasal Cannula 10/23/23 01:00 Nasal Cannula 10/23/23 00:00 73 10/23/23 00:00 98.1 F 74 16 136/74 95 Room Air 10/22/23 23:00 Nasal Cannula 10/22/23 21:00 Nasal Cannula 10/22/23 21:00 Nasal Cannula 10/22/23 20:08 Nasal Cannula 10/22/23 20:00 76 10/22/23 20:00 97.7 F 73 18 153/85 H 95 Room Air 10/22/23 18:15 Nasal Cannula 10/22/23 16:37 Room Air 10/22/23 16:00 70 10/22/23 16:00 98.1 F 63 22 136/77 97 Room Air 10/22/23 13:46 Room Air 10/22/23 12:40 Room Air 10/22/23 12:00 70 10/22/23 11:46 97.7 F 61 18 138/74 91 L Room Air 10/22/23 10:22 Room Air 10/22/23 09:00 Nasal Cannula O2 Flow Rate FiO2 10/23/23 06:41 2 10/23/23 05:00 2 10/23/23 04:00 10/23/23 04:00 10/23/23 03:00 2 10/23/23 01:00 2 10/23/23 00:00 10/23/23 00:00 10/22/23 23:00 2 10/22/23 21:00 2 10/22/23 21:00 2 10/22/23 20:08 2 28 10/22/23 20:00 10/22/23 20:00 10/22/23 18:15 10/22/23 16:37 10/22/23 16:00 10/22/23 16:00 10/22/23 13:46 10/22/23 12:40 10/22/23 12:00 10/22/23 11:46 10/22/23 10:22 10/22/23 09:00 2 Intake and Output 10/22/23 10/23/23 10/23/23 19:59 03:59 11:59 Intake Total 1175 / 1175 Output Total 0 / 0 0 / 0 0 / 0 Balance 1175 / 1175 0 / 1175 0 / 1175 Intake: Intake, Oral Amount 1175 / 1175 Output: Output, Urine Amount 0 / 0 0 / 0 0 / 0 Other: Number of Unmeasured Voids 2 1 1 Weight 186 lb Patient Weight 10/23/23 11:59 Weight 186 lb Laboratory Results - last 24 hr 10/21/23 19:54: TSH 0.87 10/23/23 07:40: WBC 6.7 D, RBC 3.69 L, Hgb 11.8 L, Hct 36.3 L, MCV 98.2, MCH 31.9 H, MCHC 32.5, RDW 14.6, Plt Count 185, MPV 8.2, Neut % (Auto) 69.0, Lymph % (Auto) 15.3, [place] % (Auto) 6.1, Eos % (Auto) 9.0, Baso % (Auto) 0.6, Neut # (Auto) 4.6, Lymph # (Auto) 1.0, [place] # (Auto) 0.4, Eos # (Auto) 0.6 H, Baso # (Auto) 0.0 I & O for Labs for Last 24 Hours: Intake & Output 10/20/23 10/21/23 10/22/23 10/23/23 11:59 11:59 11:59 11:59 Intake Total 105 / 105 1175 / 1175 Output Total 0 / 0 0 / 0 Balance 105 / 105 1175 / 1175 Weight 180 lb 1.6 oz 186 lb Constitutional: Present no acute distress Respiratory: Present CTA bilaterally Cardiac: Present Reg Rate and Rhythm GI: Present soft; Absent distention or tenderness Extremities: Absent tenderness or edema Skin: Present intact Neuro: Present alert and awake Assessment and Plan *Assessment and plan (1) Pulmonary embolus, right: Status: Acute Category: Medical Code(s): I26.99 - Other pulmonary embolism without acute cor pulmonale (2) Elevated troponin: Status: Acute Category: Medical Code(s): R79.89 - Other specified abnormal findings of blood chemistry (3) Hypoxia: Status: Acute Category: Medical Code(s): R09.02 - Hypoxemia (4) Hypertension: Status: Acute Qualifiers: Hypertension type: primary hypertension Qualified Code(s): I10 - Essential (primary) hypertension Category: Medical Code(s): I10 - Essential (primary) hypertension (5) Fracture of left clavicle: Status: Acute Category: Medical Code(s): S42.002A - Fracture of unspecified part of left clavicle, initial encounter for closed fracture (6) Multiple fractures of ribs of left side: Status: Acute Category: Medical Code(s): S22.42XA - Multiple fractures of ribs, left side, initial encounter for closed fracture (7) History of CVA (cerebrovascular accident): Status: Chronic Category: Medical Code(s): Z86.73 - Personal history of transient ischemic attack (TIA), and cerebral infarction without residual deficits (8) Hypothyroid: Status: Chronic Qualifiers: Hypothyroidism type: acquired Qualified Code(s): E03.9 - Hypothyroidism, unspecified Category: Medical Code(s): E03.9 - Hypothyroidism, unspecified (9) Seizure disorder: Status: Chronic Category: Medical Code(s): G40.909 - Epilepsy, unspecified, not intractable, without status epilepticus (10) History of ischemic stroke in prior three months: Status: Acute Category: Medical Code(s): Z86.73 - Personal history of transient ischemic attack (TIA), and cerebral infarction without residual deficits (11) Arthritis: Status: Chronic Category: Medical Code(s): M19.90 - Unspecified osteoarthritis, unspecified site Plan Patient has been started on eliquis and her seizure medication has been changed to keppra. Doppler was negative. Echo showed normal biventricular function. She will need to discharge on plavix and eliquis Dr. Jara entry - Saw patient, agree with above note. BMP form this morning is still pending. Planning for discharge home today with supplemental oxygen and home health for physical therapy..
[2023-10-23] MEDS: APIXABAN 5MG TABLET 10 MG PO (08:14)
[2023-10-23] MEDS: LISINOPRIL 20 MG PO (08:14)
[2023-10-23] MEDS: levETIRAcetam 500 MG TABLET PO (08:14)
[2023-10-23] MEDS: PAT OWN MED ***CLOPIDOGREL 75MG 75 MG PO (08:14)
[2023-10-23 08:27] LABS: Anion Gap 8.1 mEq/L (5-15); Blood Urea Nitrogen 29 mg/dl (7-17); Calcium 8.6 mg/dl (8.4-10.2); Carbon Dioxide 29 mmol/L (22.0-30.0); Chloride 103 mmol/L (98-107); Creatinine Clearance Estimated 43 mL/min (50-200); Estimated Glomerular Filt Rate 36 ml/min (>60); GFR (African American) 44 ML/MIN (>60); Glucose 99 mg/dl (74-100); Potassium 4.1 mmoL/L (3.5-5.1); Sodium 136 mmol/L (136-145)
[2023-10-23 08:44] LABS: Eosinophils % 5 % (0-3); Lymphocytes % 14 % (10-50); Monocytes % 5 % (2-9); Neutrophils % 76 % (42-76); Platelet Estimate Normal; RBC Morphology Normal; Total Cells Counted 100
--- NOTE | 2023-10-23 08:47 | P.PN_ITS ---
Subjective Subjective Date: 10/23/23 Time: 08:47 Principal diagnosis: PE Interval history: 78-year-old white female in bed in no acute distress. No complaints overnight except wishes to go home. Echocardiogram result shows preserved ejection fraction with no significant valve disease. Exam Data for Last 24 hours Vital signs and Labs for Last 24 Hours: Temp Pulse Resp BP Pulse Ox O2 Del Method O2 Flow Rate 98.1 F 69 18 142/86 H 96 Nasal Cannula 2 10/23/23 08:00 10/23/23 08:00 10/23/23 08:00 10/23/23 08:00 10/23/23 08:00 10/23/23 08:00 10/23/23 08:00 FiO2 28 10/22/23 20:08 Laboratory Results - last 24 hr 10/23/23 07:40: WBC 6.7 D, RBC 3.69 L, Hgb 11.8 L, Hct 36.3 L, MCV 98.2, MCH 31.9 H, MCHC 32.5, RDW 14.6, Plt Count 185, MPV 8.2, Neut % (Auto) 69.0, Lymph % (Auto) 15.3, [place] % (Auto) 6.1, Eos % (Auto) 9.0, Baso % (Auto) 0.6, Neut # (Auto) 4.6, Lymph # (Auto) 1.0, [place] # (Auto) 0.4, Eos # (Auto) 0.6 H, Baso # (Auto) 0.0, Total Counted 100, Neutrophils % (Manual) 76, Lymphocytes % (Manual) 14, Monocytes % (Manual) 5, Eosinophils % (Manual) 5 H, Platelet Estimate Normal, RBC Morphology Normal, Sodium 136, Potassium 4.1, Chloride 103, Carbon Dioxide 29, Anion Gap 8.1, BUN 29 H, Creatinine 1.40 H, Estimated Creat Clear 43, Estimated GFR 36 L, Est GFR ( Amer) 44 L, Glucose 99, Calcium 8.6 I & O for Last 24 hours: Intake & Output 10/20/23 10/21/23 10/22/23 10/23/23 11:59 11:59 11:59 11:59 Intake Total 105 / 105 1175 / 1175 Output Total 0 / 0 0 / 0 Balance 105 / 105 1175 / 1175 Weight 180 lb 1.6 oz 186 lb Constitutional Constitutional: no acute distress *Routine Respiratory Exam Respiratory: Present CTA bilaterally *Routine Cardiovascular Exam Cardiovascular: Present RRR *Routine Neurological Exam Neurological: Present alert and oriented X3 Progress Note: A&P Assessment and plan (1) Pulmonary embolus, right: Status: Acute (2) Elevated troponin: Status: Acute (3) Hypoxia: Status: Acute (4) Hypertension: Status: Acute (5) Fracture of left clavicle: Status: Acute (6) Multiple fractures of ribs of left side: Status: Acute (7) History of CVA (cerebrovascular accident): Status: Chronic (8) Hypothyroid: Status: Chronic (9) Seizure disorder: Status: Chronic (10) History of ischemic stroke in prior three months: Status: Acute (11) Arthritis: Status: Chronic Assessment and Plan Assessment and Plan for All Diagnoses:: 1. PE, right sided -hypoxia, on oxygen -LE venous doppler negative for DVT -start eliquis 10 mg BID for 7 days then 5 mg BID, started on 10/22/2023 2. Multiple CVA's, most recent, 09/2023. Expressive aphasia. -on ASA and plavix per family. Will discontinue ASA. 3. HTN -on lisinopril 4. Elevated troponins and chest pain -likely due to PE -recent fall with left sided rib and clavicle fractures. -Echo shows normal EF with no evidence of LV thrombus. -Normal Ferdinand myoview in 2020 5. History of seizures -on Neurontin -switched carbamazepine to keppra 6. Hyperlipidemia -On Lipitor -LDL 50 7. Hypothyroidism -On replacement therapy -TSH normal 8. CKD, stage III -Creatinine 1.4, GFR 29 Echocardiogram results reviewed with patient and family member. EF is normal with no evidence of wall motion abnormality. Discontinue aspirin since starting Eliquis. Continue Plavix. Patient is clinically stable from a cardiac standpoint for discharge home. Home medication recommendations: Apixaban 5 mg twice daily atorvastatin 40 mg daily Plavix 75 mg daily Lisinopril 20 mg daily Follow-up in our office in 1 to 2 weeks.
--- NOTE | 2023-10-23 09:48 | SW/DCPLANNER ---
This patient is currently established / [facility]: updated patient information/order to resume services has been faxed.
--- NOTE | 2023-10-23 09:50 | CARE MANAGER ---
Patient will require supplemental O2 at discharge. Patient Choice signed for [facility] and order/clinical was faxed. Portable will be delivered prior to discharge today.
--- NOTE | 2023-10-24 16:26 | P.DS_ITS ---
General Admission date:: 10/21/23 Discharge date: 10/23/23 HPI HPI HPI: Ms. Ibarra is a 78-year-old female with a history of hypertension, depression, arthritis, seizures, hypothyroidism, several strokes, and lumbar disc disease who presented to [facility] via ambulance after noted altered mental status by her daughters. Daughter contributes to the history and states that yesterday morning she was up at 4 AM going to the bathroom and did fine. When she got up at 8:30 AM to go to the bathroom she needed assistance getting up, going to the bathroom, and getting up off the commode. They were unable to get her back into the bed so she sat in a recliner. They noted breathing changes. She also laid there with her eyes closed. She did not speak to them at this point. She did complain of chest pain. Daughter and patient state that she had no other respiratory symptoms. She did not have a fever. She did vomit once. Patient also states she has some abdominal discomfort. Today she does not recall yesterday a.m. at all. The day before she [facility] and was able to ambulate and climb stairs without difficulty. She had been eating and drinking normally without problems. With evaluation in the emergency room patient was able to be aroused but was very lethargic and somnolent. Patient did report a headache and chest pain in the ER. She was given IV fluids, Solu-Medrol, subcu heparin and Zofran. She had an elevated white blood cell count and elevated troponin. CTA of the chest revealed a right lower lobe solitary pulmonary embolus. CTA of the neck showed no hemodynamically significant extracranial cerebrovascular stenosis or occlusion. CTA of the head revealed stable left anterior temporal infarct, stable left occipital lobe infarct and no large acute vessel occlusion identified. This a.m. patient denies any chest pain, shortness of breath or abdominal pain. Her headache is gone. She is sitting up in the bed and eating her breakfast. Daughter is at bedside and says she is like a different person. She is able to speak coherently and speech is clear. Patient is adamant that she wants to go home. To note Patient was admitted briefly overnight on 10/05/2023 after suffering a fall resulting in a left clavicle fracture as well as 2 left-sided rib fractures. She was discharged home the following day after admission. Her family has been staying with her since this time. Hospital Course Hospital Course Hospital Course: The patient was admitted and cardiology was consulted. Her CTA showed a right- sided PE and she was started on Eliquis and a venous Doppler was ordered. Cardiology felt her elevated troponins and chest pain were due to the PE but they did order an echo. By 10/23/2023, the patient was feeling better. She was tired but wanted to go home. Cardiology changed her seizure medication to Keppra due to the initiation of anticoagulants. Her Doppler was negative. Her echo showed normal biventricular function. Cardiology felt she could be discharged on Plavix and Eliquis. She also needed oxygen upon discharge due to room air sats in the 80s. She will take Eliquis 10 mg twice a day for the next 7 days and then will switch to 5 mg twice daily. She will also have home health for physical therapy. Exam Data for Last 24 hours Vital signs and Labs for Last 24 Hours: Temp Pulse Resp BP Pulse Ox O2 Del Method O2 Flow Rate 98.1 F 69 18 142/86 H 96 Nasal Cannula 2 10/23/23 08:00 10/23/23 08:00 10/23/23 08:00 10/23/23 08:00 10/23/23 08:00 10/23/23 11:00 10/23/23 11:00 FiO2 28 10/22/23 20:08 I & O for Last 24 hours: Intake & Output 10/22/23 10/23/23 10/24/23 10/25/23 11:59 11:59 11:59 11:59 Intake Total 105 / 105 1445 / 1445 Output Total 0 / 0 0 / 0 Balance 105 / 105 1445 / 1445 Weight 180 lb 1.6 oz 186 lb Narrative: Constitutional Constitutional: no acute distress Comments: Sitting up in the bed eating her breakfast. She assist with exam without difficulty *Routine HEENT Exam Head: Present normocephalic and atraumatic Eye: Present PERRL; Absent EOMI, conjunctival icterus, scleral injection or conjunctivae pink ENT: Present mucous membranes moist and oropharynx clear *Routine Neck Exam Neck: Absent carotid bruit (Distant carotids), lymphadenopathy or thyromegaly Routine Chest/Breast/Axilla Exam Chest wall: Absent tenderness *Routine Respiratory Exam Respiratory: Present CTA bilaterally (Anteriorly and posteriorly) *Routine Cardiovascular Exam Cardiovascular: Present RRR *Routine Abdominal Exam Abdominal: Present soft and normoactive bowel sounds; Absent tenderness or distended *Routine Rectal Exam Rectal:: deferred *Routine Genitalia Exam Genitalia:: deferred *Routine Extremities Exam Extremities: Present full ROM and pulses intact; Absent edema or calf tenderness *Routine Neurological Exam Neurological: Present alert, oriented X3, moving all extremities and normal speech; Absent altered mental status, nystagmus, facial asymmetry or tremors DS: Diagnosis Discharge Diagnosis (1) Pulmonary embolus, right: Status: Acute Code(s): I26.99 - Other pulmonary embolism without acute cor pulmonale (2) Elevated troponin: Status: Acute Code(s): R79.89 - Other specified abnormal findings of blood chemistry (3) Hypoxia: Status: Acute Code(s): R09.02 - Hypoxemia (4) Hypertension: Status: Acute Code(s): I10 - Essential (primary) hypertension Qualifiers: Hypertension type: primary hypertension Qualified Code(s): I10 - Essential (primary) hypertension (5) Fracture of left clavicle: Status: Acute Code(s): S42.002A - Fracture of unspecified part of left clavicle, initial encounter for closed fracture (6) Multiple fractures of ribs of left side: Status: Acute Code(s): S22.42XA - Multiple fractures of ribs, left side, initial encounter for closed fracture (7) History of CVA (cerebrovascular accident): Status: Chronic Code(s): Z86.73 - Personal history of transient ischemic attack (TIA), and cerebral infarction without residual deficits (8) Hypothyroid: Status: Chronic Code(s): E03.9 - Hypothyroidism, unspecified Qualifiers: Hypothyroidism type: acquired Qualified Code(s): E03.9 - Hypothyroidism, unspecified (9) Seizure disorder: Status: Chronic Code(s): G40.909 - Epilepsy, unspecified, not intractable, without status epilepticus (10) History of ischemic stroke in prior three months: Status: Acute Code(s): Z86.73 - Personal history of transient ischemic attack (TIA), and cerebral infarction without residual deficits (11) Arthritis: Status: Chronic Code(s): M19.90 - Unspecified osteoarthritis, unspecified site Meds Home Medications and Allergies Home Medications Medication Instructions Recorded Confirmed Type atorvastatin 40 mg tablet 40 mg PO HS 03/27/23 10/21/23 History clopidogrel 75 mg tablet 75 mg PO DAILY 03/27/23 10/21/23 History fluoxetine 10 mg capsule 10 mg PO DAILY 03/27/23 10/21/23 History gabapentin 100 mg capsule 100 mg PO HS 03/27/23 10/22/23 History levothyroxine 25 mcg tablet 25 mcg PO DAILYDM 03/27/23 10/21/23 History lisinopril 20 mg tablet 20 mg PO DAILY 03/27/23 10/21/23 History tiotropium 2.5 mcg-olodaterol 2.5 2 puff inhalation DAILY 03/27/23 10/21/23 History mcg/actuation mist for inhalation (Stiolto Respimat) apixaban 5 mg tablet (Eliquis) 5 mg PO BID #60 tabs 10/23/23 Rx levetiracetam 500 mg 1,000 mg (2 x 500 mg) PO DAILY 4 10/23/23 Rx tablet,extended release 24 hr weeks #56 tabs (Keppra XR) New Prescriptions to Start Prescriptions: apixaban [Eliquis] Ever Jara levetiracetam [Keppra XR] Ever Jara Allergies Allergy/AdvReac Type Severity Reaction Status Date / Time Iodine and Iodide Containing Allergy Intermediate I-RASH Verified 03/09/23 16:41 Produc Penicillins Allergy Intermediate I-RASH Verified 03/09/23 16:41 codeine Allergy Mild HYPER Verified 03/09/23 16:41 Discharge Plan Disposition Patient Disposition: Home Health Service Condition: Fair Discharge Order Discharge Orders: Discharge Order (Routine); Ordered 10/23/23 Ordered By: Ever Jara Follow up Plan Follow up with: Ever Jara MD [Primary Care Provider] - 10/30/23 11:00 am Prescriptions/Medication Reconciliation: New Eliquis 5 mg tablet 5 mg PO BID Qty: 60 0RF levetiracetam [Keppra XR] 500 mg tablet extended release 24 hr 1,000 mg PO DAILY 28 Days Qty: 56 0RF Continued atorvastatin 40 mg tablet 40 mg PO HS lisinopril 20 mg tablet 20 mg PO DAILY clopidogrel 75 mg tablet 75 mg PO DAILY levothyroxine 25 mcg tablet 25 mcg PO DAILYDM fluoxetine 10 mg capsule 10 mg PO DAILY gabapentin 100 mg capsule 100 mg PO HS Stiolto Respimat 2.5-2.5 mcg/actuation mist 2 puff INHALATION DAILY Discontinued carbamazepine 200 mg tablet extended release 12 hr 200 mg PO DAILY aspirin 81 mg Tablet,Delayed Release (Dr/Ec) 81 mg PO DAILY Problem Reconciliation Problems Reviewed?: Yes Patient Discharge Instructions ACTIVITY: Continue current activity DIET: continue same diet Additional Instructions: Patient needs continuos supplemental oxygen at 2 L/nc/min. Her room air O2 sat was 86% this morning. Patient Instructions: DI for Pulmonary Embolism, DI for Chest Pain, DI for Acute Kidney Injury Providers Primary Care Provider: Ever Jara Admit Provider: Sharon Lucero Attending Provider: Ever Jara
--- NOTE | 2023-10-25 14:33 | SW/DCPLANNER ---
Hospital discharge follow up phone call attempted twice w/ no answer LVM.
== END 2023-10-23 11:40 | disposition home health service (06) ==
LOC: ER 20:06 → 2ND 21:01
PROVIDERS: Physician Assistant; Admitting Provider Family Medicine; Emergency Provider Emergency Medicine; PCP Family Medicine; Visit Provider Family Medicine
DX: I26.99 Other pulmonary embolism without acute cor pulmonale (principal); S42.002A Fracture of unspecified part of left clavicle, initial encounter for closed fracture; S22.42XA Multiple fractures of ribs, left side, initial encounter for closed fracture; I69.320 Aphasia following cerebral infarction; E03.9 Hypothyroidism, unspecified; G40.909 Epilepsy, unspecified, not intractable, without status epilepticus; M19.90 Unspecified osteoarthritis, unspecified site; R79.89 Other specified abnormal findings of blood chemistry; R09.02 Hypoxemia; Z77.22 Contact with and (suspected) exposure to environmental tobacco smoke (acute) (chronic); E78.5 Hyperlipidemia, unspecified; F32.A Depression, unspecified; I12.9 Hypertensive chronic kidney disease with stage 1 through stage 4 chronic kidney disease, or unspecified chronic kidney disease; N18.30 Chronic kidney disease, stage 3 unspecified; J44.9 Chronic obstructive pulmonary disease, unspecified; Z79.899 Other long term (current) drug therapy; W19.XXXA Unspecified fall, initial encounter; R29.6 Repeated falls
CPT/HCPCS: 36415; 70450; 70496; 70498; 71045; 71275; 80048; 80053; 80061; 80307; 81001; 82803; 84443; 84484; 85007; 85014; 85018; 85025; 85027; 85048; 85049; 85378; 85610; 85730; 93005; 93306; 93970; 94640; 99285; G0378; J1200; J1650; J2405; J2919; J7120; Q9967

== ENCOUNTER 2023-11-06 11:24 | Inpatient (IN) | payer MEDICARE, SELFPAY ==
[2023-11-06] VITALS (13 sets, daily range): BP systolic 125–165; BP diastolic 73–110; PULSE 73–116; RESP 18–41; TEMP 36.6–37.7; O2SAT 88–96; BMI 34.0; BMI 34.4
--- NOTE | 2023-11-06 11:23 | ECG_ITS ---
APPROVED REPORT Exam: Resting ECG HR:90 bpm ECG Measurements Heart Rate 90 AXES MI 209 P 66 QRSd 84 QRS -11 QT 372 T 49 QTc 420 Conclusion Borderline first-degree AV block MODERATE ST DEPRESSION [0.05+ mV ST DEPRESSION] ABNORMAL ECG Abnormalities in artifact and baseline complicate interpretation, however there are no findings of STEMI Electronically signed by : COTY PEGUERO, 11/06/2023 16:14:30
--- NOTE | 2023-11-06 11:37 | XR_ITS ---
FINAL REPORT CLINICAL HISTORY: SOA chest pain COMPARISON: 10/21/2023 FINDINGS: SINGLE-VIEW CHEST The heart size is normal. The mediastinum is normal. There is an unfolded aorta. There are chronic changes in the lungs. There may be increased atelectasis at the bases. There is no pneumothorax. IMPRESSION: Chronic lung changes with possible increased atelectasis at the bases. Reviewed, Interpreted and Dictated by Rickie Chavez MD Transcribed by Samantha Fletcher Authenticated and [facility]
--- NOTE | 2023-11-06 11:42 | PC.NURSE ---
Rad in room for portable x-ray
--- NOTE | 2023-11-06 11:43 | PC.NURSE ---
in room talking with patient at this time.
[2023-11-06 11:45] LABS: Basophils % 0.1 % (0.1-2.0); Eosinophils # 0.3 K/mm3 (0.0-0.4); Eosinophils % 1.7 % (0.1-12.0); Hematocrit 42.7 % (37.0-47.0); Hemoglobin 14.2 g/dL (12.2-16.2); Lymphocytes # 0.2 K/mm3 (0.7-4.5); Lymphocytes % 1.4 % (10-50); Mean Corpuscular HGB Conc 33.2 g/dL (31.8-35.4); Mean Corpuscular Hemoglobin 32.8 pg (27.0-31.2); Mean Corpuscular Volume 98.8 fl (81-99); Monocytes # 0.1 K/mm3 (0.1-1.0); Monocytes % 0.8 % (1.7-9.3); Neutrophils # 16.4 K/mm3 (1.8-7.8); Platelet Count 183 K/mm3 (142-424); Red Blood Count 4.32 M/mm3 (4.20-5.40); Red Cell Distribution Width 14.2 % (11.5-17.5); White Blood Count 17.1 K/mm3 (4.8-10.8)
[2023-11-06 11:49] LABS: VBG Base Excess -0.1 mmol/L (-2.4-2.3); VBG HCO3 25.2 mmol/L (23-30); VBG Oxygen Saturation 91.8 % (50-70); VBG PCO2 44.7 mmol/L (35-51); VBG PH 7.37 mmol/L (7.31-7.41); VBG PO2 59.8 mmol/L (28-40); VBG Total CO2 26.6 mmol/L (23-27)
[2023-11-06 11:51] LABS: Lactate Venous 2.3 mmol/L (0.4-2.0)
--- NOTE | 2023-11-06 11:55 | CT_ITS ---
FINAL REPORT TECHNIQUE: Pre-and postcontrast images of the abdomen and pelvis were performed by computed tomography. Extensive 3-D reconstruction images were performed. A CTA was performed. This study was performed with techniques to keep radiation doses as low as reasonably achievable (ALARA). Individualized dose reduction techniques using automated exposure control or adjustment of mA and/or kV according to the patient''s size were employed. CLINICAL HISTORY: hematemesis COMPARISON: None FINDINGS: ABDOMEN AND PELVIS: Chronic scarring is present in the lung bases. Precontrast images demonstrate no evidence of nephrolithiasis. No adrenal masses are identified. There is mild fatty infiltration of the liver. The gallbladder is surgically absent. Right renal atrophy is present, with compensatory hypertrophy of the left kidney. There is a 1.3 cm left lower pole cyst. No evidence of extravasation of contrast to suggest a source for hematemesis is seen. CTA: The abdominal aorta is proper caliber. There are dense calcifications at the origin of the celiac axis, with no flow-limiting stenosis. The superior mesenteric artery is unremarkable in appearance. The NINFA is not well-seen. There is dense calcification of the origin of the left renal artery, which produces approximately 60% stenosis. The right renal artery is not visualized. The iliac arteries are patent. IMPRESSION: The right renal artery is not seen and there is right renal atrophy with compensatory hypertrophy of the left kidney. There is dense calcification at the left renal artery origin, and approximately 60% diameter stenosis. There is no evidence of extravasation of contrast to suggest a source for hematemesis. Reviewed, Interpreted and Dictated by Rickie Chavez MD Transcribed by Phyllis Wheeler Authenticated and [facility]
--- NOTE | 2023-11-06 11:55 | CT_ITS ---
FINAL REPORT TECHNIQUE: The patient was injected with IV contrast. Axial images were obtained through the chest in a PE protocol. 3-D reconstruction images were also performed. Individualized dose reduction techniques using automated exposure control or adjustment of the MA and/or KV according to patient's size were employed. CLINICAL HISTORY: soa, cp, recent PE FINDINGS: Mediastinal vasculature is adequately opacified. No pulmonary artery filling defects are identified to suggest PE. There is no aortic dissection. There is no axillary adenopathy. There is no hilar or mediastinal adenopathy. The heart size is normal. There is no pericardial or pleural effusion. Limited images of the upper abdomen are unremarkable. There is scarring in the lung bases. No suspicious infiltrate or nodule is identified. IMPRESSION: No pulmonary embolus or dissection. Reviewed, Interpreted and Dictated by Rickie Chavez MD Transcribed by Samantha Fletcher Authenticated and [facility]
--- NOTE | 2023-11-06 11:58 | HMH.EDCP ---
Discharge Plan Disposition Patient Disposition: Admitted Prescriptions Prescriptions: No Action atorvastatin 40 mg tablet 40 mg PO HS lisinopril 20 mg tablet 20 mg PO DAILY clopidogrel 75 mg tablet 75 mg PO DAILY levothyroxine 25 mcg tablet 25 mcg PO DAILYDM fluoxetine 10 mg capsule 10 mg PO DAILY gabapentin 100 mg capsule 100 mg PO HS Stiolto Respimat 2.5-2.5 mcg/actuation mist 2 puff INHALATION DAILY Eliquis 5 mg tablet 5 mg PO BID Qty: 60 0RF levetiracetam [Keppra XR] 500 mg tablet extended release 24 hr 1,000 mg PO DAILY 28 Days Qty: 56 0RF Referrals Follow up/Referrals: Ever Jara MD [Primary Care Provider] - See instructions Clinical Impressions Clinical Impression: Sepsis, Altered mental status Print Language Print Language: Nepali Discharge ED Provider: Carina Romero General Chief Complaint: Chest Pain Stated Complaint: Chest pain, black emesis Time Seen by Provider: 11/06/23 11:39 Mode of Arrival: Wheelchair Source of Information: Patient and Relative Limitations: No Limitations Description of Symptoms (Recalled from ER Triage Doc. by RN): pt c/o weakness, dizziness, sharp chest pain encompassing the whole chest that is sharp and 6/10. pt is moaning and looks uncomfertable. pts POA, her daughter in law, states she had an edisode of black emesis this am around 0900. pt was 88% on RA and is 92% on 2LNC. pt has a hx of COPD and is on oxygen at home. pt is A&O x4 Family reports she is on macrobid and that symtoms began after starting it. pt has received 2 doses. History of Present Illness HPI narrative: 78-year-old female with history of recent small heart attack as well as PE currently on clopidogrel and Eliquis presents to the ER for concerns of whole chest pain rated 6 out of 10. Patient also had 1 episode of emesis of food last night as well as dark emesis this morning twice. Patient does not recall the last time she had a bowel movement. Family at bedside states patient was diagnosed with a urinary tract infection by Dr. Jara yesterday and has taken 2 doses of nitrofurantoin. They report this has been an ongoing urinary tract infection that they have had difficulty controlling. Patient has a history of pulmonary problems and is back on oxygen at home. Patient is only oriented to self and location at this time. Family is concerned about ongoing lung problems as well as urinary tract infection. Patient reports she has pain all over. Related Data Home Medications ?Medication ?Instructions ?Recorded ?Confirmed atorvastatin 40 mg tablet 40 mg PO HS 03/27/23 11/06/23 clopidogrel 75 mg tablet 75 mg PO DAILY 03/27/23 11/06/23 fluoxetine 10 mg capsule 10 mg PO DAILY 03/27/23 11/06/23 gabapentin 100 mg capsule 100 mg PO HS 03/27/23 11/06/23 levothyroxine 25 mcg tablet 25 mcg PO DAILYDM 03/27/23 11/06/23 lisinopril 20 mg tablet 20 mg PO DAILY 03/27/23 11/06/23 tiotropium 2.5 mcg-olodaterol 2.5 2 puff inhalation DAILY 03/27/23 11/06/23 mcg/actuation mist for inhalation (Stiolto Respimat) Previous Rx's ?Medication ?Instructions ?Recorded apixaban 5 mg tablet (Eliquis) 5 mg PO BID #60 tabs 10/23/23 levetiracetam 500 mg 1,000 mg (2 x 500 mg) PO DAILY 4 10/23/23 tablet,extended release 24 hr weeks #56 tabs (Keppra XR) Allergies Allergy/AdvReac Type Severity Reaction Status Date / Time Iodine and Iodide Containing Allergy Intermediate I-RASH Verified 11/06/23 12:34 Produc Penicillins Allergy Intermediate I-RASH Verified 11/06/23 12:34 codeine Allergy Mild HYPER Verified 11/06/23 12:34 [facility] Disclaimer: The information contained in this section may have been updated after the patient was seen, as this information can be updated by other users. Medical History (Updated 11/06/23 @ 15:39 by Carina Romero MD) Fracture of left clavicle Multiple fractures of ribs of left side Hypothyroidism Hyperlipidemia Hypertension UTI (urinary tract infection) CVA (cerebral vascular accident) CVA, old, aphasia Epilepsy COPD (chronic obstructive pulmonary disease) Lumbar degenerative disc disease Lumbar spinal stenosis Chronic low back pain Retinal detachment History of ischemic stroke in prior three months Rupture of ligament of right elbow COVID-19 virus infection History of CVA (cerebrovascular accident) Hypothyroid Seizure disorder Arthritis Depression Hypertension Surgical History (Updated 10/06/23 @ 09:08 by Ever Jara MD) History of loop recorder History of cataract extraction History of cholecystectomy History of tubal ligation History of adenoidectomy History of tonsillectomy Social History (Updated 10/06/23 @ 09:08 by Ever Jara MD) Smoking Status: Never smoker alcohol intake: never current occupational status: disabled Travel in the last 8 weeks: None household members: none caffeine: Yes ROS Obtained: Yes All systems reviewed & no additional complaints except as documented Constitutional Constitutional: Denies chills, Reports fever(s) (Reported by family last night), Denies headache(s) and Reports weakness (Generalized) Eyes Eyes: Denies change in vision ENT Ears, Nose, Mouth, and Throat: Denies dizziness, Denies headache(s), Denies nasal congestion and Denies sore throat Cardiovascular Cardiovascular: Reports chest pain, Reports dyspnea and Denies leg edema Respiratory Respiratory: Denies cough and Reports dyspnea Gastrointestinal Gastrointestingal: Reports vomiting (Dark brown/black emesis); Denies constipation, diarrhea, hematochezia, melena or nausea Genitourinary Female Genitourinary: Denies dysuria, Denies hematuria and Reports other (Foul-smelling, extremely dark-colored urine according to family) Musculoskeletal Musculoskeletal: Denies arthralgias, Reports myalgias (Diffuse), Denies numbness and Denies tingling Integumentary/Breasts Skin/Breast: Denies change in pigmentation Neurologic Neurologic: Denies dizziness, Denies headache(s), Denies numbness, Denies tingling and Reports weakness (Generalized) Physical Exam General General appearance: alert, in no apparent distress and other (Chronically ill-appearing) Head Head exam: atraumatic and normocephalic Eye Eye exam: Present PERRL and EOMI ENT ENT exam: Present mucous membranes dry Neck Neck exam: Present normal inspection and full ROM Chest Chest inspection: Present symmetric chest wall rise Respiratory Respiratory exam: Present other (Diminished breath sounds throughout, tachypneic, saturating 92 to 94% on 2 L nasal cannula); Absent respiratory distress or stridor Cardiovascular Cardiovascular exam: Present regular rate and normal rhythm Abdominal Exam Abdominal exam: Present soft; Absent distention or tenderness Extremities Exam Extremities exam: Present full ROM Back Exam Back exam: Absent CVA tenderness (R) or CVA tenderness (L) Neurological Exam Neurological exam: Present alert; Absent oriented X3 (Oriented to self and location only) or motor sensory deficit Psychiatric Psychiatric exam: Present normal affect and normal mood Skin Skin exam: Present warm and dry HEART Score HEART Score HEART Score assessment performed?: Yes History (anamnesis): Slightly suspicious ECG: Non-specific disturbance Age: >65 years Risk factors: 3 or more risk factors Troponin: </= normal limit HEART Score: 5 Critical Care Critical Care Time Critical Care Time: Yes Attestation: On 11/06/23, the high probability of a clinically significant, sudden or life threatening deterioration of the following system(s) (neuro, respiratory, cardiac) required my full and direct attention, intervention and personal management. The time I documented below is in addition to time spent performing reported procedures but includes the following listed in this critical care notation. Total Time Total Critical Care Time: 35 Medical Decision Making Medical Records Medical records reviewed: Yes I reviewed the patient's medical records. MR Comment: Most recent cardiology progress note from October 22 demonstrates patient has preserved ejection fraction, she had a PE with hypoxia requiring oxygen and was recommended to start Eliquis which patient is still on. They discontinued her aspirin. At the time of that progress note they believed her elevated troponin was likely due to PE Joseph Inquiry Pt receiving controlled substance: No Vital Signs Vital Signs: 11/06/23 11:29 11/06/23 12:00 11/06/23 12:30 Temperature 98.2 F Temperature Source Oral Pulse Rate 89 92 H Pulse Rate [Left] 94 H Respiratory Rate 31 H 39 H 41 H Blood Pressure 160/99 H 154/92 H Blood Pressure [Right Arm] 165/110 H Blood Pressure Mean 119 Blood Pressure Mean [Right Arm] 128 Blood Pressure Source [Right Arm] Automatic Cuff Blood Pressure Position [Right Arm] Sitting 02 Sat by Pulse Oximetry 88 L 94 L 96 Oxygen Delivery Method Room Air Nasal Cannula Nasal Cannula Oxygen Flow Rate (LPM) 2 2 11/06/23 13:30 11/06/23 14:00 11/06/23 14:31 Temperature Temperature Source Pulse Rate 106 H 108 H 116 H Pulse Rate [Left] Respiratory Rate 31 H 36 H 31 H Blood Pressure 132/74 142/78 H 155/96 H Blood Pressure [Right Arm] Blood Pressure Mean Blood Pressure Mean [Right Arm] Blood Pressure Source [Right Arm] Blood Pressure Position [Right Arm] 02 Sat by Pulse Oximetry 96 96 93 L Oxygen Delivery Method Nasal Cannula Nasal Cannula Nasal Cannula Oxygen Flow Rate (LPM) 2 2 2 11/06/23 15:00 Temperature Temperature Source Pulse Rate 110 H Pulse Rate [Left] Respiratory Rate 31 H Blood Pressure 135/87 Blood Pressure [Right Arm] Blood Pressure Mean Blood Pressure Mean [Right Arm] Blood Pressure Source [Right Arm] Blood Pressure Position [Right Arm] 02 Sat by Pulse Oximetry 94 L Oxygen Delivery Method Nasal Cannula Oxygen Flow Rate (LPM) 2 Lab Data Labs: Lab Results 11/06/23 11:33: WBC 17.1 H, RBC 4.32, Hgb 14.2, Hct 42.7, MCV 98.8, MCH 32.8 H, MCHC 33.2, RDW 14.2, Plt Count 183, MPV 8.0, Neut % (Auto) 96.0 H, Lymph % (Auto) 1.4 L, Dodge % (Auto) 0.8 L, Eos % (Auto) 1.7, Baso % (Auto) 0.1, Neut # (Auto) 16.4 H, Lymph # (Auto) 0.2 L, Dodge # (Auto) 0.1, Eos # (Auto) 0.3, Baso # (Auto) 0.0, Total Counted 100, Neutrophils % (Manual) 96 H, Lymphocytes % (Manual) 2 L, Monocytes % (Manual) 1 L, Eosinophils % (Manual) 1, Platelet Estimate Normal, RBC Morphology Normal, PT 12.4, INR 1.12 H, Sodium 138, Potassium 4.3, Chloride 104, Carbon Dioxide 28, Anion Gap 10.3, BUN 28 H, Creatinine 1.20 H, Estimated Creat Clear 49, Estimated GFR 43 L, Est GFR ( Amer) 52 L, Glucose 121 H, Calcium 9.5, Total Bilirubin 0.7, AST 35, ALT 26, Alkaline Phosphatase 87, Troponin I 0.02, Total Protein 7.3, Albumin 4.0, Globulin 3.3 H, Albumin/Globulin Ratio 1.2 11/06/23 11:39: VBG pH 7.37, VBG pCO2 44.7, VBG pO2 59.8 H, VBG HCO3 25.2, VBG Total CO2 26.6, VBG O2 Saturation 91.8 H, VBG Base Excess -0.1, VBG Lactic Acid 2.3 H 11/06/23 12:12: Urine Color Yellow, Urine Appearance Clear, Urine pH 6.0, Ur Specific Cross [place]chor 1.025, Urine Protein Negative, Urine Glucose (UA) Negative, Urine Ketones Negative, Urine Blood 1+, Urine Nitrate Negative, Urine Bilirubin Negative, Urine Urobilinogen 0.2, Ur Leukocyte Esterase Negative, Urine RBC Occasional, Urine WBC Occasional, Ur Squamous Epith Cells 3-5, Urine Bacteria None 11/06/23 11:33 11/06/23 11:33 Response Orders (Tests/Meds): ED MEDICATIONS Discontinued Medications Generic Name Dose Route Start Last Admin Trade Name Freq PRN Reason Stop Dose Admin Albuterol/Ipratropium 9 ml 11/06/23 11:54 11/06/23 12:15 Ipratropium/Albuterol 3 Ml Neb IH 11/06/23 11:55 9 ml ONCE ONE Administration Diphenhydramine HCl 25 mg 11/06/23 12:02 11/06/23 12:16 Diphenhydramine 50mg/Ml Vial IV 11/06/23 12:03 25 mg ONCE ONE Administration Lactated Ringer's 1,500 mls @ 999 mls/hr 11/06/23 11:54 11/06/23 12:15 Lactated Ringer's 1000 Ml Bag IV 11/06/23 13:24 999 mls/hr .Q1H31M ONE Administration Cefepime HCl 2 gm/ Sodium 100 mls @ 200 mls/hr 11/06/23 12:00 11/06/23 13:11 Chloride IV 11/06/23 12:29 200 mls/hr ONCE ONE Administration Metronidazole 500 mg in 100 mls @ 100 mls/hr 11/06/23 12:00 11/06/23 12:15 Flagyl 500mg/100ml Ivpb IV 11/06/23 12:59 100 mls/hr ONCE ONE Administration Vancomycin/PEG/NADA/Lysine/Water 1.5 gm in 300 mls @ 150 mls/hr 11/06/23 12:15 11/06/23 14:48 Vancomycin 1.5gm/300ml (Peg) Premix IV 11/06/23 14:14 150 mls/hr ONCE ONE Administration Iopamidol 100 ml 11/06/23 13:08 11/06/23 13:10 Iopamidol-370 (76%);100ml Bottle IV 11/06/23 13:09 100 ml ONCE ONE Administration Miscellaneous 1 each 11/06/23 12:00 11/06/23 12:22 Vancomycin Consult Request NOTAPPLIC 12/06/23 11:59 Not Given CONSULT PHARMACY [facility] Ondansetron HCl 4 mg 11/06/23 14:28 11/06/23 14:32 Ondansetron 4mg/2ml Vial IV 11/06/23 14:29 4 mg ONCE ONE Administration Sodium Chloride 40 ml 11/06/23 13:08 11/06/23 13:10 0.9 % Sodium Chloride 50 Ml Vial IV 11/06/23 13:09 40 ml ONCE ONE Administration Sodium Chloride 10 ml 11/06/23 13:08 11/06/23 13:10 Sodium Chloride 0.9% 10ml Syr (Rad Only) IV 11/06/23 13:09 10 ml ONCE ONE Administration ORDERS Category Date Time Status CT angio abdomen pelvis Stat Cat Scan 11/06/23 11:[address] angio chest PE protocol Stat Cat Scan 11/06/23 11:[address] head/brain wo con Stat Cat Scan 11/06/23 12:59 Completed Chest XR -- portable [XR chest portable] Stat Exams 11/06/23 11:37 Completed Complete Blood Count Auto Diff Stat Lab 11/06/23 11:33 Completed Comprehensive Metabolic Panel Stat Lab 11/06/23 11:33 Completed PT INR [Prothrombin Time INR] Stat Lab 11/06/23 11:33 Completed Troponin I Q3H Lab 11/06/23 14:45 Ordered Troponin I Q3H Lab 11/06/23 17:45 Ordered Troponin I Stat Lab 11/06/23 11:33 Completed Urinalysis and Microscopic Stat Lab 11/06/23 12:12 Completed Blood Culture Stat Micro 11/06/23 12:07 Received Venous Blood Gas Stat RT 11/06/23 11:39 Completed Tissue Perfus/Sepsis Re-Eval Sepsis Re-Evaluation Performed: Yes Date Performed: 11/06/23 Time Performed: 15:00 [facility] Narrative Medical Decision Narrative: In summary, this 78-year-old female presents to the emergency department today with chest pain, diffuse bodyaches, generalized illness, concern for urinary tract infection and dark emesis per family. On initial evaluation patient is tachypneic but hemodynamically stable, afebrile, requiring nasal cannula, generally ill-appearing, diminished breath sounds throughout, family showed me a picture of dark brown/black emesis from this morning but abdomen is soft, nontender, nondistended, nonacute, no CVA tenderness at this time, patient is only oriented x 2, no localizing neurodeficits.. Differential diagnosis includes but is not limited to ACS, PE, pneumonia, pneumothorax, urinary tract infection, pyelonephritis, GI bleed, anemia, coagulopathy, patient is tachypneic, hypoxic, has diminished breath sounds, known urinary tract infection, and overall appears ill. I am treating her for sepsis. She is not getting a full sepsis bolus at this time since she has recent history of PE causing troponin elevation and is here for chest pain, if her workup is reassuring then I will add additional fluids but do not want to fluid overload her at this time. She is also receiving vancomycin, cefepime, Flagyl. Broad workup for the above differential has been ordered. ECG personally interpreted demonstrates normal sinus rhythm, rate 90, normal axis, patient has some baseline artifact with multiple areas of ST abnormality but nothing that meets criteria for STEMI. Repeat ECG ordered. Labs personally reviewed demonstrate leukocytosis with WBC 17.1, significantly increased from her visit in the middle of October, no anemia, PT/INR nonactionable, VBG with normal pH but lactic is elevated at 2.3, repeat lactic pending. No transaminitis. Initial troponin 0.02, this is actually improved from previous when patient had PE. UA not convincing for signs of infection, patient is currently being treated with Macrobid but given her worsening symptoms I do have concerns that Macrobid does not concentrate in the kidneys and patient could be showing signs of pyelonephritis.. CT head personally but it does not demonstrate any acute intracranial abnormality, CTA PE does not demonstrate findings of pneumonia or PE, CT abdomen pelvis does not demonstrate acute abnormalities. See radiology read for final interpretations. Repeat ECG also personally interpreted demonstrates similar findings to prior with sinus rhythm, normal axis, wandering baseline, no dynamic changes, no STEMI, no interval abnormalities. On reevaluation, patient is now more alert and mental status is improving. Given findings of sepsis and altered mental status on arrival I believe she requires admission. I discussed this with Dr. Jara and he agrees. Patient was accepted for admission.
[2023-11-06 12:00] LABS: Alanine Aminotransferase 26 U/L (12-78); Albumin/Globulin Ratio 1.2 (1.1-1.8); Alkaline Phosphatase 87 U/L (38-126); Anion Gap 10.3 mEq/L (5-15); Aspartate Amino Transferase 35 U/L (14-36); Bilirubin,Total 0.7 mg/dl (0.2-1.3); Blood Urea Nitrogen 28 mg/dl (7-17); Calcium 9.5 mg/dl (8.4-10.2); Carbon Dioxide 28 mmol/L (22.0-30.0); Chloride 104 mmol/L (98-107); Creatinine Clearance Estimated 49 mL/min (50-200); Estimated Glomerular Filt Rate 43 ml/min (>60); GFR (African American) 52 ML/MIN (>60); Globulin 3.3 g/dL (1.3-3.2); Glucose 121 mg/dl (74-100); Potassium 4.3 mmoL/L (3.5-5.1); Sodium 138 mmol/L (136-145); Total Protein,Serum 7.3 g/dl (6.3-8.2)
--- NOTE | 2023-11-06 12:03 | PC.NURSE ---
Dr. Romero states she is not giving the full sepsis bolus due to recent NM and SOA.
[2023-11-06 12:04] LABS: MANUAL DIFFERENTIAL MANUAL DIFFERENTIAL (MANUAL DIFF)
--- NOTE | 2023-11-06 12:04 | PC.NURSE ---
I called pharmacy and requested the vanc dose.
[2023-11-06 12:11] LABS: Troponin I 0.02 ng/ml (0.00-0.034)
--- NOTE | 2023-11-06 12:13 | ECG_ITS ---
APPROVED REPORT Exam: Resting ECG HR:87 bpm ECG Measurements Heart Rate 87 AXES TN 192 P 52 QRSd 92 QRS -6 QT 374 T 71 QTc 418 Conclusion SINUS RHYTHM MARKED ST ELEVATION, CONSIDER INFERIOR INJURY [MARKED ST ELEVATION W/O NORMALLY INFLECTED T-WAVE IN II/aVF] Wandering baseline, when ST elevation is compared to the baseline, there are no criteria for STEMI though there are abnormalities in the inferior leads No reciprocal changes Electronically signed by : COTY PEGUERO, 11/06/2023 16:15:30
[2023-11-06] MEDS: LACTATED RINGERS 1000ML 1,500 ML 999 ML IV (12:15)
[2023-11-06] MEDS: IPRATROPIUM/ALBUTEROL 3 ML NEB 9 ML IH (12:15)
[2023-11-06] MEDS: METRONIDAZ/SOD CHL 500 MG/100 ML PIGGYBACK 100 MG IV (12:15)
[2023-11-06] MEDS: diphenhydrAMINE 50MG/ML VIAL 25 MG IV (12:16)
[2023-11-06 12:26] LABS: INR 1.12 (0.9-1.1); Prothrombin Time 12.4 seconds (10.1-12.5)
[2023-11-06 12:30] LABS: Eosinophils % 1 % (0-3); Lymphocytes % 2 % (10-50); Monocytes % 1 % (2-9); Neutrophils % 96 % (42-76); Platelet Estimate Normal; RBC Morphology Normal; Total Cells Counted 100
--- NOTE | 2023-11-06 12:54 | PC.NURSE ---
pt out of room with Rad for CT
--- NOTE | 2023-11-06 12:59 | CT_ITS ---
FINAL REPORT TECHNIQUE: Axial CT images were performed through the head. Coronal reformatted images were submitted. This study was performed with techniques to keep radiation doses as low as reasonably achievable (ALARA). Individualized dose reduction techniques using automated exposure control or adjustment of mA and/or kV according to the patient's size were employed. CLINICAL HISTORY: confusion COMPARISON: 10/21/2023 FINDINGS: There is mild diffuse cortical atrophy. There is abnormal decreased signal throughout the deep white matter. There is localized encephalomalacia in the posterior left frontal lobe and in the medial left occipital lobe. These areas of encephalomalacia are stable, probably related to sequela of prior infarcts. There is no evidence of hemorrhage. There is no mass or edema identified. There is no abnormal extra-axial fluid seen. The sinuses are well aerated. IMPRESSION: Atrophy and chronic ischemic changes. Old infarcts without acute intracranial abnormality. Reviewed, Interpreted and Dictated by Rickie Chavez MD Transcribed by Samantha Fletcher Authenticated and . [facility]
[2023-11-06] MEDS: IOPAMIDOL-370 (76%);100ML BOTTLE 100 ML IV (13:10)
[2023-11-06] MEDS: 0.9 % SODIUM CHLORIDE 50 ML VIAL 40 ML IV (13:10)
[2023-11-06] MEDS: SODIUM CHLORIDE 0.9% 10ML SYR (RAD ONLY) 10 ML IV (13:10)
[2023-11-06] MEDS: CEFEPIME HCL 2 GM in 0.9 % SODIUM CHLORIDE 100 ML IV (13:11)
--- NOTE | 2023-11-06 13:23 | PC.NURSE ---
I rounded on the pt and took her a blanket and pillow. no new complaints at this time. call sawyer in reach. family bedside.
[2023-11-06 14:28] LABS: Microscopic, Urine URINE MICROSCOPIC (MICROSCOPIC)
[2023-11-06] MEDS: ONDANSETRON 4MG/2ML VIAL 4 MG IV (14:32)
[2023-11-06] MEDS: VANCOMYCIN/WATER FOR INJ (PEG) 1.5 GM/300 ML PIGGYBACK IV (14:48)
[2023-11-06 15:00] LABS: Appearance,Urine CLEAR (Clear); Bilirubin,Urine Negative (Negative); Blood, Urine 1+ (Negative); Color,Urine YELLOW (Yellow); Glucose,Urine (UA) Negative (Negative); Ketones,Urine Negative (Negative); Leukocyte Esterase,Urine Negative (Negative); Nitrate,Urine Negative (Negative); Protein,Urine Negative (Negative); Specific Gravity, Urine 1.025 (1.005-1.030); Urobilinogen,Urine 0.2 EU/dl (0.2)
--- NOTE | 2023-11-06 15:32 | PC.NURSE ---
Dr. Romero is s/w Dr. Jara for admission
--- NOTE | 2023-11-06 15:34 | PC.NURSE ---
call made to greenhouse assistant for bed placement
[2023-11-06 15:37] LABS: RBC,Urine Occasional #/hpf (0-3); WBC,Urine Occasional #/hpf (0-3)
--- NOTE | 2023-11-06 15:46 | PC.NURSE ---
report called to adilson on second floor
[2023-11-06 15:52] LABS: Reflex Lactic Add Lactic Reflex
--- NOTE | 2023-11-06 15:59 | PC.NURSE ---
arrived by stretcher from ED
[2023-11-06 16:25] LABS: Lactic Acid Follow Up (RFLX 1) 4.2 mmol/L (0.7-2.1)
[2023-11-06 16:54] LABS: Troponin I 0.03 ng/ml (0.00-0.034)
--- OUTSIDE RECORDS SUMMARY | 2023-11-06 17:25 | XMS_ITS ---
Author Organization [facility] Address [address] [facility] [address] [facility] [address] [place] [id number] Care Team Providers Care Pick Up Man Name Role Phone Ever Jara Primary Care Provider RESULTS Component Value Reference Range Notes Urinalysis - Inhouse Reviewed date:10/31/2023 04:10:32 PM Interpretation: Performing Lab: Notes/Report: Color/Clarity yellow/cloudy Leuk trace Nitrite neg Urobili 3.2 Protein neg pH 6.0 Blood neg Sp. Gr. 1.010 Ketone neg Bili neg Gluc neg bacteria WBC RBC REASON FOR VISIT urine sample Encounters Encounter Location Date Provider Diagnosis [facility] [address] [place] [phone] 10/31/2023 Ever Jara Dark urine R8 2.998 ASSESSMENTS Encounter Date Diagnosis Assessment Notes Treatment Notes Treatment Clinical Notes 10/31/2023 Dark urine (ICD-10 - R82.998) PLAN OF TREATMENT Next Appt Details Provider Name:Ever Awad ry, 11/27/2023 11:00:00 AM, [address] [facility] [address] [facility], [address], [place], [phone],
--- OUTSIDE RECORDS SUMMARY | 2023-11-06 17:25 | XMS_ITS ---
Author Organization [facility] Address [address] [facility] [address] [facility] [address] [place] [id number] Care Team Providers Care Stabilizer Operator Name Role Phone Ever Jara Primary Care Provider [phone] REASON FOR VISIT abnormal TENS panel MEDICATIONS Medication SIG (Take, Route, Fr equency, Duration) Notes Start Date End Date Status Macrobid 100 MG 1 capsule with food Orally every 12 hrs for 5 day(s) 11/04/2023 Active Encounters Encounter Location Date Provider Diagnosis [facility] [address] [facility] [address] [facility] [address] [place] [phone] 11/04/2023 Ever Jara PLAN OF TREATMENT Medication Medication Name Sig Start Date Stop Date Notes Macrobid 100 MG 1 capsule with food Orally every 12 hrs for 5 day(s) 11/04/2023 Next Appt Details Provider Name:Ever Awad ry, 11/27/2023 11:00:00 AM, [address] [facility] [address] [facility], [address], [place], [phone],
--- OUTSIDE RECORDS SUMMARY | 2023-11-06 17:25 | XMS_ITS ---
[facility] Address [address] [facility] [address] [facility] [address] [place] [phone] Care Team Providers Care Bakery Team Member Name Role Phone Ever Jara Primary Care Provider REASON FOR VISIT Test results* Encounters Encounter Location Date Provider Diagnosis [facility] [address] [facility] [address] [place] [phone] 11/04/2023 Ever Jara PLAN OF TREATMENT Next Appt Details Provider Name:Ever Awad ry, 11/27/2023 11:00:00 AM, [address] [facility], [address], [place], [phone],
--- OUTSIDE RECORDS SUMMARY | 2023-11-06 17:26 | XMS_ITS | Patient Health Record ---
Author Organization [facility] Address [address] [facility] [address] [place] [id number] Care Team Providers Care Therapy Site Coordinator Name Role Phone EstefaniMarisaEver Primary Care Provider [phone] Nabila Mooney [phone] RESULTS Component Value Reference Range Notes MRI : Brain w/o contrast Reviewed date:09/23/2023 11:00:12 AM Interpretation:acute infarct Performing Lab: Notes/Report: acute infarct Cardiac Event Monitor - 14 d ay Reviewed date:10/21/2023 04:27:28 PM Interpretation:10/21/2023 f/u appt Performing Lab: Notes/Report: 10/21/2023 f/u appt Urinalysis - Inhouse Reviewed date:10/31/2023 10:08:27 AM Interpretation: Performing Lab: Notes/Report: Color/Clarity Leuk Nitrite Urobili Protein pH Blood Sp. Gr. Ketone Bili Gluc bacteria WBC RBC P-Basic Metabolic Panel (BMP ) Reviewed date:11/04/2023 10:09:50 AM Interpretation:Cr 1.3, gfr 42 Performing Lab: Notes/Report: Test performed by [facility] , [address], [place] [address] Tuan Pelayo MD, Orthophotography Technician CLIA: [id number] Sodium 141 135-145 mmol/L Potassium 4.6 3.5-5.3 mmol/L Chloride 101 97-108 mmol/L CO2 28 22-32 mmol/L Glucose 88 65-99 mg/dL BUN 23 8-23 mg/dL Creatinine 1.30 0.50-1.00 mg/dL Calcium 9.4 8.6-10.4 mg/dL eGFR by Creatinine 42 >59 mL/min/1.73m2 P-Levetiracetam Reviewed date:11/04/2023 10:09:50 AM Interpretation:Normal Performing Lab: Notes/Report: Levetiracetam 33 10-40 ug/mL INTERPRETIVE INFORMATION: Keppra (Levetiracetam) Therapeutic Range: 10-40 ug/mL Toxic: Not well Established Pharmacokinetics of levetiracetam are affected by renal function. Adverse effects may include somnolence, weakness, headache and vomiting. This levetiracetam (Keppra) immunoassay uses the Beam[employer] reagents, which has known cross-reactivity with the drug brivaracetam (Briviact) and may report inaccurate results. Patients transitioning from levetiracetam to brivaracetam or those who are using both medications should not monitor drug concentrations with the [employer] assay. These patients should be monitored using a validated chromatographic methodology that distinguishes between drugs to determine drug concentrations. Performed By: [facility] [address] [place] [address] Orthophotography Technician: Sanchez Meza MD, PhD CLIA Number: [id number] P-Vitamin D 25-Hydroxy Reviewed date:11/04/2023 10:09:50 AM Interpretation:47.6 Performing Lab: Notes/Report: Test performed by [facility] [address] [place] [address] , [address] , [place] [address] Tuan Pelayo MD, Orthophotography Technician CLIA: [id number] Vitamin D 25-Hydroxy 47.6 30.0-100.0 ng/mL Interpretation of Vitamin D 25 OH: < 20 ng/mL - Deficiency 20 - 29 ng/mL - Insufficiency 30 - 100 ng/mL - Sufficiency > 100 ng/mL - Super-therapeutic- toxicity may occur above this level. Clinical correlation required. H-TSH Reviewed date:10/22/2023 08:21:24 AM Interpretation: Performing Lab: Notes/Report: TSH 0.87 0.465-4.68 uIU/mL H-BMP Reviewed date:10/23/2023 09:08:20 AM Interpretation: Performing Lab: Notes/Report: NA 136 136-145 mmol/L K 4.1 3.5-5.1 mmoL/L CL 103 98-107 mmol/L CO2 29 22.0-30.0 mmol/L GAP 8.1 5-15 mEq/L BUN 29 7-17 mg/dl CREATT 1.40 0.52-1.04 mg/dl CRCLE 43 50-200 mL/min GFRAA 44 >60 ML/MIN EGFR 36 >60 ml/min GLU 99 74-100 mg/dl CA 8.6 8.4-10.2 mg/dl M-Complete Blood Count Man D if Reviewed date:10/23/2023 09:08:20 AM Interpretation: Performing Lab: Notes/Report: WBC 6.7 4.8-10.8 K/mm3 Delta: 13.5 o n 10/21/23-UNK RBC 3.69 4.20-5.40 M/mm3 HGB 11.8 12.2-16.2 g/dL HCT 36.3 37.0-47.0 % MCV 98.2 81-99 fl MCH 31.9 27.0-31.2 pg MCHC 32.5 31.8-35.4 g/dL RDW 14.6 11.5-17.5 % PLT 185 142-424 K/mm3 MPV 8.2 7.4-10.4 fl NE% 69.0 37.0-80.0 % LY% 15.3 10-50 % MO% 6.1 1.7-9.3 % EO% 9.0 0.1-12.0 % BA% 0.6 0.1-2.0 % NE# 4.6 1.8-7.8 K/mm3 LY# 1.0 0.7-4.5 K/mm3 MO# 0.4 0.1-1.0 K/mm3 EO# 0.6 0.0-0.4 K/mm3 BA# 0.0 0-0.2 K/mm3 MDIFF MANUAL DIFFERENTIAL MANUAL DIFF TCC 100 NEUT%M 76 42-76 % LYMPH%M 14 10-50 % MONO%M 5 2-9 % EOS%M 5 0-3 % PLTE Normal RM Normal TEN-UTI panel Reviewed date:11/04/2023 09:01:53 AM Interpretation: Performing Lab: Notes/Report: Urinalysis - Inhouse Reviewed date:10/31/2023 04:10:32 PM Interpretation: Performing Lab: Notes/Report: Color/Clarity yellow/cloudy Leuk trace Nitrite neg Urobili 3.2 Protein neg pH 6.0 Blood neg Sp. Gr. 1.010 Ketone neg Bili neg Gluc neg bacteria WBC RBC MRI : Elbow, right, without contrast Reviewed date:02/06/2023 08:27:18 AM Interpretation:Please view report Performing Lab: Notes/Report: Please view report X ray : Elbow, right Reviewed date:01/17/2023 08:21:28 AM Interpretation:View report Performing Lab: Notes/Report: View report TEN-UTI panel Reviewed date:10/08/2023 11:40:49 AM Interpretation:sensitive Performing Lab: Notes/Report: sensitive Urinalysis - Inhouse Reviewed date:10/07/2023 11:28:58 AM Interpretation: Performing Lab: Notes/Report: Color/Clarity yellow/clear Leuk 1+ Nitrite neg Urobili 3.2 Protein neg pH 6.0 Blood neg Sp. Gr. 1.015 Ketone trace Bili neg Gluc neg bacteria WBC RBC MEDICATIONS Medication SIG (Take, Route, Frequency, Duration) Notes Start Date End Date Status Eliquis 5 MG 1 tab(s) Orally Two times a day for 90 days Active Lisinopril 20 MG Take 1 tablet by silvana th once daily for 90 days for 90 Active oxyCODONE HCl 5 MG 1 tablet as needed O rally every 4 hrs Active Gabapentin 100 MG 1 cap(s) orally 2 ti mes a day for 30 day(s) 10/09/2023 Active Meclizine HCl 12.5 MG Take 1 tablet by m outh three times daily as needed for 7 Active Clopidogrel Bisulfate 75 MG Take 1 table t by mouth once daily for 90 days Active Atorvastatin Calcium 40 MG Take 1 tablet by mouth once daily for 90 days Active Synthroid 25 MCG 1 tab(s) orally once a day for 90 days Active Calcium-Vitamin D-Minerals 600-800 MG-UNIT 1 tab(s) orally 2 times a day for 30 day(s) Active Vitamin D3 25 MCG (1000 UT) as directed orally once a day Active Macrobid 100 MG 1 capsule with food Orally every 12 hrs for 5 day(s) 11/04/2023 Active FLUoxetine HCl 10 MG Take 1 capsule by m outh once daily for 90 days Active Keppra 500 MG 2 tablet Orally once daily Active Stiolto Respimat 2.5-2.5 MCG/ACT INHALE 2 PUFFS BY MOUTH EVERY 24 HOURS for 90 days Active IMMUNIZATIONS Vaccine Route Administration Date Status Comme nts COVID 19 Moderna Unknown 06/14/2020 Administered COVID 19 Moderna Unknown 07/12/2020 Administered COVID 19 Moderna Unknown 02/27/2021 Administered DT, 7 YEARS OR OLDER Unknown 06/14/1996 Administered Fluzone High Dose (65yr and older) IM Intramuscular 04/09/2018 Administered Fluzone High Dose (65yr and older) IM Intramuscular 01/20/2020 Administered Fluzone High Dose (65yr and older) IM Intramuscular 12/27/2020 Administered given by Talia Connor Fluzone High Dose (65yr and older) IM Intramuscular 01/15/2022 Administered PNEUMOVAX 23 VACCINE IM Intramuscular 12/27/2020 Administered Given By Britt Connor Prevnar (PCV13) IM Intramuscular 10/08/2018 Administered Prevnar (PCV20) IM Intramuscular 01/15/2022 Administered Tetanus Tdap-Adacel (over 7yrs) IM Intramuscular 10/08/2018 Administered Tetanus Tdap-Adacel (over 7yrs) Unknown 01/05/2023 Administered SOCIAL HISTORY Sex Assigned At : Social History Observation Description Sex Assigned At Unknown PROBLEMS Problem Type ICD Code Onset Dates Problem Status W/U Status Risk SNOMED Code Notes Problem Essential (primary) hypertension (I10) Active confirmed 58040549 Problem Hypothyroidism (acquired) (E03.9) Active confirmed 340216803 Problem Vitamin D deficiency (E55.9) Active confirmed 78028144 Problem Essential hypertension (I10) Active confirmed 49665894 Problem Shortness of breath (R06.02) Active confirmed 299554294 Problem Osteopenia (M85.80) Active confirmed Os teopenia (837033637) Problem Arthritis (M19.90) Active confirmed 372 3001 Problem Osteoarthritis (M19.90) Active confirmed Osteoarthritis (343127108) Problem Lumbar facet arthropathy (M47.816) Active confirmed 691820911 Problem Hypocalcemia (E83.51) Active confirmed 6557318 Problem Seizure disorder (G40.909) Active confirmed 403056187 Problem Vitamin D deficiency, unspecified (E55.9) Active confirmed Vitamin D deficiency (91583469) Problem Urge incontinence (N39.41) Active confirmed 69224757 Problem Acquired hypothyroidism (E03.9) Active confirmed 115568745 Problem Chronic obstructive pulmonary disease, unspecified COPD type (J44.9) Active confirmed 80306758 Problem Ataxia (R27.0) Active confirmed 5826009 6 Problem Hyperlipidemia, unspecified hyperlipidemia type (E78.5) Active confirmed 84738944 Problem Altered mental status, unspecified altered mental status type (R41.82) Active confirmed 570982842 Problem Left sided sciatica (M54.32) Active confirmed 40477433 Problem Dyslipidemia (E78.5) Active confirmed 545026121 Problem Cerebrovascular accident (CVA), unspecified mechanism (I63.9) Active confirmed 413962040 Problem Memory deficit (R41.3) Active confirmed 823184129 Problem Depression, unspecified depression type (F32.9) Active confirmed 12338291 Problem Cerebrovascular accident (CVA) due to occlusion (I63.9) Active confirmed 501601452 Problem CVA, old, 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) Active confirmed 068736322 Problem Hearing loss, unspecified hearing loss type, unspecified laterality (H91.90) Active confirmed 63811937 Problem Nystagmus (H55.00) Active confirmed Nys tagmus (727123) Problem Vision loss, bilateral (H54.3) Active confirmed Blind or l ow vision - both eyes (073136430) Problem Arthropathy of right knee (M17.11) Active confirmed 959056177 Problem Stage 3b chronic kidney disease (N18.32) Active confirmed 685807329 Problem Chondrocalcinosis of right knee (M11.261) Active confirmed 8540085251082142 VITAL SIGNS Heart Rate 69 /min 10/30/2023 Blood pressure diastolic 80 mm Hg 10/30/2023 Height 62.50 in 10/30/2023 Blood pressure systolic 140 mm Hg 10/30/2023 Weight 178.6 lbs 10/30/2023 BMI 32.14 kg/m2 10/30/2023 Encounters Encounter Location Date Provider Diagnosis [facility] [address] [place], [place] [id number] 01/16/2023 [place] Right elbow pain M25 .521 [facility] [address] [facility] [address] [place], [place] [id number] 08/29/2023 R Saeid [place] Vertigo R42 ; Vision loss, bilateral H54.3 ; Nystagmus H55.00 and Ataxia R27.0 [facility] [address] [facility] [address] [place], [place] [id number] 09/18/2023 [place] Cerebrovascular acci dent (CVA), unspecified mechanism I63.9 and Ataxia R27.0 [facility] [address] [facility] [address] [place], [place] [id number] 10/04/2023 [place] Urinary tract infect ion, site not specified N39.0 and Hematuria, unspecified R31.9 [facility] [address] [facility] [address] [place] [id number] 10/21/2023 [place] [facility] [address] [place], [place] [id number] 10/30/2023 Ever [place] Acute pulmonary embolism, unspecified pulmonary embolism type, unspecified whether acute cor pulmonale present I26.99 ; Dark urine R82.998 ; Seizure disorder G40.909 ; Vitamin D deficiency E55.9 and Stage 3b chronic kidney disease N18.32 [facility] [address] [facility] [address] [place] [id number] 10/16/2023 [place] [facility] [address] [place], [place] [id number] 10/31/2023 [place] Dark urine R82.998 [facility] [address] [facility] [address] [place] [id number] 01/17/2023 Ever [place] Right elbow pain M25 .521 and Abnormal x-ray of extremity R93.6 [facility] [address] [facility] [address] [place], [place] [id number] 02/06/2023 [place] [facility] [address] [facility] [address] [place], [place] [id number] 04/10/2023 Ever [place] Left sided sciatica M54.32 [facility] [address] [place] [id number] 09/12/2023 [place] [facility] [address] [place] [id number] 09/25/2023 [place] [facility] [address] [place] [id number] 10/01/2023 [place] [facility] [address] [place] [id number] 10/09/2023 Ever [place] Left sided sciatica M54.32 [facility] [address] [place] [id number] 10/21/2023 [place] [facility] [address] [place] [id number] 11/04/2023 [place] [facility] [address] [place] [id number] 11/04/2023 Ever [place] ASSESSMENTS Encounter Date Diagnosis Assessment Notes Treatment Notes Treatment Clinical Notes 10/30/2023 Dark urine (ICD-10 - R82.998) 10/30/2023 Acute pulmonary embolism, unspecified pulmonary embolism type, unspecified whether acute cor pulmonale present (ICD-10 - I26.99) Room air O2 sat normal today. OK to discontinue continuous oxygen use 01/16/2023 Right elbow pain (ICD-10 - M25.521) 01/17/2023 Right elbow pain (ICD-10 - M25.521) 01/17/2023 Abnormal x-ray of extremity (ICD-10 - R93.6) 04/10/2023 Left sided sciatica (ICD-10 - M54.32) 08/29/2023 Vertigo (ICD-10 - R42) 08/29/2023 Vision loss, bilater al (ICD-10 - H54.3) 09/18/2023 Ataxia (ICD-10 - R27.0) 09/18/2023 Cerebrovascular accident (CVA), unspecified mechanism (ICD-10 - I63.9) MRI results reviewed in office today 10/04/2023 Urinary tract infection, site not specified (ICD-10 - N39.0) 10/04/2023 Hematuria, unspecifi ed (ICD-10 - R31.9) 10/09/2023 Left sided sciatica (ICD-10 - M54.32) 10/31/2023 Dark urine (ICD-10 - R82.998) 08/29/2023 Nystagmus (ICD-10 - H55.00) 10/30/2023 Seizure disorder (ICD-10 - G40.909) 10/30/2023 Vitamin D deficiency (ICD-10 - E55.9) 08/29/2023 Ataxia (ICD-10 - R27.0) 10/30/2023 Stage 3b chronic kidney disease (ICD-10 - N18.32) PLAN OF TREATMENT Pending Test Test Name Order Date P-Basic Metabolic Panel (BMP) 11/30/2021 P-Calcium, Ionized 11/30/2021 P-Iron 11/30/2021 Next Appt Details Provider Name:Ever Awad ry, 11/27/2023 11:00:00 AM, [address] [facility], [address], [place], [place], [id number], Insurance Providers Payer Name Payer Address Payer Phone Subscriber Number Group Number Insured Name Patient Relationship to Insured Coverage Start Date Coverage End Date [employer] (MEDICAR E) [address] [address] [place] [address] [id number] NENITA FARMER Self - patient is the insured MEDICATIONS ADMINISTERED Medication Instructions Date of Administration Dosage Notes Dexamethasone 08/20/2018 1 mL MEDICAL (GENERAL) HISTORY Medical History History ICD Code Hypertension Depression Arthritis Seizures Detached 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 Hypothyroidism CVA - 09/2015 LT Frontal Ischemic Stroke- 04/2016, Pfizer Covid Vaccine, Jul 2020 Lumbar Facet Arthropathy Lumbar Disc Disease Spinal Stenosis Sciatica Vitamin D deficiency Surgical History Surgery Date(Month/Year) Tonsillectomy Adenoidectomy Foot Cyst Removal Lubal Ligation Ear Tube Cholecystectomy 07/07/2007 RT Cataract 06/03/2012 Lower Lip Stitches 04/2013 Cardiac Loop Recorder Placement- [facility] Hospitalization History Reason Date(Month/Year) Stroke- [facility] 04/2016-05/2016 Nosebleed- [facility] ER 02/2017 LT Sided Chest Pain- [facility] 11/08-07/2020
[2023-11-06 17:58] LABS: Reflex Lactic (2 hrs) Add Lactic Reflex
--- NOTE | 2023-11-06 18:02 | EXP.HP ---
History of Present Illness *Admission Date: 11/06/23 *Reason for visit:: Chest pain *History of present illness: Ms. Katz is a 78 year old female patient of [facility], who presented to [facility] ER today with complaints of chest pain, nausea and vomiting and altered mental status. Patient was seen in the office a few days ago and was diagnosed with a UTI. Urine PCR showed multiple organism, and she was prescribed Macrobid as treatment, which she started yesterday. She had one small episode of vomiting last night. Today she vomited a large amount 2 times. Emesis was noted to be dark. Patient had chest pain and altered mental status after vomiting. She has had 2 recent hospital admission. The first for a fall with chest wall contusion and the second, most recent, for chest pain and was found to have a pulmonary embolism. She is currently being treated with Eliquis. [facility] Disclaimer: The information contained in this section may have been updated after the patient was seen, as this information can be updated by other users. Medical History (Updated 11/06/23 @ 18:13 by Ever Jara MD) Pulmonary embolus, right Fracture of left clavicle Multiple fractures of ribs of left side Hypothyroidism Hyperlipidemia Hypertension UTI (urinary tract infection) CVA (cerebral vascular accident) CVA, old, aphasia Epilepsy COPD (chronic obstructive pulmonary disease) Lumbar degenerative disc disease Lumbar spinal stenosis Chronic low back pain Retinal detachment History of ischemic stroke in prior three months Rupture of ligament of right elbow COVID-19 virus infection History of CVA (cerebrovascular accident) Hypothyroid Seizure disorder Arthritis Depression Hypertension Surgical History History of loop recorder History of cataract extraction History of cholecystectomy History of tubal ligation History of adenoidectomy History of tonsillectomy Social History Smoking Status: Never smoker alcohol intake: never current occupational status: disabled Travel in the last 8 weeks: None household members: none caffeine: Yes Review of Systems Constitutional Constitutional: Denies chills, Reports fever(s) (subjective), Reports headache(s) (after vomiting) and Reports weakness (Generalized) ENT Ears, Nose, Mouth, and Throat: Denies dizziness and Reports headache(s) (after vomiting) *Cardiovascular Cardiovascular: Reports as per HPI and Reports chest pain *Respiratory Respiratory: Denies cough *Gastrointestinal Gastrointestinal: Reports as per HPI and Denies loose stools *Genitourinary Genitourinary: Denies difficulty voiding *Musculoskeletal Musculoskeletal: Denies numbness and Denies tingling *Neurologic Neurologic: Denies dizziness, Reports headache(s) (after vomiting), Denies numbness, Denies tingling and Reports weakness (Generalized) Meds Home Medications and Allergies Home Medications ?Medication ?Instructions ?Recorded ?Confirmed ?Type atorvastatin 40 mg tablet 40 mg PO HS 03/27/23 11/06/23 History clopidogrel 75 mg tablet 75 mg PO DAILY 03/27/23 11/06/23 History fluoxetine 10 mg capsule 10 mg PO DAILY 03/27/23 11/06/23 History gabapentin 100 mg capsule 100 mg PO HS 03/27/23 11/06/23 History levothyroxine 25 mcg tablet 25 mcg PO DAILYDM 03/27/23 11/06/23 History lisinopril 20 mg tablet 20 mg PO DAILY 03/27/23 11/06/23 History tiotropium 2.5 mcg-olodaterol 2.5 2 puff inhalation DAILY 03/27/23 11/06/23 History mcg/actuation mist for inhalation (Stiolto Respimat) apixaban 5 mg tablet (Eliquis) 5 mg PO BID #60 tabs 10/23/23 11/06/23 Rx levetiracetam 500 mg 1,000 mg (2 x 500 mg) PO DAILY 4 10/23/23 11/06/23 Rx tablet,extended release 24 hr weeks #56 tabs (Keppra XR) New Prescriptions to Start Prescriptions: Allergies Allergy/AdvReac Type Severity Reaction Status Date / Time Iodine and Iodide Containing Allergy Intermediate I-RASH Verified 11/06/23 12:34 Produc Penicillins Allergy Intermediate I-RASH Verified 11/06/23 12:34 codeine Allergy Mild HYPER Verified 11/06/23 12:34 Exam Data for Last 24 hours Vital signs and Labs for Last 24 Hours: Temp Pulse Resp BP Pulse Ox O2 Del Method O2 Flow Rate 98 F 99 H 22 125/81 96 Nasal Cannula 2 11/06/23 16:00 11/06/23 16:00 11/06/23 16:00 11/06/23 16:00 11/06/23 16:00 11/06/23 17:05 11/06/23 17:05 Laboratory Results - last 24 hr 11/06/23 11:33: WBC 17.1 H, RBC 4.32, Hgb 14.2, Hct 42.7, MCV 98.8, MCH 32.8 H, MCHC 33.2, RDW 14.2, Plt Count 183, MPV 8.0, Neut % (Auto) 96.0 H, Lymph % (Auto) 1.4 L, [place] % (Auto) 0.8 L, Eos % (Auto) 1.7, Baso % (Auto) 0.1, Neut # (Auto) 16.4 H, Lymph # (Auto) 0.2 L, [place] # (Auto) 0.1, Eos # (Auto) 0.3, Baso # (Auto) 0.0, Total Counted 100, Neutrophils % (Manual) 96 H, Lymphocytes % (Manual) 2 L, Monocytes % (Manual) 1 L, Eosinophils % (Manual) 1, Platelet Estimate Normal, RBC Morphology Normal, PT 12.4, INR 1.12 H, Sodium 138, Potassium 4.3, Chloride 104, Carbon Dioxide 28, Anion Gap 10.3, BUN 28 H, Creatinine 1.20 H, Estimated Creat Clear 49, Estimated GFR 43 L, Est GFR ( Amer) 52 L, Glucose 121 H, Calcium 9.5, Total Bilirubin 0.7, AST 35, ALT 26, Alkaline Phosphatase 87, Troponin I 0.02, Total Protein 7.3, Albumin 4.0, Globulin 3.3 H, Albumin/Globulin Ratio 1.2 11/06/23 11:39: VBG pH 7.37, VBG pCO2 44.7, VBG pO2 59.8 H, VBG HCO3 25.2, VBG Total CO2 26.6, VBG O2 Saturation 91.8 H, VBG Base Excess -0.1, VBG Lactic Acid 2.3 H 11/06/23 12:12: Urine Color Yellow, Urine Appearance Clear, Urine pH 6.0, Ur Specific [place] 1.025, Urine Protein Negative, Urine Glucose (UA) Negative, Urine Ketones Negative, Urine Blood 1+, Urine Nitrate Negative, Urine Bilirubin Negative, Urine Urobilinogen 0.2, Ur Leukocyte Esterase Negative, Urine RBC Occasional, Urine WBC Occasional, Ur Squamous Epith Cells 3-5, Urine Bacteria None 11/06/23 15:42: Lactate 4.2 H 11/06/23 16:26: Troponin I 0.03 I & O for Last 24 hours: Intake & Output 11/03/23 11/04/23 11/05/23 11/06/23 23:59 23:59 23:59 23:59 Intake Total 300 / 300 Balance 300 / 300 Weight 182 lb 12.8 oz Constitutional Constitutional: no acute distress *Routine HEENT Exam Head: Present normocephalic Eye: Present EOMI and PERRL ENT: Present mucous membranes moist *Routine Neck Exam Neck: Present supple; Absent lymphadenopathy *Routine Respiratory Exam Respiratory: Present CTA bilaterally *Routine Cardiovascular Exam Cardiovascular: Present RRR *Routine Abdominal Exam Abdominal: Present soft and normoactive bowel sounds; Absent tenderness *Routine Rectal Exam Rectal:: deferred *Routine Genitalia Exam Genitalia:: deferred *Routine Extremities Exam Extremities: Absent cyanosis, clubbing or edema *Routine Skin Exam Skin: Present warm; Absent rash *Routine Neurological Exam Neurological: Present alert and oriented X3 Assessment and Plan *Assessment and plan (1) UTI (urinary tract infection): Status: Acute Category: Medical Code(s): N39.0 - Urinary tract infection, site not specified (2) N&V (nausea and vomiting): Status: Acute Category: Medical Code(s): R11.2 - Nausea with vomiting, unspecified (3) Sepsis: Status: Acute Category: Medical Code(s): A41.9 - Sepsis, unspecified organism (4) Pulmonary embolus, right: Status: Acute Category: Medical Code(s): I26.99 - Other pulmonary embolism without acute cor pulmonale (5) Hypoxia: Status: Acute Category: Medical Code(s): R09.02 - Hypoxemia (6) Hypothyroid: Status: Chronic Qualifiers: Hypothyroidism type: acquired Qualified Code(s): E03.9 - Hypothyroidism, unspecified Category: Medical Code(s): E03.9 - Hypothyroidism, unspecified (7) Seizure disorder: Status: Chronic Category: Medical Code(s): G40.909 - Epilepsy, unspecified, not intractable, without status epilepticus (8) Hypertension: Status: Acute Qualifiers: Hypertension type: primary hypertension Qualified Code(s): I10 - Essential (primary) hypertension Category: Medical Code(s): I10 - Essential (primary) hypertension (9) Chest pain: Status: Resolved Qualifiers: Chest pain type: unspecified Qualified Code(s): R07.9 - Chest pain, unspecified Category: Medical Code(s): R07.9 - Chest pain, unspecified (10) Altered mental status: Status: Acute Category: Medical Code(s): R41.82 - Altered mental status, unspecified Plan Patient admitted for further evaluation and management. She seems better now after receiving IVF and Antibiotics in the ER. Plan to continue treatment for UTI, monitor labs, will start Protonix and continue Eliquis.
[2023-11-06 19:12] LABS: Lactic Acid Follow up (RFLX 2) 2.5 mmol/L (0.7-2.1)
[2023-11-06 19:23] LABS: Troponin I 0.04 ng/ml (0.00-0.034)
--- NOTE | 2023-11-06 20:09 | PC.NURSE ---
Contacted Dr. Jara with family concerns of fluid intake and HS medications. Pt is quiet but cooperative, denies pain and nausea. current vitals are as follows: BP: 136/82, HR: 100, RR: 18, Temp: 99.8, O2: 96% 2L O2. Pt received sepsis bolus and has had a total of [address] output [address] Jara advised to monitor and encourage intake as pt can tolerate d/t previous N/V upon admission to ED. new orders for gabapentin 100 mg obtained at this time.
[2023-11-06] MEDS: APIXABAN 5MG TABLET 5 MG PO (20:49)
[2023-11-06] MEDS: ATORVASTATIN 40MG TABLET 40 MG PO (20:49)
[2023-11-06] MEDS: GABAPENTIN 100MG CAPSULE 100 MG PO (20:49)
[2023-11-06] MEDS: SODIUM CHLORIDE 0.9% 10ML VIAL 10 ML IV (20:50)
[2023-11-06] MEDS: PANTOPRAZOLE 40MG VIAL 40 MG IV (20:50)
[2023-11-06] MEDS: ACETAMINOPHEN 325MG TAB 650 MG PO (20:50)
--- NOTE | 2023-11-06 22:55 | PC.NURSE ---
Pt temp 99.8 with 1999 Q4 vitals, Gave Pt tylenol @2049, Rechecked Pt Temp @2199 (101.3), checked pt temp again at this time (98.3). Pt is resting comfortably and denies pain nausea and needs.
[2023-11-07 04:00] VITALS: BP 135/66; PULSE 76; RESP 20; TEMP 36.8; O2SAT 97; BMI 34.4
--- NOTE | 2023-11-07 05:18 | PC.NURSE ---
Pt is alert and oriented x4 with moments of confusion. Pt has been fatigued and weak this shift and ran a fever of up to 101.3 and was treated per MAR, Pt most recent temp was 98.3. Pt has rested well for the most part of the shift, denies pain and other needs. Staff and family members have encouraged pt to drink fluids. No other acute changes to note at this time. Pt daughter is at beside
[2023-11-07] MEDS: CEFEPIME HCL 2 GM in 0.9 % SODIUM CHLORIDE 100 ML IV ×2 (06:11→17:12)
[2023-11-07] MEDS: LEVOTHYROXINE 25MCG (0.025MG) TAB 25 MCG PO (06:12)
[2023-11-07 07:01] LABS: Anion Gap 6.8 mEq/L (5-15); Blood Urea Nitrogen 26 mg/dl (7-17); Calcium 8.5 mg/dl (8.4-10.2); Carbon Dioxide 28 mmol/L (22.0-30.0); Chloride 104 mmol/L (98-107); Creatinine Clearance Estimated 43 mL/min (50-200); Estimated Glomerular Filt Rate 36 ml/min (>60); GFR (African American) 44 ML/MIN (>60); Glucose 90 mg/dl (74-100); Potassium 3.8 mmoL/L (3.5-5.1); Sodium 135 mmol/L (136-145)
[2023-11-07 07:04] LABS: Basophils % 0.2 % (0.1-2.0); Eosinophils # 0.5 K/mm3 (0.0-0.4); Eosinophils % 4.7 % (0.1-12.0); Hematocrit 36.9 % (37.0-47.0); Lymphocytes # 0.4 K/mm3 (0.7-4.5); Lymphocytes % 3.9 % (10-50); Mean Corpuscular Hemoglobin 31.9 pg (27.0-31.2); Mean Corpuscular Volume 99.5 fl (81-99); Mean Platelet Volume 8.1 fl (7.4-10.4); Monocytes # 0.2 K/mm3 (0.1-1.0); Monocytes % 2.4 % (1.7-9.3); Neutrophils # 8.4 K/mm3 (1.8-7.8); Neutrophils % 88.8 % (37.0-80.0); Platelet Count 164 K/mm3 (142-424); Red Blood Count 3.71 M/mm3 (4.20-5.40); Red Cell Distribution Width 14.6 % (11.5-17.5); White Blood Count 9.5 K/mm3 (4.8-10.8)
[2023-11-07 07:25] LABS: MANUAL DIFFERENTIAL MANUAL DIFFERENTIAL (MANUAL DIFF)
--- NOTE | 2023-11-07 07:41 | EXP.ACUTE.PN ---
Subjective *Date: 11/07/23 *Time: 08:53 Interval history: States she is doing better. She denies any pain and shortness of breath. Granddaughter states she does have a cough. She has been able able to eat without difficulty. She has been up to the bedside commode. Repeat labs this morning CBC with normal white blood cell count at 9500. Repeat blood chemistry sodium is 135 potassium is 3.8 BUN is 26 and creatinine is 1.4. Medical Exam Vital signs and Labs for Last 24 Hours: Vital Signs Temp Pulse Pulse Resp BP BP Pulse Ox 11/07/23 06:45 11/07/23 05:00 11/07/23 04:00 98.3 F 76 20 135/66 97 11/07/23 03:00 11/07/23 00:57 11/06/23 23:58 98.9 F 73 18 131/73 95 11/06/23 23:00 11/06/23 21:00 11/06/23 20:00 96 11/06/23 20:00 99.8 F H 100 H 18 136/82 96 11/06/23 18:39 11/06/23 17:05 11/06/23 16:15 11/06/23 16:00 98 F 99 H 22 125/81 96 11/06/23 15:54 97 H 35 H 125/81 96 11/06/23 15:50 98.8 F 103 H 30 H 125/81 11/06/23 15:30 107 H 36 H 142/79 H 94 L 11/06/23 15:00 110 H 31 H 135/87 94 L 11/06/23 14:31 116 H 31 H 155/96 H 93 L 11/06/23 14:00 108 H 36 H 142/78 H 96 11/06/23 13:30 106 H 31 H 132/74 96 11/06/23 12:30 92 H 41 H 154/92 H 96 11/06/23 12:00 89 39 H 160/99 H 94 L 11/06/23 11:29 98.2 F 94 H 31 H 165/110 H 88 L O2 Del Method O2 Flow Rate 11/07/23 06:45 Nasal Cannula 2 11/07/23 05:00 Nasal Cannula 2 11/07/23 04:00 Nasal Cannula 2 11/07/23 03:00 Nasal Cannula 2 11/07/23 00:57 Nasal Cannula 2 11/06/23 23:58 Nasal Cannula 2 11/06/23 23:00 Nasal Cannula 2 11/06/23 21:00 Nasal Cannula 2 11/06/23 20:00 Nasal Cannula 2 11/06/23 20:00 Nasal Cannula 2 11/06/23 18:39 Nasal Cannula 2 11/06/23 17:05 Nasal Cannula 2 11/06/23 16:15 Nasal Cannula 2 11/06/23 16:00 11/06/23 15:54 Nasal Cannula 2 11/06/23 15:50 Nasal Cannula 2 11/06/23 15:30 Nasal Cannula 2 11/06/23 15:00 Nasal Cannula 2 11/06/23 14:31 Nasal Cannula 2 11/06/23 14:00 Nasal Cannula 2 11/06/23 13:30 Nasal Cannula 2 11/06/23 12:30 Nasal Cannula 2 11/06/23 12:00 Nasal Cannula 2 11/06/23 11:29 Room Air Intake and Output 11/06/23 11/07/23 11/07/23 19:59 03:59 11:59 Intake Total 300 / 300 120 / 420 Balance 300 / 300 120 / 420 Intake: Intake, Oral Amount 120 / 120 Intake, Total IV Amount 300 / 300 Vancomycin/Water For Inj (Peg) 300 / 300 1.5 gm In 300 ml @ 150 mls/hr IV ONCE ONE Rx#:[id number] Other: Weight 182 lb 12.8 oz 182 lb 4.8 oz Patient Weight 11/07/23 11:59 Weight 182 lb 4.8 oz Laboratory Results - last 24 hr 11/06/23 11:33: WBC 17.1 H, RBC 4.32, Hgb 14.2, Hct 42.7, MCV 98.8, MCH 32.8 H, MCHC 33.2, RDW 14.2, Plt Count 183, MPV 8.0, Neut % (Auto) 96.0 H, Lymph % (Auto) 1.4 L, [place] % (Auto) 0.8 L, Eos % (Auto) 1.7, Baso % (Auto) 0.1, Neut # (Auto) 16.4 H, Lymph # (Auto) 0.2 L, [place] # (Auto) 0.1, Eos # (Auto) 0.3, Baso # (Auto) 0.0, Total Counted 100, Neutrophils % (Manual) 96 H, Lymphocytes % (Manual) 2 L, Monocytes % (Manual) 1 L, Eosinophils % (Manual) 1, Platelet Estimate Normal, RBC Morphology Normal, PT 12.4, INR 1.12 H, Sodium 138, Potassium 4.3, Chloride 104, Carbon Dioxide 28, Anion Gap 10.3, BUN 28 H, Creatinine 1.20 H, Estimated Creat Clear 49, Estimated GFR 43 L, Est GFR ( Amer) 52 L, Glucose 121 H, Calcium 9.5, Total Bilirubin 0.7, AST 35, ALT 26, Alkaline Phosphatase 87, Troponin I 0.02, Total Protein 7.3, Albumin 4.0, Globulin 3.3 H, Albumin/Globulin Ratio 1.2 11/06/23 11:39: VBG pH 7.37, VBG pCO2 44.7, VBG pO2 59.8 H, VBG HCO3 25.2, VBG Total CO2 26.6, VBG O2 Saturation 91.8 H, VBG Base Excess -0.1, VBG Lactic Acid 2.3 H 11/06/23 12:12: Urine Color Yellow, Urine Appearance Clear, Urine pH 6.0, Ur Specific [place] 1.025, Urine Protein Negative, Urine Glucose (UA) Negative, Urine Ketones Negative, Urine Blood 1+, Urine Nitrate Negative, Urine Bilirubin Negative, Urine Urobilinogen 0.2, Ur Leukocyte Esterase Negative, Urine RBC Occasional, Urine WBC Occasional, Ur Squamous Epith Cells 3-5, Urine Bacteria None 11/06/23 15:42: Lactate 4.2 H 11/06/23 16:26: Troponin I 0.03 11/06/23 18:46: Lactate 2.5 H, Troponin I 0.04 H 11/07/23 05:38: WBC 9.5 D, RBC 3.71 L, Hct 36.9 L, MCV 99.5 H, MCH 31.9 H, MCHC 32.0, RDW 14.6, Plt Count 164, MPV 8.1, Neut % (Auto) 88.8 H, Lymph % (Auto) 3.9 L, [place] % (Auto) 2.4, Eos % (Auto) 4.7, Baso % (Auto) 0.2, Neut # (Auto) 8.4 H, Lymph # (Auto) 0.4 L, [place] # (Auto) 0.2, Eos # (Auto) 0.5 H, Baso # (Auto) 0.0, Sodium 135 L, Potassium 3.8, Chloride 104, Carbon Dioxide 28, Anion Gap 6.8, BUN 26 H, Creatinine 1.40 H, Estimated Creat Clear 43, Estimated GFR 36 L, Est GFR ( Amer) 44 L, Glucose 90 D, Calcium 8.5 I & O for Labs for Last 24 Hours: Intake & Output 11/04/23 11/05/23 11/06/23 11/07/23 11:59 11:59 11:59 11:59 Intake Total 420 / 420 Balance 420 / 420 Weight 180 lb 182 lb 4.8 oz Constitutional: Present no acute distress Comment:: Sitting up in the bed drinking her coffee after breakfast. Appears most comfortable. Respiratory: Present CTA bilaterally (Anteriorly and posteriorly) GI: Present soft and normal bowel sounds; Absent distention or tenderness Extremities: Present full ROM; Absent edema or calf tenderness Neuro: Present alert (And seems oriented) and awake Assessment and Plan *Assessment and plan (1) UTI (urinary tract infection): Status: Acute Category: Medical Code(s): N39.0 - Urinary tract infection, site not specified (2) N&V (nausea and vomiting): Status: Acute Category: Medical Code(s): R11.2 - Nausea with vomiting, unspecified (3) Sepsis: Status: Acute Category: Medical Code(s): A41.9 - Sepsis, unspecified organism (4) Pulmonary embolus, right: Status: Acute Category: Medical Code(s): I26.99 - Other pulmonary embolism without acute cor pulmonale (5) Hypoxia: Status: Acute Category: Medical Code(s): R09.02 - Hypoxemia (6) Hypothyroid: Status: Chronic Qualifiers: Hypothyroidism type: acquired Qualified Code(s): E03.9 - Hypothyroidism, unspecified Category: Medical Code(s): E03.9 - Hypothyroidism, unspecified (7) Seizure disorder: Status: Chronic Category: Medical Code(s): G40.909 - Epilepsy, unspecified, not intractable, without status epilepticus (8) Hypertension: Status: Acute Qualifiers: Hypertension type: primary hypertension Qualified Code(s): I10 - Essential (primary) hypertension Category: Medical Code(s): I10 - Essential (primary) hypertension (9) Chest pain: Status: Resolved Qualifiers: Chest pain type: unspecified Qualified Code(s): R07.9 - Chest pain, unspecified Category: Medical Code(s): R07.9 - Chest pain, unspecified (10) Altered mental status: Status: Acute Category: Medical Code(s): R41.82 - Altered mental status, unspecified Plan Continue cefepime. Cultures are pending. Encourage out of bed activity. Dr. Jara entry - Saw patient, agree with above note. She has had very little oral intake, will start IVF now, still has some chest pain this morning, still requiring supplemental O2.
[2023-11-07 07:53] VITALS: BP 128/69; PULSE 75; RESP 18; TEMP 37; O2SAT 97
[2023-11-07 08:14] LABS: Eosinophils % 1 % (0-3); Lymphocytes % 2 % (10-50); Neutrophils % 93 % (42-76); Total Cells Counted 100
[2023-11-07 08:15] LABS: Ovalocytes 1+; Platelet Estimate Normal
[2023-11-07 08:18] LABS: RBC Morphology Normal
[2023-11-07 08:28] LABS: Hemoglobin 11.8 g/dL (12.2-16.2)
[2023-11-07] MEDS: FLUOXETINE 10MG CAPSULE 10 MG PO (08:33)
[2023-11-07] MEDS: SODIUM CHLORIDE 0.9% 10ML VIAL 10 ML IV ×2 (08:33→20:15)
[2023-11-07] MEDS: PANTOPRAZOLE 40MG VIAL 40 MG IV ×2 (08:33→20:15)
[2023-11-07] MEDS: APIXABAN 5MG TABLET 5 MG PO ×2 (08:33→20:15)
[2023-11-07] MEDS: LISINOPRIL 20MG TABLET 20 MG PO (08:35)
[2023-11-07] MEDS: 0.9 % SODIUM CHLORIDE 1000ML 1,000 ML 75 ML IV ×2 (09:12→23:57)
[2023-11-07] MEDS: LEVETIRACETAM 500 MG 2 EACH PO (09:12)
--- NOTE | 2023-11-07 09:23 | HMH.PHAINT1 ---
Pharmacy Intervention Comments: HOME MEDICATION LIST VERIFIED USING LIST FROM OUTPATIENT PHARMACY
[2023-11-07 11:38] VITALS: BP 124/75; PULSE 76; RESP 18; TEMP 37; O2SAT 99
[2023-11-07 16:00] VITALS: BP 114/60; PULSE 72; RESP 17; TEMP 37.3; O2SAT 92
--- NOTE | 2023-11-07 16:00 | PC.NURSE ---
pt was on 2L o2 NC this am w/ sat of 99%. Pt reduced to 1L w/ sat of 98%. pt removed off of O2 and tolerating well w/ sats 97-99%
--- NOTE | 2023-11-07 16:23 | PC.NURSE ---
pt reevaluated on RA- Sats are 97%
--- NOTE | 2023-11-07 18:35 | PC.NURSE ---
Pt is alert and oriented x4. Pt has slept majority of the shift with family at bedside. Pt denies pain and other needs. Staff and family members have encouraged pt to drink fluids, but pt is not compliant. pt was on 2L NC at beginning of shift but has since been weaned to RA and tolerated well with sats between 97-99%. Pt home Keppra approved through pharmacy and placed in omni. pt family is to bring in home inhailer tomorrow. abx administered per jun. NS running @ 75. VSS. pt has no complaints or questions at this time.
[2023-11-07 20:00] VITALS: BP 128/65; PULSE 77; RESP 18; TEMP 37.4; O2SAT 92
[2023-11-07] MEDS: ATORVASTATIN 40MG TABLET 40 MG PO (20:15)
[2023-11-07] MEDS: GABAPENTIN 100MG CAPSULE 100 MG PO (20:15)
[2023-11-08] VITALS: BP 141/87; PULSE 82; RESP 16; TEMP 37.2; O2SAT 93
[2023-11-08 04:00] VITALS: BP 142/82; PULSE 77; RESP 16; TEMP 36.9; O2SAT 98; BMI 35.2
[2023-11-08] MEDS: ACETAMINOPHEN 325MG TAB 650 MG PO (05:58)
[2023-11-08] MEDS: CEFEPIME HCL 2 GM in 0.9 % SODIUM CHLORIDE 100 ML IV ×2 (05:59→18:28)
[2023-11-08] MEDS: LEVOTHYROXINE 25MCG (0.025MG) TAB 25 MCG PO (06:01)
[2023-11-08 06:02] LABS: Basophils % 0.4 % (0.1-2.0); Eosinophils # 0.6 K/mm3 (0.0-0.4); Eosinophils % 13.5 % (0.1-12.0); Hematocrit 34.2 % (37.0-47.0); Hemoglobin 11.1 g/dL (12.2-16.2); Lymphocytes # 0.6 K/mm3 (0.7-4.5); Lymphocytes % 14.3 % (10-50); Mean Corpuscular HGB Conc 32.5 g/dL (31.8-35.4); Mean Corpuscular Hemoglobin 32.3 pg (27.0-31.2); Mean Corpuscular Volume 99.3 fl (81-99); Mean Platelet Volume 8.3 fl (7.4-10.4); Monocytes # 0.2 K/mm3 (0.1-1.0); Monocytes % 4.3 % (1.7-9.3); Neutrophils % 67.5 % (37.0-80.0); Platelet Count 153 K/mm3 (142-424); Red Blood Count 3.44 M/mm3 (4.20-5.40); Red Cell Distribution Width 14.4 % (11.5-17.5); White Blood Count 4.4 K/mm3 (4.8-10.8)
[2023-11-08 06:19] LABS: Anion Gap 5.7 mEq/L (5-15); Blood Urea Nitrogen 24 mg/dl (7-17); Calcium 8.2 mg/dl (8.4-10.2); Carbon Dioxide 25 mmol/L (22.0-30.0); Chloride 106 mmol/L (98-107); Creatinine Clearance Estimated 51 mL/min (50-200); Estimated Glomerular Filt Rate 43 ml/min (>60); GFR (African American) 52 ML/MIN (>60); Glucose 95 mg/dl (74-100); Potassium 3.7 mmoL/L (3.5-5.1); Sodium 133 mmol/L (136-145)
[2023-11-08 08:00] VITALS: BP 134/81; PULSE 70; RESP 16; TEMP 36.8; O2SAT 95
[2023-11-08] MEDS: LEVETIRACETAM 500 MG 2 EACH PO (08:34)
[2023-11-08] MEDS: PANTOPRAZOLE 40MG VIAL 40 MG IV ×2 (08:34→20:25)
[2023-11-08] MEDS: FLUOXETINE 10MG CAPSULE 10 MG PO (08:34)
[2023-11-08] MEDS: LISINOPRIL 20MG TABLET 20 MG PO (08:34)
[2023-11-08] MEDS: APIXABAN 5MG TABLET 5 MG PO ×2 (08:34→20:25)
[2023-11-08] MEDS: SODIUM CHLORIDE 0.9% 10ML VIAL 10 ML IV ×2 (08:34→20:25)
[2023-11-08] MEDS: PATIENT'S OWN HOME MEDICATION (Tiotropium-Olodaterol [Stiolto Respimat] 2.5-2.5 mcg/actuat 2 EACH IH (08:35)
--- NOTE | 2023-11-08 08:46 | EXP.ACUTE.PN ---
Subjective *Date: 11/08/23 *Time: 08:46 Interval history: Patient states she is tired this morning, was up urinating a lot overnight, had a headache last night but non now, was able to wean off of supplemental oxygen. Medical Exam Vital signs and Labs for Last 24 Hours: Vital Signs Temp Pulse Resp BP Pulse Ox O2 Del Method O2 Flow Rate 11/08/23 08:00 98.2 F 70 16 134/81 95 Room Air 11/08/23 06:37 Nasal Cannula 2 11/08/23 05:00 Nasal Cannula 2 11/08/23 04:00 98.4 F 77 16 142/82 H 98 Nasal Cannula 2 11/08/23 03:00 Nasal Cannula 2 11/08/23 01:00 Room Air 11/08/23 00:00 99.0 F 82 16 141/87 H 93 L Nasal Cannula 2 11/07/23 23:00 Room Air 11/07/23 21:00 Room Air 11/07/23 20:00 Nasal Cannula 2 11/07/23 20:00 99.4 F 77 18 128/65 92 L Room Air 11/07/23 18:27 Room Air 11/07/23 17:00 Room Air 11/07/23 16:00 99.1 F 72 17 114/60 92 L Room Air 11/07/23 15:00 Nasal Cannula 1 11/07/23 13:00 Nasal Cannula 2 11/07/23 11:38 98.6 F 76 18 124/75 99 Nasal Cannula 2 11/07/23 11:00 Nasal Cannula 2 11/07/23 09:00 Nasal Cannula 2 Intake and Output 11/07/23 11/08/23 11/08/23 23:59 07:59 15:59 Intake Total 591 / 1121 950 / 1310 360 / 1310 Output Total 50 / 50 0 / 0 Balance 541 / 1071 950 / 1310 360 / 1310 Intake: Intake, Oral Amount 240 / 600 360 / 600 Intake, Other Amount 591 / 591 Intake, Total IV Amount 710 / 710 0.9 % Sodium Chloride 1000ML 1, 610 / 610 000 ml @ 75 mls/hr IV .[id number] BOB Rx#:[id number] Cefepime HCl 2 gm In 0.9 % 100 / 100 Sodium Chloride 100 ml @ 200 mls/hr IV Q12H BOB Rx#:[id number] Output: Output, Urine Amount 50 / 50 0 / 0 Other: Number of Voids 1 Number of Unmeasured Voids 1 1 Weight 186 lb 12.8 oz Patient Weight 11/08/23 23:59 Weight 186 lb 12.8 oz Laboratory Results - last 24 hr 11/08/23 05:17: WBC 4.4 L D, RBC 3.44 L, Hgb 11.1 L, Hct 34.2 L, MCV 99.3 H, MCH 32.3 H, MCHC 32.5, RDW 14.4, Plt Count 153, MPV 8.3, Neut % (Auto) 67.5, Lymph % (Auto) 14.3, [place] % (Auto) 4.3, Eos % (Auto) 13.5 H, Baso % (Auto) 0.4, Neut # (Auto) 3.0, Lymph # (Auto) 0.6 L, [place] # (Auto) 0.2, Eos # (Auto) 0.6 H, Baso # (Auto) 0.0, Sodium 133 L, Potassium 3.7, Chloride 106, Carbon Dioxide 25, Anion Gap 5.7, BUN 24 H, Creatinine 1.20 H, Estimated Creat Clear 51, Estimated GFR 43 L, Est GFR ( Amer) 52 L, Glucose 95, Calcium 8.2 L I & O for Labs for Last 24 Hours: Intake & Output 11/05/23 11/06/23 11/07/23 11/08/23 23:59 23:59 23:59 23:59 Intake Total 300 / 420 1121 / 1121 1310 / 1310 Output Total 50 / 50 0 / 0 Balance 300 / 420 1071 / 1071 1310 / 1310 Weight 182 lb 12.8 oz 182 lb 4.8 oz 186 lb 12.8 oz Microbiology Reports for the Last 24 Hours: Microbiology 11/06/23 12:07 Blood Blood Culture - Preliminary NO GROWTH AFTER 24 HOURS 11/06/23 11:33 Blood Blood Culture - Preliminary NO GROWTH AFTER 24 HOURS Constitutional: Present no acute distress Respiratory: Present CTA bilaterally (Anteriorly and posteriorly) GI: Present soft and normal bowel sounds; Absent distention or tenderness Extremities: Present full ROM; Absent edema or calf tenderness Neuro: Present alert (And seems oriented) and awake Assessment and Plan *Assessment and plan (1) UTI (urinary tract infection): Status: Acute Category: Medical Code(s): N39.0 - Urinary tract infection, site not specified (2) N&V (nausea and vomiting): Status: Acute Category: Medical Code(s): R11.2 - Nausea with vomiting, unspecified (3) Sepsis: Status: Acute Category: Medical Code(s): A41.9 - Sepsis, unspecified organism (4) Pulmonary embolus, right: Status: Acute Category: Medical Code(s): I26.99 - Other pulmonary embolism without acute cor pulmonale (5) Hypoxia: Status: Acute Category: Medical Code(s): R09.02 - Hypoxemia (6) Hypothyroid: Status: Chronic Qualifiers: Hypothyroidism type: acquired Qualified Code(s): E03.9 - Hypothyroidism, unspecified Category: Medical Code(s): E03.9 - Hypothyroidism, unspecified (7) Seizure disorder: Status: Chronic Category: Medical Code(s): G40.909 - Epilepsy, unspecified, not intractable, without status epilepticus (8) Hypertension: Status: Acute Qualifiers: Hypertension type: primary hypertension Qualified Code(s): I10 - Essential (primary) hypertension Category: Medical Code(s): I10 - Essential (primary) hypertension (9) Chest pain: Status: Resolved Qualifiers: Chest pain type: unspecified Qualified Code(s): R07.9 - Chest pain, unspecified Category: Medical Code(s): R07.9 - Chest pain, unspecified (10) Altered mental status: Status: Acute Category: Medical Code(s): R41.82 - Altered mental status, unspecified (11) Anemia: Status: Resolved Category: Medical Code(s): D64.9 - Anemia, unspecified Plan N/V have resolved. Patient is still very weak. Plan to saline lock IVF today. Continue Cefepime.
--- NOTE | 2023-11-08 10:42 | HMH.PTEV ---
Physical Therapy Evaluation Rehab PT IP Evaluation Start: 11/08/23 08:49 Freq: ONCE Status: Active Protocol: Document 11/08/23 10:37 RAMBO (Rec: 11/08/23 10:42 RAMBO [id number]) Subjective/History History History Per H&P: Ms. Katz is a 78 year old female patient of [facility], who presented to [facility] ER today with complaints of chest pain, nausea and vomiting and altered mental status. Patient was seen in the office a few days ago and was diagnosed with a UTI. Urine PCR showed multiple organism, and she was prescribed Macrobid as treatment, which she started yesterday. She had one small episode of vomiting last night . Today she vomited a large amount 2 times. Emesis was noted to be dark. Patient had chest pain and altered mental status after vomiting. She has had 2 recent hospital admission. The first for a fall with chest wall contusion and the second, most recent, for chest pain and was found to have a pulmonary embolism. She is currently being treated with Eliquis. Subjective Subjective Pt reports she usually lives alone but her daughter and family have been staying with her since September. Pt reports she is normally IND with mobility and ambulation using a RW. Pt 's home has 3 [address] and 12 steps to the shower on the second floor. Pt was not driving prior to admission. New diagnosis of cancer in past 12 No months? Rehab PT IP Eval Objective Appearance Patient Behavior Appropriate,Cooperative Patient Orientation Person,Place Difficulty following instructions none Ambulation Patient Able to Ambulate Yes Ambulation Observation IP General Gait Pattern Observation Antalgic Gait,Wide Based Gait Ambulation Distance (feet) 25 Ambulation Assistive Device Rolling Walker Ambulation Ability Minimal x 1 (25% assist) Balance Ability to Arise Able, uses arms to help Sitting Balance Steady, safe Standing Balance Unsteady Transfers Bed Transfer Ability Moderate x 1 (50% assist) Sit to Stand Bed Transfer Ability Minimal x 1 (25% assist) Rehab PT IP prob,goals,plan Problems Date of Evaluation: 11/08/23 PT IP Problems Bed Mobility,Transfers,Gait, Balance,Safety Rehab Potential Rehab Potential Good Equipment Needs Assistive Devices Rolling / Wheeled Walker Plan PT Intervention Plan Bed Mobility,Transfers,Gait, Balance,Safety,Therapeutic Exercise Other Intervention Plan 1-2 times PT Plan Frequency Daily Duration LOS Discharge Goals Bed Transfer Ability Contact Guard/Hand Hold Sit to Stand Chair Transfer Ability Contact Guard/Hand Hold Ambulation Assistive Device Rolling Walker Ambulation Distance (feet) 30 Discharge Plan PT Discharge Plan Initial physical therapy evaluation performed. Patient presents below baseline at this time in functional mobility, transfers, gait, and strength. Pt not safe to return home at this time d/t current level of functional mobility. PT recommending short-term rehabilitation stay upon d/c from [facility]. Pt may be safe to d/c home with assistance as needed by family and PT services if pt demo 's improved mobility while at [facility]. Pt would benefit from skilled acute care PT to prevent further functional decline and maximize safety with mobility. Eval Complexity Eval Charge Codes 19273 - Moderate Complexity PHYSICIAN CERTIFICATION: I certify the specified therapy services for Tika Gerard are required, authorized, and reviewed every 30 days.
--- NOTE | 2023-11-08 10:48 | HMH.OTEV ---
OT Inpatient Evaluation Rehab OT IP Evaluation Start: 11/08/23 08:49 Freq: ONCE Status: Active Protocol: Document [facility]08[facility]23 10:[facility] (Rec: 11/08/23 10:48 [facility] [id number]) Rehab OT IP Assessment Subjective History Pt oriented x 3 on arrival. Pt agreeable to engage in therapy evaluation. Pt's daughter present and supportive of evaluation. Pt' s complain at this time is severe left leg pain. Pt admitted on 11/06/23 due to AMS and sepsis. History and physical report: Ms. Katz is a 78 year old female patient of [facility], who presented to [facility] ER today with complaints of chest pain, nausea and vomiting and altered mental status. Patient was seen in the office a few days ago and was diagnosed with a UTI. Urine PCR showed multiple organism, and she was prescribed Macrobid as treatment, which she started yesterday. She had one small episode of vomiting last night . Today she vomited a large amount 2 times. Emesis was noted to be dark. Patient had chest pain and altered mental status after vomiting. She has had 2 recent hospital admission. The first for a fall with chest wall contusion and the second, most recent, for chest pain and was found to have a pulmonary embolism. She is currently being treated with Eliquis. Subjective My leg is hurting so bad I can't move it well. Pt reports prior to being in the hospital, pt was living at home alone. Within the past month family has been staying with her 29/10. Normally pt is able to complete most ADLs independently such as dressing and feeding. Recently family has been assisting with bathing for increased safety. Pt is dependent upon family for completion of all IADLs. Pt does have steps in her home ~12 steps to get to the bathroom. There is not bathroom on first floor. Objective Patient Orientation Person,Place,Birthday Right Upper Extremity Gross ROM WFL Left Upper Extremity Gross ROM WFL Bed Mobility bed mobility-scooting,bed mobility - supine/sit Assist Level Minimal x 2 (25% assist) Transfer Training Sit/Stand Transfer Assist Level Minimal x 1 (25% assist) Chair Transfer Ability Minimal x 1 (25% assist) Chair Transfer Technique Sit to/from Ambulatory Chair Transfer Assistive Devices Rolling Walker Lower Body Dressing Ability Maximum Assistance Performing Toilet Hygiene Ability Maximum Assistance Overall Commode/Toilet Transfer Ability Minimal Assistance Commode/Toilet Transfer Technique Sit to/from Ambulatory Rehab OT IP prob,goals,plan Problems Date of Evaluation: 11/08/23 OT IP Problems Bed Mobility,Transfers,Balance ,Self care,Safety Rehab Potential Rehab Potential Good Equipment Needs Assistive Devices Rolling / Wheeled Walker Plan OT intervention Plan Bed Mobility,Transfers,Balance ,Self care,Safety,Therapeutic Exercise OT Plan Frequency Daily Duration LOS Discharge Goals Bed Mobility Ability Standby Assistance Sit to Stand Chair Transfer Ability Contact Guard/Hand Hold Chair Transfer Ability Contact Guard/Hand Hold Chair Transfer Technique Sit to/from Ambulatory Chair Transfer Assistive Devices Rolling Walker Feeding Ability Assist with Tray Set Up Lower Body Dressing Ability Minimal Assistance Upper Body Dressing Ability Contact Guard Bathing Ability Minimal Assistance Performing Toilet Hygiene Ability Minimal Assistance Overall Commode/Toilet Transfer Ability Minimal Assistance Commode/Toilet Transfer Technique Sit to/from Ambulatory Commode/Toilet Transfer Assistive Grab Bars Devices Oral Care Assist Contact Guard Decrease in Endurance Yes Discharge Plan OT Discharge Plan After OT evaluation, pt presents below baseline. Pt will continue to be seen for OT services while at [facility]. Pt would benefit most from short term rehab at [facility]. However, pt seems reluctant on this issue and wants to return home . If she does return home pt needs 24/7 care from family and OT evaluation for continued skilled therapy. Continued skilled therapy is important in order for patient to improve strength, safety, endurance, ADL independence, and functional transfers to reach PLOF. Eval Complexity Eval Charge Codes 23423 - Moderate Complexity PHYSICIAN CERTIFICATION: I certify the specified therapy services for Tika Katz are required, authorized, and reviewed every 30 days.
--- NOTE | 2023-11-08 11:34 | SW/DCPLANNER ---
Addendum entered by Hafsa Gaspar 11/08/23 14:17: Per Jennifer patient has been approved SNF level of care. MD has been updated and stated that patient will be ready for discharge tomorrow pending no setbacks. Addendum entered by Hafsa Gaspar 11/08/23 11:54: Jennifer patel/ [facility] stated that she can accept patient and will start auth today. I will updated patient and family. Original Note: I spoke w/ patient and her daughter in law (POA) this AM regarding plans once medically stable for discharge. PT/OT evaluated patient and recommended SNF level of care. [facility] Patient information has been faxed to Jennifer patel/ JERRY at this time. I will continue to follow up w/ patient, family, MD and [facility]. Discharge date is unknown at this time.
--- NOTE | 2023-11-08 14:25 | CA_ITS ---
FINAL REPORT TECHNIQUE: Ultrasound images of the deep venous system were obtained from the left groin to the calf veins. CLINICAL HISTORY: Pain and swelling in left lower extremity Pt had PE 2 wks ago on Eliquis since that time COMPARISON: 10/22/2023 FINDINGS: The deep venous system is normally compressible. Normal flow is identified. IMPRESSION: No evidence of visible thrombus in the left lower extremity. Reviewed, Interpreted and Dictated by Rickie Chavez MD Transcribed by Sheron Small Authenticated and [facility]
[2023-11-08 16:00] VITALS: BP 137/80; PULSE 77; RESP 19; TEMP 36.9; O2SAT 96
[2023-11-08 20:00] VITALS: BP 144/79; PULSE 72; RESP 16; TEMP 37.1; O2SAT 95
[2023-11-08] MEDS: ATORVASTATIN 40MG TABLET 40 MG PO (20:25)
[2023-11-08] MEDS: GABAPENTIN 100MG CAPSULE 100 MG PO (20:25)
[2023-11-09] VITALS: BP 131/79; PULSE 72; RESP 14; TEMP 36.6; O2SAT 91
[2023-11-09 04:00] VITALS: BP 147/78; PULSE 69; RESP 16; TEMP 36.7; O2SAT 95; BMI 35.2
[2023-11-09] MEDS: CEFEPIME HCL 2 GM in 0.9 % SODIUM CHLORIDE 100 ML IV (06:17)
[2023-11-09] MEDS: LEVOTHYROXINE 25MCG (0.025MG) TAB 25 MCG PO (06:17)
[2023-11-09] MEDS: PATIENT'S OWN HOME MEDICATION (Tiotropium-Olodaterol [Stiolto Respimat] 2.5-2.5 mcg/actuat 2 EACH IH (06:37)
[2023-11-09 08:00] VITALS: BP 140/88; PULSE 74; RESP 22; TEMP 36.8; O2SAT 92
[2023-11-09] MEDS: FLUOXETINE 10MG CAPSULE 10 MG PO (08:08)
[2023-11-09] MEDS: LEVETIRACETAM 500 MG 2 EACH PO (08:08)
[2023-11-09] MEDS: SODIUM CHLORIDE 0.9% 10ML VIAL 10 ML IV (08:08)
[2023-11-09] MEDS: PANTOPRAZOLE 40MG VIAL 40 MG IV (08:08)
[2023-11-09] MEDS: APIXABAN 5MG TABLET 5 MG PO (08:08)
[2023-11-09] MEDS: LISINOPRIL 20MG TABLET 20 MG PO (08:08)
--- NOTE | 2023-11-09 08:55 | EXP.ACUTE.PN ---
Subjective *Date: 11/09/23 *Time: 09:05 Interval history: Patient feels a little better this morning. She was able to sit up in a chair yesterday. No new complaints. Venous doppler ultrasound of leg done and is negative. Medical Exam Vital signs and Labs for Last 24 Hours: Vital Signs Temp Pulse Resp BP Pulse Ox O2 Del Method 11/09/23 08:48 Room Air 11/09/23 08:00 98.3 F 74 22 140/88 92 L Room Air 11/09/23 06:40 Room Air 11/09/23 05:00 Room Air 11/09/23 04:00 98.1 F 69 16 147/78 H 95 Room Air 11/09/23 03:00 Room Air 11/09/23 01:00 Room Air 11/09/23 00:00 97.9 F 72 14 131/79 91 L Room Air 11/08/23 23:00 Room Air 11/08/23 21:00 Room Air 11/08/23 20:00 Room Air 11/08/23 20:00 98.8 F 72 16 144/79 H 95 Room Air 11/08/23 18:40 Room Air 11/08/23 17:00 Room Air 11/08/23 16:00 98.4 F 77 19 137/80 96 Room Air 11/08/23 15:00 Room Air 11/08/23 13:00 Room Air 11/08/23 10:51 Room Air 11/08/23 09:00 Room Air Intake and Output 11/08/23 11/09/23 11/09/23 23:59 07:59 15:59 Intake Total 270 / 1940 340 / 700 360 / 700 Output Total 0 / 0 0 / 0 0 / 0 Balance 270 / 1940 340 / 700 360 / 700 Intake: Intake, Oral Amount 270 / 1230 240 / 600 360 / 600 Intake, Total IV Amount 100 / 100 Cefepime HCl 2 gm In 0.9 % 100 / 100 Sodium Chloride 100 ml @ 200 mls/hr IV Q12H [facility] Rx#:[id number] Output: Output, Urine Amount 0 / 0 0 / 0 0 / 0 Other: Number of Voids 2 0 Number of Unmeasured Voids 2 1 Weight 186 lb 12.798 oz Patient Weight 11/09/23 23:59 Weight 186 lb 12.798 oz I & O for Labs for Last 24 Hours: Intake & Output 11/06/23 11/07/23 11/08/23 11/09/23 23:59 23:59 23:59 23:59 Intake Total 300 / 420 1121 / 1121 1939 700 / 700 Output Total 50 / 50 0 / 0 0 / 0 Balance 300 / 420 1071 / 1071 1939 700 / 700 Weight 182 lb 12.8 oz 182 lb 4.8 oz 186 lb 12.8 oz 186 lb 12.798 oz Microbiology Reports for the Last 24 Hours: Microbiology 11/06/23 12:07 Blood Blood Culture - Preliminary NO GROWTH AFTER 48 HOURS 11/06/23 11:33 Blood Blood Culture - Preliminary NO GROWTH AFTER 48 HOURS Constitutional: Present no acute distress Respiratory: Present CTA bilaterally (Anteriorly and posteriorly) GI: Present soft and normal bowel sounds; Absent distention or tenderness Extremities: Present full ROM; Absent edema or calf tenderness Neuro: Present alert (And seems oriented) and awake Assessment and Plan *Assessment and plan (1) UTI (urinary tract infection): Status: Acute Category: Medical Code(s): N39.0 - Urinary tract infection, site not specified (2) N&V (nausea and vomiting): Status: Acute Category: Medical Code(s): R11.2 - Nausea with vomiting, unspecified (3) Sepsis: Status: Acute Category: Medical Code(s): A41.9 - Sepsis, unspecified organism (4) Pulmonary embolus, right: Status: Acute Category: Medical Code(s): I26.99 - Other pulmonary embolism without acute cor pulmonale (5) Hypoxia: Status: Acute Category: Medical Code(s): R09.02 - Hypoxemia (6) Hypothyroid: Status: Chronic Qualifiers: Hypothyroidism type: acquired Qualified Code(s): E03.9 - Hypothyroidism, unspecified Category: Medical Code(s): E03.9 - Hypothyroidism, unspecified (7) Seizure disorder: Status: Chronic Category: Medical Code(s): G40.909 - Epilepsy, unspecified, not intractable, without status epilepticus (8) Hypertension: Status: Acute Qualifiers: Hypertension type: primary hypertension Qualified Code(s): I10 - Essential (primary) hypertension Category: Medical Code(s): I10 - Essential (primary) hypertension (9) Chest pain: Status: Resolved Qualifiers: Chest pain type: unspecified Qualified Code(s): R07.9 - Chest pain, unspecified Category: Medical Code(s): R07.9 - Chest pain, unspecified (10) Altered mental status: Status: Acute Category: Medical Code(s): R41.82 - Altered mental status, unspecified (11) Anemia: Status: Resolved Category: Medical Code(s): D64.9 - Anemia, unspecified Plan Patient has improved since admission. OK to discharge today to SNF for short term rehab.
--- NOTE | 2023-11-09 08:58 | P.DS_ITS ---
General Admission date:: 11/06/23 Discharge date: 11/09/23 HPI HPI HPI: Ms. Katz is a 78 year old female patient of [facility] associates, who presented to [facility] ER today with complaints of chest pain, nausea and vomiting and altered mental status. Patient was seen in the office a few days ago and was diagnosed with a UTI. Urine PCR showed multiple organism, and she was prescribed Macrobid as treatment, which she started yesterday. She had one small episode of vomiting last night. Today she vomited a large amount 2 times. Emesis was noted to be dark. Patient had chest pain and altered mental status after vomiting. She has had 2 recent hospital admission. The first for a fall with chest wall contusion and the second, most recent, for chest pain and was found to have a pulmonary embolism. She is currently being treated with Eliquis. Hospital Course Hospital Course Hospital Course: Patient was admitted with sepsis due to failing outpatient treatment for a UTI. She was treated with Cefepime and improved slightly every day. She did have generalized weakness and trouble ambulating. This is her third hospital admission in the past month. The first was after a fall at home and the second was for a pulmonary embolism. For those reasons it was felt she sri benefit from rehab as she wants to return back home to live as soon as possible. Exam Data for Last 24 hours Vital signs and Labs for Last 24 Hours: Temp Pulse Resp BP Pulse Ox O2 Del Method O2 Flow Rate 98.3 F 74 22 140/88 92 L Room Air 2 11/09/23 08:00 11/09/23 08:00 11/09/23 08:00 11/09/23 08:00 11/09/23 08:00 11/09/23 08:48 11/08/23 06:37 I & O for Last 24 hours: Intake & Output 11/06/23 11/07/23 11/08/23 11/09/23 23:59 23:59 23:59 23:59 Intake Total 300 / 420 1121 / 1121 1939 700 / 700 Output Total 50 / 50 0 / 0 0 / 0 Balance 300 / 420 1071 / 1071 1939 / 0 700 / 700 Weight 182 lb 12.8 oz 182 lb 4.8 oz 186 lb 12.8 oz 186 lb 12.798 oz Microbiology Reports for the Last 24 Hours: Microbiology 11/06/23 12:07 Blood Blood Culture - Preliminary NO GROWTH AFTER 48 HOURS 11/06/23 11:33 Blood Blood Culture - Preliminary NO GROWTH AFTER 48 HOURS Narrative: Constitutional Constitutional: no acute distress Comments: Sitting up in the bed eating her breakfast. She assist with exam without d ifficulty *Routine HEENT Exam Head: Present normocephalic and atraumatic Eye: Present PERRL; Absent EOMI, conjunctival icterus, scleral injection or conjunctivae pink ENT: Present mucous membranes moist and oropharynx clear *Routine Neck Exam Neck: Absent carotid bruit (Distant carotids), lymphadenopathy or thyromegaly Routine Chest/Breast/Axilla Exam Chest wall: Absent tenderness *Routine Respiratory Exam Respiratory: Present CTA bilaterally (Anteriorly and posteriorly) *Routine Cardiovascular Exam Cardiovascular: Present RRR *Routine Abdominal Exam Abdominal: Present soft and normoactive bowel sounds; Absent tenderness or distended *Routine Rectal Exam Rectal:: deferred *Routine Genitalia Exam Genitalia:: deferred *Routine Extremities Exam Extremities: Present full ROM and pulses intact; Absent edema or calf tenderness *Routine Neurological Exam Neurological: Present alert, oriented X3, moving all extremities and normal speech; Absent altered mental status, nystagmus, facial asymmetry or tremors Constitutional Constitutional: no acute distress *Routine HEENT Exam Head: Present normocephalic Eye: Present EOMI and PERRL ENT: Present mucous membranes moist *Routine Neck Exam Neck: Present supple; Absent lymphadenopathy *Routine Respiratory Exam Respiratory: Present CTA bilaterally *Routine Cardiovascular Exam Cardiovascular: Present RRR *Routine Abdominal Exam Abdominal: Present soft and normoactive bowel sounds; Absent tenderness *Routine Extremities Exam Extremities: Absent cyanosis, clubbing or edema *Routine Skin Exam Skin: Present warm; Absent rash *Routine Neurological Exam Neurological: Present alert and oriented X3 Results Data Completed and Pending Labs on day of discharge: Preliminary micro results at discharge 11/06/23 12:07 Blood Culture - Preliminary Blood NO GROWTH AFTER 48 HOURS 11/06/23 11:33 Blood Culture - Preliminary Blood NO GROWTH AFTER 48 HOURS DS: Diagnosis Discharge Diagnosis (1) UTI (urinary tract infection): Status: Acute Code(s): N39.0 - Urinary tract infection, site not specified (2) N&V (nausea and vomiting): Status: Acute Code(s): R11.2 - Nausea with vomiting, unspecified (3) Sepsis: Status: Acute Code(s): A41.9 - Sepsis, unspecified organism (4) Pulmonary embolus, right: Status: Acute Code(s): I26.99 - Other pulmonary embolism without acute cor pulmonale (5) Hypoxia: Status: Acute Code(s): R09.02 - Hypoxemia (6) Hypothyroid: Status: Chronic Code(s): E03.9 - Hypothyroidism, unspecified Qualifiers: Hypothyroidism type: acquired Qualified Code(s): E03.9 - Hypothyroidism, unspecified (7) Seizure disorder: Status: Chronic Code(s): G40.909 - Epilepsy, unspecified, not intractable, without status epilepticus (8) Hypertension: Status: Acute Code(s): I10 - Essential (primary) hypertension Qualifiers: Hypertension type: primary hypertension Qualified Code(s): I10 - Essential (primary) hypertension (9) Chest pain: Status: Resolved Code(s): R07.9 - Chest pain, unspecified Qualifiers: Chest pain type: unspecified Qualified Code(s): R07.9 - Chest pain, unspecified (10) Altered mental status: Status: Acute Code(s): R41.82 - Altered mental status, unspecified (11) Anemia: Status: Resolved Code(s): D64.9 - Anemia, unspecified Meds Home Medications and Allergies Home Medications ?Medication ?Instructions ?Recorded ?Confirmed ?Type atorvastatin 40 mg tablet 40 mg PO HS 03/27/23 11/06/23 History clopidogrel 75 mg tablet 75 mg PO DAILY 03/27/23 11/06/23 History fluoxetine 10 mg capsule 10 mg PO DAILY 03/27/23 11/06/23 History levothyroxine 25 mcg tablet 25 mcg PO DAILYDM 03/27/23 11/06/23 History lisinopril 20 mg tablet 20 mg PO DAILY 03/27/23 11/06/23 History tiotropium 2.5 mcg-olodaterol 2.5 2 puff inhalation DAILY 03/27/23 11/06/23 History mcg/actuation mist for inhalation (Stiolto Respimat) apixaban 5 mg tablet (Eliquis) 5 mg PO BID #60 tabs 10/23/23 11/06/23 Rx levetiracetam 500 mg 1,000 mg (2 x 500 mg) PO DAILY 4 10/23/23 11/06/23 Rx tablet,extended release 24 hr weeks #56 tabs (Keppra XR) gabapentin 100 mg capsule 100 mg PO BID #60 caps 11/09/23 Rx New Prescriptions to Start Prescriptions: gabapentin Ever Jara Allergies Allergy/AdvReac Type Severity Reaction Status Date / Time Iodine and Iodide Containing Allergy Intermediate I-RASH Verified 11/06/23 12:34 Produc Penicillins Allergy Intermediate I-RASH Verified 11/06/23 12:34 codeine Allergy Mild HYPER Verified 11/06/23 12:34 Discharge Plan Disposition Patient Disposition: Xfer SNF Condition: Fair Discharge Order Discharge Orders: Discharge Order (Routine); Ordered 11/09/23 Ordered By: Ever Jara Follow up Plan Follow up with: Ever Jara MD [Primary Care Provider] - Enter time for follow up (After discharge from SNF) Prescriptions/Medication Reconciliation: Continued atorvastatin 40 mg tablet 40 mg PO HS lisinopril 20 mg tablet 20 mg PO DAILY clopidogrel 75 mg tablet 75 mg PO DAILY levothyroxine 25 mcg tablet 25 mcg PO DAILYDM fluoxetine 10 mg capsule 10 mg PO DAILY Stiolto Respimat 2.5-2.5 mcg/actuation mist 2 puff INHALATION DAILY gabapentin 100 mg capsule 100 mg PO BID Qty: 60 0RF Eliquis 5 mg tablet 5 mg PO BID Qty: 60 0RF levetiracetam [Keppra XR] 500 mg tablet extended release 24 hr 1,000 mg PO DAILY 28 Days Qty: 56 0RF Problem Reconciliation Problems Reviewed?: Yes Patient Discharge Instructions Patient Instructions: DI for Sepsis -- Adult, DI for Altered Mental Status, Urinary Tract Infection Print Language: Mexican Providers Primary Care Provider: Ever Jara Admit Provider: Ever Jara Attending Provider: Ever Jara
== END 2023-11-09 09:57 | DRG 872 ==
LOC: ER 15:39 → 2ND 15:44
PROVIDERS: Admitting Provider Family Medicine; Emergency Provider Emergency Medicine; PCP Family Medicine; Visit Provider Family Medicine
DX: A41.9 Sepsis, unspecified organism (principal); N39.0 Urinary tract infection, site not specified; R11.2 Nausea with vomiting, unspecified; R09.02 Hypoxemia; E03.9 Hypothyroidism, unspecified; G40.909 Epilepsy, unspecified, not intractable, without status epilepticus; R41.82 Altered mental status, unspecified; D64.9 Anemia, unspecified; I69.320 Aphasia following cerebral infarction; Z86.711 Personal history of pulmonary embolism; Z79.01 Long term (current) use of anticoagulants; I25.2 Old myocardial infarction; Z99.81 Dependence on supplemental oxygen
CPT/HCPCS: 36415; 70450; 71045; 71275; 74174; 80048; 80053; 81001; 82803; 83605; 84484; 85007; 85025; 85027; 85610; 87040; 93005; 93971; 94640; 97162; 97166; 99291; J1200; J2405; J7120; J7620; Q9967